=== PATIENT | female | born 1975 | race Caucasian/White ===

== ENCOUNTER 2025-02-23 14:47 | Inpatient (IN) | payer MEDICARE, MEDICAID, SELFPAY ==
[2025-02-23] VITALS (7 sets, daily range): BP systolic 116–131; BP diastolic 72–79; PULSE 64–70; RESP 16–20; TEMP 36.6; O2SAT 93–95; BMI 48.4
--- NOTE | ~2025-02-23 | CT_ITS ---
EXAMINATION: CTA brain carotid DATE: 02/23/2025 16:17 INDICATION: facial droop and aphasia, now resolved TECHNIQUE: Computed tomographic angiography (CTA) of the head and neck was performed with 100 mL Omni paque-350 intravenous contrast. Automated exposure control and iterative reconstruction technique wer e employed. The The dose-length product was 1040.78 mGy-cm. Maximum intensity projection and volume r endered 3D-reconstructions were created by the technologist on a separate workstation. COMPARISON: CT brain, same date. FINDINGS: CTA HEAD: No large vessel occlusion, aneurysm, high flow vascular malformation, nidus or extravasation. Hypopla stic right A1 segment, with reconstitution of more normal flow at the anterior communication artery, a normal variant. Persistent origin of the left CARPET LAYER HELPER, a normal variant. Patent cerebral veins. S ymmetric parenchymal enhancement. CTA NECK: Aortic arch and proximal great vessels: Bovine arch. Minimal atherosclerotic calcifications at the vi sualized aortic arch and proximal great vessels. Right common carotid, carotid bifurcation, and internal carotid artery: Minimal calcification at the bifurcation.There is 0% stenosis of the proximal right internal carotid artery relative to normal dis nazario artery lumen diameter (NASCET criteria). Left common carotid, carotid bifurcation, and internal carotid artery: No significant plaque.There is 0% stenosis of the proximal left internal carotid artery relative to normal distal artery lumen diam eter (NASCET criteria). Vertebral arteries: No significant plaque or stenosis. Vertebral arteries co-dominant. Other findings: Small volume pericardial fluid versus pericardial thickening. Prior cardiothoracic ortiz rgery. Dilated central pulmonary arteries as can be seen with pulmonary arterial hypertension. Reticu lar opacities and scattered groundglass opacities in the lungs. IMPRESSION: No large vessel intracranial occlusion, high-grade intracranial stenosis, or aneurysm. No carotid or vertebral artery occlusion, dissection, or significant stenosis. Small pericardial effusion versus pericardial thickening. Mild interstitial pulmonary edema, versus respiratory bronchiolitis or infection. Reviewed, dictated and finalized at location K. IMPRESSION: No large vessel intracranial occlusion, high-grade intracranial stenosis, or an eurysm. No carotid or vertebral artery occlusion, dissection, or significant stenosis. Small pericardial effusion versus pericardial thickening. Mild interstitial pulmonary edema, versus respiratory bronchiolitis or infectio n.
--- NOTE | ~2025-02-23 | MR_ITS ---
MRI of the brain Clinical History: CVA Technique: Axial and sagittal T1-weighted images were acquired. These were followed by axial T2-weigh pamela, diffusion weighted, gradient, and FLAIR images. Following intravenous administration of 20 cc Mu ltiHance gadolinium, T1-weighted fat-sat imaging was performed in the axial and coronal planes. Findings: No abnormal signal seen in the brain parenchyma. No acute infarct, intracranial hemorrhage or mass lesion. Ventricles and subarachnoid spaces are unremarkable. Orbits are unremarkable. Paranasal sinuses and m astoids are clear. Major intracranial flow voids appear intact. Sagittal midline structures are intact. No abnormal postcontrast enhancement identified. IMPRESSION: Normal exam. Reviewed, dictated and finalized at location M. IMPRESSION: Normal exam.
--- NOTE | ~2025-02-23 | XR_ITS ---
XR chest 1V portable 03/01/2025 08:38 Indication: Cough Procedure: AP portable chest Comparison: Comparison to multiple prior studies sequentially, with oldest reviewed study dated 10/06/2004. Findings: Cardiomegaly. Status post median sternotomy for CABG. No focal air space disease, pulmonary edema, pleural effusion or suspected pneumothorax. Impression: 1: No acute cardiopulmonary disease. Reviewed, dictated and finalized at location A. Impression: 1: No acute cardiopulmonary disease.
--- NOTE | ~2025-02-23 | CT_ITS ---
EXAMINATION: CT brain wo con DATE: 02/23/2025 15:02 INDICATION: neuro issues . TECHNIQUE: Computed tomography (CT) of the head was performed without intravenous contrast. The mA wa s adjusted according to patient size. Iterative reconstruction technique was employed. The dose-lengt h product was 605.33 mGy-cm. COMPARISON: None. FINDINGS: No acute intracranial hemorrhage or extra-axial fluid collection. No hydrocephalus, mass, or herniation. No acute ischemic infarct. Unremarkable dural venous sinus attenuation. No acute osseous abnormality. The aerated spaces are clear. Mild atrophy and chronic white matter change. Atherosclerotic intracranial calcification. Empty sella . IMPRESSION: No acute intracranial process. Results reported telephonically to Dr. Hernandez by Dr. Gregory at 3:08 PM on 02/23/2025. Reviewed, dictated and finalized at location K. IMPRESSION: No acute intracranial process. Results reported telephonically to Dr. Hernandez by Dr. Gregory at 3:08 PM on 025.
--- NOTE | ~2025-02-23 | XR_ITS ---
XR abdomen/kub 1V 03/01/2025 09:14 INDICATION: Nausea and vomiting TECHNIQUE: KUB COMPARISON: 03/08/2008 FINDINGS: Bowel gas pattern is normal. There is no evidence of free air, mass, organomegaly, ascites or obstruction. No abnormal calculi are seen. The bones appear intact. There are cholecystectomy c lips. IMPRESSION: 1: No acute abdominal abnormality identified. Reviewed, dictated and finalized at location A.
--- NOTE | ~2025-02-23 | XR_ITS ---
XR chest 1V portable 02/23/2025 15:23 Indication: Neurologic symptoms Procedure: AP portable chest Comparison: 11/10/2013 Findings: Status post median sternotomy for CABG. Cardiomegaly. Mild interstitial edema. No significa nt effusion or pneumothorax. No acute osseous abnormality. Impression: 1: Cardiomegaly with mild interstitial edema. Reviewed, dictated and finalized at location B. Impression: 1: Cardiomegaly with mild interstitial edema.
--- NOTE | 2025-02-23 14:54 | PC.NURSE ---
Pt. brought to triage by [facility]. LKW today at 1300. Pt. speech is slurred. Pt. arrival broadcasted to the stroke team and pt. immediately taken to the stroke stop.
--- OUTSIDE RECORDS SUMMARY | 2025-02-23 14:55 | XMS_ITS | Referral Summary ---
Author Organization [facility] Address [address] [place] [address] Care Team Providers Care Pedicab Driver Name Role Phone Howard Bourgeois MD Primary Care Provider Sean Olguin MD Unavailable Radha Sim MD Unavailable [phone] Rajwinder Carlos MD, Jackson Hinkle Unavailable [phone] Enrike Schrader MD Unavailable [phone] Guido Concepcion MD PhD Unavailable [phone] Encounters Date Type Department Care Team Description 02/18/2025 SHOP/CHAP Initial Eligibility Review [facility] OP CASE MANAGEMENT [address] [place] [id number] Trinity Cali, RAMONA 02/15/2025 12:14 PM CDT - 02/17/2025 6:11 PM CDT Hospital Encounter [facility] [address] [place] [id number] Dottie Triana MD Blustein, MD Stevenson Aguayo, MD Jah Rivas Timothy Robert, MD Qureshi, Adnan Mehboob, MD Chest pain, unspecified type (Primary Dx) Discharge Disposition: Discharge to home or self care 01/12/2025 Orders Only [facility] [address] [facility] [place] [address] Guido Concepcion MD PhD Malignant neoplasm of lower lobe, left bronchus or lung (HCC) (Primary Dx) 01/12/2025 Orders Only [facility] Radiation Oncology [address] [place] [address] Guido Concepcion MD PhD 12/27/2024 [facility] [address] [facility] [address] [place] [address] [facility] 12/24/2024 Completion of Therapy [facility] [address] [place] [address] Rima Rowe NP 12/24/2024 Completion of Therapy [facility] Rad[facility] Oncology [address] [place] [address] Guido Concepcion MD PhD 12/24/2024 Orders Only RAD ONC TREATMENTS Miscellaneous, Not In File 12/24/2024 12:34 PM CDT - 12/24/2024 11:59 PM CDT Hospital Encounter [facility] [address] [place] [address] Guido Concepcion MD PhD Discharge Disposition: Discharge to home or self care 12/23/2024 [facility] [address] [place] [address] Milagro Mayes MD 12/23/2024 Orders Only RAD ONC TREATMENTS Miscellaneous, Not In File 12/23/2024 12:27 PM CDT - 12/23/2024 11:59 PM CDT Hospital Encounter [facility] [address] [place] [address] Guido Concepcion MD PhD Discharge Disposition: Discharge to home or self care 12/22/2024 Orders Only RAD ONC TREATMENTS Miscellaneous, Not In File 12/22/2024 1:04 PM CDT - 12/22/2024 11:59 PM CDT Hospital Encounter [facility] [address] [facility] [place] [address] Guido Concepcion MD PhD Discharge Disposition: Discharge to home or self care 12/21/2024 Orders Only RAD ONC TREATMENTS Miscellaneous, Not In File 12/21/2024 10:52 AM CDT - 12/21/2024 11:59 PM CDT Hospital Encounter [facility] [address] [facility] [place] [address] Guido Concepcion MD PhD Discharge Disposition: Discharge to home or self care 12/20/2024 Orders Only RAD ONC TREATMENTS Miscellaneous, Not In File 12/20/2024 11:54 AM CDT - 12/20/2024 11:59 PM CDT Hospital Encounter [facility] [address] [facility] [place] [address] Guido Concepcion MD PhD Discharge Disposition: Discharge to home or self care 12/13/2024 Telephone [facility] [address] [facility] [place] [address] Katarina Buchanan RN 12/08/2024 Telephone [facility] [address] [facility] [place] [address] Katarina Buchanan RN 12/07/2024 8:00 AM CDT Ancillary Procedure [facility] IP [address] [facility] [address] [place] [address] 12/07/2024 5:25 AM CDT - 12/07/2024 4:30 PM CDT Emergency [facility] Emergency Department [address] [place] [address] Mirta Gonzalez MD Shortness of breath (Primary Dx); Chest pain on breathing; Acute on chronic congestive heart failure, unspecified heart failure type (HCC); Pericarditis Discharge Disposition: Discharge to home or self care 12/02/[address] [facility] [address] [place] [address] Katarina Buchanan RN 11/30/2024 10:20 PM CDT - 11/30/2024 11:59 PM CDT Hospital Encounter [facility] Radiation Oncology [address] [place] [address] Guido Concepcion MD PhD Discharge Disposition: Discharge to home or self care 11/30/2024 Telephone [facility] Radiation On[facility] [address] [place] [address] Katarina Buchanan RN 11/25/2024 2:10 PM CDT - 11/25/2024 11:59 PM CDT Hospital Encounter [facility] Radiation Oncology [address] [place] [address] Guido Concepcion MD PhD Discharge Disposition: Discharge to home or self care from Last 3 Months Allergies Active Allergy Reactions Criticality Noted Date Comments Penicillins Hives,Rash,Swelling, Othe r (See comments) Medium 09/18/2017 Swelling and rash; tolerates amoxicillin, Medications venlafaxine XR (EFFEXOR-XR) 75 mg 24 hr capsule Take 1 capsule (75 mg total) by mouth daily with breakfast 30 capsule Active multivit ayciibrb-nvzu-PC-c alcium (THERA-M) 9 mg iron-400 mcg tablet Take 1 tablet by mouth daily Active albuterol sulfate 90 mcg/actuation aerosol powdr breath activated Inhale 180 mcg every 4 (four) hours Active acetaminophen (TYLENOL) 500 mg tablet Take 1-2 tablets (500-1,000 mg total) by mouth every 6 (six) hours as needed for pain (1 tablet for mild to moderate pain. 2 tablets for severe pain) 30 tablet Active metFORMIN XR (GLUCOPHAGE XR) 500 mg 24 hr tablet Take 2 tablets (1,000 mg total) by mouth 2 (two) times a day Active oxybutynin (DITROPAN) 5 mg tablet Take 1 tablet (5 mg total) by mouth 2 (two) times a day Active aspirin 81 mg enteric coated tablet aspirin 81 mg tablet,delayed release Active glucagon (glucagon) 1 mg kit Glucagon Emergency Kit 1 mg solution for injection Active Accu-Chek Guide test strips strip USE TO CHECK BLOOD SUGAR TWICE DAILY Active Symbicort 80-4.5 mcg/actuation inhaler Active buPROPion SR (ZYBAN) 150 mg 12 hr tablet Take 1 tablet (150 mg total) by mouth 2 (two) times a day Active azaTHIOprine (IMURAN) 50 mg tablet Take 2 tablets by mouth once daily 60 tablet 2 Active spironolactone (ALDACTONE) 25 mg tablet Take 1 tablet (25 mg total) by mouth daily 30 tablet Active lisinopriL (PRINIVIL,ZESTRIL) 10 mg tablet Take 1 tablet (10 mg total) by mouth daily 30 tablet Active amoxicillin (AMOXIL) 500 mg tablet/capsule Take 1 tablet/capsule (500 mg total) by mouth every 8 (eight) hours 270 tablet/cap maggie 3 2024 Active nystatin (Nystop) powder Apply topically 3 (three) times a day as needed (yeast infection to groin) 60 g 11 Active naloxone (NARCAN) 4 mg/actuation spray,non-aerosol CALL 911. ADMINISTER A SINGLE SPRAY INTRANASALLY INTO ONE NOSTRIL UPON SIGNS OF OPIOID OVERDOSE. MAY REPEAT AFTER 3 MINUTES IF NO RESPONSE. Active OneTouch Delica Plus Lancet 33 gauge misc USE DIRECTED TWICE DAILY *PATIENT NEEDS APPOINTMENT* Active Ozempic 1 mg/dose (4 mg/3 mL) pen injector injection Inject 1 mg under the skin once a week Active atorvastatin (LIPITOR) 40 mg tablet Take 1 tablet (40 mg total) by mouth daily 30 tablet Active Jardiance 25 mg tablet Take 1 tablet (25 mg total) by mouth daily Active ibuprofen (ADVIL,MOTRIN) 600 mg tablet Take 1 tablet (600 mg total) by mouth 3 (three) times a day Take 1 tablet 3 times a day for 1 week, then 1 tablet 2 times a day for 1 week. 35 tablet Active belimumab (BENLYSTA) auto-injector Inject 1 mL (200 mg total) under the skin every 7 days 12 mL 1 Active traMADoL (ULTRAM) 50 mg tablet Take 1 tablet (50 mg total) by mouth every 6 (six) hours as needed for pain 120 tablet Active hydroxychloroquine (PLAQUENIL) 200 mg tablet TAKE TWO (2) TABLETS BY MOUTH ONCE DAILY 60 tablet Active warfarin (COUMADIN) 1 mg tablet Please take 7 mg daily on Friday, Friday, Friday, Friday (every other day). Please take your 6mg prescription daily every other day. 90 tablet Active warfarin (COUMADIN) 6 mg tablet Please take 7 mg daily on Friday, Friday, Friday, Friday (every other day). Please take your 6mg prescription daily every other day (Friday, , Friday). 30 tablet Active torsemide (DEMADEX) 20 mg tablet Please take 40 mg every morning. Take an additional 20 mg in the evening (max 60 mg per day) if needed. 90 tablet Active enoxaparin (LOVENOX) 120 mg/0.8 mL syringeIndications :Mechanical Valve Thromboembolism Prophylaxis Inject 0.8 mL (120 mg total) under the skin every 12 (twelve) hours 48 mL 025 2024 Active metoprolol tartrate (LOPRESSOR) 25 mg immediate release tablet Take 1 tablet (25 mg total) by mouth 2 (two) times a day 60 tablet 025 2024 Active hydroxychloroquine (PLAQUENIL) 200 mg tablet TAKE 2 TABLETS BY MOUTH ONCE DAILY 60 tablet 5 025 2024 Discontinued torsemide (DEMADEX) 20 mg tablet Take 1 tablet (20 mg total) by mouth daily 30 tablet 025 2024 Discontinued predniSONE (DELTASONE) 5 mg tablet Take 4 tabs for 5 days, 3 tabs for 5 day, 2 tabs for 5 days, 1 tab for 5 days and stop. 50 tablet 025 2024 Discontinued(S top Taking at Discharge) metoprolol tartrate (LOPRESSOR) 50 mg immediate release tablet Take 1 tablet (50 mg total) by mouth 2 (two) times a day 025 2024 Discontinued traMADoL (ULTRAM) 50 mg tablet Take 1 tablet (50 mg total) by mouth every 6 (six) hours as needed for pain 120 tablet 025 2024 Discontinued(R eorder) warfarin (COUMADIN) 6 mg tablet Take 1 tablet (6 mg total) by mouth daily 2024 Discontinued metoprolol tartrate (LOPRESSOR) 50 mg immediate release tablet Take 0.5 tablets (25 mg total) by mouth 2 (two) times a day 30 tablet 025 2024 Discontinued metoprolol tartrate (LOPRESSOR) 50 mg immediate release tablet Take 0.5 tablets (25 mg total) by mouth 2 (two) times a day 025 2024 Discontinued Active Problems Problem Noted Date Diagnosed Date COPD (chronic obstructive pulmonary disease) 03/2025 Assessment & Plan (02/17/2025 5:00 PM CDT): Resumjuan Symbicort (Breo Ellipta while in the hospital). Assessment & Plan (02/16/2025 3:52 PM CDT): Resume Symbicort(Breo Ellipta while in the hospital) Assessment & Plan (02/15/2025 5:38 PM CDT): Resume Symbicort(Breo Ellipta while in the hospital) CHF (congestive heart failure) 02/15/2025 Assessment & Plan (02/17/2025 5:00 PM CDT): Medical history of HFpEF, HTN, HLS, SLE, antiphospholipid syndrome, DM, mitral regurgitation status post valve replacement, mitral valve endocarditis on chronic antibiotic prophylaxis, IVIS on CPAP presenting to the hospital for chest pain worse with exertion, OTOOLE, SOB, 5 lb weight gain in 3 days. She thinks her symptoms are slightly similar to her previous heart failure presentations but her chest pain appears to be worse. The pain gets worse with deep breaths and with exertion. No recent stress test or left heart catheterization. Upon review of chart, she presented with similar symptoms in August and November 2024 where her symptoms improved after diuresis. Echocardiogram on 08/12/2024 showed mechanical [place] MVR, LVEF 78%, mildly dilated LV and LA, moderate TR. JAXSON score 3 with intermediate risk. Unclear if her presentation is due to heart failure exacerbation since her BNP is not elevated although obesity might interfere with interpretation, no swelling in bilateral lower extremities, no pulmonary edema on x-ray. - Troponin x2 unrevealing, pro BNP 162. Continue to trend troponin. - EKG unavailable for review. Repeat EKG non ischemic. - Resume home aspirin, statin, beta hardeep, lisinopril, torsemide, spironolactone. - Decrease metop to 25 on discharge - NM stress test negative for ischemia with normal left ventricular systolic function and no appreciable coronary calcifications. - Chest pain possibly MSK vs stable angina in setting of other chronic comorbidities. - Patient reports chest heaviness in setting of volume overload. IMPROVED with IV lasix x 2 and lidocaine patch. - INR subtherapeutic, also consideration for possible PE vs cardiac thrombus, however thrombus shouldn't produce chest pain. Assessment & Plan (02/16/2025 3:52 PM CDT): Medical history of HFpEF, HTN, HLS, SLE, antiphospholipid syndrome, DM, mitral regurgitation status post valve replacement, mitral valve endocarditis on chronic antibiotic prophylaxis, IVIS on CPAP presenting to the hospital for chest pain worse with exertion, OTOOLE, SOB, 5 lb weight gain in 3 days. She thinks her symptoms are slightly similar to her previous heart failure presentations but her chest pain appears to be worse. The pain gets worse with deep breaths and with exertion. No recent stress test or left heart catheterization. Upon review of chart, she presented with similar symptoms in August and November 2024 where her symptoms improved after diuresis. Echocardiogram on 08/12/2024 showed mechanical [place] MVR, LVEF 78%, mildly dilated LV and LA, moderate TR. JAXSON score 3 with intermediate risk. Unclear if her presentation is due to heart failure exacerbation since her BNP is not elevated although obesity might interfere with interpretation, no swelling in bilateral lower extremities, no pulmonary edema on x-ray. - troponin x2 unrevealing, pro BNP 162. Continue to trend troponin - EKG unavailable for review. Repeat EKG non ischemic - Resume home aspirin, statin, beta hardeep, lisinopril, torsemide, spironolactone - NM stress test negative for ischemia. with normal left ventricular systolic function and no appreciable coronary calcifications. - Chest pain possibly MSK vs stable angina in setting of other chronic comorbidities. - Patient reports chest heaviness in setting of volume overload. Will also trial IV lasix x 1 and lidocaine patch. - INR subtherapeutic, also consideration for possible PE vs cardiac thrombus, however thrombus shouldn't produce chest pain. - Continue to monitor and reassess if chest pain improved with diuresis, if not can consider Chest CT to r/o PE. Assessment & Plan (02/15/2025 5:38 PM CDT): Medical history of HFpEF, HTN, HLS, SLE, antiphospholipid syndrome, DM, mitral regurgitation status post valve replacement, mitral valve endocarditis on chronic antibiotic prophylaxis, IVIS on CPAP presenting to the hospital for chest pain worse with exertion, OTOOLE, SOB, 5 lb weight gain in 3 days. She thinks her symptoms are slightly similar to her previous heart failure presentations but her chest pain appears to be worse. The pain gets worse with deep breaths and with exertion. No recent stress test or left heart catheterization. Upon review of chart, she presented with similar symptoms in August and November 2024 where her symptoms improved after diuresis. Echocardiogram on 08/12/2024 showed mechanical [place] MVR, LVEF 78%, mildly dilated LV and LA, moderate TR. JAXSON score 3 with intermediate risk. Unclear if her presentation is due to heart failure exacerbation since her BNP is not elevated although obesity might interfere with interpretation, no swelling in bilateral lower extremities, no pulmonary edema on x-ray. troponin x2 unrevealing, pro BNP 162. Continue to trend troponin EKG unavailable for review. We will repeat EKG Resume home aspirin, statin, beta hardeep, lisinopril, torsemide, spironolactone Due to multiple risk factors, and no recent stress test or left heart catheterization, patient will benefit from stress test, she says that she does not think she can run on treadmill, we will order nuclear stress test Malignant neoplasm of lower lobe, left bronchus or lung 11/23/2024 Cancer Staging:Clinical stage from 11/23/2024:Stage IA2(cT1b, cN0, cM0) - Signed by Guido Concepcion MD PhD on 11/23/2024 Acute hypoxic respiratory failure 01/07/2024 Assessment & Plan (01/07/2024 11:25 AM CDT): Dyspnea Chest discomfort presumably from from costochondritis, pain is reproducible chest CT remarkable for moderate pulmonary edema, would consider TTE, proBNP normal at 140. Patient received 80 mg of IV Lasix in the ED, currently at Lasix 40 mg p.o. b.i.d. Cardiology consult based on TTE. Last TTE 08/30/19: LV size is normal. LVEF 62%. Wall motion is normal. RV size and function are normal. Mechanical MVR: mean 5mmHg. Estimated PASP 25mmHg+RAp/ Small IVC. Continue Lasix, monitor intake output, daily weights Monitor vitals Leg pain 01/07/2024 Assessment & Plan (01/07/2024 11:25 AM CDT): Ordered LE duplex for leg pain- 3 days, pt missed warfarin for the past few days ( recently and she's having difficulty coping up). Chest pain, unspecified type 01/06/2024 Ventral incisional hernia 09/01/2020 Acute cystitis without hematuria 07/16/2020 Assessment & Plan (07/17/2020 7:29 AM VIDEO ARCADE MANAGER): Pt reported suprapubic discomfort during hospital stay. UA w/ positive nitrites, neg LE, 6-10 WBCs. Plan: - Ciprofloxacin IV 07/15 x1, transition to oral therapy for total 3d course (12/5pm-12/8am) Coagulopathy 07/15/2020 Assessment & Plan (07/19/2020 6:28 AM VIDEO ARCADE MANAGER): Pt w/ h/o chronic warfarin use (goal INR 2.5-3.5, on 7mg every day x1+yr) s/p mechanical MVR. P/w INR 7s from prior INR 2s. No recent med changes. States she has been eating more green vegetables than she should. Unclear etiology of supratherapeutic INR. Plan: - INR 2.0 this am, trend qd - Warfarin 5mg restarted last night. Bridging initially w/ heparin gtt and switched to Lovenox bid yesterday. Hgb stable. Plan to increase back to warfarin 7, INR goal 2.5-3.5, INR checks and outpt f/u Assessment & Plan (07/15/2020 2:19 AM VIDEO ARCADE MANAGER): See #MVR Anxiety 07/15/2020 Assessment & Plan (02/17/2025 5:00 PM CDT): Resume home Wellbutrin and venlafaxine. Assessment & Plan (02/16/2025 3:52 PM CDT): Resume home Wellbutrin and venlafaxine Assessment & Plan (02/15/2025 5:38 PM CDT): Resume home Wellbutrin and venlafaxine Assessment & Plan (07/16/2020 11:53 AM VIDEO ARCADE MANAGER): H/o anxiety and chronic pain (reported h/o fibromyalgia per pt). On home Effexor Plan: - Continue home venlafaxine 75mg every day Assessment & Plan (07/15/2020 10:49 AM VIDEO ARCADE MANAGER): Mood stable -Cont venlafaxine Omental infarction 07/15/2020 Assessment & Plan (07/18/2020 8:27 AM VIDEO ARCADE MANAGER): Asymptomatic. CT A/P w/ ventral abdominal hernia containing omental fat w/ slight increase in stranding. [place] possibly community health program representative of omental infarct. Occurring in s/o acute blood loss anemia. Lactate 1.1, abdominal exam benign. Tolerating food/fluid well Plan: - CTM - Transfuse as above Assessment & Plan (07/16/2020 9:18 AM VIDEO ARCADE MANAGER): CT A/P: ventral abdominal hernia containing omental fat, with slight interval increase in stranding in the omental tissues likely secondary to a focus of omental infarction. -Likely occurred in the setting of dehydration and anemia -LA 1.1; Abdominal exam benign. RBCs transfused as above Melena 07/14/2020 Overview (07/16/2020): Added automatically from request for surgery [id number] Assessment & Plan (07/17/2020 7:30 AM VIDEO ARCADE MANAGER): See acute blood loss anemia Intertrigo 02/20/2020 Assessment & Plan (02/20/2020 5:45 PM CDT): - Prescription sent for nystatin powder - Educated patient to make sure she drys skin folds well after showers. Discussed risk of secondary infections, such as cellulitis. - She is also using InterDry as needed Groin swelling 10/26/2019 Assessment & Plan (02/20/2020 5:43 PM CDT): - Large, well-encapsulated mass to left groin without signs of infection. Patient instructed to contact general surgery clinic (previously seen by Dr. Jensen). Referral also placed for general surgery. Discussed red flag symptoms of infection and went to seek emergent care. Assessment & Plan (10/26/2019 4:57 PM CDT): - Low concern for infection, more likely seroma or hematoma. Would not recommend antibiotic therapy at this time. She will follow up with surgery in 4 weeks for reassessment. - Ok from ID perspective to start immunosuppression for lupus. Discussed with patient that immunosuppression medications will increase her risk for infection - Instructed to call ID with any worsening swelling, pain, erythema, wounds, etc Fluid collection at surgical site 10/19/2019 Shortness of breath 08/29/2019 Assessment & Plan (07/18/2020 8:26 AM VIDEO ARCADE MANAGER): Resolved. Pt w/ h/o COPD (on albuterol, Incruse and Breo Elipta), IVIS (on home CPAP qhs). P/w 2d SOB, PRABHAKAR, orthopnea, cough, fever (Tmax 101.2 at home), congestion, decreased smell, vomiting. CXR clear. RVP positive for Rhino-/enterovirus, negative for COVID-19 x2. Briefly on 2L O2 at admit, but weaned off. Low suspicion for COPD exacerbation, likely symptomatic anemia complicating URI. Plan: - Continue home albuterol prn, Incruse/Breo Ellipta - Continue home CPAP qhs Assessment & Plan (07/16/2020 9:15 AM VIDEO ARCADE MANAGER): P/w 2 days of SOB, malaise, fever 101.2 (reported at home, afebrile here), headache, cough, vomiting, and sore throat. Likely anemia is contributing to SOB (see above) -CXR without pneumonia; CT A/P showing sequela of infectious/inflammatory bronchiolitis. -RVP with Rhinovirus; covid negative x2. Likely has worse infection than typical in the setting of immunocompromise (SLE on hydroxychloroquine). -Strict I&Os, telemetry -Last TTE with EF 62% and normal diastolic function. ProBNP 276. Hold lasix for now Assessment & Plan (09/03/2019 12:21 PM VIDEO ARCADE MANAGER): Suspect due to deconditioning plus morbid obesity with minor contribution from ground-glass opacities. Would pursue HRCT chest to further evaluation GGO if hypoxemia worsens (though no exertional hypoxemia was noted on informal 6MW during hospital stay). Assessment & Plan (08/30/2019 3:03 PM VIDEO ARCADE MANAGER): Unclear etiology of shortness of breath with activity. Differential includes arrhythmia, viral, cardiac, progression of inflammatory/infectious/neoplastic process noted on CT --RVP- negative --Monitor on tele --trops negative x2 Assessment & Plan (08/29/2019 12:28 PM VIDEO ARCADE MANAGER): Unclear etiology of shortness of breath with activity. Differential includes arrhythmia, viral, cardiac, progression of inflammatory/infectious/neoplastic process noted on CT --Check RVP --Monitor on tele --Follow trops --Other H/O heart valve replacement with mechanical valv e 08/28/2019 Assessment & Plan (02/17/2025 5:00 PM CDT): H/o mitral regurgitation status post valve replacement, mitral valve endocarditis on chronic antibiotic prophylaxis. Echocardiogram on 08/12/2024 showed mechanical [place] MVR, LVEF 78%, mildly dilated LV and LA, moderate TR. 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 Resume home Augmentin and warfarin (goal INR 2.5-3.5) Assessment & Plan (09/03/2019 12:38 PM VIDEO ARCADE MANAGER): Will resume prior warfarin dosing at discharge. Needs bridging with enoxaparin until warfarin therapeutic (goal INR 2.5-3.5). Instructed to undergo repeat INR 5 days after warfarin resumption. Plan to provide prescription for enoxaparin for 7 days with refill in case not therapeutic by then. Assessment & Plan (08/30/2019 3:36 PM VIDEO ARCADE MANAGER): Patient with mechanical mitral valve on home anticoagulation with VKA with goal INR 2.5-3.5. Patient previously missing more frequent doses but reminds her and reports taking regularly. Does note that she was vomiting Friday and Friday and unsure if the medication stayed down (though she didn't notice any pills) INR on admit 1.2. Reports INR was low last month. She has difficulty obtaining INR checks outpatient 2/2 transportation issues (goes to Dr. Leo, cardiology, [place], [place]). Patient here with pleuritic chest pain and dyspnea with exertion. Heparin drip supratherapeutic. Considering intervention--bronch vs lymph node biopsy given CT findings --TTE- no evidence of valve thrombosis or other complication - Change Heparin to Lovenox (0.75mg q12, dosing discussed with pharmacy, dosed for weight). Need a Factor Xa level 4 hours after 4th dose (tomorrow morning dose) --Holding Warfarin (Received 6mg the rest of the week, 11mg 08/28). She reports Coumadin dose was increased last month from 5mg. --Follow INR, Repeat PTT in AM Assessment & Plan (08/29/2019 12:43 PM VIDEO ARCADE MANAGER): Patient with mechanical mitral valve on home anticoagulation with VKA with goal INR 2.5-3.5. Patient previously missing more frequent doses but reminds her and reports taking regularly. Does note that she was vomiting Friday and Friday and unsure if the medication stayed down (though she didn't notice any pills) INR on admit 1.2. Reports INR was low last month. She has difficulty obtaining INR checks outpatient 2/2 transportation issues (goes to Dr. Leo, cardiology, [place], [place]). Patient here with pleuritic chest pain and dyspnea with exertion. Heparin drip supratherapeutic. Considering intervention--bronch vs lymph node biopsy given CT findings --TTE to rule out valve thrombosis or other complication in setting of subtherapeutic INR. - Change Heparin to Lovenox (0.75mg q12, dosing discussed with pharmacy, dosed for weight). Need a Factor Xa level 4 hours after 4th dose. --Holding Warfarin (Received 6mg the rest of the week, 11mg yesterday). She reports Coumadin dose was increased last month from 5mg. --Follow INR, Repeat PTT in AM Assessment & Plan (08/28/2019 7:43 PM VIDEO ARCADE MANAGER): - Patient with mechanical mitral valve on home anticoagulation with VKA with goal INR 2.5-3.5 - Patient noncompliant with home warfarin and misses 1-2 doses weekly; INR on admit 1.2 - Patient here with pleuritic chest pain and dyspnea with exertion. Will need to obtain TTE to rule out valve thrombosis or other complication in setting of subtherapeutic INR. - Continue heparin drip as bridge to warfarin. - Patient reports having taken 5 mg warfarin for the past several days, though unreliable historian. Warfarin dosing obtained through [email or web address] and will administer 11 mg tonight followed by 7 mg daily. Chest pain 08/28/2019 Assessment & Plan (02/17/2025 5:00 PM CDT): Medical history of HFpEF, HTN, HLS, SLE, antiphospholipid syndrome, DM, mitral regurgitation status post valve replacement, mitral valve endocarditis on chronic antibiotic prophylaxis, IVIS on CPAP presenting to the hospital for chest pain worse with exertion, OTOOLE, SOB, 5 lb weight gain in 3 days. She thinks her symptoms are slightly similar to her previous heart failure presentations but her chest pain appears to be worse. The pain gets worse with deep breaths and with exertion. No recent stress test or left heart catheterization. Upon review of chart, she presented with similar symptoms in August and November 2024 where her symptoms improved after diuresis. Echocardiogram on 08/12/2024 showed mechanical [place] MVR, LVEF 78%, mildly dilated LV and LA, moderate TR. JAXSON score 3 with intermediate risk. Unclear if her presentation is due to heart failure exacerbation since her BNP is not elevated although obesity might interfere with interpretation, no swelling in bilateral lower extremities, no pulmonary edema on x-ray. - Troponin x2 unrevealing, pro BNP 162. Continue to trend troponin. - EKG unavailable for review. Repeat EKG non ischemic. - Resume home aspirin, statin, beta hardeep, lisinopril, torsemide, spironolactone. - Decrease metop to 25 on discharge - NM stress test negative for ischemia with normal left ventricular systolic function and no appreciable coronary calcifications. - Chest pain possibly MSK vs stable angina in setting of other chronic comorbidities. - Patient reports chest heaviness in setting of volume overload. IMPROVED with IV lasix x 2 and lidocaine patch. - INR subtherapeutic, also consideration for possible PE vs cardiac thrombus, however thrombus shouldn't produce chest pain. Assessment & Plan (02/16/2025 3:52 PM CDT): Medical history of HFpEF, HTN, HLS, SLE, antiphospholipid syndrome, DM, mitral regurgitation status post valve replacement, mitral valve endocarditis on chronic antibiotic prophylaxis, IVIS on CPAP presenting to the hospital for chest pain worse with exertion, OTOOLE, SOB, 5 lb weight gain in 3 days. She thinks her symptoms are slightly similar to her previous heart failure presentations but her chest pain appears to be worse. The pain gets worse with deep breaths and with exertion. No recent stress test or left heart catheterization. Upon review of chart, she presented with similar symptoms in August and November 2024 where her symptoms improved after diuresis. Echocardiogram on 08/12/2024 showed mechanical [place] MVR, LVEF 78%, mildly dilated LV and LA, moderate TR. JAXSON score 3 with intermediate risk. Unclear if her presentation is due to heart failure exacerbation since her BNP is not elevated although obesity might interfere with interpretation, no swelling in bilateral lower extremities, no pulmonary edema on x-ray. - troponin x2 unrevealing, pro BNP 162. Continue to trend troponin - EKG unavailable for review. Repeat EKG non ischemic - Resume home aspirin, statin, beta hardeep, lisinopril, torsemide, spironolactone - NM stress test negative for ischemia. with normal left ventricular systolic function and no appreciable coronary calcifications. - Chest pain possibly MSK vs stable angina in setting of other chronic comorbidities. - Patient reports chest heaviness in setting of volume overload. Will also trial IV lasix x 1 and lidocaine patch. - INR subtherapeutic, also consideration for possible PE vs cardiac thrombus, however thrombus shouldn't produce chest pain. - Continue to monitor and reassess if chest pain improved with diuresis, if not can consider Chest CT to r/o PE. Assessment & Plan (02/15/2025 5:38 PM CDT): Medical history of HFpEF, HTN, HLS, SLE, antiphospholipid syndrome, DM, mitral regurgitation status post valve replacement, mitral valve endocarditis on chronic antibiotic prophylaxis, IVIS on CPAP presenting to the hospital for chest pain worse with exertion, OTOOLE, SOB, 5 lb weight gain in 3 days. She thinks her symptoms are slightly similar to her previous heart failure presentations but her chest pain appears to be worse. The pain gets worse with deep breaths and with exertion. No recent stress test or left heart catheterization. Upon review of chart, she presented with similar symptoms in August and November 2024 where her symptoms improved after diuresis. Echocardiogram on 08/12/2024 showed mechanical [place] MVR, LVEF 78%, mildly dilated LV and LA, moderate TR. JAXSON score 3 with intermediate risk. Unclear if her presentation is due to heart failure exacerbation since her BNP is not elevated although obesity might interfere with interpretation, no swelling in bilateral lower extremities, no pulmonary edema on x-ray. troponin x2 unrevealing, pro BNP 162. Continue to trend troponin EKG unavailable for review. We will repeat EKG Resume home aspirin, statin, beta hardeep, lisinopril, torsemide, spironolactone Due to multiple risk factors, and no recent stress test or left heart catheterization, patient will benefit from stress test, she says that she does not think she can run on treadmill, we will order nuclear stress test Assessment & Plan (09/03/2019 12:39 PM VIDEO ARCADE MANAGER): Atypical; reproducible on palpation. Reassured likely musculoskeletal. Analgesics. Assessment & Plan (08/30/2019 2:56 PM VIDEO ARCADE MANAGER): Patient with complaint of atypical chest pain, less likely ACS. EKG without new ischemic changes. Troponin negative x1. No events on tele. Patient denies pain this morning - trop negative x2 - continue to on tele --Topical lidocaine, scheduled tylenol Assessment & Plan (08/29/2019 12:38 PM VIDEO ARCADE MANAGER): Patient with complaint of atypical chest pain, less likely ACS. EKG without new ischemic changes. Troponin negative x1. No events on tele - Repeat troponin - Monitor on tele --Topical lidocaine, scheduled tylenol Assessment & Plan (08/28/2019 7:47 PM VIDEO ARCADE MANAGER): - Patient with complaint of atypical chest pain, less likely ACS - Troponin negative x 1 - EKG without new ischemic changes - Trend troponins and monitor on telemetry IVIS (obstructive sleep apnea) 08/28/2019 Assessment & Plan (02/17/2025 5:00 PM CDT): CPAP per protocol. Assessment & Plan (02/16/2025 3:52 PM CDT): CPAP per protocol Assessment & Plan (02/15/2025 5:38 PM CDT): CPAP per protocol Assessment & Plan (07/16/2020 11:51 AM VIDEO ARCADE MANAGER): H/o IVIS and obesity (BMI 56.64). On home CPAP. Plan: - Continue home CPAP Assessment & Plan (07/15/2020 10:49 AM VIDEO ARCADE MANAGER): Cont CPAP Assessment & Plan (09/03/2019 12:21 PM VIDEO ARCADE MANAGER): Continue home nocturnal NPPV. Assessment & Plan (08/30/2019 3:03 PM VIDEO ARCADE MANAGER): Continue home nocturnal NPPV Assessment & Plan (08/29/2019 12:20 PM VIDEO ARCADE MANAGER): Continue home nocturnal NPPV Assessment & Plan (08/28/2019 7:45 PM VIDEO ARCADE MANAGER): - Continue home nocturnal NPPV Abnormal CT scan 08/28/2019 Assessment & Plan (08/28/2020 5:38 PM VIDEO ARCADE MANAGER): - Will refer to general surgery due to intermittent abdominal pain in the setting of ventral hernia and findings of omental infarction on recent imaging. - Discussed warning signs with patient (severe abdominal pain, fevers, changes in bowel habits, blood in stool, etc) and when to seek care Assessment & Plan (09/01/2019 2:25 PM VIDEO ARCADE MANAGER): Patient with abnormal CT scan with findings of bilateral upper lobe predominant groundglass opacities unchanged since 2013 read as consistent with sequela of prior chronic inflammatory or infectious process or indolent low-grade pulmonary adenocarcinoma. Patient also with mild bilateral axillary and subpectoral lymphadenopathy increased in size from 2016. Concerning for new neoplastic process vs infectious --Plan for excisional lymph node biopsy on Friday with ACCS -Pt can go home after LN biopsy on Friday provided no complications and provided her outpatient golf cart assembler can follow up biopsy results with her Assessment & Plan (08/30/2019 3:13 PM VIDEO ARCADE MANAGER): Patient with abnormal CT scan with findings of bilateral upper lobe predominant groundglass opacities unchanged since 2013 read as consistent with sequela of prior chronic inflammatory or infectious process or indolent low-grade pulmonary adenocarcinoma. Patient also with mild bilateral axillary and subpectoral lymphadenopathy increased in size from 2016. Concerning for new neoplastic process vs infectious --Spoke with interventional pulmonary- recommended to start with US guided lymph node biopsy, if unable to preform or results are negative then contact general pulm for trans bronchial biopsy Assessment & Plan (08/29/2019 11:29 AM VIDEO ARCADE MANAGER): Patient with abnormal CT scan with findings of bilateral upper lobe predominant groundglass opacities unchanged since 2013 read as consistent with sequela of prior chronic inflammatory or infectious process or indolent low-grade pulmonary adenocarcinoma. Patient also with mild bilateral axillary and subpectoral lymphadenopathy increased in size from 2016. Concerning for new neoplastic process vs infectious --Consider pulmonary consult vs outpatient follow up (bronch vs lymph node biopsy) Assessment & Plan (08/28/2019 8:02 PM VIDEO ARCADE MANAGER): - Patient with abnormal CT scan with findings of bilateral upper lobe predominant groundglass opacities unchanged since 2013 read as consistent with sequela of prior chronic inflammatory or infectious process or indolent low-grade pulmonary adenocarcinoma. Patient also with mild bilateral axillary and subpectoral lymphadenopathy increased in size from 2016. Concerning for new neoplastic process. - US guided axillary LN biopsy on Friday. If negative will need IP vs thoracic for outpatient lung nodule follow up. Enlarged lymph node 08/28/2019 Overview (09/01/2019): Added automatically from request for surgery [id number] Assessment & Plan (09/03/2019 12:40 PM VIDEO ARCADE MANAGER): Given possibility of indolent lymphoma in context of presumed Sjogren syndrome, have obtained biopsy. Results pending. May be discharged home following. 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 Echocardiogram on 08/12/2024 showed mechanical [place] MVR, LVEF 78%, mildly dilated LV and LA, moderate TR. 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 Resume home Augmentin and warfarin (goal INR 2.5-3.5) Assessment & Plan (10/21/2023 2:39 PM CDT): - Doing well on amoxicillin suppression with no concern for recurrent infection. Rx resent to [facility] today to get restarted on medication. She has some fatigue and joint pains likely due to lupus as she is off these medications. Saw rheumatology yesterday, plans to restart meds this week. - Continue amoxicillin 500 mg PO Q8H for chronic suppression due to retained prosthetic heart valve in the setting of infection. Plan to continue for the foreseeable future due to risk of recurrent infection. - Labs from yesterday reviewed - Discussed with patient the rational for treatment, culture results, risk of recurrent infection, signs/symptoms of recurrent infection, and to contact ID clinic with any questions or concerns Assessment & Plan (09/14/2021 1:07 PM VIDEO ARCADE MANAGER): - Doing well on amoxicillin suppression with no concern for recurrent infection. She has some arthralgias and fatigue that she attributes to a lupus flare after Covid infection but no complaints of systemic infection - Continue amoxicillin 500 mg PO Q8H for chronic suppression due to retained prosthetic heart valve in the setting of infection. Plan to continue for the foreseeable future due to risk of recurrent infection. - Labs from 06/2021 reviewed - Discussed with patient the rational for treatment, culture results, risk of recurrent infection, signs/symptoms of recurrent infection, and to contact ID clinic with any questions or concerns Assessment & Plan (03/13/2021 2:37 PM CDT): - Doing well on PO amoxicillin suppression with no concern for recurrent infection. - Continue amoxicillin 500 mg PO TID for chronic suppression due to Strep pneumoniae bacteremia in the setting of recent mechanical valve replacement with concern for mitral and atrial valve endocarditis. Valve remains in place after infection. Chronic antibiotic suppression typically not indicated for prosthetic valve endocarditis but given concern for vegetation on mechanical valve that was not replaced along with her being immunocompromised due to lupus medications and a high risk surgical candidate it was decided to continue termite exterminator suppression to decrease her risk of recurrent infection. - Recent labs reviewed - Discussed with patient the rational for treatment, culture results, risk of recurrent infection, signs/symptoms of recurrent infection, and to contact ID clinic with any questions or concerns Assessment & Plan (08/28/2020 5:37 PM VIDEO ARCADE MANAGER): - No concern for recurrent endocarditis. Tolerating amoxicillin suppression well - Continue amoxicillin 500 mg PO Q8H for suppression due to previous Strep pneumo bacteremia in the setting of recent mechanical valve replacement, valve not replaced at time of infection. - Discussed with patient the rational for treatment, culture results, risk of recurrent infection, signs/symptoms of recurrent infection, and to contact ID clinic with any questions or concerns Assessment & Plan (02/20/2020 5:41 PM CDT): - No signs or symptoms of recurrent infection. Tolerating amoxicillin well without adverse effects. - Continue amoxicillin 500 mg PO TID for the foreseeable future given prosthetic valve endocarditis. - Discussed with patient the rational for treatment, culture results, risk of recurrent infection, signs/symptoms of recurrent infection, and to contact ID clinic with any questions or concerns Assessment & Plan (10/26/2019 4:58 PM CDT): - No concern for recurrent infection. Tolerating amoxicillin well - Continue amoxicillin 500 mg PO TID for the foreseeable future given prosthetic valve endocarditis. - Discussed with patient the rational for suppressive antibiotic therapy, risk of recurrent infection, signs/symptoms of recurrent infection, and to contact ID clinic with any questions or concerns prior to next visit Assessment & Plan (05/28/2019 9:07 AM CDT): - No signs or symptoms of recurrent infection on exam today. She has complaints of fatigue, myalgias, and arthralgias which are likely related to lupus flare given she has been off medications for lupus for several months. She will follow with rheumatology later today. She has no active infection at this time so she would be ok to restart on immunosuppressive medications but this will increase her chance for recurrent infection. If she is started on any immunosuppression she will need to monitor closely for any signs or symptoms of recurrent infection. - Continue amoxicillin 500 mg PO Q8H for chronic suppression due to endocarditis in the setting of mechanical valve. Will plan for at least 1 year of suppression but could be much longer, especially if she is restarted on immunosuppressive medications - Discussed with patient the rational for treatment, culture results, risk of recurrent infection, signs/symptoms of recurrent infection, and to contact ID clinic with any questions or concerns Assessment & Plan (04/02/2019 8:49 AM CDT): - No concerns for active infection on exam today. Patient has completed 7 weeks IV antibiotics - Stop IV ceftriaxone. PICC line pulled today and ID clinic without complication. - Start amoxicillin 500 mg PO TID for chronic suppression given likely prosthetic valve endocarditis given recent mechanical mitral valve replacements and possible mitral an atrial valve vegetations in the setting of strep pneumoniae bacteremia. - Discussed with patient the rationale for treatment, culture results, risk of recurrent infection, signs/symptoms of recurrent infection, and to contact ID clinic with any questions or concerns prior to next appointment - She should up with CT surgery as scheduled detention current use of antibiotics 03/11/2019 Assessment & Plan (02/17/2025 5:00 PM CDT): H/o mitral regurgitation status post valve replacement, mitral valve endocarditis on chronic antibiotic prophylaxis. Echocardiogram on 08/12/2024 showed mechanical [place] MVR, LVEF 78%, mildly dilated LV and LA, moderate TR. 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 Resume home Augmentin and warfarin (goal INR 2.5-3.5) Assessment & Plan (07/15/2020 4:35 AM VIDEO ARCADE MANAGER): Chronically on suppressive amoxicillin. Endocarditis in 2019, has mechanical MV Assessment & Plan (10/26/2019 4:59 PM CDT): - Recent CBC and CMP reviewed with no change to current antibiotic dose - Continue to monitor for adverse effects of antibiotics Assessment & Plan (09/03/2019 12:22 PM VIDEO ARCADE MANAGER): Patient on long-term antibiotics for the purpose of chronic suppression due to endocarditis in the setting of mechanical valve. Followed as outpatient by ID. Continue home amoxicillin regimen. Assessment & Plan (08/30/2019 3:02 PM VIDEO ARCADE MANAGER): Patient on termite exterminator antibiotics for the purpose of chronic suppression due to endocarditis in the setting of mechanical valve. Followed as outpatient by ID. --Continue home amoxicillin regimen. Assessment & Plan (08/29/2019 11:18 AM VIDEO ARCADE MANAGER): Patient on fdc antibiotics for the purpose of chronic suppression due to endocarditis in the setting of mechanical valve. Followed as outpatient by ID. --Continue home amoxicillin regimen. Assessment & Plan (08/28/2019 7:51 PM VIDEO ARCADE MANAGER): - Patient on termite exterminator amoxicillin for the purpose of chronic suppression due to endocarditis in the setting of mechanical valve. Followed as outpatient by ID. No current inpatient issues. Assessment & Plan (05/28/2019 9:08 AM CDT): - CBC and CMP ordered today for routine monitoring - Continue to monitor for adverse effects of antibiotics Assessment & Plan (04/02/2019 8:51 AM CDT): - Labs reviewed during patient appointment today with slight increase in liver enzymes. Patient is asymptomatic. - Will plan on CBC and CMP at next ID visit to continue to monitor lab work while on chronic amoxicillin - Epic message sent to patient's CT surgeon who she will soon follow-up with regarding starting her on chronic amoxicillin and that can cause slight increase in INR requiring more frequent monitoring during initiation of amoxicillin therapy Assessment & Plan (03/11/2019 3:33 PM CDT): - CBC and CMP weekly while on IV antibiotics - PICC line care continued until end of IV antibiotic therapy - Continue to monitor for adverse effects of antibiotics Bacteremia due to Streptococcus pneumoniae 02/14 Assessment & Plan (03/11/2019 3:32 PM CDT): - No signs or symptoms of recurrent infection today. No new murmurs. - Continue IV ceftriaxone for treatment of Strep bacteremia and presumed endocarditis. Do not stop prior to next ID appointment. Will plan to suppress patient with oral antibiotics due to retained mechanical valve in the setting of Strep bacteremia and concern for infective endocarditis. Can use amoxicillin (allergy to PCN but has tolerated amoxicillin previously) or keflex. - Discussed with patient the rational for treatment, rational for suppressive antibiotics, risk of recurrent infection, signs/symptoms of recurrent infection, and to contact ID clinic with any questions or concerns - Order placed for TTE to be obtained prior to next ID appointment Assessment & Plan (02/22/2019 7:51 PM CDT): Fransisca Etienne Case is a 44yo F with history of SLE on plaquenil, DM type 2, morbid obesity and recent mechanical MV 11/2018 c/b infected hematoma with chronic R groin wound who presents with increased pain, swelling, and redness at R groin consistent with cellulitis at R inguinal wound site. Infectious work up found positive blood culture for S.pneumoniae on 02/13/19. Streptococcus pneumoniae BSI - likely source from R groin wound. - Unclear evidence of IE from NICKI, Plan follow up NICKI with no surgical intervention at this time. - Given high concern for IE in the setting of recent mechanical MV replacement, would prolong antibiotic to 6 weeks. - continue meropenem 1 g iv q 8 h for 14 days (until 02/27) for infected wound R groin. Than switch to ceftriaxone 2 g iv q 24 h for another 4 weeks - please check CBC and CMP once weekly. - ID will sign off with schedule for clinic appointment. Infected R groin wound - CT scan without fluid collection that would require drainage, per ACCS, no need for debridement now. - No tissue obtained at this time. - Continue meropenem at the current dose for 14 days. Then switch to ceftriaxone 2 g iv q 24 h for treatment of BSI Patients was seen and discussed with the ID attending - . Please see above attestation for additional recommendation. Miracle Gee MD Infectious Disease Fellow Please call Infectious Diseases Fellow Team 2 for questions or change in clinical situations at [phone]. After hours, the ID fellow on-call can be reached at [phone]. Assessment & Plan (02/23/2019 6:35 AM CDT): Blood cultures (02/13/19) grew strep pneumoniae. NICKI with vegetations on mitral and aortic valves could not be excluded, and were concerning for infective endocarditis. - Consulted cardiothoracic surgery: findings were possibly due to coreknot as part of MV surgery. Surgery not indicated at this time. Continue antibiotics. Consider repeat NICKI in 2-3 weeks, if continued concern for endocarditis. - CT Head normal, CT C/A/P with likely septic emboli to spleen - BCx (02/15) NGTD - BCx (02/16) NGTD - ID recommendations: meropenem 1 g IV Q8h 02/13/19 - 02/27/19 then ceftriaxone 2 g IV Q24h 02/28/19 - 03/28/19 Right groin wound 12/18/2018 Assessment & Plan (04/02/2019 8:48 AM CDT): - Wound healing well with no concerns on exam today - Continue current wound care Assessment & Plan (03/11/2019 3:32 PM CDT): - Healing well with no signs of infection on exam today - IV meropenem completed for treatment of infected groin wound - Continue current wound care and monitor for signs/symptoms of recurrent infection Assessment & Plan (02/22/2019 3:11 PM CDT): Patient developed the right inguinal wound as a complication of a mitral valve replacement on 11/11/18. On discharge from the hospital on 11/24/18, she was started on cefepime and vancomycin. She had necrotic tissue debrided on 12/19/18, and the wound culture was positive for ESBL Klebsiella pneumonia. Vancomycin was discontinued and she was started on Meropenem until 01/02/19. She has since been followed by wound care. Over the 3 days prior to admission, the wound started hurting, and 1 day prior to admission, the skin surrounding her wound became erythematous and indurated, spreading toward her buttock. She was started on meropenem and vancomycin in the ED - consulted ID, appreciate recs: continue meropenem 1g q8h (02/13- ). - consulted wound care, appreciate recs. - consulted ACCS, no role for debridement at this time Assessment & Plan (12/18/2018 3:00 PM CDT): S/p MVR with hematoma evacuation 11/19/18. General surgery and wound RN has been consulted for which we appreciate their evaluation and recommendations. NPO at midnight for I&D in am. S/P MVR (mitral valve repair) 12/18/2018 Assessment & Plan (01/07/2024 11:26 AM CDT): On Lovenox therapeutic dose Would need to bridge with warfarin as patient has mechanical valve, started on Warfarin 01/06 INR daily Assessment & Plan (07/16/2020 11:42 AM VIDEO ARCADE MANAGER): H/o severe MR s/p mechanical MVR 11/2018. C/b endocarditis in e/o perioperative infection 2/2 central line site complication. Goal INR 2.5-3.5. On warfarin 7mg prior to admit. Plan: - See coagulopathy - Continue amoxicillin ppx w/ 500mg q8 as per ID (followed outpatient) Assessment & Plan (07/16/2020 9:15 AM VIDEO ARCADE MANAGER): Mechanical MV in 2019 on warfarin. INR goal 2.5-3.5 - s/p 2U FFP in ED for INR 7. INR now 3.2 -Holding warfarin -GI agrees that if INR drops <2.5, start heparin drip Assessment & Plan (02/22/2019 3:12 PM CDT): Patient had mechanical mitral valve repair on 11/11/18. Anticoagulated on warfarin 3 mg daily at home. - goal INR 2.5-3.5 - restart warfarin 3 mg daily; bridging with lovenox Assessment & Plan (12/18/2018 3:01 PM CDT): 11/11/18. Cardiology has been consulted for which we appreciate their evaluation and recommendations. Holding coumadin tonight. SCD stockings ordered. Obesity 12/18/2018 Assessment & Plan (07/15/2020 10:49 AM VIDEO ARCADE MANAGER): BMI 56.6, risk factor for respiratory decompensation -Cont statin Assessment & Plan (12/18/2018 3:17 PM CDT): Would greatly benefit from weight loss. Lower extremity edema 12/18/2018 Assessment & Plan (12/18/2018 3:20 PM CDT): On Lasix. Echo from 11/24/18 reported: Technically difficult study with limited views. Normal left ventricular systolic function with no focal wall motion abnormalities. Normal left ventricular wall thickness. Paradoxical septal motion consistent with post pericardectomy status. Normal left ventricular diastolic function. Ejection fraction is visually estimated at 60-70 %. Valve area of 2 cm2. Normal appearing mitral valve prosthesis for valve type and size. Normal gradients for valve type and size. Normal pericardium with no significant pericardial effusion. Antiphospholipid syndrome 11/16/2018 Assessment & Plan (02/17/2025 5:00 PM CDT): Resume home Plaquenil, azathioprine. Also uses Benlysta at home weekly. Assessment & Plan (02/16/2025 3:52 PM CDT): Resume home Plaquenil, azathioprine. Also uses Benlysta at home weekly Assessment & Plan (02/15/2025 5:38 PM CDT): Resume home Plaquenil, azathioprine Also uses Benlysta at home weekly Assessment & Plan (01/07/2024 11:25 AM CDT): Continue on home hydroxychloroquine and azathioprine On Lovenox 120 mg b.i.d. Monitor CBC At high risk for peripheral neurovascular dysfun ction 11/16/2018 Acute pulmonary edema 11/16/2018 Acute blood loss anemia 11/13/2018 Assessment & Plan (07/19/2020 6:26 AM VIDEO ARCADE MANAGER): Pt w/ baseline Hgb 12s. P/w Hgb 5 w/ several days melenotic stool prior to admission. Reported few episodes of nausea, one time w/ black material however immediately after drinking soda. CT A/P w/o e/o active bleeding, did demonstrate diverticulosis (no divterticulitis), small omental infarct. s/p EGD 07/18 w/ single non-bleeding gastric angioectasia s/p APC ablation Plan: - IV PPI bid, maintain 2 PIVs - s/p 5u pRBC, 4u FFP while inpatient - Avoid NSAIDs - Coagulopathy management as below - Transfuse if Hgb <7. Hgb stable 7.7-> 7.4 Assessment & Plan (07/16/2020 9:14 AM VIDEO ARCADE MANAGER): Dark tarry stools x2 days prior to admit. Hgb 5.2 (baseline 12s). LDH/hapto wnl, INR 7, PT 79. Rectal guiac+. CT a/p without extravasation. S/p 2U FFP, 4U RBCs this admit - Transfuse Hgb>7, plt>10 in absence of bleeding, plt>50 if bleeding - PPI IV bid - CBC q12 - GI consulted: NPO after MN for EGD on 07/17 Assessment & Plan (12/18/2018 3:16 PM CDT): Hgb baseline has been between 7.5-8. Cbc now and in am. If becomes <7 will need to transfuse. Thrombocytopenia 11/13/2018 Hematoma 11/13/2018 Hypotension 11/13/2018 Acute on chronic respiratory failure with hypoxi a 10/19/2018 Essential hypertension 10/19/2018 Assessment & Plan (02/17/2025 5:00 PM CDT): Resume home metoprolol, lisinopril, spironolactone, torsemide - Held BB with stress test, resume metop as 25 mg (decreased dose) - Held other antihypertensives with soft pressures, resume on discharge - Increased torsemide to 40 mg in AM, PRN 20 in PM Assessment & Plan (02/16/2025 3:52 PM CDT): Resume home metoprolol, lisinopril, spironolactone, torsemide - held BB with stress test - held other antihypertensives with soft pressures today, can reassess tomorrow Assessment & Plan (02/15/2025 5:38 PM CDT): Resume home metoprolol, lisinopril, spironolactone, torsemide Assessment & Plan (01/07/2024 11:26 AM CDT): Continue with lisinopril Assessment & Plan (07/16/2020 11:57 AM VIDEO ARCADE MANAGER): H/o HTN. On home losartan 25 Plan: - Continue losartan 25mg every day Assessment & Plan (02/16/2019 3:30 PM CDT): home meds: furosemide 80 mg daily and losartan 25 mg daily - pt has not been hypertensive - hold home meds Assessment & Plan (12/18/2018 3:15 PM CDT): Controlled. On cozaar. 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 Echocardiogram on 08/12/2024 showed mechanical [place] MVR, LVEF 78%, mildly dilated LV and LA, moderate TR. 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 Resume home Augmentin and warfarin (goal INR 2.5-3.5) Assessment & Plan (09/03/2019 12:21 PM VIDEO ARCADE MANAGER): Patient with history of MR s/p bileaflet mechanical MVR. Management as above with regard to anticoagulation. Appears euvolemic; continue home furosemide. Assessment & Plan (08/30/2019 3:03 PM VIDEO ARCADE MANAGER): Patient with history of MR s/p bileaflet mechanical MVR. Management as above with regard to anticoagulation - Appears euvolemic; continue home lasix Assessment & Plan (08/29/2019 11:17 AM VIDEO ARCADE MANAGER): Patient with history of MR s/p bileaflet mechanical MVR; last TTE 03/2019 and physiologic at that time. Management as above with regard to anticoagulation - Appears euvolemic; continue home lasix Assessment & Plan (08/28/2019 7:48 PM VIDEO ARCADE MANAGER): - Patient with history of MR s/p bileaflet mechanical MVR; last TTE 03/2019 and physiologic at that time - Management as above with regard to anticoagulation - Appears euvolemic; continue home lasix Non-rheumatic mitral regurgitation 09/29/2018 Overview (11/14/2018): Added automatically from request for surgery [id number] Peripheral vascular disease 09/29/2018 Overview (11/19/2018): Added automatically from request for surgery [id number] Assessment & Plan (02/17/2025 5:00 PM CDT): Resume home aspirin, statin. Assessment & Plan (02/16/2025 3:52 PM CDT): Resume home aspirin, statin Assessment & Plan (02/15/2025 5:38 PM CDT): Resume home aspirin, statin Diabetes 05/29/2018 Assessment & Plan (02/17/2025 5:00 PM CDT): A1c 6.4 recently. Home regimen includes Jardiance 25, metformin 1000 BID, Ozempic. - Hold metformin and Ozempic - Continue home Jardiance for diabetes and heart failure - Sliding scale insulin while inpatient Assessment & Plan (02/16/2025 3:52 PM CDT): A1c 6.4 recently. Home regimen includes Jardiance 25, metformin 1000 b.i.d., Ozempic - Hold metformin and Ozempic - Continue home Jardiance for diabetes and heart failure - Sliding scale insulin while inpatient Assessment & Plan (02/15/2025 5:38 PM CDT): A1c 6.4 recently Home regimen includes Jardiance 25, metformin 1000 b.i.d., Ozempic Hold metformin and Ozempic Continue home Jardiance for diabetes and heart failure Sliding scale insulin Assessment & Plan (07/16/2020 11:56 AM VIDEO ARCADE MANAGER): Home diet controlled. A1c 6.6. Total cholesterol 121, HDL 23, LDL 63 Plan: - LDSSI while inpatient - Consistent carb diet - Atorva 10 for ppx Assessment & Plan (07/16/2020 9:19 AM VIDEO ARCADE MANAGER): A1C 6.6%; diet controlled at home -Start LDSSI given glucose 210 Assessment & Plan (09/03/2019 12:17 PM VIDEO ARCADE MANAGER): Diet controlled. Remains normoglycemic. Assessment & Plan (08/29/2019 12:19 PM VIDEO ARCADE MANAGER): Diet controlled. BS normoglycemic. Assessment & Plan (08/28/2019 7:52 PM VIDEO ARCADE MANAGER): - Diet controlled. BS normoglycemic. Assessment & Plan (2019 3:24 PM CDT): Home med: linagliptin 5 mg daily A1c 5.9% (02/13/19) -continue holding linagliptin Assessment & Plan (12/18/2018 3:09 PM CDT): Holding Metformin. Provide SSI. A1c was 8.6 on 10/2018. Dyslipidemia 05/29/2018 Assessment & Plan (02/17/2025 5:00 PM CDT): Resume home Lipitor. Assessment & Plan (02/16/2025 3:52 PM CDT): Resume home Lipitor Assessment & Plan (02/15/2025 5:38 PM CDT): Resume home Lipitor Assessment & Plan (12/18/2018 3:14 PM CDT): Lipid panel reviewed. On statin. Asymptomatic postsurgical menopause 05/29/2018 SLE (systemic lupus erythematosus) 01/27/2018 Assessment & Plan (02/17/2025 5:00 PM CDT): Resume home Plaquenil, azathioprine. Also uses Benlysta at home weekly. Assessment & Plan (02/16/2025 3:52 PM CDT): Resume home Plaquenil, azathioprine. Also uses Benlysta at home weekly Assessment & Plan (02/15/2025 5:38 PM CDT): Resume home Plaquenil, azathioprine Also uses Benlysta at home weekly Assessment & Plan (07/16/2020 11:49 AM VIDEO ARCADE MANAGER): H/o SLE, diagnosed as teenager reportedly. W/ prior h/o alopecia at time, dry eyes/mouth (reports diagnosed w/ Sjogren's). Followed by [facility] (last seen 10/2019). H/o arthralgias, rash, pleurocarditis, splenic infarct, class II nephritis. Serologies w/ SHELLY+, SSA+, dsDNA+ (75, 10/2019), complement wnl, elevated ESR. 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 Plan: - Continue Plaquenil 400 every day for now. - See coagulopathy re: a/c Assessment & Plan (07/16/2020 9:17 AM VIDEO ARCADE MANAGER): No evidence of flare -Cont plaquenil -Plan to start heparin drip when INR <2.5 given hx of mechanical MV and APLS Assessment & Plan (09/03/2019 12:18 PM VIDEO ARCADE MANAGER): No evidence of flare. Continue HCQ as before. Followed by Rheumatology here as outpatient. Assessment & Plan (08/30/2019 3:12 PM VIDEO ARCADE MANAGER): Patient with SLE followed by Rheumatology as outpatient - Continue HCQ - No current SLE flare; continue to monitor Assessment & Plan (08/29/2019 12:19 PM VIDEO ARCADE MANAGER): Patient with SLE followed by Rheumatology as outpatient - Continue HCQ - No current SLE flare; continue to monitor Assessment & Plan (08/28/2019 7:52 PM VIDEO ARCADE MANAGER): - Patient with SLE followed by Rheumatology as outpatient - Continue HCQ - No current SLE flare; continue to monitor Assessment & Plan (02/23/2019 2:12 PM CDT): Patient has known diagnosis of SLE, followed by rheumatology at [facility] (last seen 01/25/2019) - continue hydroxychloroquine 400 mg daily Assessment & Plan (12/18/2018 3:16 PM CDT): On Plaquenil. Resolved Problems Problem Noted Date Diagnosed Date Resolved Date Fever 07/15/2020 07/16/2020 Assessment & Plan (07/16/2020 9:17 AM VIDEO ARCADE MANAGER): P/w sore throat, cough, PRABHAKAR, nausea, malaise, suprapubic pain. WBC 14. Reported fever of 101.2 at home (afebrile here). BCx NGTD, CXR without apparent PNA, CT A/P without acute infectious process -RVP positive for rhinovirus; Covid neg x2 -UA with Nitrite pos, 6-10WBC, 1+ bacteria; UTI likely source given symptoms -Started ciprofloxacin (07/15-) given history of enterobacter. UA did not reflex to UCx due to WBCs. Will order UCx but antibiotics have already been started -Cont amoxicillin for prophylaxis given hx of endocarditis Palpitations 08/29/2019 08/31/2019 Assessment & Plan (08/31/2019 9:44 AM VIDEO ARCADE MANAGER): Reports frequent palpitations yesterday associated with shortness of breath and fatigue yesterday. None since admission --Continue to monitor on tele Assessment & Plan (08/29/2019 12:24 PM VIDEO ARCADE MANAGER): Reports frequent palpitations yesterday associated with shortness of breath and fatigue yesterday. None since admission --Continue to monitor on tele Immunizations Immunization Administration Dates Next Due Influenza, Trivalent, Cell C ulture-based MDCK, Preservative Free, Antibiotic Free, Intramuscular 07/22/2024 Influenza, Trivalent, Preservative Free, Intramu scular 08/11/2014 Influenza, Unspecified 10/25/2015 Pneumococcal Polysaccharide PPV23 07/11/2015 Social History Tobacco Use Types Packs/Day Years Used Date Smoking Tobacco: Former Cigarettes 0.5 18 0 10/2003 - 10/2021 Passive Smoke Exposure: Never Smokeless Tobacco: Never Tobacco Cessation:Counseling Given: Not Answered Comments:< 1/2 pack daily Alcohol Use Standard Drinks/Week Comments Yes 0 (1 standard drink = 0.6 oz pur e alcohol) rarely [facility] HealthHiwayities Answer Date Recorded In the past 12 months has th e NanoViricides, gas, oil, or water Makstr threatened to shut off services in your home? No 08/27/2024 Social Connection and Isolat ion Panel [NHANES] Answer Date Recorded In a typical week, how many times do you talk on the phone with family, friends, or neighbors? More than three times a week 08/27/2024 How often do you get togethe r with friends or relatives? Once a week 08/27/2024 How often do you attend [facility] ch or jain services? Never 08/27/2024 Do you belong to any clubs o r organizations such as adventist groups, unions, fraternal or athletic groups, or school groups? No 08/27/2024 How often do you attend meet ings of the clubs or organizations you belong to? Never 08/27/2024 Are you , , di vorced, , never , or living with a partner? 08/27/2024 AUDIT-C Answer Date Recorded Q1: How often do you have a drink containing alcohol? Monthly or less 11/23/2024 Q2: How many drinks containi ng alcohol do you have on a typical day when you are drinking? Patient does not drink Frequency of Binge Drinking Not on file 11/09 Overall Financial Resource Strain (CARDIA) Answe r Date Recorded How hard is it for you to pa y for the very basics like food, housing, medical care, and heating? Somewhat hard 08/27/2024 Hunger Vital Sign Answer Date Recorded Within the past 12 months, y ou worried that your food would run out before you got the money to buy more. Never true 08/27/19 25 Within the past 12 months, t he food you bought just didn't last and you didn't have money to get more. Never true 08/27/2024 PRAPARE - Transportation Answer Date Re corded In the past 12 months, has l ack of transportation kept you from medical appointments or from getting medications? No 08/11 In the past 12 months, has l ack of transportation kept you from meetings, work, or from getting things needed for daily living? No 08/27/2024 Housing Stability Vital Sign Answer Denis e Recorded In the last 12 months, was t here a time when you were not able to pay the mortgage or rent on time? No 08/27/2024 In the past 12 months, how m any times have you moved where you were living? 0 08/27/2024 At any time in the past 12 m [facility], were you homeless or living in a group home (including now)? No 08/27/2024 Personal Safety Answer Date Recorded Have you ever been in or are you currently in a harmful physical or emotional relationship or is someone making you feel afraid or unsafe? Denies 02/15/2025 Comments No Sex and Gender Information Value Date Recorded Sex Assigned at Not on file Legal Sex Female 7:25 AM VIDEO ARCADE MANAGER Gender Identity Female 06/07/2021 5:59 PM CDT Sexual Orientation Straight 06/07/2021 5: 59 PM CDT Last Filed Vital Signs Vital Sign Reading Time Taken Comments Blood Pressure 145/87 02/17/2025 11:10 AM CDT Pulse 73 02/17/2025 11:10 AM CDT Temperature 36.4 C (97.5 F) 02/17/2025 8:15 AM CDT Respiratory Rate 16 02/17/2025 8:15 AM CDT Oxygen Saturation 94% 02/17/2025 11: 10 AM CDT Inhaled Oxygen Concentration - - Weight 122.6 kg (270 lb 3.2 oz) 02/17/2025 6:00 AM CDT Height 162.6 cm (5' 4) 02/15/2025 4:30 PM CDT Body Mass Index 46.38 02/15/2025 4:30 PM CDT Plan of Treatment Not on file Medical Devices Implanted Type Area Catshovel Driver Device Identifier Shelf Expiration Date Model / Serial / Lot [employer] [id number] Masters-Series 31mm 26.1mm Mechanical Expanded Cuff Style - [id number] - [id number] Implanted:Qty: 1 on 11/11/2018 by Buck Bustillos MD at [facility] N/A: Heart [employer] 02/22/2020 [id number] / [id number] / Daig Refugio/[employer] [id number] Angio-Seal Vip Bondek-Plus 6fr .035in 70cm Hemostatic Latex Free - [id number] Implanted:Qty: 1 on 11/14/2018 by Rodrigo Gómez MD at [facility] [employer] 06/10/2019 [id number] / / [id number] [employer] [id number] Viabahn 6mm 2.5cm 120cm Flexible Self Expand Radiopaque Stent - [id number] Implanted:Qty: 1 on 11/19/2018 by Param Mcrae Jr., MD at [facility] [employer] 12/03/2020 [id number] / / [employer] [id number] Viabahn 6mm 6fr 5cm 120cm Delivery System Superficial Femoral - [id number] Implanted:Qty: 1 on 11/19/2018 by Param Mcrae Jr., MD at [facility] [employer] 04/20/2021 [id number] / / [employer]ig Refugio[employer] [id number] Angio-Seal Vip Bondek-Plus 6fr .035in 70cm Hemostatic Latex Free - [id number] Implanted:Qty: 1 on 11/19/2018 by Param Mcrae Jr., MD at [facility] [employer] 06/10/2019 [id number] / / [id number] Procedures Procedure Name Priority Date/Time Associated Diagnosis Comments POCT GLUCOSE DEVICE Routine 02/17/2025 1 2:01 PM CDT POCT GLUCOSE DEVICE Routine 02/17/2025 8 :16 AM CDT EGFR Routine 02/16/2025 8:55 PM CDT COMPREHENSIVE METABOLIC PANEL Routine 02/16/2025 8:55 PM CDT PROTIME-INR Routine 02/16/2025 8:55 PM CDT CBC WITHOUT DIFFERENTIAL Routine 02/16/2025 8:55 PM CDT POCT GLUCOSE DEVICE Routine 02/16/2025 8 :44 PM CDT POCT GLUCOSE DEVICE Routine 02/16/2025 5 :16 PM CDT NM MPI SPECT (STRESS) SINGLE STUDY IP Routine 02/16/2025 2:02 PM CDT STRESS TEST FOR DUAL READ IP Routine 02/16/2025 12:39 PM CDT PROTIME-INR STAT 02/16/2025 8:34 AM CDT POCT GLUCOSE DEVICE Routine 02/16/2025 8 :04 AM CDT LIPID PANEL Routine 02/15/2025 8:17 PM CDT EGFR Routine 02/15/2025 8:17 PM CDT MAGNESIUM Routine 02/15/2025 8:17 PM CDT BASIC METABOLIC PANEL Routine 02/15/2025 8:17 PM CDT POCT GLUCOSE DEVICE Routine 02/15/2025 8 :01 PM CDT TROPONIN I HIGH-SENSITIVITY 6-HOUR Timed 02/15/2025 6:12 PM CDT ECG 12-LEAD Routine 02/15/2025 5:33 PM CDT POCT GLUCOSE DEVICE Routine 02/15/2025 5 :04 PM CDT POCT GLUCOSE DEVICE Routine 02/15/2025 3 :39 PM CDT TROPONIN I HIGH-SENSITIVITY 4-HOUR Timed 02/15/2025 3:36 PM CDT ECG 12-LEAD STAT 02/15/2025 2:23 PM CDT TROPONIN I HIGH-SENSITIVITY 2-HOUR Timed 02/15/2025 1:45 PM CDT XR CHEST PA LATERAL 2 VIEWS ED 02/15/2025 12:57 PM CDT POCT KETONE, BLOOD Routine 02/15/2025 12 :22 PM CDT HEMOGLOBIN A1C STAT 02/15/2025 12:06 PM CDT PRO B-TYPE NATRIURETIC PEPTIDE STAT 02/15/2025 12:06 PM CDT EGFR STAT 02/15/2025 12:06 PM CDT DIFFERENTIAL AUTO STAT 02/15/2025 12: 06 PM CDT TROPONIN I HIGH-SENSITIVITY SERIES (BASELINE, 2HR, 4HR, 6HR) STAT 02/15/2025 12:06 PM CDT COMPREHENSIVE METABOLIC PANEL STAT 02/15/2025 12:06 PM CDT CBC WITH AUTO DIFFERENTIAL STAT 02/15/2025 12:06 PM CDT RAD ONC ARIA SESSION SUMMARY 12/24/2024 1:16 PM CDT RAD ONC ARIA SESSION SUMMARY 12/23/2024 1:19 PM CDT RAD ONC ARIA SESSION SUMMARY 12/22/2024 2:18 PM CDT RAD ONC ARIA SESSION SUMMARY 12/21/2024 11:52 AM CDT RAD ONC ARIA SESSION SUMMARY 12/20/2024 1:56 PM CDT POCT GLUCOSE DEVICE Routine 12/07/2024 1 0:03 AM CDT US VEIN DUPLEX LOWER EXTREMITY BILATERAL COMPLETE ED 12/07/2024 9:[address] CHEST PE ABDOMEN PELVIS W CONTRAST ED 12/07/2024 6:38 AM CDT POCT GLUCOSE DEVICE Routine 12/07/2024 6 :19 AM CDT URINALYSIS, MICROSCOPIC ONLY STAT 12/07/2024 6:19 AM CDT URINALYSIS AND REFLEX TO MICROSCOPIC AND CULTURE STAT 12/07/2024 6:19 AM CDT ERYTHROCYTE SEDIMENTATION RATE Timed 12/07/2024 6:16 AM CDT TROPONIN I HIGH-SENSITIVITY 6-HOUR Timed 12/07/2024 6:16 AM CDT POCT GLUCOSE DEVICE Routine 12/07/2024 5 :49 AM CDT TROPONIN I HIGH-SENSITIVITY 2-HOUR Timed 12/07/2024 5:49 AM CDT TROPONIN I HIGH-SENSITIVITY 4-HOUR Timed 12/07/2024 4:59 AM CDT POCT GLUCOSE DEVICE Routine 12/07/2024 3 :34 AM CDT PROTIME-INR STAT 12/07/2024 12:14 AM CDT CRP (ACUTE PHASE) STAT 12/07/2024 12: 08 AM CDT EGFR STAT 12/07/2024 12:08 AM CDT DIFFERENTIAL AUTO STAT 12/07/2024 12: 08 AM CDT PRO B-TYPE NATRIURETIC PEPTIDE STAT 12/07/2024 12:08 AM CDT TROPONIN I HIGH-SENSITIVITY SERIES (BASELINE, 2HR, 4HR, 6HR) STAT 12/07/2024 12:08 AM CDT CBC WITH AUTO DIFFERENTIAL STAT 12/07/2024 12:08 AM CDT COMPREHENSIVE METABOLIC PANEL STAT 12/07/2024 12:08 AM CDT XR CHEST PA LATERAL 2 VIEWS ED 12/06/2024 10:31 PM CDT ECG 12-LEAD STAT 12/06/2024 10:15 PM CDT HEPATITIS C ANTIBODY Routine 01/01/2023 11:06 AM CDT Other systemic lupus erythematosus with other organ involvement (HCC) COLONOSCOPY IMAGES 07/10/2016 from Last 3 Months or Most Recently Relevant to Health Maintenance Results * POCT glucose (02/17/2025 12:01 PM CDT) Glucose, POC 102 70 - 199 mg/dL Blood 02/17/2025 12:0 1 PM CDT 02/17/2025 12:01 PM CDT us Radha Zepeda MD LAB POCT ORDERABLES - D EVICE Final Result [facility] Department [place] [address] * POCT glucose (02/17/2025 8:16 AM CDT) Glucose, POC 89 70 - 199 mg/dL Blood 02/17/2025 8:16 AM CDT 02/17/2025 8:16 AM CDT Radha Zepeda MD LAB POCT ORDERABLES - D EVICE Final Result Performing Organization Address [facility] Co de Phone Number [facility] Department [place] [address] * eGFR (02/16/2025 8:55 PM CDT) eGFR 73 >=60 mL/min/1. 73 m2 Comment: Interpretive Data Reference Interval Normal >/= 90 mL/min/1.73m2 Mildly decreased* 60 - 89 mL/min/1.73m2 Mildly to moderately decreased 45 - 59 mL/min/1.73m2 Moderately to severely decreased 30 - 44 mL/min/1.73m2 Severely decreased 15 - 29 mL/min/1.73m2 Kidney Failure < 15 mL/min/1.73m2 *Relative to young adult level Estimated glomerular filtration rate is determined by the 2020 CKD-EPI equation recommended by the National Kidney Foundation (A Unifying Approach to GFR Estimation: Recommendations of the NKF-ASK Task Force on Reassessing the Inclusion of Race in Diagnosing Kidney Disease, JASN 2020). The CKD-EPI equation should not be used for patients with unstable renal function and has not been validated in children and those over 70. Current interpretive data was last reviewed 2021. Blood 02/16/2025 8:55 PM CDT 02/16/2025 9:05 PM CDT us Nevin Sargent NP LAB BLOOD ORDERABLES Final Res ult Performing Organization Address City/[facility]/ZIP Co de Phone Number [facility] Department of [address] [place] [address] * (ABNORMAL) Protime-INR (02/16/2025 8:55 PM CDT) PT 16.7(H) 9.7 - 13.0 sec INR 1.53(H) 0.90 - 1.20 [facility] Comment: Interpretive data Oral anticoagulant therapeutic ranges: Venous thromboembolism prophylaxis or treatment: 2.0-3.0 CARDIOLOGY Standard range: 2.0-3.0 High-intensity range: 2.5-3.5 Refer to indication-specific guidelines for appropriate target ranges for prosthetic heart valve replacement. Current interpretive data was last revised on 2019. Blood 02/16/2025 8:55 PM CDT 02/16/2025 9:11 PM CDT Nevin Sargent NP LAB BLOOD ORDERABLES Final Res ult [facility] Department [place] [address] * (ABNORMAL) CBC without differential (02/16/2025 8:55 PM CDT) WBC 7.71 3.80 - 9.90 K/cumm Hgb 12.2 11.9 - 15.5 g/dL [facility] Hct 38.4 35.6 - 45.5 % [facility] Plt 242 150 - 400 K/cumm [facility] MPV 10.1 9.1 - 12.3 fL [facility] RBC 4.81 3.90 - 5.20 M/cumm [facility] MCV 79.8(L) 81.3 - 96.4 fL [facility] MCH 25.4(L) 27.1 - 33.3 pg [facility] MCHC 31.8(L) 32.3 - 35.7 g/dL [facility] RDW CV 17.1(H) 11.1 - 14.9 % [facility] RDW SD 49.1(H) 35.7 - 48.1 fL [facility] NRBC abs 0.00 0.00 - 0.01 K/cumm [facility] Blood 02/16/2025 8:55 PM CDT 02/16/2025 9:05 PM CDT Nevin Sargent TELEMARKETING REPRESENTATIVE LAB BLOOD ORDERABLES Final Res ult [facility] Department [place] [address] * (ABNORMAL) Comprehensive metabolic panel (02/16/2025 8:55 PM CDT) Sodium 140 135 - 145 mmol/L Potassium, pl 3.9 3.3 - 4.9 mmol/L [facility] Chloride 101 97 - 110 mmol/L [facility] CO2 29 22 - 32 mmol/L [facility] Anion gap 10 2 - 15 mmol/L [facility] BUN 14 6 - 25 mg/dL [facility] Creatinine 0.95 0.60 - 1.10 mg/dL [facility] Glucose 98 70 - 199 mg/dL [facility] Comment: Interpretive Data Fasting glucose >/= 126 mg/dl is diagnostic for diabetes. Fasting is defined as no caloric intake for at least 8 hours. Fasting glucose between 100 mg/dl to 125 mg/dl is diagnostic of prediabetes. In a patient with classic symptoms of hyperglycemia or hyperglycemic crisis, a random glucose >/= 200 mg/dl is diagnostic for diabetes. In the absence of unequivocal hyperglycemia, results should be confirmed by repeat testing. The classification and Diagnosis of Diabetes Diabetes Care 2021; 46: S19-S40. Current interpretive data was last revised 2022. Calcium 9.1 8.5 - 10.3 mg/dL [facility] Bilirubin, total 0.4 0.1 - 1.2 mg/dL [facility] Protein, pl 7.8 6.5 - 8.5 g/dL [facility] Albumin 3.5 3.5 - 5.0 g/dL [facility] Alk phos 235(H) 40 - 130 Units/L [facility] ALT 42 7 - 45 Units/L [facility] AST 54(H) 10 - 45 Units/L [facility] Blood 02/16/2025 8:55 PM CDT 02/16/2025 9:05 PM CDT Nevin Sargent TELEMARKETING REPRESENTATIVE LAB BLOOD ORDERABLES Final Res ult [facility] [address] [place] [address] * POCT glucose (02/16/2025 8:44 PM CDT) Glucose, POC 104 70 - 199 mg/dL Blood 02/16/2025 8:44 PM CDT 02/16/2025 8:44 PM CDT Brad Tyson MD LAB POCT ORDERABLES - DE VICE Final Result Performing Organization Address [facility] [place] [address] * POCT glucose (02/16/2025 5:16 PM CDT) Glucose, POC 94 70 - 199 mg/dL Blood 02/16/2025 5:16 PM CDT 02/16/2025 5:16 PM CDT Brad Tyson MD LAB POCT ORDERABLES - DE VICE Final Result Performing Organization Address [facility] [place] [address] * NM MPI SPECT (Stress) Single Study (02/16/2025 2:02 PM CDT) Anatomical Region Laterality Modality Body N/A Nuclear Medicine 02/16/2025 2:54 PM CDT Impressions 02/16/2025 3:02 PM CDT 1. Normal myocardial perfusion during pharmacologic-stress. 2. Normal left ventricular size and systolic function. 3. No appreciable coronary calcifications. Dr. Bruce Zimmer and Keesha Dorsey also participated in the interpretation of this examination. Dictated by: Ruy Peterson MD The radiology attending physician has personally reviewed this study, and had reviewed and/or edited this written report and agrees with it. Electronically signed by: Adolfo Mcmillan M.D. Narrative 02/16/2025 3:02 PM CDT EXAMINATION: MYOCARDIAL IMAGING (PHARMACOLOGIC-STRESS/SPECT/CT) DATE OF STUDY: 02/16/2025 RADIOPHARMACEUTICAL: 30 mCi Tc-99m tetrofosmin i.v. HISTORY: 50-year-old woman with mitral regurgitation post valve replacement, mitral valve endocarditis and chronic antibiotic prophylaxis, echocardiogram showed ejection fraction of 78% on 08/12/2024. She presented with chest pain. Evaluate for ischemia and/or myocardial infarction. The patient's body mass index (BMI) was 47.30. The electrocardiogram during infusion of the pharmacologic agent was negative for ischemia. FINDINGS: An intravenous infusion of 0.4 mg Regadenoson (A2A adenosine receptor agonist Lexiscan, infused intravenously over approximately 10 seconds, followed approximately after another 20 seconds by tracer infusion) was performed without low level exercise on the date indicated above. A complete description of the stress test and electrocardiographic results supervised by staff of the Cardiovascular Division is available in the [facility] electronic medical record. Standard myocardial perfusion images were obtained after tracer injection at the peak effect of the drug. Low-dose CT images spanning the heart were obtained for attenuation correction. COMPARISON: CT chest 12/07/2024 The projection images were reviewed for image quality, and reveal no significant artifacts. There is widely normal distribution of activity in the left and right ventricular myocardium on stress images. No reversibility to suggest ischemia. Normal rest perfusion. Gated post-stress images demonstrate normal left ventricular volume, normal left ventricular wall motion and normal ejection fraction of 57 % (normal >45%). Rest imaging was not performed because there is normal stress perfusion and left ventricular wall motion Incidental findings on the low-dose CT images: Mitral valve replacement. Median sternotomy. Degenerative spine disease. No appreciable coronary calcifications. Procedure Note Adolfo Mcmillan MD - 02/16/2025 EXAMINATION: MYOCARDIAL IMAGING (PHARMACOLOGIC-STRESS/SPECT/CT) DATE OF STUDY: 02/16/2025 RADIOPHARMACEUTICAL: 30 mCi Tc-99m tetrofosmin i.v. HISTORY: 50-year-old woman with mitral regurgitation post valve replacement, mitral valve endocarditis and chronic antibiotic prophylaxis, echocardiogram showed ejection fraction of 78% on 08/12/2024. She presented with chest pain. Evaluate for ischemia and/or myocardial infarction. The patient's body mass index (BMI) was 47.30. The electrocardiogram during infusion of the pharmacologic agent was negative for ischemia. FINDINGS: An intravenous infusion of 0.4 mg Regadenoson (A2A adenosine receptor agonist Lexiscan, infused intravenously over approximately 10 seconds, followed approximately after another 20 seconds by tracer infusion) was performed without low level exercise on the date indicated above. A complete description of the stress test and electrocardiographic results supervised by staff of the Cardiovascular Division is available in the [facility] electronic medical record. Standard myocardial perfusion images were obtained after tracer injection at the peak effect of the drug. Low-dose CT images spanning the heart were obtained for attenuation correction. COMPARISON: CT chest 12/07/2024 The projection images were reviewed for image quality, and reveal no significant artifacts. There is widely normal distribution of activity in the left and right ventricular myocardium on stress images. No reversibility to suggest ischemia. Normal rest perfusion. Gated post-stress images demonstrate normal left ventricular volume, normal left ventricular wall motion and normal ejection fraction of 57 % (normal >45%). Rest imaging was not performed because there is normal stress perfusion and left ventricular wall motion Incidental findings on the low-dose CT images: Mitral valve replacement. Median sternotomy. Degenerative spine disease. No appreciable coronary calcifications. IMPRESSION: 1. Normal myocardial perfusion during pharmacologic-stress. 2. Normal left ventricular size and systolic function. 3. No appreciable coronary calcifications. Dr. Bruce Zimmer and Keesha Dorsey also participated in the interpretation of this examination. Dictated by: Ruy Peterson MD The radiology attending physician has personally reviewed this study, and had reviewed and/or edited this written report and agrees with it. Electronically signed by: Adolfo Mcmillan M.D. us Diya Jules MD IM NM PROCEDURES Final Res ult * Stress Test for Myocardial Perfusion (02/16/2025 12:39 PM CDT) Anatomical Region Laterality Modality Nuclear Medicine 02/16/2025 11:2 0 AM CDT Narrative 02/16/2025 2:26 PM CDT [facility] Cardiac Diagnostic [place] [address] [place] [address] LEXISCAN STRESS Patient Name: FRANSISCA POWELL R : 1975 (50y ) Gender: F Study Date: 02/16/2025 11:20:00 AM Ht(Inch): 64 Wt(Lb): 275 BSA: 2.37 Tech: Location: [id number] Order Provider: DIYA JULES BMI: 47.2 Ref Provider: DIYA JULES PROCEDURES: Stress Report: Cardiovascular Stress Test performed in conjunction with Myocardial Perfusion Imaging (MPI) with SPECT at rest and post Regadenoson (Lexiscan) infusion. Results of MPI are reported separately. INDICATIONS: Evaluation for ischemia. FINDINGS: Performed By: Cara Rodgers RN. Supervising Physician: Bruce Zimmer MD. Cardiac History: History of s/p MV replacement 2018. CHF pEF. Cardiac Risk Factors: Hypertension and obesity. SLE, COPD, anxiety, IVIS/CPAP, PVD. Physical Exam: Allergies: PCN. Cardiac Medications: asa, lipitor, jardiance, lisiopril, metoprolol, aldactone, coumadin, torsemide, Breo inhaler. Medications Withheld: lisinopril, metoprolol. Heart Sounds: Normal. lungs diminished at bases but clear. Procedure Data: Predicted Maximal HR: 170 bpm 85% of MPHR: 144.5 bpm Procedure Notes: Last Caffeine Intake: >12 hrs Medications: Regadenoson: 0.4 mg/5 ml NS. Baseline ECG: SR, nstwa aVL, V1-V2 Chest Pain: No chest pain. Heart Rate Response: Heart rate response is appropriate. Blood Pressure Response: Blood pressure response is appropriate. Reason For Termination: Protocol Complete. Cardiac Symptoms With Stress: nausea/vomitting ECG Abnormalities During/After Stress: No ECG abnormalities during or after stress. New Arrhythmias Developed During/After Stress: APD's: Rare. LEXISCAN WITHOUT EXERCISE: TIME (min) HR (bpm) BP (mmHg) Baseline 67 118/68 Injection 72 Recovery 1 104 121/97 Recovery 2 96 154/90 Recovery 3 105 Recovery 4 98 150/95 Recovery 5 94 133/88 Recovery 7 85 127/77 CONCLUSIONS: 1. Negative ECG evidence of Ischemia after regadenoson stress without walking. ATTESTATION: I have personally reviewed and interpreted this study without fellow or resident. Electronically Signed By: Chalo Ivory Jr., M.D. 02/16/2025 2:25:54 PM CDT Electronically Signed By: Chalo Ivory Jr., M.D. 02/16/2025 2:25:54 PM CDT Procedure Note Chalo Ivory MD PhD - 02/16/2025 [facility] Cardiac [facility] [place] [address] [place] [address] LEXISCAN STRESS Patient Name: FRANSISCA POWELL R : 1975 (50y ) Gender: F Study Date: 02/16/2025 11:20:00 AM Ht(Inch): 64 Wt(Lb): 275 BSA: 2.37 Tech: Location: [id number] Order Provider: DIYA JULES BMI: 47.2 Ref Provider: DIYA JULES PROCEDURES: Stress Report: Cardiovascular Stress Test performed in conjunction withMyocardial Perfusion Imaging (MPI) with SPECT at rest and post Regadenoson (Lexiscan)infusion. Results of MPI are reported separately. INDICATIONS: Evaluation for ischemia. FINDINGS: Performed By: Cara Rodgers RN. Supervising Physician: Bruce Zimmer MD. Cardiac History: History of s/p MV replacement 2018. CHF pEF. Cardiac RiskFactors: Hypertension and obesity. SLE, COPD, anxiety, IVIS/CPAP, PVD. Physical Exam: Allergies: PCN. Cardiac Medications: asa, lipitor,jardiance, lisiopril, metoprolol, aldactone, coumadin, torsemide, Breo inhaler. MedicationsWithheld: lisinopril, metoprolol. Heart Sounds: Normal. lungs diminished at basesbut clear. Procedure Data: Predicted Maximal HR: 170 bpm 85% of MPHR: 144.5 bpm Procedure Notes: Last Caffeine Intake: >12 hrs Medications: Regadenoson: 0.4 mg/5 ml NS. Baseline ECG: SR, nstwa aVL, V1-V2 Chest Pain: No chest pain. Heart Rate Response: Heart rate response is appropriate. Blood Pressure Response: Blood pressure response is appropriate. Reason For Termination: Protocol Complete. Cardiac Symptoms With Stress: nausea/vomitting ECG Abnormalities During/After Stress: No ECG abnormalities during or after stress. New Arrhythmias Developed During/After Stress: APD's: Rare. LEXISCAN WITHOUT EXERCISE: TIME (min) HR (bpm) BP (mmHg) Baseline 67 118/68 Injection 72 Recovery 1 104 121/97 Recovery 2 96 154/90 Recovery 3 105 Recovery 4 98 150/95 Recovery 5 94 133/88 Recovery 7 85 127/77 CONCLUSIONS: 1. Negative ECG evidence of Ischemia after regadenoson stress withoutwalking. ATTESTATION: I have personally reviewed and interpreted this study without fellow orresident. Electronically Signed By: Chalo Ivory Jr., M.D. 02/16/2025 2:25:54 PM CDT Electronically Signed By: Chalo Ivory Jr., M.D. 02/16/2025 2:25:54 PM CDT Diya Jules MD CV STRESS PROCEDURES Final Result * (ABNORMAL) Protime-INR (02/16/2025 8:34 AM CDT) Pathologist [facility] PT 14.6(H) 9.7 - 13.0 sec INR 1.34(H) 0.90 - 1.20 [facility] Comment: Interpretive data Oral anticoagulant therapeutic ranges: Venous thromboembolism prophylaxis or treatment: 2.0-3.0 CARDIOLOGY Standard range: 2.0-3.0 High-intensity range: 2.5-3.5 Refer to indication-specific guidelines for appropriate target ranges for prosthetic heart valve replacement. Current interpretive data was last revised on 2019. Blood 02/16/2025 8:34 AM CDT 02/16/2025 8:47 AM CDT Nevin Sargent NP LAB BLOOD ORDERABLES Final Res ult [facility] Department of [address] [place] [address] * POCT glucose (02/16/2025 8:04 AM CDT) [facility] Glucose, POC 108 70 - 199 mg/dL Blood 02/16/2025 8:04 AM CDT 02/16/2025 8:04 AM CDT Brad Tyson MD LAB POCT ORDERABLES - DE VICE Final Result [facility] [place] [address] * eGFR (02/15/2025 8:17 PM CDT) Pathologist [facility] eGFR >90 >=60 mL/min/1. 73 m2 Comment: Interpretive Data Reference Interval Normal >/= 90 mL/min/1.73m2 Mildly decreased* 60 - 89 mL/min/1.73m2 Mildly to moderately decreased 45 - 59 mL/min/1.73m2 Moderately to severely decreased 30 - 44 mL/min/1.73m2 Severely decreased 15 - 29 mL/min/1.73m2 Kidney Failure < 15 mL/min/1.73m2 *Relative to young adult level Estimated glomerular filtration rate is determined by the 2020 CKD-EPI equation recommended by the National Kidney Foundation (A Unifying Approach to GFR Estimation: Recommendations of the NKF-ASK Task Force on Reassessing the Inclusion of Race in Diagnosing Kidney Disease, JASN 2020). The CKD-EPI equation should not be used for patients with unstable renal function and has not been validated in children and those over 70. Current interpretive data was last reviewed 2021. Blood 02/15/2025 8:17 PM CDT 02/15/2025 8:26 PM CDT Diya Jules MD LAB BLOOD ORDERABLES Final Result Performing Organization Address City/[facility] Co de Phone Number [facility] Department of [address] [place] [address] * Magnesium (02/15/2025 8:17 PM CDT) Magnesium 2.1 1.4 - 2.5 mg/dL Blood 02/15/2025 8:17 PM CDT 02/15/2025 8:26 PM CDT Diya Jules MD LAB BLOOD ORDERABLES Final Result Performing Organization Address City/State/[facility] Co de Phone Number [facility] [address] [place] [address] * (ABNORMAL) Lipid panel (02/15/2025 8:17 PM CDT) Cholesterol 121 30 - 199 mg/dL Comment: Interpretive Data Ages < or = 19 years Acceptable: <170 mg/dL Borderline high: 170-199 mg/dL High: >or= 200 mg/dL Ages > or = 20 years Desirable: <200 mg/dL Borderline high: 200-239 mg/dL High: >or= 240 mg/dL Literature References: 1. Expert Panel on Integrated Guidelines for Cardiovascular Health and Risk Reduction in Children and Adolescents. Pediatrics 2011;128:S213 2. NCEP Expert Panel. Circulation 2004;110:227 Current Interpretive Data was last revised on 2018. Triglycerides 89 <=149 mg/dL [facility] Comment: Interpretive Data Ages < or = 9 years Acceptable: <75 mg/dL Borderline high: 75-99 mg/dL High: >or= 100 mg/dL Ages 10 to 20 years Acceptable: <90 mg/dL Borderline high: 90-129 mg/dL High: >or= 130 mg/dL Ages > or = 20 years Desirable: <150 mg/dL Borderline high: 150-199 mg/dL High: 200-499 mg/dL Very high: >or= 499 mg/dL Literature References: 1. Expert Panel on Integrated Guidelines for Cardiovascular Health and Risk Reduction in Children and Adolescents. Pediatrics 2011;128:S213 2. NCEP Expert Panel. Circulation 2004;110:227 Current Interpretive Data was last revised on 2018. HDL 29(L) >=40 mg/dL [facility] Comment: Interpretive Data Ages < or = 19 years Acceptable: >45 mg/dL Borderline low: 40-45 mg/dL Low: <40 mg/dL Ages > or = 20 years Desirable: >or= 60 mg/dL Low: <40 mg/dL Literature References: 1. Expert Panel on Integrated Guidelines for Cardiovascular Health and Risk Reduction in Children and Adolescents. Pediatrics 2011;128:S213 2. NCEP Expert Panel. Circulation 2004;110:227 Current Interpretive Data was last revised on 2018. LDL, calculated 75 <=129 mg/dL [facility] Comment: Interpretive Data Ages < or = 19 years Acceptable: <110 mg/dL Borderline high: 110-129 mg/dL High: >or= 130 mg/dL Ages > or = 20 years Optimal: <100 mg/dL Near optimal: 100-129 mg/dL Borderline high: 130-159 mg/dL High: >160 mg/dL Calculated using the Sharp LDL-C estimating equation. This equation was implemented on 2024. Prior to this date LDL-C was estimated using the Friedewald equation. Literature References: 1. Expert Panel on Integrated Guidelines for Cardiovascular Health and Risk Reduction in Children and Adolescents. Pediatrics 2011;128:S213 2. NCEP Expert Panel. Circulation 2004;110:227 3. Aron Webber et al. DONNA Cardiol. 2019December 09;5(5):540-548. doi: 10.1001/[email or web address] Current Interpretive Data was last revised on 2024. Non-HDL Cholesterol 92 mg/dL [facility] Comment: Interpretive Data Ages < or = 19 years Acceptable: <120 mg/dL Borderline high: 120-144 mg/dL High: >145 mg/dL Ages > or = 20 years When triglycerides are >200 mg/dL, Non-HDL cholesterol is a secondary target of therapy with treatment goals that are 30 mg/dL greater than the LDL cholesterol target. Literature References: 1. Expert Panel on Integrated Guidelines for Cardiovascular Health and Risk Reduction in Children and Adolescents. Pediatrics 2011;128:S213 2. NCEP Expert Panel. Circulation 2004;110:227 Current Interpretive Data was last revised on 2018. Chol/HDL ratio 4 [facility] Blood 02/15/2025 8:17 PM CDT 02/15/2025 8:26 PM CDT Narrative [facility] - 02/16/2025 9:50 AM CDT Reflex us Brad Tyson MD LAB BLOOD ORDERABLES Fin al Result [facility] [place] [address] * Basic metabolic panel (02/15/2025 8:17 PM CDT) Sodium 140 135 - 145 mmol/L Potassium, pl 3.6 3.3 - 4.9 mmol/L [facility] Chloride 103 97 - 110 mmol/L [facility] CO2 31 22 - 32 mmol/L [facility] Anion gap 6 2 - 15 mmol/L [facility] BUN 10 6 - 25 mg/dL [facility] Creatinine 0.77 0.60 - 1.10 mg/dL [facility] Glucose 108 70 - 199 mg/dL [facility] Comment: Interpretive Data Fasting glucose >/= 126 mg/dl is diagnostic for diabetes. Fasting is defined as no caloric intake for at least 8 hours. Fasting glucose between 100 mg/dl to 125 mg/dl is diagnostic of prediabetes. In a patient with classic symptoms of hyperglycemia or hyperglycemic crisis, a random glucose >/= 200 mg/dl is diagnostic for diabetes. In the absence of unequivocal hyperglycemia, results should be confirmed by repeat testing. The classification and Diagnosis of Diabetes Diabetes Care 2021; 46: S19-S40. Current interpretive data was last revised 2022. Calcium 9.0 8.5 - 10.3 mg/dL [facility] Blood 02/15/2025 8:17 PM CDT 02/15/2025 8:26 PM CDT Diya Jules MD LAB BLOOD ORDERABLES Final Result Performing Organization Address City/[facility]/ZIP Co de Phone Number [facility] Department [place] [address] * POCT glucose (02/15/2025 8:01 PM CDT) Glucose, POC 104 70 - 199 mg/dL Blood 02/15/2025 8:01 PM CDT 02/15/2025 8:01 PM CDT Adolfo Gamino MD LAB POCT ORDERABLES - DEV ICE Final Result [facility] Department [place] [address] * Troponin I high-sensitivity 6-hour (02/15/2025 6:12 PM CDT) Pathologist [facility] Trop I hs 6 <=17 ng/L Comment: Interpretive Data For further [facility] resources including the diagnostic algorithm and an aid in interpretation, copy and paste this link: https://bjhlab.testcatalog.org/show/hsTrop-[email or web address] Current Interpretive Data last revised 2020. Trop I hs delta 0 ng/L [facility] Trop I hs interp Insignificant [facility] Blood 02/15/2025 6:12 PM CDT 02/15/2025 6:20 PM CDT Yfn Javier MD LAB BLOOD ORDERABLES Fi nal Result Performing Organization Address City/[facility] Co de Phone Number [facility] Department [place] [address] * ECG 12 lead (02/15/2025 5:33 PM CDT) Ventricular Rate EKG/Min 68 BPM [facility] Atrial Rate 68 BPM [facility] ME-Interval (MSEC) 168 ms [facility] QRS-Interval (MSEC) 94 ms [facility] QT-Interval (MSEC) 430 ms [facility] QTc 457 ms [facility] P Artemus 64 degrees [facility] R Artemus 56 degrees [facility] T Artemus 80 degrees [facility] Diagnosis Normal sinus rhythm Normal ECG When compared with ECG of 19-JUL-2020 10:21, Minimal criteria for Inferior infarct are no longer Present T wave inversion no longer evident in Anterior leads Nonspecific T wave abnormality now evident in Lateral leads Confirmed by AARON MA M.D ([id number]) on 02/16/2025 9:54:10 AM [facility] 02/15/2025 5:33 PM CDT 02/16/2025 9:54 AM CDT us Diya Jules MD ECG ORDERABLES Final Resul t Performing Organization Address City/[facility]/ZIP Co de Phone Number [facility] * POCT glucose (02/15/2025 5:04 PM CDT) Glucose, POC 84 70 - 199 mg/dL Blood 02/15/2025 5:04 PM CDT 02/15/2025 5:04 PM CDT us Adolfo Gamino MD LAB POCT ORDERABLES - DEV ICE Final [facility] [place] [address] * POCT glucose (02/15/2025 3:39 PM CDT) Glucose, POC 83 70 - 199 mg/dL Blood 02/15/2025 3:39 PM CDT 02/15/2025 3:39 PM CDT Dottie Triana MD LAB POCT ORDERABLES - D EVICE Final Result Performing Organization Address [facility] de Phone Number [facility] [place] [address] * Troponin I high-sensitivity 4-hour (02/15/2025 3:36 PM CDT) Trop I hs 4 <=17 ng/L Comment: Interpretive Data For further hscTnI resources including the diagnostic algorithm and an aid in interpretation, copy and paste this link: https://bjhlab.testcatalog.org/show/hsTrop-[email or web address] Current Interpretive Data last revised 2020. Trop I hs delta -2 ng/L [facility] Trop I hs interp Insignificant [facility] Blood 02/15/2025 3:36 PM CDT 02/15/2025 3:55 PM CDT Yfn Javier MD LAB BLOOD ORDERABLES Fi nal Result Performing Organization Address City/[facility]/ZIP Co de Phone Number [facility] Department [place] [address] * ECG 12-LEAD (02/15/2025 2:23 PM CDT) Narrative [facility] - 02/15/2025 2:23 PM CDT Derrick Kebede MD 02/15/2025 2:24 PM ECG 12 lead Date/Time: 02/15/2025 2:23 PM Performed by: Derrick Kebede MD Authorized by: Dottie Triana MD Rate: ECG rate: 80 ECG rate assessment: normal Rhythm: Rhythm: sinus rhythm Ectopy: Ectopy: none QRS: QRS axis: Normal QRS intervals: Normal Conduction: Conduction: normal ST segments: ST segments: Normal T waves: T waves: non-specific Previous ECG: Previous ECG: Compared to current Similarity: No change Interpretation: Interpretation: non-specific Recommended Follow-up: Recommended follow up: further workup in the ED us Dottie Triana MD ECG ORDERABLES Final R esult Performing Organization Address City/[facility] Co de Phone Number [facility] * Troponin I high-sensitivity 2-hour (02/15/2025 1:45 PM CDT) Trop I hs 5 <=17 ng/L Comment: Interpretive Data For further hscTnI resources including the diagnostic algorithm and an aid in interpretation, copy and paste this link: https://bjhlab.testcatalog.org/show/hsTrop-[email or web address] Current Interpretive Data last revised 2020. Trop I hs delta -1 ng/L [facility] Trop I hs interp Insignificant [facility] Blood 02/15/2025 1:45 PM CDT 02/15/2025 2:11 PM CDT us Yfn Javier MD LAB BLOOD ORDERABLES Fi nal Result Performing Organization Address City/[facility] Co de Phone Number [facility] [place] [address] * XR Chest PA Lateral 2 Views (If patient hemodynamically stable and ambulatory) (02/15/2025 12:57 PMCDT) Anatomical Region Laterality Modality Body, Chest N/A Computed Radiogr aphy 02/15/2025 1:04 PM CDT Impressions 02/15/2025 1:04 PM CDT Comparison is made to chest radiograph dated 12/06/2024. CT chest, abdomen, and pelvis dated 12/07/2024 was also reviewed. No pulmonary consolidation, pleural effusion, or pneumothorax. The patient's left lower lobe nodule is better characterized by the prior CT. Stable cardiomediastinal silhouette, including borderline enlarged cardiac silhouette. The patient is status post median sternotomy and mitral valve replacement. Epicardial wires are present. Electronically signed by: Melly Angulo M.D. Narrative 02/15/2025 1:04 PM CDT EXAMINATION: 2 view chest radiograph Procedure Note Melly Angulo MD - 02/15/2025 EXAMINATION: 2 view chest radiograph IMPRESSION: Comparison is made to chest radiograph dated 12/06/2024. CT chest, abdomen, and pelvis dated 12/07/2024 was also reviewed. No pulmonary consolidation, pleural effusion, or pneumothorax. The patient's left lower lobe nodule is better characterized by the prior CT. Stable cardiomediastinal silhouette, including borderline enlarged cardiac silhouette. The patient is status post median sternotomy and mitral valve replacement. Epicardial wires are present. Electronically signed by: Melly Angulo M.D. Dottie Triana MD IMG XR PROCEDURES Final Result * POCT ketone, blood (02/15/2025 12:22 PM CDT) [facility] Beta-Hydroxybut yrate, POC 0.1 0.0 - 0.5 mmol/L Blood 02/15/2025 12:2 2 PM CDT 02/15/2025 12:22 PM CDT Dottie Triana MD LAB POCT ORDERABLES - D EVICE Final Result [facility] [place] [address] * Troponin I high-sensitivity series (baseline, 2hr, 4hr, 6hr) (02/15/2025 12:06 PM CDT) Trop I hs 6 <=17 ng/L Comment: Interpretive Data For further hscTnI resources including the diagnostic algorithm and an aid in interpretation, copy and paste this link: https://bjhlab.testcatalog.org/show/hsTrop-[email or web address] Current Interpretive Data last revised 2020. Blood 02/15/2025 12:0 6 PM CDT 02/15/2025 12:47 PM CDT us Dottie Triana MD LAB BLOOD ORDERABLES Fi nal Result Performing Organization Address [facility] Co de Phone Number [facility] Department [place] [address] * eGFR (02/15/2025 12:06 PM CDT) eGFR >90 >=60 mL/min/1. 73 m2 Comment: Interpretive Data Reference Interval Normal >/= 90 mL/min/1.73m2 Mildly decreased* 60 - 89 mL/min/1.73m2 Mildly to moderately decreased 45 - 59 mL/min/1.73m2 Moderately to severely decreased 30 - 44 mL/min/1.73m2 Severely decreased 15 - 29 mL/min/1.73m2 Kidney Failure < 15 mL/min/1.73m2 *Relative to young adult level Estimated glomerular filtration rate is determined by the 2020 CKD-EPI equation recommended by the National Kidney Foundation (A Unifying Approach to GFR Estimation: Recommendations of the NKF-ASK Task Force on Reassessing the Inclusion of Race in Diagnosing Kidney Disease, JASN 2020). The CKD-EPI equation should not be used for patients with unstable renal function and has not been validated in children and those over 70. Current interpretive data was last reviewed 2021. Blood 02/15/2025 12:0 6 PM CDT 02/15/2025 12:47 PM CDT us Yfn Javier MD LAB BLOOD ORDERABLES Fi nal Result Performing Organization Address City/[facility]/ZIP Co de Phone Number [facility] [place] [address] * (ABNORMAL) Differential, auto (02/15/2025 12:06 PM CDT) Neutrophil abs 4.03 1.50 - 6.50 K/cumm Imm gran abs 0.02 0.00 - 0.10 K/cumm [facility] Lymphocyte abs 0.62(L) 0.80 - 3.30 K/cumm [facility] Monocyte abs 0.46 0.20 - 0.80 K/cumm [facility] Eosinophil abs 0.14 0.00 - 0.50 K/cumm [facility] Basophil abs 0.02 0.00 - 0.10 K/cumm [facility] Neutrophil pct 76.2 % [facility] Comment: Interpretive Data Percent cell count reference ranges are not reported, since discordance with absolute values may lead to misinterpretation of CBC data. Current Interpretive Data was last revised on 2017. Imm gran pct 0.4 % [facility] Comment: Interpretive Data Percent cell count reference ranges are not reported, since discordance with absolute values may lead to misinterpretation of CBC data. Current Interpretive Data was last revised on 2017. Lymphocyte pct 11.7 % [facility] Comment: Interpretive Data Percent cell count reference ranges are not reported, since discordance with absolute values may lead to misinterpretation of CBC data. Current Interpretive Data was last revised on 2017. Monocyte pct 8.7 % [facility] Comment: Interpretive Data Percent cell count reference ranges are not reported, since discordance with absolute values may lead to misinterpretation of CBC data. Current Interpretive Data was last revised on 2017. Eosinophil pct 2.6 % [facility] Comment: Interpretive Data Percent cell count reference ranges are not reported, since discordance with absolute values may lead to misinterpretation of CBC data. Current Interpretive Data was last revised on 2017. Basophil pct 0.4 % [facility] Comment: Interpretive Data Percent cell count reference ranges are not reported, since discordance with absolute values may lead to misinterpretation of CBC data. Current Interpretive Data was last revised on 2017. Blood 02/15/2025 12:0 6 PM CDT 02/15/2025 12:47 PM CDT us Yfn Javier MD LAB BLOOD ORDERABLES Fi nal Result [facility] [place] [address] * Pro B-type natriuretic peptide (02/15/2025 12:06 PM CDT) NT-proBNP 162 <=300 pg/mL Comment: Interpretive Comments: A. Dyspnea in Acute Care Setting All Ages: < 300 pg/ml, acute heart failure unlikely. < 50 yrs: 300 - 450 pg/ml, further investigation warranted. > 450 pg/ml, acute heart failure likely. 50 - 74 yrs: 300 - 900 pg/ml, further investigation warranted. > 900 pg/ml, acute heart failure likely . > or = 75 yrs: 450 - 1800 pg/ml, further investigation warranted. > 1800 pg/ml, acute heart failure likely. B. Non-acute Setting < 75 yrs < 125 pg/ml, rules out heart failure. > or = 125 pg/ml, further investigation warranted. > or = 75 yrs < 450 pg/ml, rules out heart failure. > or = 450 pg/ml, further investigation warranted. - Knowledge of each individual patient's NT-proBNP range may be more useful than using similar cut-points for every patient. Please note that marked elevations in NT-proBNP levels may be observed in state other than Left Ventricular Congestive Failure, including: acute coronary syndromes, right heart strain/failure (including pulmonary embolism and cor pulmonale), critical illness, renal failure, as well as advanced age. - References: 1. Robert JL et.al. Eur Heart J. 2006:27:330-337. 2. [place] RW, Mariaa BLANCHARD. J. AM Osman Cardiol: Cardiovasc Imag. 2009;2: 216- 225. Interpretive Data Last Revised Date: 2018. Blood 02/15/2025 12:0 6 PM CDT 02/15/2025 12:47 PM CDT Dottie Triana MD LAB BLOOD ORDERABLES Fi nal Result Performing Organization Address [facility]/ZIP Co de Phone Number [facility] Department [place] [address] * (ABNORMAL) CBC with auto differential (02/15/2025 12:06 PM CDT) WBC 5.29 3.80 - 9.90 K/cumm Hgb 12.2 11.9 - 15.5 g/dL [facility] Hct 39.2 35.6 - 45.5 % [facility] Plt 220 150 - 400 K/cumm [facility] MPV 10.4 9.1 - 12.3 fL [facility] RBC 4.85 3.90 - 5.20 M/cumm [facility] MCV 80.8(L) 81.3 - 96.4 fL [facility] MCH 25.2(L) 27.1 - 33.3 pg [facility] MCHC 31.1(L) 32.3 - 35.7 g/dL [facility] RDW CV 17.1(H) 11.1 - 14.9 % [facility] RDW SD 49.9(H) 35.7 - 48.1 fL [facility] NRBC abs 0.00 0.00 - 0.01 K/cumm [facility] Blood Venous blood specimen / Unknown 02/15/2025 12:06 PM CDT 02/15/2025 12:47 PM CDT us Dottie Triana MD LAB BLOOD ORDERABLES Fi nal Result [facility] Department [place] [address] * (ABNORMAL) Hemoglobin A1c (02/15/2025 12:06 PM CDT) Hgb A1C 6.3(H) 4.0 - 5.6 % Estimated Average Glucose 134 mg/dL [facility] Comment: The ADA recommends reporting an estimated Average Glucose (eAG) with all Hemoglobin A1c results using the equation derived from a study of 507 normal and diabetic adults. Minority populations were underrepresented and children were not included. (Diabetes Care 2020; 43(S1): S66-S76). The eAG is not equivalent to a fasting glucose. Blood 02/15/2025 12:0 6 PM CDT 02/15/2025 12:52 PM CDT Narrative [facility] - 02/16/2025 4:45 PM CDT Reflex us Brad Tyson MD LAB BLOOD ORDERABLES Fin al Result [facility] [place] [address] * (ABNORMAL) Comprehensive metabolic panel (02/15/2025 12:06 PM CDT) Sodium 138 135 - 145 mmol/L Potassium, pl 3.2(L) 3.3 - 4.9 mmol/L [facility] Chloride 99 97 - 110 mmol/L [facility] CO2 30 22 - 32 mmol/L [facility] Anion gap 9 2 - 15 mmol/L [facility] BUN 10 6 - 25 mg/dL [facility] Creatinine 0.69 0.60 - 1.10 mg/dL [facility] Glucose 113 70 - 199 mg/dL [facility] Comment: Interpretive Data Fasting glucose >/= 126 mg/dl is diagnostic for diabetes. Fasting is defined as no caloric intake for at least 8 hours. Fasting glucose between 100 mg/dl to 125 mg/dl is diagnostic of prediabetes. In a patient with classic symptoms of hyperglycemia or hyperglycemic crisis, a random glucose >/= 200 mg/dl is diagnostic for diabetes. In the absence of unequivocal hyperglycemia, results should be confirmed by repeat testing. The classification and Diagnosis of Diabetes Diabetes Care 202; 46: S19-S40. Current interpretive data was last revised 2022. Calcium 8.9 8.5 - 10.3 mg/dL [facility] Bilirubin, total 0.3 0.1 - 1.2 mg/dL [facility] Protein, pl 7.8 6.5 - 8.5 g/dL [facility] Albumin 3.5 3.5 - 5.0 g/dL [facility] Alk phos 230(H) 40 - 130 Units/L [facility] ALT 35 7 - 45 Units/L [facility] AST 47(H) 10 - 45 Units/L [facility] Blood 02/15/2025 12:0 6 PM CDT 02/15/2025 12:47 PM CDT us Dottie Triana MD LAB BLOOD ORDERABLES Fi nal Result [facility] [place] [address] * RAD ONC ARIA SESSION SUMMARY (12/24/2024 1:16 PM CDT) Course Name C1 LT LUNG 2024 [facility] Course Plan Date 11/26/2024 11:09 AM ARIA Elapsed Days 4 ARIA Treatment Start Date 12/20/2024 ARIA Treatment Site P+ LT LUNG ARIA Dose Given To Date (cGy) 5,502 ARIA Session Dosage Given (cGy) 1,100 ARIA Plan ID P+ LT LUNG ARIA Fractions Treated 5 ARIA Prescribed Dose Per Fraction (cGy) 1,100 [facility] Prescribed Total Dose (cGy) 5,500 ARIA 12/24/2024 1:16 PM CDT us Not In File Miscellaneous RADIATION ONCOLOGY ORD ERABLES Final Result ARIA * RAD ONC ARIA SESSION SUMMARY (12/23/2024 1:19 PM CDT) Course Name C1 LT LUNG 2024 [facility] Course Plan Date 11/26/2024 11:09 AM ARIA Elapsed Days 3 ARIA Treatment Start Date 12/20/2024 ARIA Treatment Site P+ LT LUNG ARIA Dose Given To Date (cGy) 4,402 ARIA Session Dosage Given (cGy) 1,101 ARIA Plan ID P+ LT LUNG ARIA Fractions Treated 4 ARIA Prescribed Dose Per Fraction (cGy) 1,100 ARIA Prescribed Total Dose (cGy) 5,500 ARIA 12/23/2024 1:19 PM CDT us Not In File Miscellaneous RADIATION ONCOLOGY ORD ERABLES Final Result [facility] * RAD ONC ARIA SESSION SUMMARY (12/22/2024 2:18 PM CDT) Course Name C1 LT LUNG 2024 ARIA Course Plan Date 11/26/2024 11:09 AM ARIA Elapsed Days 2 ARIA Treatment Start Date 12/20/2024 ARIA Treatment Site P+ LT LUNG ARIA Dose Given To Date (cGy) 3,301 ARIA Session Dosage Given (cGy) 1,100 ARIA Plan ID P+ LT LUNG ARIA Fractions Treated 3 ARIA Prescribed Dose Per Fraction (cGy) 1,100 ARIA Prescribed Total Dose (cGy) 5,500 ARIA 12/22/2024 2:18 PM CDT us Not In File Miscellaneous RADIATION ONCOLOGY ORD ERABLES Final Result [facility] * RAD ONC ARIA SESSION SUMMARY (12/21/2024 11:52 AM CDT) Course Name C1 LT LUNG 2024 ARIA Course Plan Date 11/26/2024 11:09 AM ARIA Elapsed Days 1 ARIA Treatment Start Date 12/20/2024 ARIA Treatment Site P+ LT LUNG ARIA Dose Given To Date (cGy) 2,201 ARIA Session Dosage Given (cGy) 1,100 ARIA Plan ID P+ LT LUNG ARIA Fractions Treated 2 ARIA Prescribed Dose Per Fraction (cGy) 1,100 ARIA Prescribed Total Dose (cGy) 5,500 ARIA 12/21/2024 11:5 2 AM CDT us Not In File Miscellaneous RADIATION ONCOLOGY ORD ERABLES Final Result [facility] * RAD ONC ARIA SESSION SUMMARY (12/20/2024 1:56 PM CDT) Course Name C1 LT LUNG 2024 ARIA Course Plan Date 11/26/2024 11:09 AM ARIA Elapsed Days 0 ARIA Treatment Start Date 12/20/2024 ARIA Treatment Site P+ LT LUNG ARIA Dose Given To Date (cGy) 1,100 ARIA Session Dosage Given (cGy) 1,100 ARIA Plan ID P+ LT LUNG ARIA Fractions Treated 1 ARIA Prescribed Dose Per Fraction (cGy) 1,100 ARIA Prescribed Total Dose (cGy) 5,500 ARIA 12/20/2024 1:56 PM CDT us Not In File Miscellaneous RADIATION ONCOLOGY ORD ERABLES Final Result Performing Organization Address City/[facility] Co de Phone Number [facility] * POCT glucose (12/07/2024 10:03 AM CDT) Glucose, POC 109 70 - 199 mg/dL Blood 12/07/2024 10:0 3 AM CDT 12/07/2024 10:03 AM CDT us Mirta Gonzalez MD LAB POCT ORDERABLES - DEVICE Final Result Performing Organization Address City/[facility] Co de Phone Number [facility] [place] [address] * US Vein Duplex Lower Extremity Bilateral Complete (12/07/2024 9:01 AM CDT) Anatomical Region Laterality Modality Vascular Bilateral Ultrasound 12/07/2024 8:20 AM CDT Narrative 12/07/2024 6:12 PM CDT [facility] - Department of Vascular Surgery, Vascular Laboratory [address] [place] [id number] Lower Extremity Venous Ultrasound Report Patient Name: FRANSISCA POWELL : 1975 (49y 9m) Study Date: 12/07/2024 8:20:35 AM Gender: F Tech: Location: [id number] Ref Provider: INGRID GILES Quality: Adequate Order Provider: INGRID GILES PROCEDURES: Vascular Report: Venous Duplex imaging was performed bilaterally in the lower extremities. The common femoral, femoral, popliteal, posterior tibial, peroneal veins were evaluated for patency, spontaneity and phasicity with Doppler, compression and augmentation maneuvers. Great saphenous vein proximal at the junction was evaluated with compression maneuvers. INDICATIONS: SOB with pleuritic chest pain, BLE swelling L > R, ttp L popliteal - FINDINGS: Performing Process Validation Engineer: Patti Singh RVT. Bilateral: Venous Doppler signals in the bilateral lower extremity are within normal limits for spontaneity and phasicity and respond normally to augmentation maneuvers. No evidence of deep vein thrombus by duplex, proximal to the calf. Comments: Limited visualization of the deep calf veins due to depth of vessels. CONCLUSIONS: 1. There is no evidence of acute deep vein thrombosis in the lower extremities bilaterally. Noninvasive venous studies cannot rule out isolated calf vein obstruction. HISTORY: 49 y.o. female with PMH SLE, antiphospholipid syndrome on Coumadin, diabetes, dyslipidemia, mitral regurg s/p valve replacement, chronic respiratory failure, hypertension, anxiety, presented to the ED with acute onset shortness of breath and chest pain - PREVIOUS STUDIES: No previous studies for comparison. DISCLAIMER: The study images and the final report will be retained in the patient chart by the Vascular Laboratory for the legally required time period. This chart constitutes the legal record of any testing performed. ATTESTATION: I have reviewed and interpreted the pertinent images and measurements of this study. I attest to the conclusions in the final report that is provided above. Electronically Signed By: Vitaliy Tejada MD FACS 12/07/2024 5:43:55 PM CDT Procedure Note Vitaliy Tejada MD - 12/07/2024 [facility] - Department of Vascular Surgery,Vascular Laboratory [address] [place] [id number] Lower Extremity Venous Ultrasound Report Patient Name: FRANSISCA POWELL : 1975 (49y 9m) Study Date: 12/07/2024 8:20:35 AM Gender: F Tech: Location: 2183 Ref Provider: INGRID GILES Quality: Adequate Order Provider: INGRID GILES PROCEDURES: Vascular Report: Venous Duplex imaging was performed bilaterally in the lower extremities.The common femoral, femoral, popliteal, posterior tibial, peroneal veins wereevaluated for patency, spontaneity and phasicity with Doppler, compression and augmentationmaneuvers. Great saphenous vein proximal at the junction was evaluated with compressionmaneuvers. INDICATIONS: SOB with pleuritic chest pain, BLE swelling L > R, ttp L popliteal - FINDINGS: Performing Process Validation Engineer: Patti Singh RVT. Bilateral: Venous Doppler signals in the bilateral lower extremity are within normallimits for spontaneity and phasicity and respond normally to augmentation maneuvers.No evidence of deep vein thrombus by duplex, proximal to the calf. Comments: Limited visualization of the deep calf veins due to depth of vessels. CONCLUSIONS: 1. There is no evidence of acute deep vein thrombosis in the lowerextremities bilaterally. Noninvasive venous studies cannot rule out isolated calf veinobstruction. HISTORY: 49 y.o. female with PMH SLE, antiphospholipid syndrome on Coumadin,diabetes, dyslipidemia, mitral regurg s/p valve replacement, chronic respiratoryfailure, hypertension, anxiety, presented to the ED with acute onset shortness ofbreath and chest pain - PREVIOUS STUDIES: No previous studies for comparison. DISCLAIMER: The study images and the final report will be retained in the patientchart by the Vascular Laboratory for the legally required time period. This chartconstitutes the legal record of any testing performed. ATTESTATION: I have reviewed and interpreted the pertinent images and measurements ofthis study. I attest to the conclusions in the final report that is provided above. Electronically Signed By: Vitaliy Tejada MD [facility] 12/07/2024 5:43:55 PM CDT us Ingrid Giles MD IM US PROCEDURES Final Res ult * CT Chest PE (CTA) Abdomen Pelvis W Contrast (12/07/2024 6:38 AM CDT) Anatomical Region Laterality Modality Body N/A Computed Tomogra phy 12/07/2024 7:34 AM CDT Impressions 12/07/2024 8:08 AM CDT 1. No acute pulmonary embolism. Mild pulmonary edema. 2. Unchanged left lower lobe pulmonary nodule worrisome for primary lung malignancy. 3. Pericardial thickening similar to prior exams and possibly post operative. Recommend correlation with symptomatology of pericarditis. ' Dictated by: Fredis Seymour MD The radiology attending physician has personally reviewed this study, and had reviewed and/or edited this written report and agrees with it. Electronically signed by: Oscar Sanchez M.D. Narrative 12/07/2024 8:08 AM CDT EXAMINATION: CT CHEST PE (CTA) ABDOMEN PELVIS W CONTRAST HISTORY: Shortness of breath TECHNIQUE: Computed tomographic images were acquired using a chest angiographic protocol optimized for pulmonary embolism. Computed tomographic examination of the abdomen and pelvis with intravenous contrast was performed using a standard protocol. Contrast enhanced transaxial images were obtained following the intravenous administration of 94 ml of nonionic contrast. Multiplanar reformatted images and three-dimensional images were obtained on the 3-D workstation and sent to the PACS archival system. COMPARISON: 11/02/2024 FINDINGS: No acute pulmonary embolism. Multiple prominent thoracic lymph nodes are similar as on 11/02/2024. Mitral valve replacement is present. The heart is enlarged. There is perirectal soft tissue thickening with retained epicardial pacing wires. The degree of pericardial thickening is similar to priors. There is stable cardiomegaly. The main pulmonary artery is normal in course and caliber. No significant interval change in size of a solid left lower lobe pulmonary nodule measuring 1.5 cm and suspicious for primary lung malignancy. Scattered nodular consolidations within the right upper lobe (series 5 image 66) with foci of septal line thickening and groundglass bilaterally appear overall relatively unchanged compared to the prior examination and worrisome for mild pulmonary edema. There is no new consolidation, pleural effusion, or pneumothorax. No suspicious liver lesion. The gallbladder is surgically absent. The spleen is dysmorphic, unchanged from the prior exam. The pancreas is normal. The adrenal glands are unremarkable. The kidneys are symmetric without hydronephrosis or nephrolithiasis. The urinary bladder is unremarkable. There is colonic diverticulosis without CT findings of acute diverticulitis. Fat-containing ventral hernias are present. The appendix is normal. No organized or drainable intra-abdominal fluid collection. No pneumoperitoneum. Right femoral arterial stents are present. Multilevel degenerative changes in the spine are present without acute fracture or aggressive osseous lesion. Procedure Note Oscar Sanchez MD - 12/07/2024 EXAMINATION: CT CHEST PE (CTA) ABDOMEN PELVIS W CONTRAST HISTORY: Shortness of breath TECHNIQUE: Computed tomographic images were acquired using a chest angiographic protocol optimized for pulmonary embolism. Computed tomographic examination of the abdomen and pelvis with intravenous contrast was performed using a standard protocol. Contrast enhanced transaxial images were obtained following the intravenous administration of 94 ml of nonionic contrast. Multiplanar reformatted images and three-dimensional images were obtained on the 3-D workstation and sent to the PACS archival system. COMPARISON: 11/02/2024 FINDINGS: No acute pulmonary embolism. Multiple prominent thoracic lymph nodes are similar as on 11/02/2024. Mitral valve replacement is present. The heart is enlarged. There is perirectal soft tissue thickening with retained epicardial pacing wires. The degree of pericardial thickening is similar to priors. There is stable cardiomegaly. The main pulmonary artery is normal in course and caliber. No significant interval change in size of a solid left lower lobe pulmonary nodule measuring 1.5 cm and suspicious for primary lung malignancy. Scattered nodular consolidations within the right upper lobe (series 5 image 66) with foci of septal line thickening and groundglass bilaterally appear overall relatively unchanged compared to the prior examination and worrisome for mild pulmonary edema. There is no new consolidation, pleural effusion, or pneumothorax. No suspicious liver lesion. The gallbladder is surgically absent. The spleen is dysmorphic, unchanged from the prior exam. The pancreas is normal. The adrenal glands are unremarkable. The kidneys are symmetric without hydronephrosis or nephrolithiasis. The urinary bladder is unremarkable. There is colonic diverticulosis without CT findings of acute diverticulitis. Fat-containing ventral hernias are present. The appendix is normal. No organized or drainable intra-abdominal fluid collection. No pneumoperitoneum. Right femoral arterial stents are present. Multilevel degenerative changes in the spine are present without acute fracture or aggressive osseous lesion. IMPRESSION: 1. No acute pulmonary embolism. Mild pulmonary edema. 2. Unchanged left lower lobe pulmonary nodule worrisome for primary lung malignancy. 3. Pericardial thickening similar to prior exams and possibly post operative. Recommend correlation with symptomatology of pericarditis. ' Dictated by: Fredis Seymour MD The radiology attending physician has personally reviewed this study, and had reviewed and/or edited this written report and agrees with it. Electronically signed by: Oscar Sanchez M.D. us Ingrid Giles MD IMG CT PROCEDURES Final Res ult * (ABNORMAL) Urinalysis reflex to microscopic and culture Urine (12/07/2024 6:19 AM CDT) Color, ur Straw Yellow Clarity, ur Cloudy(A) Clear [facility] Specific gravity, ur 1.011 1.003 - 1.030 [facility] pH, urine 6.5 [facility] Comment: Interpretive Data U rine pH is affected by diet, medications, systemic acid-base disturbances, and renal tubular function. pH may affect urinary stone formation. For example, urine pH below 6.0 may help reduce the tendency for calcium phosphate stones and pH greater than 6.0 may reduce the tendency for uric acid stone formation. Source: [facility] Current Interpretive Data was last revised on 2017 Protein, ur ql Trace Negative [facility] Glucose, ur ql 3+(A) Negative [facility] Ketones, ur Negative Negative [facility] Bilirubin, ur Negative Negative [facility] Blood, ur Negative Negative [facility] Urobilinogen, ur <2.0 <2.0 mg/dL [facility] Nitrite, ur Positive(A) Negative [facility] Leukocyte esterase, ur 1+(A) Negative [facility] UA reflex comment Reflex to microscopic UA will be performed. [facility] Urine 12/07/2024 6:19 AM CDT 12/07/2024 6:27 AM CDT Ingrid Giles MD LAB MICROBIOLOGY - GENERAL ORDERABLES Final Result [facility] Department [place] [address] * POCT glucose (12/07/2024 6:19 AM CDT) Glucose, POC 102 70 - 199 mg/dL Blood 12/07/2024 6:19 AM CDT 12/07/2024 6:19 AM CDT Mirta Gonzalez MD LAB POCT ORDERABLES - DEVICE Final Result Performing Organization Address [facility] Co de Phone Number [facility] [place] [address] * (ABNORMAL) Urinalysis, microscopic only (12/07/2024 6:19 AM CDT) WBC, ur 6-10(A) 0 - 5 /HPF RBC, ur 0-2 0 - 2 /HPF [facility] Epithelial cells, squamous, ur 1-5 0 - 5 /HPF [facility] Bacteria, ur 2+(A) [facility] Culture Reflex Comment Reflex conditions for urine culture (WBC >10) not met. [facility] Urine 12/07/2024 6:19 AM CDT 12/07/2024 6:27 AM CDT Ingrid Giles MD LAB URINE ORDERABLES Final Result Performing Organization Address [facility] de Phone Number [facility] [place] [address] * Troponin I high-sensitivity 6-hour (12/07/2024 6:16 AM CDT) Pathologist [facility] Trop I hs 4 <=17 ng/L Comment: Interpretive Data For further [facility] resources including the diagnostic algorithm and an aid in interpretation, copy and paste this link: https://bjhlab.testcatalog.org/show/hsTrop-1 Current Interpretive Data last revised 2020. Trop I hs delta -1 ng/L [facility] Trop I hs interp Insignificant [facility] Blood 12/07/2024 6:16 AM CDT 12/07/2024 6:31 AM CDT Karla Griggs MD LAB BLOOD ORDERABLES Sue l Result Performing Organization Address [facility] Co de Phone Number [facility] [address] [place] [address] * (ABNORMAL) Erythrocyte sedimentation rate (12/07/2024 6:16 AM CDT) Pathologist [facility] Erythrocyte sedimentation rate 76(H) 1 - 20 mm/hr Blood 12/07/2024 6:16 AM CDT 12/07/2024 6:31 AM CDT Mirta Gonzalez MD LAB BLOOD ORDERABLES [place] [address] * Troponin I high-sensitivity 2-hour (12/07/2024 5:49 AM CDT) [facility] Trop I hs 4 <=17 ng/L Comment: Interpretive Data For further hscTnI resources including the diagnostic algorithm and an aid in interpretation, copy and paste this link: https://bjhlab.testcatalog.org/show/hsTrop-1 Current Interpretive Data last revised 2020. Trop I hs delta See Comment ng/L [facility] Comment:Inappropriate collec tion time to report a delta. Trop I hs pct delta See Comment % [facility] Comment:Inappropriate collec tion time to report a delta. Trop I hs interp See Comment [facility] Comment:Inappropriate collec tion time to report a delta. Blood 12/07/2024 5:49 AM CDT 12/07/2024 6:27 AM CDT Karla Griggs MD LAB BLOOD ORDERABLES [place] [address] * POCT glucose (12/07/2024 5:49 AM CDT) Pathologist [facility] Glucose, POC 111 70 - 199 mg/dL Blood 12/07/2024 5:49 AM CDT 12/07/2024 5:49 AM CDT us Notinfile Unknown LAB POCT ORDERABLES - DEVICE F inal Result Performing Organization Address [facility] de Phone Number [facility] [place] [address] * Troponin I high-sensitivity 4-hour (12/07/2024 4:59 AM CDT) Trop I hs 4 <=17 ng/L Comment: Interpretive Data For further hscTnI resources including the diagnostic algorithm and an aid in interpretation, copy and paste this link: https://bjhlab.testcatalog.org/show/hsTrop-[email or web address] Current Interpretive Data last revised 2020. Trop I hs delta -1 ng/L [facility] Trop I hs interp Insignificant [facility] Blood 12/07/2024 4:59 AM CDT 12/07/2024 5:21 AM CDT Karla Griggs MD LAB BLOOD ORDERABLES Sue l Result Performing Organization Address [facility] de Phone Number [facility] [place] [address] * POCT glucose (12/07/2024 3:34 AM CDT) Glucose, POC 103 70 - 199 mg/dL Blood 12/07/2024 3:34 AM CDT 12/07/2024 3:34 AM CDT us Notinfile Unknown LAB POCT ORDERABLES - DEVICE F inal Result Performing Organization Address [facility] de Phone Number [facility] [place] [address] * (ABNORMAL) Protime-INR (12/07/2024 12:14 AM CDT) Pathologist [facility] PT 15.6(H) 9.7 - 13.0 sec INR 1.43(H) 0.90 - 1.20 [facility] Comment: Interpretive data Oral anticoagulant therapeutic ranges: Venous thromboembolism prophylaxis or treatment: 2.0-3.0 CARDIOLOGY Standard range: 2.0-3.0 High-intensity range: 2.5-3.5 Refer to indication-specific guidelines for appropriate target ranges for prosthetic heart valve replacement. Current interpretive data was last revised on 2019. Blood 12/07/2024 12:1 4 AM CDT 12/07/2024 12:45 AM CDT Mirta Gonzalez MD LAB BLOOD ORDERABLES Final Result Performing Organization Address [facility] de Phone Number [facility] [address] [place] [address] * Troponin I high-sensitivity series (baseline, 2hr, 4hr, 6hr) (12/07/2024 12:08 AM CDT) Pathologist [facility] Trop I hs 5 <=17 ng/L Comment: Interpretive Data For further hscTnI resources including the diagnostic algorithm and an aid in interpretation, copy and paste this link: https://bjhlab.testcatalog.org/show/[email or web address] Current Interpretive Data last revised 2020. Blood 12/07/2024 12:0 8 AM CDT 12/07/2024 12:51 AM CDT Mirta Gonzalez MD LAB BLOOD ORDERABLES Final Result Performing Organization Address [facility] Co de Phone Number [facility] [address] [place] [address] * eGFR (12/07/2024 12:08 AM CDT) Pathologist [facility] eGFR 75 >=60 mL/min/1. 73 m2 Comment: Interpretive Data Reference Interval Normal >/= 90 mL/min/1.73m2 Mildly decreased* 60 - 89 mL/min/1.73m2 Mildly to moderately decreased 45 - 59 mL/min/1.73m2 Moderately to severely decreased 30 - 44 mL/min/1.73m2 Severely decreased 15 - 29 mL/min/1.73m2 Kidney Failure < 15 mL/min/1.73m2 *Relative to young adult level Estimated glomerular filtration rate is determined by the 2020 CKD-EPI equation recommended by the National Kidney Foundation (A Unifying Approach to GFR Estimation: Recommendations of the NKF-ASK Task Force on Reassessing the Inclusion of Race in Diagnosing Kidney Disease, JASN 2020). The CKD-EPI equation should not be used for patients with unstable renal function and has not been validated in children and those over 70. Current interpretive data was last reviewed 2021. Blood 12/07/2024 12:0 8 AM CDT 12/07/2024 12:51 AM CDT Mirta Gonzalez MD LAB BLOOD ORDERABLES Final Result [facility] [place] [address] * Differential, auto (12/07/2024 12:08 AM CDT) Neutrophil abs 5.09 1.50 - 6.50 K/cumm Imm gran abs 0.04 0.00 - 0.10 K/cumm [facility] Lymphocyte abs 0.96 0.80 - 3.30 K/cumm [facility] Monocyte abs 0.46 0.20 - 0.80 K/cumm [facility] Eosinophil abs 0.15 0.00 - 0.50 K/cumm [facility] Basophil abs 0.03 0.00 - 0.10 K/cumm [facility] Neutrophil pct 75.7 % [facility] Comment: Interpretive Data Percent cell count reference ranges are not reported, since discordance with absolute values may lead to misinterpretation of CBC data. Current Interpretive Data was last revised on 2017. Imm gran pct 0.6 % [facility] Comment: Interpretive Data Percent cell count reference ranges are not reported, since discordance with absolute values may lead to misinterpretation of CBC data. Current Interpretive Data was last revised on 2017. Lymphocyte pct 14.3 % [facility] Comment: Interpretive Data Percent cell count reference ranges are not reported, since discordance with absolute values may lead to misinterpretation of CBC data. Current Interpretive Data was last revised on 2017. Monocyte pct 6.8 % [facility] Comment: Interpretive Data Percent cell count reference ranges are not reported, since discordance with absolute values may lead to misinterpretation of CBC data. Current Interpretive Data was last revised on 2017. Eosinophil pct 2.2 % [facility] Comment: Interpretive Data Percent cell count reference ranges are not reported, since discordance with absolute values may lead to misinterpretation of CBC data. Current Interpretive Data was last revised on 2017. Basophil pct 0.4 % [facility] Comment: Interpretive Data Percent cell count reference ranges are not reported, since discordance with absolute values may lead to misinterpretation of CBC data. Current Interpretive Data was last revised on 2017. Blood 12/07/2024 12:0 8 AM CDT 12/07/2024 12:51 AM CDT Mirta Gonzalez MD LAB BLOOD ORDERABLES Final Result [facility] Department [place] [address] * Pro B-type natriuretic peptide (12/07/2024 12:08 AM CDT) NT-proBNP 292 <=300 pg/mL Comment: Interpretive Comments: A. Dyspnea in Acute Care Setting All Ages: < 300 pg/ml, acute heart failure unlikely. < 50 yrs: 300 - 450 pg/ml, further investigation warranted. > 450 pg/ml, acute heart failure likely. 50 - 74 yrs: 300 - 900 pg/ml, further investigation warranted. > 900 pg/ml, acute heart failure likely . > or = 75 yrs: 450 - 1800 pg/ml, further investigation warranted. > 1800 pg/ml, acute heart failure likely. B. Non-acute Setting < 75 yrs < 125 pg/ml, rules out heart failure. > or = 125 pg/ml, further investigation warranted. > or = 75 yrs < 450 pg/ml, rules out heart failure. > or = 450 pg/ml, further investigation warranted. - Knowledge of each individual patient's NT-proBNP range may be more useful than using similar cut-points for every patient. Please note that marked elevations in NT-proBNP levels may be observed in state other than Left Ventricular Congestive Failure, including: acute coronary syndromes, right heart strain/failure (including pulmonary embolism and cor pulmonale), critical illness, renal failure, as well as advanced age. - References: 1. Robert RIVERO et.al. Eur Heart J. 2006:27:330-337. 2. [place] ROSARIO, Mariaa BLANCHARD. J. AM Osman Cardiol: Cardiovasc Imag. 2009;2: 216- 225. Interpretive Data Last Revised Date: 2018. Blood 12/07/2024 12:0 8 AM CDT 12/07/2024 12:51 AM CDT Mirta Gonzalez MD LAB BLOOD ORDERABLES Final Result [facility] Department [place] [address] * (ABNORMAL) CBC with auto differential (12/07/2024 12:08 AM CDT) Pathologist [facility] WBC 6.73 3.80 - 9.90 K/cumm Hgb 10.9(L) 11.9 - 15.5 g/dL [facility] Hct 34.4(L) 35.6 - 45.5 % [facility] Plt 253 150 - 400 K/cumm [facility] MPV 10.3 9.1 - 12.3 fL [facility] RBC 4.27 3.90 - 5.20 M/cumm [facility] MCV 80.6(L) 81.3 - 96.4 fL [facility] MCH 25.5(L) 27.1 - 33.3 pg [facility] MCHC 31.7(L) 32.3 - 35.7 g/dL [facility] RDW CV 14.7 11.1 - 14.9 % [facility] RDW SD 43.5 35.7 - 48.1 fL [facility] NRBC abs 0.00 0.00 - 0.01 K/cumm [facility] Blood 12/07/2024 12:0 8 AM CDT 12/07/2024 12:51 AM CDT Mirta Gonzalez MD LAB BLOOD ORDERABLES Final Result Performing Organization Address City/[facility]/ZIP Co de Phone Number [facility] Department of [address] [place] [address] * (ABNORMAL) CRP (acute phase) (12/07/2024 12:08 AM CDT) [facility] CRP 10.3(H) <=10.0 mg/L Blood 12/07/2024 12:0 8 AM CDT 12/07/2024 12:51 AM CDT Mirta Gonzalez MD LAB BLOOD ORDERABLES Final Result Performing Organization Address City/[facility] Co de Phone Number [facility] Department [place] [address] * (ABNORMAL) Comprehensive metabolic panel (12/07/2024 12:08 AM CDT) [facility] Sodium 142 135 - 145 mmol/L Potassium, pl 3.9 3.3 - 4.9 mmol/L [facility] Chloride 102 97 - 110 mmol/L [facility] CO2 27 22 - 32 mmol/L [facility] Anion gap 13 2 - 15 mmol/L [facility] BUN 12 6 - 25 mg/dL [facility] Creatinine 0.93 0.60 - 1.10 mg/dL [facility] Glucose 91 70 - 199 mg/dL [facility] Comment: Interpretive Data Fasting glucose >/= 126 mg/dl is diagnostic for diabetes. Fasting is defined as no caloric intake for at least 8 hours. Fasting glucose between 100 mg/dl to 125 mg/dl is diagnostic of prediabetes. In a patient with classic symptoms of hyperglycemia or hyperglycemic crisis, a random glucose >/= 200 mg/dl is diagnostic for diabetes. In the absence of unequivocal hyperglycemia, results should be confirmed by repeat testing. The classification and Diagnosis of Diabetes Diabetes Care 202; 46: S19-S40. Current interpretive data was last revised 2022. Calcium 9.6 8.5 - 10.3 mg/dL [facility] Bilirubin, total 0.3 0.1 - 1.2 mg/dL [facility] Protein, pl 9.2(H) 6.5 - 8.5 g/dL [facility] Albumin 4.3 3.5 - 5.0 g/dL [facility] Alk phos 200(H) 40 - 130 Units/L [facility] ALT 28 7 - 45 Units/L [facility] AST 33 10 - 45 Units/L [facility] Blood 12/07/2024 12:0 8 AM CDT 12/07/2024 12:51 AM CDT Mirta Gonzalez MD LAB BLOOD ORDERABLES Final Result [facility] [place] [address] * XR Chest PA Lateral 2 Views (12/06/2024 10:31 PM CDT) Anatomical Region Laterality Modality Body, Chest N/A Computed Radiogr aphy 12/06/2024 10:5 4 PM CDT Impressions 12/07/2024 7:02 PM CDT Comparison is made to prior chest radiograph dated 08/12/2024. Median sternotomy wires are intact and in unchanged alignment. Mitral valve replacement. Epicardial pacing wires. Small lung volumes. Central vascular engorgement with mild diffuse interstitial thickening, likely representing mild pulmonary edema. No pleural effusion or pneumothorax. Stable cardiomegaly. Cholecystectomy clips in the right upper quadrant. Dictated by: Princess Phelps MD, PhD. The radiology attending physician has personally reviewed this study, and had reviewed and/or edited this written report and agrees with it. Electronically signed by: Natalio Gaspar M.D. Narrative 12/07/2024 7:02 PM CDT EXAMINATION: 2 view chest radiograph Procedure Note Natalio Gaspar MD PhD - 12/07/2024 EXAMINATION: 2 view chest radiograph IMPRESSION: Comparison is made to prior chest radiograph dated 08/12/2024. Median sternotomy wires are intact and in unchanged alignment. Mitral valve replacement. Epicardial pacing wires. Small lung volumes. Central vascular engorgement with mild diffuse interstitial thickening, likely representing mild pulmonary edema. No pleural effusion or pneumothorax. Stable cardiomegaly. Cholecystectomy clips in the right upper quadrant. Dictated by: Princess Phelps MD, PhD. The radiology attending physician has personally reviewed this study, and had reviewed and/or edited this written report and agrees with it. Electronically signed by: Natalio Gaspar M.D. Mirta Gonzalez MD IMG XR PROCEDURES Fin al Result * ECG 12-LEAD (12/06/2024 10:15 PM CDT) Narrative [facility] - 12/06/2024 10:15 PM CDT Srinivas Cardoza MD 12/06/2024 10:15 PM ECG 12 lead Date/Time: 12/06/2024 10:15 PM Performed by: Srinivas Cardoza MD Authorized by: Rj Swann MD PhD Rate: ECG rate: Rate 74, narrow complex, regular, sinus, no STEMI however T-wave inversions in V1 V2 which were present on prior ECG Procedure Note Srinivas Cardoza MD - 12/06/2024 10:14 PM CDT Procedure ECG 12 lead Date/Time: 12/06/2024 10:15 PM Performed by: Srinivas Cardoza MD Authorized by: Rj Swann MD PhD Rate: ECG rate: Rate 74, narrow complex, regular, sinus, no STEMI howeverT-wave inversions in V1 V2 which were present on prior ECG Srinivas Cardoza MD 12/06/24 [id number] Mirta Gonzalez MD ECG ORDERABLES Final Result Performing Organization Address [facility] Co de Phone Number [facility] * Hepatitis C antibody (01/01/2023 11:06 AM CDT) Hep C Ab Nonreactive Nonreactive [facility] Comment: Interpretive Data Nonreactive: Antibodies to HCV not detected. Does NOT exclude the possibility of recent exposure to HCV. Equivocal: Equivocal for HCV antibodies. Supplemental molecular testing will be automatically performed to determine infection status in accordance with current CDC screening recommendations. Reactive: Positive for HCV antibodies. This may represent current or past HCV infection. Supplemental molecular testing will be automatically performed to determine current infection status in accordance with current CDC screening recommendations. Interpretive data was last revised on 2019. Testing performed by: [facility], [address] [place] [address]., [id number] Blood 01/01/2023 11:0 6 AM CDT 01/01/2023 2:22 PM CDT Tory Gonzalez MD LAB MICROBIOLOGY - GENERAL ORDERABLES Final Result Performing Organization Address [facility] de Phone Number [facility] [id number] [facility]. [place] [address] * COLONOSCOPY IMAGES (07/10/2016) Anatomical Region Laterality Modality Other Narrative 07/10/2016 Ordered by an unspecified provider. Historical Provider GI PROCEDURE ORDERABLES F inal Result from Last 3 Months or Most Recently Relevant to Health Maintenance Insurance [facility] MEDICARE ADVANTAGE MEDICARE [facility] MEDICARE ADVANTAGE MEDICARE IDPA Advance Directives For more information, please contact: [phone] * Full Code (Latest Code Status on File) Date Activated Date Inactivated Comments 02/15/2025 5:01 PM 02/17/2025 10:16 PM * Full Code Date Activated Date Inactivated Comments 08/12/2024 2:06 PM 08/26/2024 5:16 PM * Full Code Date Activated Date Inactivated Comments 01/06/2024 4:52 AM 01/10/2024 6:31 PM * Full Code Date Activated Date Inactivated Comments 07/15/2020 5:05 AM 07/19/2020 8:35 PM * Full Code Date Activated Date Inactivated Comments 05/04/2020 3:10 PM 05/04/2020 8:07 PM Care Teams Pedicab Driver Relationship Specialty Start Date End Date Howard Bourgeois MD PCP - General 11/29/16 Sean Olguin MD Consulting Physician Cardiovascular Disease 10/21/18 Radha Sim MD Consulting Physician Internal Medicine 12/26/18 Jackson Purdy Jr., MD Surgeon General Surgery 12/26/18 Enrike Schrader MD Consulting Physician Cardiology 12/26/18 Guido Concepcion MD PhD [id number] [facility] [place] [address] Radiation Oncologist Radiation Oncology 11/23/24
--- OUTSIDE RECORDS SUMMARY | 2025-02-23 14:55 | XMS_ITS ---
Author Organization [facility] al Address [address] [place] [address] Care Team Providers Care Fertilizer Processing Supervisor Name Role Phone Howard Bourgeois MD Primary Care Provider Sean Olguin MD Unavailable Radha Sim MD Unavailable [phone] Rajwinder Carlos MD, Jackson Hinkle Unavailable [phone] Enrike Schrader MD Unavailable [phone] Guido Concepcion MD PhD Unavailable [phone] Active Problems Problem Noted Date Diagnosed Date COPD (chronic obstructive pulmonary disease) 03/2025 Assessment & Plan (02/17/2025 5:00 PM CDT): Resume Symbicort (Breo Ellipta while in the hospital). [...] 07/16/2020 Assessment & Plan (07/17/2020 7:29 AM FISH EGG PACKER): Pt reported suprapubic discomfort during hospital stay. UA w/ positive nitrites, neg LE, 6-10 WBCs. Plan: - Ciprofloxacin IV 07/15 x1, transition to oral therapy for total 3d course (12/5pm-12/8am) Coagulopathy 07/15/2020 Assessment & Plan (07/19/2020 6:28 AM FISH EGG PACKER): Pt w/ h/o chronic warfarin use (goal [...] f/u Assessment & Plan (07/15/2020 2:19 AM FISH EGG PACKER): See #MVR Anxiety 07/15/2020 Assessment & Plan (02/17/2025 5:00 PM CDT): Resume home Wellbutrin and venlafaxine. Assessment & Plan (02/16/2025 3:52 PM CDT): Resume home Wellbutrin and venlafaxine Assessment & Plan (02/15/2025 5:38 PM CDT): Resume home Wellbutrin and venlafaxine Assessment & Plan (07/16/2020 11:53 AM FISH EGG PACKER): H/o anxiety and chronic pain (reported h/o fibromyalgia per pt). On home Effexor Plan: - Continue home venlafaxine 75mg every day Assessment & Plan (07/15/2020 10:49 AM FISH EGG PACKER): Mood stable -Cont venlafaxine Omental infarction 07/15/2020 Assessment & Plan (07/18/2020 8:27 AM FISH EGG PACKER): Asymptomatic. CT A/P w/ ventral abdominal hernia containing omental fat w/ slight increase in stranding. 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 Occurring in s/o acute blood loss anemia. Lactate 1.1, abdominal exam benign. Tolerating food/fluid well Plan: - CTM - Transfuse as above Assessment & Plan (07/16/2020 9:18 AM FISH EGG PACKER): CT A/P: ventral abdominal hernia containing omental fat, with slight interval increase in stranding in the omental tissues likely secondary to a focus of omental infarction. -Likely occurred in the setting of dehydration and anemia -LA 1.1; Abdominal exam benign. RBCs transfused as above Melena 07/14/2020 Overview (07/16/2020): Added automatically from request for surgery [id number] Assessment & Plan (07/17/2020 7:30 AM FISH EGG PACKER): See acute blood loss anemia Intertrigo 02/20/2020 [...] 08/29/2019 Assessment & Plan (07/18/2020 8:26 AM FISH EGG PACKER): Resolved. Pt w/ h/o COPD (on albuterol, [...] qhs Assessment & Plan (07/16/2020 9:15 AM FISH EGG PACKER): P/w 2 days of SOB, malaise, fever [...] now Assessment & Plan (09/03/2019 12:21 PM FISH EGG PACKER): Suspect due to deconditioning plus morbid obesity with minor contribution from ground-glass opacities. Would pursue HRCT chest to further evaluation GGO if hypoxemia worsens (though no exertional hypoxemia was noted on informal 6MW during hospital stay). Assessment & Plan (08/30/2019 3:03 PM FISH EGG PACKER): Unclear etiology of shortness of breath with activity. Differential includes arrhythmia, viral, cardiac, progression of inflammatory/infectious/neoplastic process noted on CT --RVP- negative --Monitor on tele --trops negative x2 Assessment & Plan (08/29/2019 12:28 PM FISH EGG PACKER): Unclear etiology of shortness of breath with [...] 2.5-3.5) Assessment & Plan (09/03/2019 12:38 PM FISH EGG PACKER): Will resume prior warfarin dosing at discharge. Needs bridging with enoxaparin until warfarin therapeutic (goal INR 2.5-3.5). Instructed to undergo repeat INR 5 days after warfarin resumption. Plan to provide prescription for enoxaparin for 7 days with refill in case not therapeutic by then. Assessment & Plan (08/30/2019 3:36 PM FISH EGG PACKER): Patient with mechanical mitral valve on home [...] transportation issues (goes to Dr. Leo, cardiology, [place], [place]). Patient here with pleuritic chest pain [...] AM Assessment & Plan (08/29/2019 12:43 PM FISH EGG PACKER): Patient with mechanical mitral valve on home [...] transportation issues (goes to Dr. Leo, cardiology, [place], [place]). Patient here with pleuritic chest pain [...] AM Assessment & Plan (08/28/2019 7:43 PM FISH EGG PACKER): - Patient with mechanical mitral valve on [...] diuresis. Echocardiogram on 08/12/2024 showed mechanical [place] MVR, LVEF 78%, mildly dilated LV and [...] test Assessment & Plan (09/03/2019 12:39 PM FISH EGG PACKER): Atypical; reproducible on palpation. Reassured likely musculoskeletal. Analgesics. Assessment & Plan (08/30/2019 2:56 PM FISH EGG PACKER): Patient with complaint of atypical chest pain, less likely ACS. EKG without new ischemic changes. Troponin negative x1. No events on tele. Patient denies pain this morning - trop negative x2 - continue to on tele --Topical lidocaine, scheduled tylenol Assessment & Plan (08/29/2019 12:38 PM FISH EGG PACKER): Patient with complaint of atypical chest pain, less likely ACS. EKG without new ischemic changes. Troponin negative x1. No events on tele - Repeat troponin - Monitor on tele --Topical lidocaine, scheduled tylenol Assessment & Plan (08/28/2019 7:47 PM FISH EGG PACKER): - Patient with complaint of atypical chest [...] protocol Assessment & Plan (07/16/2020 11:51 AM FISH EGG PACKER): H/o IVIS and obesity (BMI 56.64). On home CPAP. Plan: - Continue home CPAP Assessment & Plan (07/15/2020 10:49 AM FISH EGG PACKER): Cont CPAP Assessment & Plan (09/03/2019 12:21 PM FISH EGG PACKER): Continue home nocturnal NPPV. Assessment & Plan (08/30/2019 3:03 PM FISH EGG PACKER): Continue home nocturnal NPPV Assessment & Plan (08/29/2019 12:20 PM FISH EGG PACKER): Continue home nocturnal NPPV Assessment & Plan (08/28/2019 7:45 PM FISH EGG PACKER): - Continue home nocturnal NPPV Abnormal CT scan 08/28/2019 Assessment & Plan (08/28/2020 5:38 PM FISH EGG PACKER): - Will refer to general surgery due to intermittent abdominal pain in the setting of ventral hernia and findings of omental infarction on recent imaging. 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 Rx resent to [facility] pharmacy today to get restarted on medication. [...] concerns Assessment & Plan (09/14/2021 1:07 PM FISH EGG PACKER): - Doing well on amoxicillin suppression with [...] surgical candidate it was decided to continue voice teacher suppression to decrease her risk of recurrent infection. - Recent labs reviewed - Discussed with patient the rational for treatment, culture results, risk of recurrent infection, signs/symptoms of recurrent infection, and to contact ID clinic with any questions or concerns Assessment & Plan (08/28/2020 5:37 PM FISH EGG PACKER): - No concern for recurrent endocarditis. Tolerating [...] should up with CT surgery as scheduled USP current use of antibiotics 03/11/2019 Assessment & [...] 2.5-3.5) Assessment & Plan (07/15/2020 4:35 AM FISH EGG PACKER): Chronically on suppressive amoxicillin. Endocarditis in 2019, has mechanical MV Assessment & Plan (10/26/2019 4:59 PM CDT): - Recent CBC and CMP reviewed with no change to current antibiotic dose - Continue to monitor for adverse effects of antibiotics Assessment & Plan (09/03/2019 12:22 PM FISH EGG PACKER): Patient on long-term antibiotics for the purpose of chronic suppression due to endocarditis in the setting of mechanical valve. Followed as outpatient by ID. Continue home amoxicillin regimen. Assessment & Plan (08/30/2019 3:02 PM FISH EGG PACKER): Patient on intermediate antibiotics for the purpose of chronic suppression due to endocarditis in the setting of mechanical valve. Followed as outpatient by ID. --Continue home amoxicillin regimen. Assessment & Plan (08/29/2019 11:18 AM FISH EGG PACKER): Patient on voice teacher antibiotics for the purpose of chronic suppression due to endocarditis in the setting of mechanical valve. Followed as outpatient by ID. --Continue home amoxicillin regimen. Assessment & Plan (08/28/2019 7:51 PM FISH EGG PACKER): - Patient on voice teacher amoxicillin for the purpose of chronic suppression [...] & Plan (02/22/2019 7:51 PM CDT): Fransisca Schwab is a 44yo F with history of [...] questions or change in clinical situations at [phone]. After hours, the ID fellow on-call can be reached at [phone]. Assessment & Plan (02/23/2019 6:35 AM CDT): [...] daily Assessment & Plan (07/16/2020 11:42 AM FISH EGG PACKER): H/o severe MR s/p mechanical MVR 11/2018. C/b endocarditis in e/o perioperative infection 2/2 central line site complication. Goal INR 2.5-3.5. On warfarin 7mg prior to admit. Plan: - See coagulopathy - Continue amoxicillin ppx w/ 500mg q8 as per ID (followed outpatient) Assessment & Plan (07/16/2020 9:15 AM FISH EGG PACKER): Mechanical MV in 2019 on warfarin. INR [...] 12/18/2018 Assessment & Plan (07/15/2020 10:49 AM FISH EGG PACKER): BMI 56.6, risk factor for respiratory decompensation [...] 11/13/2018 Assessment & Plan (07/19/2020 6:26 AM FISH EGG PACKER): Pt w/ baseline Hgb 12s. P/w Hgb [...] 7.4 Assessment & Plan (07/16/2020 9:14 AM FISH EGG PACKER): Dark tarry stools x2 days prior to [...] lisinopril Assessment & Plan (07/16/2020 11:57 AM FISH EGG PACKER): H/o HTN. On home losartan 25 Plan: - Continue losartan 25mg every day Assessment & Plan (02/16/2019 3:30 PM CDT): home meds: furosemide 80 mg daily and losartan 25 mg daily - pt has not been hypertensive - hold home meds Assessment & Plan (12/18/2018 3:15 PM CDT): Controlled. On cozaar. Severe mitral regurgitation 09/29/2018 Overview (09/29/2018): Added automatically from request for surgery [id number] Mitral valve insufficiency 09/29/2018 Overview (10/29/2018): Added automatically from request for surgery [id number] Assessment & Plan (02/17/2025 5:00 PM CDT): [...] 2.5-3.5) Assessment & Plan (09/03/2019 12:21 PM FISH EGG PACKER): Patient with history of MR s/p bileaflet mechanical MVR. Management as above with regard to anticoagulation. Appears euvolemic; continue home furosemide. Assessment & Plan (08/30/2019 3:03 PM FISH EGG PACKER): Patient with history of MR s/p bileaflet mechanical MVR. Management as above with regard to anticoagulation - Appears euvolemic; continue home lasix Assessment & Plan (08/29/2019 11:17 AM FISH EGG PACKER): Patient with history of MR s/p bileaflet mechanical MVR; last TTE 03/2019 and physiologic at that time. Management as above with regard to anticoagulation - Appears euvolemic; continue home lasix Assessment & Plan (08/28/2019 7:48 PM FISH EGG PACKER): - Patient with history of MR s/p bileaflet mechanical MVR; last TTE 03/2019 and physiologic at that time - Management as above with regard to anticoagulation - Appears euvolemic; continue home lasix Non-rheumatic mitral regurgitation 09/29/2018 Overview (11/14/2018): Added automatically from request for surgery [id number] Peripheral vascular disease 09/29/2018 Overview (11/19/2018): Added automatically from request for surgery [id number] Assessment & Plan (02/17/2025 5:00 PM CDT): [...] insulin Assessment & Plan (07/16/2020 11:56 AM FISH EGG PACKER): Home diet controlled. A1c 6.6. Total cholesterol 121, HDL 23, LDL 63 Plan: - LDSSI while inpatient - Consistent carb diet - Atorva 10 for ppx Assessment & Plan (07/16/2020 9:19 AM FISH EGG PACKER): A1C 6.6%; diet controlled at home -Start LDSSI given glucose 210 Assessment & Plan (09/03/2019 12:17 PM FISH EGG PACKER): Diet controlled. Remains normoglycemic. Assessment & Plan (08/29/2019 12:19 PM FISH EGG PACKER): Diet controlled. BS normoglycemic. Assessment & Plan (08/28/2019 7:52 PM FISH EGG PACKER): - Diet controlled. BS normoglycemic. Assessment & [...] weekly Assessment & Plan (07/16/2020 11:49 AM FISH EGG PACKER): H/o SLE, diagnosed as teenager reportedly. W/ [...] a/c Assessment & Plan (07/16/2020 9:17 AM FISH EGG PACKER): No evidence of flare -Cont plaquenil -Plan to start heparin drip when INR <2.5 given hx of mechanical MV and APLS Assessment & Plan (09/03/2019 12:18 PM FISH EGG PACKER): No evidence of flare. Continue HCQ as before. Followed by Rheumatology here as outpatient. Assessment & Plan (08/30/2019 3:12 PM FISH EGG PACKER): Patient with SLE followed by Rheumatology as outpatient - Continue HCQ - No current SLE flare; continue to monitor Assessment & Plan (08/29/2019 12:19 PM FISH EGG PACKER): Patient with SLE followed by Rheumatology as outpatient - Continue HCQ - No current SLE flare; continue to monitor Assessment & Plan (08/28/2019 7:52 PM FISH EGG PACKER): - Patient with SLE followed by Rheumatology as outpatient - Continue HCQ - No current SLE flare; continue to monitor Assessment & Plan (02/23/2019 2:12 PM CDT): Patient has known diagnosis of SLE, followed by rheumatology at [facility] (last seen 01/25/2019) - continue hydroxychloroquine 400 mg daily Assessment & Plan (12/18/2018 3:16 PM CDT): On Plaquenil. Current Treatment and Therapy Plans No current plan information found. Other Current Plans belimumab (BENLYSTA) Infusion* Plan Start Date:11/16/2021 Plan Provider:Tory Gonzalez MD Linked Problems Other forms of systemic lupu s erythematosus, unspecified organ involvement status (HCC) Treatment Medications No medications scheduled. Past Treatment and Therapy Plans Current Radiation Episodes * Radiation Oncology - Radiation Therapy - November 2024Overview* First Treatment Date Latest Treatment Date Treatment Site Technique Goal Episode Provider 12/20/2024 12/24/2024 Treatment Courses* Course C1 LT LUNG 202412/20/2024 - 12/24/2024 Treatment Period Fraction Dose Fractions Total Dose Plans Planned P+ LT LUNG 12/20/2024 - 12/24/2024 1,100 5 / 5 ,500 Reference Points Delivered P+ LT LUNG 12/20/2024 - 12/24/2024 5,502 Lifetime Dose Tracking * Chemical Lifetime Dose Automatic Entry Manual Entr y Fluoro Time 3.8 minutes 3.8 minutes 0 minutes Air kerma at the reference point (Ka,r) 4,131.6 mGy 1 7.6 mGy 4,114 mGy DLP 22,722 mGycm 22,722 mGycm 0 mGycm Resolved Problems Problem Noted Date Diagnosed Date Resolved Date Fever 07/15/2020 07/16/2020 Assessment & Plan (07/16/2020 9:17 AM FISH EGG PACKER): P/w sore throat, cough, PRABHAKAR, nausea, malaise, [...] 08/31/2019 Assessment & Plan (08/31/2019 9:44 AM FISH EGG PACKER): Reports frequent palpitations yesterday associated with shortness of breath and fatigue yesterday. None since admission --Continue to monitor on tele Assessment & Plan (08/29/2019 12:24 PM FISH EGG PACKER): Reports frequent palpitations yesterday associated with shortness of breath and fatigue yesterday. None since admission --Continue to monitor on tele
--- NOTE | 2025-02-23 14:56 | ECG_ITS ---
Test Date: 2025-02-23 15:09:01 Measurements Intervals [place] Rate: 68 P: 53 WI: 179 QRS: 28 QRSD: 104 T: 17 QT: 414 QTc: 442 Interpretive Statements SINUS RHYTHM WITH SINUS ARRHYTHMIA Electronically Signed On 02-23-2025 23:28:37 CDT by Yovany Crews D.O
--- OUTSIDE RECORDS SUMMARY | 2025-02-23 14:56 | XMS_ITS | Clinical Summary ---
Author Organization [facility] Address [address] [place] [address] Care Team Providers Care Inspector And Clipper Name Role Phone Howard Bourgeois MD Primary Care Provider Carmen Dyson RN Unavailable Unavailab le Source Comments [facility],non-owned Affiliates and Associated Physician Practices is amultiple site organization consisting of ambulatory clinics and hospital sitesin [place], [place], [place] and [place]. This disclosure is being madepursuant to the Care Everywhere program and may not contain all information available regarding this patient. Last updated 18.[facility] Allergies Active Allergy Reactions Criticality Noted Date Comments Penicillins Rash Medium 09/18/2017 Swelling and rash; tolerates amoxicillin, Medications * Be aware that medications may not be up to date on this document. Alwaysverify current medications with the patient. amitriptyline (ELAVIL) 100 MG tablet Take 100 mg by mouth at bedtime Active atorvastatin (LIPITOR) 80 MG tablet 80 mg at bedtime 7 Active fluticasone-vi lanterol (BREO ELLIPTA) 200-25 MCG/INH inhaler Inhale 1 puff by mouth once daily 8 Active furosemide (LASIX) 40 MG tablet Take 40 mg by mouth once daily 7 Active gabapentin (NEURONTIN) 300 MG capsule Take 300 mg by mouth 3 times daily 7 Active hydroxychloroq uine (PLAQUENIL) 200 MG tablet Take 400 mg by mouth once daily 7 Active insulin glargine (LANTUS SOLOSTAR) pen Inject 12 Units subcutaneously once daily 8 Active lisinopril (PRINIVIL; ZESTRIL) 10 MG tablet Take 10 mg by mouth every evening 7 Active metFORMIN ER 24hr (GLUCOPHAGE XR) 500 MG tablet Take 2,000 mg by mouth daily with breakfast 8 Active metoprolol tartrate (LOPRESSOR) 50 MG tablet 50 mg 2 times daily 7 Active mycophenolate (CELLCEPT) 500 MG tablet Take 1,500 mg by mouth 2 times daily 7 Active oxybutynin (DITROPAN) 5 MG tablet Take 5 mg by mouth 2 times daily 7 Active potassium chloride (KLOR-CON) 10 MEQ tablet 10 mEq once daily 7 Active tiotropium (SPIRIVA HANDIHALER) 18 MCG inhalation capsule Inhale 1 capsule by mouth once daily 8 Active traMADol (ULTRAM) 50 MG tablet Take 50 mg by mouth every 4 hours as needed 8 Active venlafaxine XR 24hr (EFFEXOR XR) 75 MG capsule Take 75 mg by mouth daily with dinner 7 Active Belimumab (BENLYSTA IV)Indications :every 3 months Reasons: every 3 months Active aspirin (ASPIRIN) 81 MG tablet Take 81 mg by mouth once daily Active Calcium Carb-Cholecalc iferol (CALCIUM + D3) 600-200 MG-UNIT Take 1 tablet by mouth 2 times daily Active multivitamin daily (THERAGRAN) tablet Take 1 tablet by mouth daily with food Active ferrous sulfate 162.5 (32.5 FE) TABS Take 162.5 mg by mouth once daily Active estradiol (VIVELLE-DOT) 0.025 MG/24HR patchIndicatio ns:Surgical menopause Apply 1 patch to skin Two times a week Change patch on Friday and . 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 09/22/2017 Discoid lupus erythematosus 09/22/2017 Other abnormal tumor markers 09/22/2017 Social History Tobacco Use Types Packs/Day Years Used Date Smoking Tobacco: Every Day Cigarettes Smokeless Tobacco: Never Tobacco Cessation:Ready to Q uit: Yes; Counseling Given: Yes Alcohol Use Standard Drinks/Week Comments No 0 (1 standard drink = 0.6 oz pur e alcohol) Comments No Sex and Gender Information Value Date Recorded Sex Assigned at Not on file Legal Sex Female 5:36 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 Gender Identity Not on file Sexual Orientation Not on file Last Filed Vital Signs Vital Sign Reading Time Taken Comments Blood Pressure 129/70 12/26/2017 9:27 AM CDT Pulse 69 12/26/2017 9:27 AM CDT Temperature 36.3 C (97.4 F) 12/26/2017 8:54 AM CDT Respiratory Rate 18 12/26/2017 9:27 AM CDT Oxygen Saturation 97% 12/26/2017 8:54 AM CDT Inhaled Oxygen Concentration 21% 10/31/2017 9 :40 PM CDT Weight 149.2 kg (329 lb) 12/26/2017 6:06 AM CDT Height 162.6 cm (5' 4) 12/26/2017 6:06 AM CDT Body Mass Index 56.47 12/26/2017 6:06 AM CDT Plan of Treatment Health Maintenance Due Date Last Done Comments COLOGUARD (AGES 45-75) - COLON CA SCREENING 1975 COLON MONITORING 1975 COLONOSCOPY - COLON CA SCREENING 1975 CT COLONOGRAPHY - COLON CA SCREENING 1975 Colorectal Cancer Screening 1975 FIT - COLON CA SCREENING 1975 FLEX SIG - COLON CA SCREENING 1975 MAMMOGRAM 1975 HIV SCREENING 1990 HEPATITIS C SCREENING 02/09/1993 DTAP/TDAP/TD VACCINES (1 - Tdap) 1994 HEPATITIS B VACCINE (1 of 3 - 19+ 3-dose series) 1994 SCREENING FOR DIABETES 12/13/2021 9, 12/11/2018, 12/10/2018, Additional history exists COVID-19 VACCINE (1 - 2023-25 season) 2024 DEPRESSION SCREENING 08/11/2024 PNEUMOCOCCAL VACCINE 50+ (1 of 1 - PCV) 2025 ZOSTER VACCINE (1 of 2) 2025 INFLUENZA VACCINE (#1) 2025 HIB VACCINE Aged Out No longer eligi ble based on patient's age to complete this topic HPV VACCINE Aged Out No longer eligi ble based on patient's age to complete this topic MENINGOCOCCAL (Group B) VACCINE SHARED DECISION-MAKING Aged Out No longer eligible based on patient's age to complete this topic MENINGOCOCCAL GROUPS A/C/Y/W VACCINE Aged Out No longer eligible based on patient's age to complete this topic Procedures Procedure Name Priority Date/Time Associated Diagnosis Comments BASIC METABOLIC PANEL (CALCIUM TOTAL) Routine 12/13/2018 4:15 AM CDT from Last 3 Months or Most Recently Relevant to Health Maintenance Results * (ABNORMAL) BASIC METABOLIC PANEL (CALCIUM TOTAL) (12/13/2018 4:15 AM CDT) Glucose 112(H) 74 - 106 mg/dL 12/13/2018 4:37 AM [facility] Sodium 139 136 - 145 mmol/L 12/13/2018 4:37 AM CDT [facility] Potassium 4.1 3.5 - 5.1 mmol/L 12/13/2018 4:37 AM CDT [facility] Chloride 103 98 - 107 mmol/L 12/13/2018 4:37 AM [facility] CO2 29 22 - 31 mmol/L 12/13/2018 4:37 AM [facility] Calcium 8.4(L) 8.5 - 10.1 mg/dL 12/13/2018 4:37 AM [facility] Anion Gap 7(L) 8 - 16 mmol/L 12/13/2018 4:37 AM CDT [facility] BUN 18 7 - 21 mg/dL 12/13/2018 4:37 AM CDT [facility] Creatinine 0.94 0.50 - 1.30 mg/dL 12/13/2018 4:37 AM CDT [facility] eGFR by MDRD >60 >60 mL/min/1.7 3m2 12/13/2018 4:37 AM CDT [facility] eGFR by MDRD >60 >60 mL/min/1.7 3m2 12/13/2018 4:37 AM CDT [facility] Blood BLOOD SPECIMEN / Unknown Venipuncture / Unknown 12/13/2018 4:15 AM CDT 12/13/2018 4:20 AM CDT us Provider Unknown LAB - CHEMISTRY ORDERABLES Sue l Result [facility] [address] [id number] from Last 3 Months or Most Recently Relevant to Health Maintenance Insurance MEDICARE MEDICARE MEDICARE Advance Directives * Full Code (Latest Code Status on File) Date Activated Date Inactivated Comments 10/31/2017 1:38 PM 11/01/2017 7:51 PM * Full Code Date Activated Date Inactivated Comments 10/31/2017 1:38 PM 10/31/2017 1:38 PM Care Teams Inspector And Clipper Relationship Specialty Start Date End Date Howard Borugeois MD [address] [facility] [address] [place] [address] PCP - General Internal Medicine 10/15/17 Carmen Dyson, RN Registered Nurse 10/31/17
--- OUTSIDE RECORDS SUMMARY | 2025-02-23 14:56 | XMS_ITS | Encounter Summary ---
Author Organization [facility] Address [address] [place] [address] Care Team Providers Care Translator Deaf Name Role Phone Howard Bourgeois MD Primary Care Provider [phone] Sean Olguin MD Unavailable Radha Sim MD Unavailable [phone] Rajwinder Carlos MD, Jackson Hinkle Unavailable [phone] Enrike Schrader MD Unavailable [phone] Cara Santacruz RN Unavailable [phone] Marium Tobar [facility] Unavailable [phone] Guido Concepcion MD PhD Unavailable [phone] Encounter Details Date Type Department Care Team (Late st Contact Info) Description 10/18/2021 Telephone [facility] [address] [place] [id number] Etelvina Angelo RN Social History Tobacco Use Types Packs/Day Years Used Date Smoking Tobacco: Every Day Cigarettes 0.5 18 Smokeless Tobacco: Never Comments:< 1/2 pack daily Alcohol Use Standard Drinks/Week Comments Yes 0 (1 standard drink = 0.6 oz pur e alcohol) rarely Social Connection and Isolation Panel [NHANES] A nswer Date Recorded In a typical week, how many times do you talk on the phone with family, friends, or neighbors? Three times a week 07/20/2020 How often do you get togethe r with friends or relatives? Three times a week 07/20/2020 How often do you attend chur ch or shinto services? Never 07/20/2020 Do you belong to any clubs o r organizations such as jainism groups, unions, fraternal or athletic groups, or school groups? No 07/20/2020 How often do you attend meet ings of the clubs or organizations you belong to? Never 07/20/2020 Are you , , di vorced, , never , or living with a partner? 07/20/2020 Overall Financial Resource Strain (CARDIA) Answe r Date Recorded How hard is it for you to pa y for the very basics like food, housing, medical care, and heating? Not hard at all 07/20/2020 Hunger Vital Sign Answer Date Recorded Within the past 12 months, y ou worried that your food would run out before you got the money to buy more. Never true 07/20/20 20 Within the past 12 months, t he food you bought just didn't last and you didn't have money to get more. Never true 07/20/2020 PRAPARE - Transportation Answer Date Re corded In the past 12 months, has l ack of transportation kept you from medical appointments or from getting medications? No 07/11 In the past 12 months, has l ack of transportation kept you from meetings, work, or from getting things needed for daily living? No 07/20/2020 Comments No Sex and Gender Information Value Date Recorded Sex Assigned at Not on file Legal Sex Female 7:25 AM TUG CAPTAIN Gender Identity Female 06/07/2021 5:59 PM CDT Sexual Orientation Straight 06/07/2021 5: 59 PM CDT documented as of this encounter Plan of Treatment Not on file documented as of this encounter Visit Diagnoses Not on filedocumented in this encounter Additional Health Concerns Infection Onset Date Last Indicated Resolved Time MDR gram neg/ESBL Comment:01/06/2024 IP review-this patient does not currently have any open wounds or chronic drains Yuko Hedrick RN ESBL K.pneumoniae R thigh 12/18/18 IP Review- Per RN, patient has bilateral chronic inguinal wounds. Informed the RN that patient needs cultures of those wounds to begin isolation review. No other chronic wounds or devices noted by RN or in chart. Remain on precautions for now. Xin Russ RN 08/30/2019 IP review: pt had effective abx on 02/13 at 1400 (meropenum). 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 Patient is not a candidate for isolation removal at this time. Xin Russ RN 02/15/2019 10:39 AM 12/18/2018 12/18/2018 01/06/2024 10:18 AM CDT COVID: Suspected 01/06/2024 01/06/2024 01/06/2024 4:36 AM CDT COVID: Suspected 08/12/2024 08/12/2024 08/12/2024 8:15 AM TUG CAPTAIN documented as of this encounter Care Teams Translator Deaf Relationship Specialty Start Date End Date Howard Bourgeois MD PCP - General 11/29/16 Sean Olguin MD Consulting Physician Cardiovascular Disease 10/21/18 Radha Sim MD Consulting Physician Internal Medicine 12/26/18 Jackson Purdy Jr., MD Surgeon General Surgery 12/26/18 Enrike Schrader MD Consulting Physician Cardiology 12/26/18 Cara Santacruz RN [address] [facility] [address] [place] [address] SHOP Outpatient Digital Account Manager 01/12/24 01/14/24 Marium Tobar LCSW [address] [facility] Mailstop [id number] [place] [address] SHOP Outpatient Digital Account Manager 08/27/24 09/21/24 Guido Concepcion MD PhD [address] [facility], [place] [address] Radiation Oncologist Radiation Oncology 11/23/24 documented as of this encounter
--- OUTSIDE RECORDS SUMMARY | 2025-02-23 14:56 | XMS_ITS | Clinical Summary ---
Author Organization [facility] Address [address] [place] [address] Care Team Providers Care Manager Services Name Role Phone Howard Bourgeois MD Primary Care Provider Sean Olguin MD Unavailable Radha Sim MD Unavailable [phone] Rajwinder Carlos MD, Jackson Hinkle Unavailable [phone] Enrike Schrader MD Unavailable [phone] Guido Concepcion MD PhD Unavailable [phone] Allergies Active Allergy Reactions Criticality Noted Date Comments Penicillins Hives,Rash,Swelling, Othe r (See comments) Medium 09/18/2017 Swelling and rash; tolerates amoxicillin, Medications venlafaxine XR (EFFEXOR-XR) 75 mg 24 hr capsule Take 1 capsule (75 mg total) by mouth daily with breakfast 30 capsule 11 019 Active multivit jjmtshfo-xdfr-QH-c alcium (THERA-M) 9 mg iron-400 mcg tablet Take 1 tablet by mouth daily 019 Active albuterol sulfate 90 mcg/actuation aerosol powdr [...] skin every 12 (twelve) hours 48 mL 2024 Active metoprolol tartrate (LOPRESSOR) 25 mg immediate release tablet Take 1 tablet (25 mg total) by mouth 2 (two) times a day 60 tablet 025 2024 Active hydroxychloroquine (PLAQUENIL) 200 mg tablet TAKE 2 TABLETS BY MOUTH ONCE DAILY 60 tablet 5 5 Discontinued torsemide (DEMADEX) 20 mg tablet Take [...] 07/16/2020 Assessment & Plan (07/17/2020 7:29 AM MATERIAL LIAISON): Pt reported suprapubic discomfort during hospital stay. UA w/ positive nitrites, neg LE, 6-10 WBCs. Plan: - Ciprofloxacin IV 07/15 x1, transition to oral therapy for total 3d course (12/5pm-12/8am) Coagulopathy 07/15/2020 Assessment & Plan (07/19/2020 6:28 AM MATERIAL LIAISON): Pt w/ h/o chronic warfarin use (goal [...] f/u Assessment & Plan (07/15/2020 2:19 AM MATERIAL LIAISON): See #MVR Anxiety 07/15/2020 Assessment & Plan (02/17/2025 5:00 PM CDT): Resume home Wellbutrin and venlafaxine. Assessment & Plan (02/16/2025 3:52 PM CDT): Resume home Wellbutrin and venlafaxine Assessment & Plan (02/15/2025 5:38 PM CDT): Resume home Wellbutrin and venlafaxine Assessment & Plan (07/16/2020 11:53 AM MATERIAL LIAISON): H/o anxiety and chronic pain (reported h/o fibromyalgia per pt). On home Effexor Plan: - Continue home venlafaxine 75mg every day Assessment & Plan (07/15/2020 10:49 AM MATERIAL LIAISON): Mood stable -Cont venlafaxine Omental infarction 07/15/2020 Assessment & Plan (07/18/2020 8:27 AM MATERIAL LIAISON): Asymptomatic. CT A/P w/ ventral abdominal hernia containing omental fat w/ slight increase in stranding. 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 Occurring in s/o acute blood loss anemia. Lactate 1.1, abdominal exam benign. Tolerating food/fluid well Plan: - CTM - Transfuse as above Assessment & Plan (07/16/2020 9:18 AM MATERIAL LIAISON): CT A/P: ventral abdominal hernia containing omental fat, with slight interval increase in stranding in the omental tissues likely secondary to a focus of omental infarction. -Likely occurred in the setting of dehydration and anemia -LA 1.1; Abdominal exam benign. RBCs transfused as above Melena 07/14/2020 Overview (07/16/2020): Added automatically from request for surgery [id number] Assessment & Plan (07/17/2020 7:30 AM MATERIAL LIAISON): See acute blood loss anemia Intertrigo 02/20/2020 [...] 08/29/2019 Assessment & Plan (07/18/2020 8:26 AM MATERIAL LIAISON): Resolved. Pt w/ h/o COPD (on albuterol, [...] qhs Assessment & Plan (07/16/2020 9:15 AM MATERIAL LIAISON): P/w 2 days of SOB, malaise, fever [...] now Assessment & Plan (09/03/2019 12:21 PM MATERIAL LIAISON): Suspect due to deconditioning plus morbid obesity with minor contribution from ground-glass opacities. Would pursue HRCT chest to further evaluation GGO if hypoxemia worsens (though no exertional hypoxemia was noted on informal 6MW during hospital stay). Assessment & Plan (08/30/2019 3:03 PM MATERIAL LIAISON): Unclear etiology of shortness of breath with activity. Differential includes arrhythmia, viral, cardiac, progression of inflammatory/infectious/neoplastic process noted on CT --RVP- negative --Monitor on tele --trops negative x2 Assessment & Plan (08/29/2019 12:28 PM MATERIAL LIAISON): Unclear etiology of shortness of breath with [...] 2.5-3.5) Assessment & Plan (09/03/2019 12:38 PM MATERIAL LIAISON): Will resume prior warfarin dosing at discharge. Needs bridging with enoxaparin until warfarin therapeutic (goal INR 2.5-3.5). Instructed to undergo repeat INR 5 days after warfarin resumption. Plan to provide prescription for enoxaparin for 7 days with refill in case not therapeutic by then. Assessment & Plan (08/30/2019 3:36 PM MATERIAL LIAISON): Patient with mechanical mitral valve on home [...] transportation issues (goes to Dr. Leo, cardiology, [place], [place]). Patient here with pleuritic chest pain [...] AM Assessment & Plan (08/29/2019 12:43 PM MATERIAL LIAISON): Patient with mechanical mitral valve on home [...] transportation issues (goes to Dr. Leo, cardiology, [place], [place]). Patient here with pleuritic chest pain [...] AM Assessment & Plan (08/28/2019 7:43 PM MATERIAL LIAISON): - Patient with mechanical mitral valve on [...] test Assessment & Plan (09/03/2019 12:39 PM MATERIAL LIAISON): Atypical; reproducible on palpation. Reassured likely musculoskeletal. Analgesics. Assessment & Plan (08/30/2019 2:56 PM MATERIAL LIAISON): Patient with complaint of atypical chest pain, less likely ACS. EKG without new ischemic changes. Troponin negative x1. No events on tele. Patient denies pain this morning - trop negative x2 - continue to on tele --Topical lidocaine, scheduled tylenol Assessment & Plan (08/29/2019 12:38 PM MATERIAL LIAISON): Patient with complaint of atypical chest pain, less likely ACS. EKG without new ischemic changes. Troponin negative x1. No events on tele - Repeat troponin - Monitor on tele --Topical lidocaine, scheduled tylenol Assessment & Plan (08/28/2019 7:47 PM MATERIAL LIAISON): - Patient with complaint of atypical chest [...] protocol Assessment & Plan (07/16/2020 11:51 AM MATERIAL LIAISON): H/o IVIS and obesity (BMI 56.64). On home CPAP. Plan: - Continue home CPAP Assessment & Plan (07/15/2020 10:49 AM MATERIAL LIAISON): Cont CPAP Assessment & Plan (09/03/2019 12:21 PM MATERIAL LIAISON): Continue home nocturnal NPPV. Assessment & Plan (08/30/2019 3:03 PM MATERIAL LIAISON): Continue home nocturnal NPPV Assessment & Plan (08/29/2019 12:20 PM MATERIAL LIAISON): Continue home nocturnal NPPV Assessment & Plan (08/28/2019 7:45 PM MATERIAL LIAISON): - Continue home nocturnal NPPV Abnormal CT scan 08/28/2019 Assessment & Plan (08/28/2020 5:38 PM MATERIAL LIAISON): - Will refer to general surgery due to intermittent abdominal pain in the setting of ventral hernia and findings of omental infarction on recent imaging. 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 [facility] to get restarted on medication. [...] concerns Assessment & Plan (09/14/2021 1:07 PM MATERIAL LIAISON): - Doing well on amoxicillin suppression with [...] surgical candidate it was decided to continue residential suppression to decrease her risk of recurrent infection. - Recent labs reviewed - Discussed with patient the rational for treatment, culture results, risk of recurrent infection, signs/symptoms of recurrent infection, and to contact ID clinic with any questions or concerns Assessment & Plan (08/28/2020 5:37 PM MATERIAL LIAISON): - No concern for recurrent endocarditis. Tolerating [...] should up with CT surgery as scheduled snf current use of antibiotics 03/11/2019 Assessment & [...] 2.5-3.5) Assessment & Plan (07/15/2020 4:35 AM MATERIAL LIAISON): Chronically on suppressive amoxicillin. Endocarditis in 2019, has mechanical MV Assessment & Plan (10/26/2019 4:59 PM CDT): - Recent CBC and CMP reviewed with no change to current antibiotic dose - Continue to monitor for adverse effects of antibiotics Assessment & Plan (09/03/2019 12:22 PM MATERIAL LIAISON): Patient on long-term antibiotics for the purpose of chronic suppression due to endocarditis in the setting of mechanical valve. Followed as outpatient by ID. Continue home amoxicillin regimen. Assessment & Plan (08/30/2019 3:02 PM MATERIAL LIAISON): Patient on long winder tender antibiotics for the purpose of chronic suppression due to endocarditis in the setting of mechanical valve. Followed as outpatient by ID. --Continue home amoxicillin regimen. Assessment & Plan (08/29/2019 11:18 AM MATERIAL LIAISON): Patient on residential antibiotics for the purpose of chronic suppression due to endocarditis in the setting of mechanical valve. Followed as outpatient by ID. --Continue home amoxicillin regimen. Assessment & Plan (08/28/2019 7:51 PM MATERIAL LIAISON): - Patient on residential amoxicillin for the purpose of chronic suppression [...] & Plan (02/22/2019 7:51 PM CDT): Fransisca Powell is a 44yo F with history of [...] questions or change in clinical situations at [phone]. After hours, the ID fellow on-call can be reached at [phone]. Assessment & Plan (02/23/2019 6:35 AM CDT): [...] daily Assessment & Plan (07/16/2020 11:42 AM MATERIAL LIAISON): H/o severe MR s/p mechanical MVR 11/2018. C/b endocarditis in e/o perioperative infection 2/2 central line site complication. Goal INR 2.5-3.5. On warfarin 7mg prior to admit. Plan: - See coagulopathy - Continue amoxicillin ppx w/ 500mg q8 as per ID (followed outpatient) Assessment & Plan (07/16/2020 9:15 AM MATERIAL LIAISON): Mechanical MV in 2019 on warfarin. INR [...] 12/18/2018 Assessment & Plan (07/15/2020 10:49 AM MATERIAL LIAISON): BMI 56.6, risk factor for respiratory decompensation [...] 11/13/2018 Assessment & Plan (07/19/2020 6:26 AM MATERIAL LIAISON): Pt w/ baseline Hgb 12s. P/w Hgb [...] 7.4 Assessment & Plan (07/16/2020 9:14 AM MATERIAL LIAISON): Dark tarry stools x2 days prior to [...] lisinopril Assessment & Plan (07/16/2020 11:57 AM MATERIAL LIAISON): H/o HTN. On home losartan 25 Plan: - Continue losartan 25mg every day Assessment & Plan (02/16/2019 3:30 PM CDT): home meds: furosemide 80 mg daily and losartan 25 mg daily - pt has not been hypertensive - hold home meds Assessment & Plan (12/18/2018 3:15 PM CDT): Controlled. On cozaar. Severe mitral regurgitation 09/29/2018 Overview (09/29/2018): Added automatically from request for surgery [id number] Mitral valve insufficiency 09/29/2018 Overview (10/29/2018): Added automatically from request for surgery [id number] Assessment & Plan (02/17/2025 5:00 PM CDT): [...] 2.5-3.5) Assessment & Plan (09/03/2019 12:21 PM MATERIAL LIAISON): Patient with history of MR s/p bileaflet mechanical MVR. Management as above with regard to anticoagulation. Appears euvolemic; continue home furosemide. Assessment & Plan (08/30/2019 3:03 PM MATERIAL LIAISON): Patient with history of MR s/p bileaflet mechanical MVR. Management as above with regard to anticoagulation - Appears euvolemic; continue home lasix Assessment & Plan (08/29/2019 11:17 AM MATERIAL LIAISON): Patient with history of MR s/p bileaflet mechanical MVR; last TTE 03/2019 and physiologic at that time. Management as above with regard to anticoagulation - Appears euvolemic; continue home lasix Assessment & Plan (08/28/2019 7:48 PM MATERIAL LIAISON): - Patient with history of MR s/p bileaflet mechanical MVR; last TTE 03/2019 and physiologic at that time - Management as above with regard to anticoagulation - Appears euvolemic; continue home lasix Non-rheumatic mitral regurgitation 09/29/2018 Overview (11/14/2018): Added automatically from request for surgery [id number] Peripheral vascular disease 09/29/2018 Overview (11/19/2018): Added automatically from request for surgery [id number] Assessment & Plan (02/17/2025 5:00 PM CDT): [...] insulin Assessment & Plan (07/16/2020 11:56 AM MATERIAL LIAISON): Home diet controlled. A1c 6.6. Total cholesterol 121, HDL 23, LDL 63 Plan: - LDSSI while inpatient - Consistent carb diet - Atorva 10 for ppx Assessment & Plan (07/16/2020 9:19 AM MATERIAL LIAISON): A1C 6.6%; diet controlled at home -Start LDSSI given glucose 210 Assessment & Plan (09/03/2019 12:17 PM MATERIAL LIAISON): Diet controlled. Remains normoglycemic. Assessment & Plan (08/29/2019 12:19 PM MATERIAL LIAISON): Diet controlled. BS normoglycemic. Assessment & Plan (08/28/2019 7:52 PM MATERIAL LIAISON): - Diet controlled. BS normoglycemic. Assessment & [...] weekly Assessment & Plan (07/16/2020 11:49 AM MATERIAL LIAISON): H/o SLE, diagnosed as teenager reportedly. W/ [...] a/c Assessment & Plan (07/16/2020 9:17 AM MATERIAL LIAISON): No evidence of flare -Cont plaquenil -Plan to start heparin drip when INR <2.5 given hx of mechanical MV and APLS Assessment & Plan (09/03/2019 12:18 PM MATERIAL LIAISON): No evidence of flare. Continue HCQ as before. Followed by Rheumatology here as outpatient. Assessment & Plan (08/30/2019 3:12 PM MATERIAL LIAISON): Patient with SLE followed by Rheumatology as outpatient - Continue HCQ - No current SLE flare; continue to monitor Assessment & Plan (08/29/2019 12:19 PM MATERIAL LIAISON): Patient with SLE followed by Rheumatology as outpatient - Continue HCQ - No current SLE flare; continue to monitor Assessment & Plan (08/28/2019 7:52 PM MATERIAL LIAISON): - Patient with SLE followed by Rheumatology [...] 07/16/2020 Assessment & Plan (07/16/2020 9:17 AM MATERIAL LIAISON): P/w sore throat, cough, PRABHAKAR, nausea, malaise, [...] 08/31/2019 Assessment & Plan (08/31/2019 9:44 AM MATERIAL LIAISON): Reports frequent palpitations yesterday associated with shortness of breath and fatigue yesterday. None since admission --Continue to monitor on tele Assessment & Plan (08/29/2019 12:24 PM MATERIAL LIAISON): Reports frequent palpitations yesterday associated with shortness of breath and fatigue yesterday. None since admission --Continue to monitor on tele Encounters Date Type Department Care Team Description 02/18/2025 SHOP/CHAP Initial Eligibility Review [facility] OP CASE MANAGEMENT [address] [place] [address] Trinity Cali, RAMONA 02/15/2025 12:14 PM CDT - 02/17/2025 6:11 PM CDT Hospital Encounter [facility] [address] [place] [address] Dottie Triana MD Blustein, MD Stevenson Aguayo, MD Jah Rivas, MD Duane Scales, Radha Devlin MD Chest pain, unspecified type (Primary Dx) Discharge Disposition: Discharge to home or self care 01/12/2025 Orders Only [facility] [address] [place] [address] Guido Concepcion MD PhD Malignant neoplasm of lower lobe, left bronchus or lung (HCC) (Primary Dx) 01/12/2025 Orders Only [facility] Radiation Oncology [address] [place] [address] Guido Concepcion MD PhD 12/27/2024 [facility] [address] [facility] [address] [place] [address] Morales Jim [facility] 12/24/2024 12:34 PM CDT - 12/24/2024 11:59 PM CDT Hospital Encounter [facility] Radiation Oncology [address] [place] [address] Guido Concepcion MD PhD Discharge Disposition: Discharge to home or self care 12/24/2024 Completion of Therapy [facility] [address] [place] [address] Rima Rowe NP 12/24/2024 Completion of Therapy [facility] [address] [place] [address] Guido Concepcion MD PhD 12/24/2024 Orders Only RAD ONC TREATMENTS Miscellaneous, Not In File 12/23/2024 12:27 PM CDT - 12/23/2024 11:59 PM CDT Hospital Encounter [facility] [address] [facility] [place] [address] Guido Concepcion MD PhD Discharge Disposition: Discharge to home or self care 12/23/2024 OTV [facility] [address] [place] [address] Milagro Mayes MD 12/23/2024 Orders Only RAD ONC TREATMENTS Miscellaneous, Not In File 12/22/2024 1:04 PM CDT - 12/22/2024 11:59 PM CDT Hospital Encounter [facility] Radiation Oncology [address] [place] [address] Guido Concepcion MD PhD Discharge Disposition: Discharge to home or self care 12/22/2024 Orders Only RAD ONC TREATMENTS Miscellaneous, Not In File 12/21/2024 10:52 AM CDT - 12/21/2024 11:59 PM CDT Hospital Encounter [facility] On[facility] [address] [place] [address] Guido Concepcion MD PhD Discharge Disposition: Discharge to home or self care 12/21/2024 Orders Only RAD ONC TREATMENTS Miscellaneous, Not In File 12/20/2024 11:54 AM CDT - 12/20/2024 11:59 PM CDT Hospital Encounter [facility] [address] [place] [address] Guido Concepcion MD PhD Discharge Disposition: Discharge to home or self care 12/20/2024 Orders Only RAD ONC TREATMENTS Miscellaneous, Not In File 12/13/2024 Telephone [facility] [address] [place] [address] Katarina Buchanan RN 12/08/2024 Telephone [facility] [address] [place] [address] [place] [address] Katarina Buchanan RN 12/07/2024 8:00 AM CDT Ancillary Procedure [facility] IP [address] [facility] [address] [place] [address] 12/07/2024 5:25 AM CDT - 12/07/2024 4:30 PM CDT Emergency [facility] Emergency Department [address] [place] [address] Mirta Gonzalez MD Shortness of breath (Primary Dx); Chest pain on breathing; Acute on chronic congestive heart failure, unspecified heart failure type (HCC); Pericarditis Discharge Disposition: Discharge to home or self care 12/02/2024 Telephone [facility] [address] [place] [address] Katarina Buchanan RN 11/30/2024 10:20 PM CDT - 11/30/2024 11:59 PM CDT Hospital Encounter [facility] [address] [place] [address] Guido Concepcion MD PhD Discharge Disposition: Discharge to home or self care 11/30/2024 Telephone [facility] [address] [place] [address] Katarina Buchanan RN 11/25/2024 2:10 PM CDT - 11/25/2024 11:59 PM CDT Hospital Encounter [facility] [place] [address] Guido Concepcion MD PhD Discharge Disposition: Discharge to home or self care from Last 3 Months Immunizations Immunization Administration Dates Next Due Influenza, Trivalent, Cell C ulture-based MDCK, Preservative Free, Antibiotic Free, Intramuscular 07/22/2024 Influenza, Trivalent, Preservative Free, Intramu scular 08/11/2014 Influenza, Unspecified 10/25/2015 Pneumococcal Polysaccharide PPV23 07/11/2015 Surgical History Surgery Date Site/Laterality Comments TONSILLECTOMY/ADENOIDECTOMY CHOLECYSTECTOMY TUBAL LIGATION HYSTERECTOMY 08/11/2017 - 08/10/2018 total IR PICC LINE PLACEMENT > 5 YEARS 11/23/2018 N/A IR PICC LINE PLACEMENT > 5 YEARS 12/25/2018 N/A MITRAL VALVE REPLACEMENT 11/11/2018 mechanical valve CYSTOSCOPY 12/09/2017 - 01/08/2018 AORTIC ILIAC FEMORIAL ANGIOG PRIETO INTERVENTION INCISION AND DRAINAGE 12/09/2018 - 01/08/2019 groin wound COLONOSCOPY FLUID DRAIN SOFT TISSUE 03/17/2020 N/A ABSCESS CATHETER INJECTION 05/04/2020 N/A CARDIAC SURGERY OOPHORECTOMY UPPER GASTROINTESTINAL ENDOSCOPY Medical History Medical History Date Comments Other specified counseling Patie nt Education - Diabetes - (Added by TW Conv) Lupus Type 2 diabetes mellitus (HCC) Mitral valve insufficiency Sleep apnea Hypertension COPD (chronic obstructive pu lmonary disease) (HCC) Asthma Chronic bronchitis (HCC) Chronic kidney disease stage 2 Arthritis Iron deficiency anemia DVT (deep vein thrombosis) in Bacterial endocarditis Lupus Obesity Acute hypoxic respiratory failure (HCC) 01/07/20 CHF (congestive heart failure) (HCC) Hypercholesteremia Family History Medical History Relation Name Comments Diabetes Brother Family history of diabetes mellitus - (Added by TW Conv) Heart disease Mother Family history of cardiac disorder - (Added by TW Conv) Hypertension Mother Blood pressure elevated - (Added by TW Conv) Lupus Mother Family history of systemic lupus erythematosus - (Added by TW Conv) Diabetes type I Other 1 Type 1 Diabe elena Mellitus - (Added by TW Conv) Heart disease Other 2 Heart Disease - (Added by TW Conv) Lupus Other 3 Systemic Lupus Erythematosus - (Added by TW Conv) Cancer Sister 1 Family history of malignant neoplasm - (Added by TW Conv) Hypertension Sister 2 Blood pressure elevated - (Added by TW Conv) Lupus Sister 3 Family history of systemic lupus erythematosus - (Added by TW Conv) Anesthesia problems Neg Hx Relation Name Status Comments Brother Mother Other 1 Other 2 Other 3 Sister 1 Sister 2 Sister 3 Social History Tobacco Use Types Packs/Day Years Used Date Smoking Tobacco: Former Cigarettes 0.5 18 0 10/2003 - 10/2021 Passive Smoke Exposure: Never Smokeless Tobacco: Never Tobacco Cessation:Counseling Given: Not Answered Comments:< 1/2 pack daily Alcohol Use Standard Drinks/Week Comments Yes 0 (1 standard drink = 0.6 oz pur e alcohol) rarely [facility] Utilities Answer Date Recorded In the past 12 months has th e electric, gas, oil, or water company threatened to shut off services in your [...] week 08/27/2024 How often do you attend chur ch or synagogue services? Never 08/27/2024 Do you belong to any clubs o r organizations such as buddhism groups, unions, fraternal or athletic groups, or [...] any time in the past 12 m [facility], were you homeless or living in a senior living (including now)? No 08/27/2024 Personal Safety Answer Date Recorded Have you ever been in or are you currently in a harmful physical or emotional relationship or is someone making you feel afraid or unsafe? Denies 02/15/2025 Comments No Sex and Gender Information Value Date Recorded Sex Assigned at Not on file Legal Sex Female 7:25 AM MATERIAL LIAISON Gender Identity Female 06/07/2021 5:59 PM CDT Sexual Orientation Straight 06/07/2021 5: 59 PM CDT Obstetrics History Last Filed Vital Signs Vital Sign Reading [...] 02/15/2025 4:30 PM CDT Plan of Treatment Health Maintenance Due Date Last Done Comments Albumin Creatinine Ratio, Urine 1975 Breast Cancer Screening-Mammogram 1975 Depression Screening 1975 Dilated Eye Exam 1975 Foot Exam 1975 DTaP/Tdap/Td Vaccine (1 - Tdap) 1986 Hepatitis B Screening 1993 Regular Well Visit/Exam 18-64 1993 Zoster Vaccine (1 of 2) 1994 Pneumococcal vaccine <65 (2 of 2 - PCV) 07/11/2016 07/11/2015 Influenza Vaccine (#1) 2025 , 10/25/2015, 08/11/2014 Hemoglobin A1C 08/18/2025 02/15/2025, 12/10, 07/15/2020, Additional history exists Lipid Panel 02/15/2026 02/15/2025, 09/2024, 01/07/2024, Additional history exists eGFR 02/16/2026 02/16/2025, 03/2025, 02/15/2025, Additional history exists Colon Cancer Screening-Colonoscopy 07/10/20262015, 07/10/2016 Hepatitis C Screening Completed 01/01/2023, 019 Medical Devices Implanted Type Area Sole Cementer Device Identifier Shelf Expiration Date Model / Serial / Lot [employer] [id number] Masters-Series 31mm 26.1mm Mechanical Expanded Cuff Style - [id number] - [id number] Implanted:Qty: 1 on 11/11/2018 by Buck Bustillos MD at [facility] N/A: Heart [employer] 02/22/2020 [id number] / [id number] / Daig [facility] [id number] Angio-Seal Vip Bondek-Plus 6fr .035in 70cm Hemostatic Latex Free - [id number] Implanted:Qty: 1 on 11/14/2018 by Rodrigo Gómez MD at [facility] [employer] 06/10/2019 [id number] / / [id number] [employer] [id number] Viabahn 6mm 2.5cm 120cm Flexible Self Expand Radiopaque Stent - [id number] Implanted:Qty: 1 on 11/19/2018 by Param Mcrae Jr., MD at [facility] [employer] 12/03/2020 [id number] / / [employer] [id number] Viabahn 6mm 6fr 5cm 120cm Delivery System Superficial Femoral - [id number] Implanted:Qty: 1 on 11/19/2018 by Param Mcrae Jr., MD at [facility] [employer] 04/20/2021 [id number] / / [employer] [id number] Angio-Seal Vip Bondek-Plus 6fr .035in 70cm Hemostatic Latex Free - [id number] Implanted:Qty: 1 on 11/19/2018 by Param Mcrae Jr., MD at [facility] MOMENT[employer] 06/10/2019 [id number] / / [id number] Procedures Procedure Name Priority Date/Time Associated Diagnosis [...] 1 PM CDT 02/17/2025 12:01 PM CDT Radha Zepeda MD LAB POCT ORDERABLES - D EVICE Final Result Performing Organization Address City/[facility] Co de Phone Number [facility] [place] [address] * POCT glucose (02/17/2025 8:16 AM CDT) Glucose, POC 89 70 - 199 mg/dL Blood 02/17/2025 8:16 AM CDT 02/17/2025 8:16 AM CDT Radha Zepeda MD LAB POCT ORDERABLES - D EVICE Final Result Performing Organization Address City/[facility] Co de Phone Number [facility] Department [place] [employer] [place] [address] * eGFR (02/16/2025 8:55 PM CDT) eGFR [...] CDT 02/16/2025 9:05 PM CDT Nevin Sargent NP LAB BLOOD ORDERABLES Final Res ult Performing Organization Address [facility] de Phone Number [facility] [place] [address] * (ABNORMAL) Protime-INR (02/16/2025 8:55 PM CDT) PT 16.7(H) 9.7 - 13.0 sec INR 1.53(H) 0.90 - 1.20 [facility] Comment: Interpretive data Oral anticoagulant therapeutic ranges: Venous thromboembolism prophylaxis or treatment: 2.0-3.0 CARDIOLOGY Standard range: 2.0-3.0 High-intensity range: 2.5-3.5 Refer to indication-specific guidelines for appropriate target ranges for prosthetic heart valve replacement. Current interpretive data was last revised on 2019. Blood 02/16/2025 8:55 PM CDT 02/16/2025 9:11 PM CDT Nevin Sargent NP LAB BLOOD ORDERABLES Final Res ult Performing Organization Address [facility] de Phone Number [facility] [place] [address] * (ABNORMAL) CBC without differential (02/16/2025 8:55 PM CDT) WBC 7.71 3.80 - 9.90 K/cumm Hgb 12.2 11.9 - 15.5 g/dL [facility] Hct 38.4 35.6 - 45.5 % [facility] Plt 242 150 - 400 K/cumm [facility] MPV 10.1 9.1 - 12.3 fL [facility] RBC 4.81 3.90 - 5.20 M/cumm [facility] MCV 79.8(L) 81.3 - 96.4 fL [facility] MCH 25.4(L) 27.1 - 33.3 pg [facility] MCHC 31.8(L) 32.3 - 35.7 g/dL [facility] RDW CV 17.1(H) 11.1 - 14.9 % [facility] RDW SD 49.1(H) 35.7 - 48.1 fL [facility] NRBC abs 0.00 0.00 - 0.01 K/cumm [facility] Blood 02/16/2025 8:55 PM CDT 02/16/2025 9:05 PM CDT Nevin Sargent NP LAB BLOOD ORDERABLES Final Res ult Performing Organization Address City/State/[facility] Co de Phone Number [facility] [place] [address] * (ABNORMAL) Comprehensive metabolic panel (02/16/2025 8:55 PM CDT) Sodium 140 135 - 145 mmol/L Potassium, pl 3.9 3.3 - 4.9 mmol/L [facility] Chloride 101 97 - 110 mmol/L [facility] CO2 29 22 - 32 mmol/L [facility] Anion gap 10 2 - 15 mmol/L [facility] BUN 14 6 - 25 mg/dL [facility] Creatinine 0.95 0.60 - 1.10 mg/dL [facility] Glucose 98 70 - 199 mg/dL [facility] Comment: Interpretive Data Fasting glucose >/= [...] 2022. Calcium 9.1 8.5 - 10.3 mg/dL [facility] Bilirubin, total 0.4 0.1 - 1.2 mg/dL [facility] Protein, pl 7.8 6.5 - 8.5 g/dL [facility] Albumin 3.5 3.5 - 5.0 g/dL [facility] Alk phos 235(H) 40 - 130 Units/L [facility] ALT 42 7 - 45 Units/L [facility] AST 54(H) 10 - 45 Units/L [facility] Blood 02/16/2025 8:55 PM CDT 02/16/2025 9:05 PM CDT us Nevin Sargent [employer] LAB BLOOD ORDERABLES Final Res ult Performing Organization Address [facility]/ZIP Co de Phone Number [facility] [place] [address] * POCT glucose (02/16/2025 8:44 PM CDT) Glucose, POC 104 70 - 199 mg/dL Blood 02/16/2025 8:44 PM CDT 02/16/2025 8:44 PM CDT Brad Tyson MD LAB POCT ORDERABLES - DE VICE Final Result Performing Organization Address [facility] Co de Phone Number [facility] [place] [employer] [place] [address] * POCT glucose (02/16/2025 5:16 PM CDT) Glucose, POC 94 70 - 199 mg/dL Blood 02/16/2025 5:16 PM CDT 02/16/2025 5:16 PM CDT Brad Tyson MD LAB POCT ORDERABLES - DE VICE Final Result [facility] [place] [address] * NM MPI SPECT (Stress) Single Study [...] the Cardiovascular Division is available in the [facility] electronic medical record. Standard myocardial perfusion images [...] the Cardiovascular Division is available in the [facility] electronic medical record. Standard myocardial perfusion images [...] it. Electronically signed by: Adolfo Mcmillan M.D. Diya Jules MD IM NM PROCEDURES Final Res ult * Stress Test for Myocardial Perfusion (02/16/2025 12:39 PM CDT) Anatomical Region Laterality Modality Nuclear Medicine 02/16/2025 11:2 0 AM CDT Narrative 02/16/2025 2:26 PM CDT [facility] [place] [address] [place] Patient Name: FRANSISCA POWELL R : 1975 (50y ) Gender: F Study Date: 02/16/2025 11:20:00 AM Ht(Inch): 64 Wt(Lb): 275 BSA: 2.37 Tech: Location: [id number] Order Provider: DIYA JULES BMI: 47.2 Ref [...] Note Chalo Ivory MD PhD - 02/16/2025 [facility] Cardiac [place] [address] [place] Patient Name: FRANSISCA POWELL R : 1975 (50y ) Gender: F Study Date: 02/16/2025 11:20:00 AM Ht(Inch): 64 Wt(Lb): 275 BSA: 2.37 Tech: Location: [place] [id number] Order Provider: DIYA JULES BMI: 47.2 Ref [...] * (ABNORMAL) Protime-INR (02/16/2025 8:34 AM CDT) PT 14.6(H) 9.7 - 13.0 sec INR 1.34(H) 0.90 - 1.20 [facility] Comment: Interpretive data Oral anticoagulant therapeutic ranges: Venous thromboembolism prophylaxis or treatment: 2.0-3.0 CARDIOLOGY Standard range: 2.0-3.0 High-intensity range: 2.5-3.5 Refer to indication-specific guidelines for appropriate target ranges for prosthetic heart valve replacement. Current interpretive data was last revised on 2019. Blood 02/16/2025 8:34 AM CDT 02/16/2025 8:47 AM CDT Nevin Sargent NP LAB BLOOD ORDERABLES Final Res ult [facility] Department of Laboratories [place], [place] [id number] * POCT glucose (02/16/2025 8:04 AM CDT) Glucose, POC 108 70 - 199 mg/dL Blood 02/16/2025 8:04 AM CDT 02/16/2025 8:04 AM CDT us Bard Tyson MD LAB POCT ORDERABLES - DE VICE Final Result Performing Organization Address City/[facility]/ZIP Co de Phone Number [facility] [place] [employer] [place] [address] * eGFR (02/15/2025 8:17 PM CDT) eGFR >90 >=60 mL/min/1. 73 [...] 8:17 PM CDT 02/15/2025 8:26 PM CDT us Diya Jules MD LAB BLOOD ORDERABLES Final Result Performing Organization Address City/[facility]/ZIP Co de Phone Number [facility] [place] [address] * Magnesium (02/15/2025 8:17 PM CDT) Magnesium 2.1 1.4 - 2.5 mg/dL Blood 02/15/2025 8:17 PM CDT 02/15/2025 8:26 PM CDT Diya Juels MD LAB BLOOD ORDERABLES Final Result [facility] [place] [address] * (ABNORMAL) Lipid panel (02/15/2025 8:17 PM [...] on 2018. Triglycerides 89 <=149 mg/dL [facility] Comment: Interpretive Data Ages < or = [...] on 2018. HDL 29(L) >=40 mg/dL [facility] Comment: Interpretive Data Ages < or = [...] on 2018. LDL, calculated 75 <=129 mg/dL [facility] Comment: Interpretive Data Ages < or = 19 years Acceptable: <110 mg/dL Borderline high: 110-129 mg/dL High: >or= 130 mg/dL Ages > or = 20 years Optimal: <100 mg/dL Near optimal: 100-129 mg/dL Borderline high: 130-159 mg/dL High: >160 mg/dL Calculated using the Aron LDL-C estimating equation. This equation was implemented on 2024. Prior to this date LDL-C was estimated using the Friedewald equation. Literature References: 1. Expert Panel on Integrated Guidelines for Cardiovascular Health and Risk Reduction in Children and Adolescents. Pediatrics 2011;128:S213 2. NCEP Expert Panel. Circulation 2004;110:227 3. Aron M et al. DONNA Cardiol. 2019December 09;5(5):540-548. doi: 10.1001/jamacardio.2020.0013 Current Interpretive Data was last revised on 2024. Non-HDL Cholesterol 92 mg/dL [facility] Comment: Interpretive Data Ages < or [...] last revised on 2018. Chol/HDL ratio 4 [facility] Blood 02/15/2025 8:17 PM CDT 02/15/2025 8:26 PM CDT Narrative [facility] - 02/16/2025 9:50 AM CDT Reflex Brad Tyson MD LAB BLOOD ORDERABLES Fin al Result Performing Organization Address City/[facility]/ZIP Co de Phone Number [facility] [place] [address] * Basic metabolic panel (02/15/2025 8:17 PM CDT) Pathologist [facility] Sodium 140 135 - 145 mmol/L Potassium, pl 3.6 3.3 - 4.9 mmol/L [facility] Chloride 103 97 - 110 mmol/L [facility] CO2 31 22 - 32 mmol/L [facility] Anion gap 6 2 - 15 mmol/L [facility] BUN 10 6 - 25 mg/dL [facility] Creatinine 0.77 0.60 - 1.10 mg/dL [facility] Glucose 108 70 - 199 mg/dL [facility] Comment: Interpretive Data Fasting glucose >/= [...] 2022. Calcium 9.0 8.5 - 10.3 mg/dL [facility] Blood 02/15/2025 8:17 PM CDT 02/15/2025 8:26 PM CDT Diya Jules MD LAB BLOOD ORDERABLES Final Result Performing Organization Address [facility]/ZIP Co de Phone Number [facility] [place] [address] * POCT glucose (02/15/2025 8:01 PM CDT) [facility] Glucose, POC 104 70 - 199 mg/dL Blood 02/15/2025 8:01 PM CDT 02/15/2025 8:01 PM CDT Adolfo Gamino MD LAB POCT ORDERABLES - DEV ICE Final Result Performing Organization Address [facility] de Phone Number [facility] [place] [address] * Troponin I high-sensitivity 6-hour (02/15/2025 6:12 PM CDT) [facility] Trop I hs 6 <=17 ng/L Comment: Interpretive Data For further [facility] resources including the diagnostic algorithm and an aid in interpretation, copy and paste this link: https://bjhlab.testcatalog.org/show/hsTrop-[email or web address] Current Interpretive Data last revised 2020. Trop I hs delta 0 ng/L [facility] Trop I hs interp Insignificant [facility] Blood 02/15/2025 6:12 PM CDT 02/15/2025 6:20 PM CDT Yfn Javier MD LAB BLOOD ORDERABLES Fi nal Result Performing Organization Address [facility] Co de Phone Number [facility] [place] [address] * ECG 12 lead (02/15/2025 5:33 PM CDT) [facility] Ventricular Rate EKG/Min 68 BPM [facility] Atrial Rate 68 BPM [facility] MS-Interval (MSEC) 168 ms [facility] QRS-Interval (MSEC) 94 ms [facility] QT-Interval (MSEC) 430 ms [facility] QTc 457 ms [facility] P [place] 64 degrees [facility] R [place] 56 degrees [facility] T [place] 80 degrees [facility] Diagnosis Normal sinus rhythm Normal ECG When compared with ECG of 19-JUL-2020 10:21, Minimal criteria for Inferior infarct are no longer Present T wave inversion no longer evident in Anterior leads Nonspecific T wave abnormality now evident in Lateral leads Confirmed by AARON MA M.D ([id number]) on 02/16/2025 9:54:10 AM [facility] 02/15/2025 5:33 PM CDT 02/16/2025 9:54 AM CDT us Diya Jules MD ECG ORDERABLES Final Resul t Performing Organization Address City/[facility] Co de Phone Number [facility] [employer] [facility] * POCT glucose (02/15/2025 5:04 PM CDT) Glucose, POC 84 70 - 199 mg/dL Blood 02/15/2025 5:04 PM CDT 02/15/2025 5:04 PM CDT Adolfo Gamino MD LAB POCT ORDERABLES - DEV ICE Final Result Performing Organization Address [facility] de Phone Number [facility] Department [place] [employer] [place] [address] * POCT glucose (02/15/2025 3:39 PM CDT) Glucose, POC 83 70 - 199 mg/dL Blood 02/15/2025 3:39 PM CDT 02/15/2025 3:39 PM CDT Dottie Triana MD LAB POCT ORDERABLES - D EVICE Final Result Performing Organization Address [facility] de Phone Number [facility] Department [place] [employer] [place] [address] * Troponin I high-sensitivity 4-hour (02/15/2025 3:36 PM CDT) Trop I hs 4 <=17 ng/L Comment: Interpretive Data For further hscTnI resources including the diagnostic algorithm and an aid in interpretation, copy and paste this link: [email or web address]/show/[email or web address] Current Interpretive Data last revised 2020. Trop I hs delta -2 ng/L [facility] Trop I hs interp Insignificant [facility] Blood 02/15/2025 3:36 PM CDT 02/15/2025 3:55 PM CDT Yfn Javier MD LAB BLOOD ORDERABLES Fi nal Result Performing Organization Address City/[facility]/ZIP Co de Phone Number [facility] [place] [address] * ECG 12-LEAD (02/15/2025 2:23 PM CDT) Narrative [facility] - 02/15/2025 2:23 PM CDT Derrick Kebede [...] follow up: further workup in the ED Dottie Triana MD ECG ORDERABLES Final R esult [facility] * Troponin I high-sensitivity 2-hour (02/15/2025 1:45 PM CDT) Trop I hs 5 <=17 ng/L Comment: Interpretive Data For further hscTnI resources including the diagnostic algorithm and an aid in interpretation, copy and paste this link: [email or web address]/show/[email or web address] Current Interpretive Data last revised 2020. Trop I hs delta -1 ng/L [facility] Trop I hs interp Insignificant [facility] Blood 02/15/2025 1:45 PM CDT 02/15/2025 2:11 PM CDT us Yfn Javier MD LAB BLOOD ORDERABLES Fi nal Result [facility] [place] [address] * XR Chest PA Lateral 2 Views [...] present. Electronically signed by: Melly Angulo M.D. us Dottie Triana MD IMG XR PROCEDURES Final Result * POCT ketone, blood (02/15/2025 12:22 PM CDT) [facility] Beta-Hydroxybut yrate, POC 0.1 0.0 - 0.5 mmol/L Blood 02/15/2025 12:2 2 PM CDT 02/15/2025 12:22 PM CDT Dottie Triana MD LAB POCT ORDERABLES - D EVICE Final Result Performing Organization Address [facility] de Phone Number [facility] [place] [employer] [place] [address] * Troponin I high-sensitivity series (baseline, 2hr, 4hr, 6hr) (02/15/2025 12:06 PM CDT) [facility] Trop I hs 6 <=17 ng/L Comment: Interpretive Data For further hscTnI resources including the diagnostic algorithm and an aid in interpretation, copy and paste this link: https://bjhlab.testcatalog.org/show/[email or web address] Current Interpretive Data last revised 2020. Blood 02/15/2025 12:0 6 PM CDT 02/15/2025 12:47 PM CDT Dottie Triana MD LAB BLOOD ORDERABLES Fi nal Result Performing Organization Address [facility] Co de Phone Number [facility] Department [place] [employer] [place] [address] * eGFR (02/15/2025 12:06 PM CDT) [facility] eGFR >90 >=60 mL/min/1. 73 m2 Comment: [...] of Race in Diagnosing Kidney Disease, JASN 202). The CKD-EPI equation should not be used for patients with unstable renal function and has not been validated in children and those over 70. Current interpretive data was last reviewed 2021. Blood 02/15/2025 12:0 6 PM CDT 02/15/2025 12:47 PM CDT us Yfn Javier MD LAB BLOOD ORDERABLES Fi nal Result [facility] [place] [address] * (ABNORMAL) Differential, auto (02/15/2025 12:06 PM CDT) Pathologist [facility] Neutrophil abs 4.03 1.50 - 6.50 K/cumm Imm gran abs 0.02 0.00 - 0.10 K/cumm [facility] Lymphocyte abs 0.62(L) 0.80 - 3.30 K/cumm [facility] Monocyte abs 0.46 0.20 - 0.80 K/cumm [facility] Eosinophil abs 0.14 0.00 - 0.50 K/cumm [facility] Basophil abs 0.02 0.00 - 0.10 K/cumm [facility] Neutrophil pct 76.2 % [facility] Comment: Interpretive Data Percent cell count reference ranges are not reported, since discordance with absolute values may lead to misinterpretation of CBC data. Current Interpretive Data was last revised on 2017. Imm gran pct 0.4 % [facility] Comment: Interpretive Data Percent cell count reference ranges are not reported, since discordance with absolute values may lead to misinterpretation of CBC data. Current Interpretive Data was last revised on 2017. Lymphocyte pct 11.7 % [facility] Comment: Interpretive Data Percent cell count reference ranges are not reported, since discordance with absolute values may lead to misinterpretation of CBC data. Current Interpretive Data was last revised on 2017. Monocyte pct 8.7 % [facility] Comment: Interpretive Data Percent cell count reference ranges are not reported, since discordance with absolute values may lead to misinterpretation of CBC data. Current Interpretive Data was last revised on 2017. Eosinophil pct 2.6 % [facility] Comment: Interpretive Data Percent cell count reference ranges are not reported, since discordance with absolute values may lead to misinterpretation of CBC data. Current Interpretive Data was last revised on 2017. Basophil pct 0.4 % [facility] Comment: Interpretive Data Percent cell count reference ranges are not reported, since discordance with absolute values may lead to misinterpretation of CBC data. Current Interpretive Data was last revised on 2017. Blood 02/15/2025 12:0 6 PM CDT 02/15/2025 12:47 PM CDT us Yfn Javier MD LAB BLOOD ORDERABLES Fi nal Result [facility] [place] [address] * Pro B-type natriuretic peptide (02/15/2025 12:06 [...] CDT Dottie Triana MD LAB BLOOD ORDERABLES nal Result [facility] [place] [address] * (ABNORMAL) CBC with auto differential (02/15/2025 12:06 PM CDT) WBC 5.29 3.80 - 9.90 K/cumm Hgb 12.2 11.9 - 15.5 g/dL [facility] Hct 39.2 35.6 - 45.5 % [facility] Plt 220 150 - 400 K/cumm [facility] MPV 10.4 9.1 - 12.3 fL [facility] RBC 4.85 3.90 - 5.20 M/cumm [facility] MCV 80.8(L) 81.3 - 96.4 fL [facility] MCH 25.2(L) 27.1 - 33.3 pg [facility] MCHC 31.1(L) 32.3 - 35.7 g/dL [facility] RDW CV 17.1(H) 11.1 - 14.9 % [facility] RDW SD 49.9(H) 35.7 - 48.1 fL [facility] NRBC abs 0.00 0.00 - 0.01 K/cumm [facility] Blood Venous blood specimen / Unknown 02/15/2025 12:06 PM CDT 02/15/2025 12:47 PM CDT Dottie Triana MD LAB BLOOD ORDERABLES Fi nal Result Performing Organization Address [facility] de Phone Number [facility] [place] [address] * (ABNORMAL) Hemoglobin A1c (02/15/2025 12:06 PM CDT) Pathologist [facility] Hgb A1C 6.3(H) 4.0 - 5.6 % Estimated Average Glucose 134 mg/dL [facility] Comment: The ADA recommends reporting an estimated Average Glucose (eAG) with all Hemoglobin A1c results using the equation derived from a study of 507 normal and diabetic adults. Minority populations were underrepresented and children were not included. (Diabetes Care 2020; 43(S1): S66-S76). The eAG is not equivalent to a fasting glucose. Blood 02/15/2025 12:0 6 PM CDT 02/15/2025 12:52 PM CDT Narrative [facility] - 02/16/2025 4:45 PM CDT Reflex Brad Tyson MD LAB BLOOD ORDERABLES Fin al Result Performing Organization Address [facility] de Phone Number [facility] [place] [address] * (ABNORMAL) Comprehensive metabolic panel (02/15/2025 12:06 PM CDT) [facility] Sodium 138 135 - 145 mmol/L Potassium, pl 3.2(L) 3.3 - 4.9 mmol/L [facility] Chloride 99 97 - 110 mmol/L [facility] CO2 30 22 - 32 mmol/L [facility] Anion gap 9 2 - 15 mmol/L [facility] BUN 10 6 - 25 mg/dL [facility] Creatinine 0.69 0.60 - 1.10 mg/dL [facility] Glucose 113 70 - 199 mg/dL [facility] Comment: Interpretive Data Fasting glucose >/= [...] 2022. Calcium 8.9 8.5 - 10.3 mg/dL [facility] Bilirubin, total 0.3 0.1 - 1.2 mg/dL [facility] Protein, pl 7.8 6.5 - 8.5 g/dL [facility] Albumin 3.5 3.5 - 5.0 g/dL [facility] Alk phos 230(H) 40 - 130 Units/L [facility] ALT 35 7 - 45 Units/L [facility] AST 47(H) 10 - 45 Units/L [facility] Blood 02/15/2025 12:0 6 PM CDT 02/15/2025 12:47 PM CDT us Dottie Triana MD LAB BLOOD ORDERABLES Fi nal Result [facility] Department [place] [address] * RAD ONC ARIA SESSION SUMMARY (12/24/2024 [...] ORD ERABLES Final Result Performing Organization Address [facility] de Phone Number ARILevi * RAD ONC ARIA SESSION SUMMARY (12/22/2024 [...] ORD ERABLES Final Result Performing Organization Address [facility] Co de Phone Number DECLAN * RAD ONC ARIA SESSION SUMMARY [...] ORD ERABLES Final Result Performing Organization Address [facility] de Phone Number DECLAN * RAD ONC ARIA SESSION SUMMARY [...] ORD ERABLES Final Result Performing Organization Address City/[facility] Co de Phone Number DECLAN * POCT glucose (12/07/2024 10:03 AM CDT) Glucose, POC 109 70 - 199 mg/dL Blood 12/07/2024 10:0 3 AM CDT 12/07/2024 10:03 AM CDT Mirta Gonzalez MD LAB POCT ORDERABLES - DEVICE Final Result [facility] [place] [address] * US Vein Duplex Lower Extremity Bilateral Complete (12/07/2024 9:01 AM CDT) Anatomical Region Laterality Modality Vascular Bilateral Ultrasound 12/07/2024 8:20 AM CDT Narrative 12/07/2024 6:12 PM CDT [facility] - Department of Vascular Surgery, Vascular Laboratory [address] [place] [id number] Lower Extremity Venous Ultrasound Report Patient Name: [...] R, ttp L popliteal - FINDINGS: Performing Tool Drawing Checker: Patti Singh RVT. Bilateral: Venous Doppler signals [...] Procedure Note Vitaliy Tejada MD - 12/07/2024 [facility] - Department of Vascular Surgery,Vascular Laboratory [address] [place] [address] Lower Extremity Venous Ultrasound Report Patient Name: [...] R, ttp L popliteal - FINDINGS: Performing Tool Drawing Checker: Patti Singh RVT. Bilateral: Venous Doppler signals [...] Tejada MD FACS 12/07/2024 5:43:55 PM CDT us Ingrid Giles MD IMG US PROCEDURES Final Res ult * CT [...] ur Straw Yellow Clarity, ur Cloudy(A) Clear [facility] Specific gravity, ur 1.011 1.003 - 1.030 [facility] pH, urine 6.5 [facility] Comment: Interpretive Data U rine pH is affected by diet, medications, systemic acid-base disturbances, and renal tubular function. pH may affect urinary stone formation. For example, urine pH below 6.0 may help reduce the tendency for calcium phosphate stones and pH greater than 6.0 may reduce the tendency for uric acid stone formation. Source: [employer] Current Interpretive Data was last revised on 2017 Protein, ur ql Trace Negative [facility] Glucose, ur ql 3+(A) Negative [facility] Ketones, ur Negative Negative [facility] Bilirubin, ur Negative Negative [facility] Blood, ur Negative Negative [facility] Urobilinogen, ur <2.0 <2.0 mg/dL [facility] Nitrite, ur Positive(A) Negative [facility] Leukocyte esterase, ur 1+(A) Negative [facility] UA reflex comment Reflex to microscopic UA will be performed. [facility] Urine 12/07/2024 6:19 AM CDT 12/07/2024 6:27 AM CDT Ingrid Giles MD LAB MICROBIOLOGY - GENERAL ORDERABLES Final Result Performing Organization Address [facility] Co de Phone Number [facility] [place] [address] * POCT glucose (12/07/2024 6:19 AM CDT) Glucose, POC 102 70 - 199 mg/dL Blood 12/07/2024 6:19 AM CDT 12/07/2024 6:19 AM CDT Mirta Gonzalez MD LAB POCT ORDERABLES - DEVICE Final Result Performing Organization Address [facility] de Phone Number [facility] [place] [address] * (ABNORMAL) Urinalysis, microscopic only (12/07/2024 6:19 AM CDT) WBC, ur 6-10(A) 0 - 5 /HPF RBC, ur 0-2 0 - 2 /HPF [facility] Epithelial cells, squamous, ur 1-5 0 - 5 /HPF [facility] Bacteria, ur 2+(A) [facility] Culture Reflex Comment Reflex conditions for urine culture (WBC >10) not met. [facility] Urine 12/07/2024 6:19 AM CDT 12/07/2024 6:27 AM CDT Ingrid Giles MD LAB URINE ORDERABLES Final Result Performing Organization Address [facility] Co de Phone Number [facility] [employer] [place] [address] * Troponin I high-sensitivity 6-hour (12/07/2024 6:16 AM CDT) Trop I hs 4 <=17 ng/L Comment: Interpretive Data For further hscTnI resources including the diagnostic algorithm and an aid in interpretation, copy and paste this link: https://[employer].org/show/hsTrop-1 Current Interpretive Data last revised 2020. Trop I hs delta -1 ng/L [facility] Trop I hs interp Insignificant [facility] Blood 12/07/2024 6:16 AM CDT 12/07/2024 6:31 AM CDT Karla Griggs MD LAB BLOOD ORDERABLES Sue l Result [facility] [place] [address] * (ABNORMAL) Erythrocyte sedimentation rate (12/07/2024 6:16 AM CDT) Pathologist [facility] Erythrocyte sedimentation rate 76(H) 1 - 20 mm/hr Blood 12/07/2024 6:16 AM CDT 12/07/2024 6:31 AM CDT Mirta Gonzalez MD LAB BLOOD ORDERABLES Final Result [facility] [place] [address] * Troponin I high-sensitivity 2-hour (12/07/2024 5:49 AM CDT) Pathologist [facility] Trop I hs 4 <=17 ng/L Comment: Interpretive Data For further hscTnI resources including the diagnostic algorithm and an aid in interpretation, copy and paste this link: https://[employer].org/show/hsTrop-1 Current Interpretive Data last revised 2020. Trop I hs delta See Comment ng/L [facility] Comment:Inappropriate collec tion time to report a delta. Trop I hs pct delta See Comment % [facility] Comment:Inappropriate collec tion time to report a delta. Trop I hs interp See Comment [facility] Comment:Inappropriate collec tion time to report a delta. Blood 12/07/2024 5:49 AM CDT 12/07/2024 6:27 AM CDT us Karla Griggs MD LAB BLOOD ORDERABLES Sue l Result [facility] [place] [address] * POCT glucose (12/07/2024 5:49 AM CDT) Glucose, POC 111 70 - 199 mg/dL Blood 12/07/2024 5:49 AM CDT 12/07/2024 5:49 AM CDT Notinfile Unknown LAB POCT ORDERABLES - DEVICE F inal Result Performing Organization Address [facility] de Phone Number [facility] Department [place] [employer] [place] [address] * Troponin I high-sensitivity 4-hour (12/07/2024 4:59 AM CDT) Pathologist [facility] Trop I hs 4 <=17 ng/L Comment: Interpretive Data For further hscTnI resources including the diagnostic algorithm and an aid in interpretation, copy and paste this link: https://bjhlab.testcatalog.org/show/hsTrop-1 Current Interpretive Data last revised 2020. Trop I hs delta -1 ng/L [facility] Trop I hs interp Insignificant [facility] Blood 12/07/2024 4:59 AM CDT 12/07/2024 5:21 AM CDT us Karla Griggs MD LAB BLOOD ORDERABLES Sue l Result [facility] Department [place] [employer] [place] [address] * POCT glucose (12/07/2024 3:34 AM CDT) Pathologist [facility] Glucose, POC 103 70 - 199 mg/dL Blood 12/07/2024 3:34 AM CDT 12/07/2024 3:34 AM CDT Notinfile Unknown LAB POCT ORDERABLES - DEVICE F inal Result Performing Organization Address [facility] Co de Phone Number [facility] [place] [employer] [place] [address] * (ABNORMAL) Protime-INR (12/07/2024 12:14 AM CDT) [facility] PT 15.6(H) 9.7 - 13.0 sec INR 1.43(H) 0.90 - 1.20 [facility] Comment: Interpretive data Oral anticoagulant therapeutic ranges: Venous thromboembolism prophylaxis or treatment: 2.0-3.0 CARDIOLOGY Standard range: 2.0-3.0 High-intensity range: 2.5-3.5 Refer to indication-specific guidelines for appropriate target ranges for prosthetic heart valve replacement. Current interpretive data was last revised on 2019. Blood 12/07/2024 12:1 4 AM CDT 12/07/2024 12:45 AM CDT Mirta Gonzalez MD LAB BLOOD ORDERABLES Final Result Performing Organization Address City/[facility] Co de Phone Number [facility] [place] [employer] [place] [address] * Troponin I high-sensitivity series (baseline, 2hr, 4hr, 6hr) (12/07/2024 12:08 AM CDT) Pathologist [facility] Trop I hs 5 <=17 ng/L Comment: Interpretive Data For further hscTnI resources including the diagnostic algorithm and an aid in interpretation, copy and paste this link: https://bjhlab.testcatalog.org/show/hsTrop-1 Current Interpretive Data last revised 2020. Blood 12/07/2024 12:0 8 AM CDT 12/07/2024 12:51 AM CDT Mirta Gonzalez MD LAB BLOOD ORDERABLES Final Result [facility] [place] [employer] [place] [address] * eGFR (12/07/2024 12:08 AM CDT) eGFR 75 >=60 mL/min/1. 73 m2 Comment: [...] 8 AM CDT 12/07/2024 12:51 AM CDT us Mirta Gonzalez MD LAB BLOOD ORDERABLES Final Result [facility] Department [place] [employer] [place] [address] * Differential, auto (12/07/2024 12:08 AM CDT) Neutrophil abs 5.09 1.50 - 6.50 K/cumm Imm gran abs 0.04 0.00 - 0.10 K/cumm [facility] Lymphocyte abs 0.96 0.80 - 3.30 K/cumm [facility] Monocyte abs 0.46 0.20 - 0.80 K/cumm [facility] Eosinophil abs 0.15 0.00 - 0.50 K/cumm [facility] Basophil abs 0.03 0.00 - 0.10 K/cumm [facility] Neutrophil pct 75.7 % [facility] Comment: Interpretive Data Percent cell count reference ranges are not reported, since discordance with absolute values may lead to misinterpretation of CBC data. Current Interpretive Data was last revised on 2017. Imm gran pct 0.6 % [facility] Comment: Interpretive Data Percent cell count reference ranges are not reported, since discordance with absolute values may lead to misinterpretation of CBC data. Current Interpretive Data was last revised on 2017. Lymphocyte pct 14.3 % [facility] Comment: Interpretive Data Percent cell count reference ranges are not reported, since discordance with absolute values may lead to misinterpretation of CBC data. Current Interpretive Data was last revised on 2017. Monocyte pct 6.8 % [facility] Comment: Interpretive Data Percent cell count reference ranges are not reported, since discordance with absolute values may lead to misinterpretation of CBC data. Current Interpretive Data was last revised on 2017. Eosinophil pct 2.2 % [facility] Comment: Interpretive Data Percent cell count reference ranges are not reported, since discordance with absolute values may lead to misinterpretation of CBC data. Current Interpretive Data was last revised on 2017. Basophil pct 0.4 % [facility] Comment: Interpretive Data Percent cell count reference ranges are not reported, since discordance with absolute values may lead to misinterpretation of CBC data. Current Interpretive Data was last revised on 2017. Blood 12/07/2024 12:0 8 AM CDT 12/07/2024 12:51 AM CDT Mirta Gonzalez MD LAB BLOOD ORDERABLES Final Result [facility] [place] [address] * Pro B-type natriuretic peptide (12/07/2024 12:08 [...] Heart J. 2006:27:330-337. 2. [place] RW, Mariaa AM. J. AM Osman Cardiol: Cardiovasc Imag. 2009;2: 216- 225. Interpretive Data Last Revised Date: 2018. Blood 12/07/2024 12:0 8 AM CDT 12/07/2024 12:51 AM CDT Mirta Gonzalez MD LAB BLOOD ORDERABLES Final Result Performing Organization Address [facility] Co de Phone Number [facility] [place] [address] * (ABNORMAL) CBC with auto differential (12/07/2024 12:08 AM CDT) WBC 6.73 3.80 - 9.90 K/cumm Hgb 10.9(L) 11.9 - 15.5 g/dL [facility] Hct 34.4(L) 35.6 - 45.5 % [facility] Plt 253 150 - 400 K/cumm [facility] MPV 10.3 9.1 - 12.3 fL [facility] RBC 4.27 3.90 - 5.20 M/cumm [facility] MCV 80.6(L) 81.3 - 96.4 fL [facility] MCH 25.5(L) 27.1 - 33.3 pg [facility] MCHC 31.7(L) 32.3 - 35.7 g/dL [facility] RDW CV 14.7 11.1 - 14.9 % [facility] RDW SD 43.5 35.7 - 48.1 fL [facility] NRBC abs 0.00 0.00 - 0.01 K/cumm [facility] Blood 12/07/2024 12:0 8 AM CDT 12/07/2024 12:51 AM CDT Mirta Gonzalez MD LAB BLOOD ORDERABLES Final Result Performing Organization Address City/[facility]/ZIP Co de Phone Number [facility] [place] [address] * (ABNORMAL) CRP (acute phase) (12/07/2024 12:08 AM CDT) Pathologist [facility] CRP 10.3(H) <=10.0 mg/L Blood 12/07/2024 12:0 8 AM CDT 12/07/2024 12:51 AM CDT Mirta Gonzalez MD LAB BLOOD ORDERABLES Final Result [facility] [place] [address] * (ABNORMAL) Comprehensive metabolic panel (12/07/2024 12:08 AM CDT) Sodium 142 135 - 145 mmol/L Potassium, pl 3.9 3.3 - 4.9 mmol/L [facility] Chloride 102 97 - 110 mmol/L [facility] CO2 27 22 - 32 mmol/L [facility] Anion gap 13 2 - 15 mmol/L [facility] BUN 12 6 - 25 mg/dL [facility] Creatinine 0.93 0.60 - 1.10 mg/dL [facility] Glucose 91 70 - 199 mg/dL [facility] Comment: Interpretive Data Fasting glucose >/= [...] 2022. Calcium 9.6 8.5 - 10.3 mg/dL [facility] Bilirubin, total 0.3 0.1 - 1.2 mg/dL [facility] Protein, pl 9.2(H) 6.5 - 8.5 g/dL [facility] Albumin 4.3 3.5 - 5.0 g/dL [facility] Alk phos 200(H) 40 - 130 Units/L [facility] ALT 28 7 - 45 Units/L [facility] AST 33 10 - 45 Units/L [facility] Blood 12/07/2024 12:0 8 AM CDT 12/07/2024 12:51 AM CDT Mirta Gonzalez MD LAB BLOOD ORDERABLES Final Result [facility] [place] [address] * XR Chest PA Lateral 2 Views [...] it. Electronically signed by: Natalio Gaspar M.D. us Mirta Gonzalez MD IMG XR PROCEDURES Fin al Result * ECG 12-LEAD (12/06/2024 10:15 PM CDT) Narrative [facility] - 12/06/2024 10:15 PM CDT Srinivas Cardoza [...] on prior ECG Srinivas Cardoza MD 12/06/24 2215 Mirta Gonzalez MD ECG ORDERABLES Final Result [facility] * Hepatitis C antibody (01/01/2023 11:06 AM CDT) Pathologist [facility] Hep C Ab Nonreactive Nonreactive [facility] Comment: Interpretive Data Nonreactive: Antibodies to HCV [...] last revised on 2019. Testing performed by: [facility], [address] [place] [address], [place]., [address] Blood 01/01/2023 11:0 6 AM CDT 01/01/2023 2:22 PM CDT Tory Gonzalez MD LAB MICROBIOLOGY - GENERAL ORDERABLES Final Result Performing Organization Address City/State/ZIP Co me Phone Number [facility] [address] [facility]. [place] [address] * COLONOSCOPY IMAGES (07/10/2016) Anatomical Region Laterality Modality Other Narrative 07/10/2016 Ordered by an unspecified provider. Historical Provider GI PROCEDURE ORDERABLES F inal Result from Last 3 Months or Most Recently Relevant to Health Maintenance Insurance [facility] MEDICARE [facility]ANTAGE [facility] Address: [address] [address] [place] [address] MEDICARE [facility] MEDICARE ADVANTAGE [facility] Address: [address] [address] [place] [address] MEDICARE [facility] MEDICARE ADVANTAGE ID[employer] Advance Directives For more information, please contact: [phone] * Full Code (Latest Code Status on [...] 3:10 PM 05/04/2020 8:07 PM Care Teams Manager Services Relationship Specialty Start Date End Date Howard Bourgeois MD PCP - General 11/29/16 Sean Olguin MD Consulting Physician Cardiovascular Disease 10/21/18 Radha Sim MD Consulting Physician Internal Medicine 12/26/18 Jackson Purdy Jr., MD Surgeon General Surgery 12/26/18 Enrike Schrader MD Consulting Physician Cardiology 12/26/18 Guido Concepcion MD PhD [address] [facility] DEPT RADIATION ONCOLOGY, [place] [address] Radiation Oncologist Radiation Oncology 11/23/24
--- OUTSIDE RECORDS SUMMARY | 2025-02-23 14:56 | XMS_ITS | Encounter Summary ---
Author Organization [facility] Healthcare Address [address] [place] [address] Care Team Providers Care Hearing Aid Assembly Supervisor Name Role Phone Howard Bourgeois MD Primary Care Provider [phone] Sean Olguin MD Unavailable Radha Sim MD Unavailable [phone] Rajwinder Carlos MD, Jackson NJohnny Unavailable [phone] Enrike Schrader MD Unavailable [phone] Guido Concepcion MD PhD Unavailable [phone] Encounter Details Date Type Department Care Team (Late st Contact Info) Description 12/13/2024 Telephone [facility] Radiation Oncology [address] [facility] Advanced Medicine [facility] [place] [address] Katarina Buchanan RN Social History Tobacco Use Types Packs/Day Years Used Date Smoking Tobacco: Former Cigarettes 0.5 18 0 10/2003 - 10/2021 Passive Smoke Exposure: Never Smokeless Tobacco: Never Comments:< 1/2 pack daily Alcohol Use Standard Drinks/Week Comments Yes 0 (1 standard drink = 0.6 oz pur e alcohol) rarely [facility] Utilities Answer Date Recorded In the past 12 months has [employer], gas, oil, or water company threatened [...] often do you attend chur ch or nondenominational services? Never 08/27/2024 Do you belong to any clubs o r organizations such as rastafari groups, unions, fraternal or athletic groups, or [...] any time in the past 12 m [facility], were you homeless or living in a detention (including now)? No 08/27/2024 Personal Safety Answer Date Recorded Have you ever been in or are you currently in a harmful physical or emotional relationship or is someone making you feel afraid or unsafe? 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 Gender Identity Female 06/07/2021 5:59 PM CDT Sexual Orientation Straight 06/07/2021 5: 59 PM CDT documented as of this encounter Plan of Treatment Not on file documented as of this encounter Visit Diagnoses Not on filedocumented in this encounter Care Teams Hearing Aid Assembly Supervisor Relationship Specialty Start Date End Date Howard Bourgeois MD PCP - General 11/29/16 Sean Olguin MD Consulting Physician Cardiovascular Disease 10/21/18 Radha Sim MD Consulting Physician Internal Medicine 12/26/18 Jackson Purdy Jr., MD Surgeon General Surgery 12/26/18 Enrike Schrader MD Consulting Physician Cardiology 12/26/18 Guido Concepcion MD PhD [address] [facility] DEPT RADIATION ONCOLOGY, [place] [address] Radiation Oncologist Radiation Oncology 11/23/24 documented as of this encounter
--- OUTSIDE RECORDS SUMMARY | 2025-02-23 14:56 | XMS_ITS | Encounter Summary ---
Author Organization [facility] Healthcare Address [address] [place] [address] Care Team Providers Care Stone Mason Name Role Phone Howard Bourgeois MD Primary Care Provider [phone] Sean Olguin MD Unavailable Radha Sim MD Unavailable [phone] Rajwinder Carlos MD, Jackson NJohnny Unavailable [phone] Enrike Schrader MD Unavailable [phone] Guido Concepcion MD PhD Unavailable [phone] Encounter Details Date Type Department Care Team (Late st Contact Info) Description 11/30/2024 Telephone [facility] Advanced Medicine Radiation Oncology [address] [facility] Advanced Medicine [facility] [place] [address] Katarina Buchanan RN Social History Tobacco Use Types Packs/Day Years Used Date Smoking Tobacco: Former Cigarettes 0.5 18 0 10/2003 - 10/2021 Passive Smoke Exposure: Never Smokeless Tobacco: Never Comments:< 1/2 pack daily Alcohol Use Standard Drinks/Week Comments Yes 0 (1 standard drink = 0.6 oz pur e alcohol) rarely [facility] Utilities Answer Date Recorded In the past 12 months has [employer] electric, gas, oil, or water company threatened [...] often do you attend chur ch or zoroastrian services? Never 08/27/2024 Do you belong to any clubs o r organizations such as orthodox groups, unions, fraternal or athletic groups, or [...] any time in the past 12 m [facility], were you homeless or living in a group home (including now)? No 08/27/2024 Personal Safety Answer Date Recorded Have you ever been in or are you currently in a harmful physical or emotional relationship or is someone making you feel afraid or unsafe? 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 Gender Identity Female 06/07/2021 5:59 PM CDT Sexual Orientation Straight 06/07/2021 5: 59 PM CDT documented as of this encounter Plan of Treatment Not on file documented as of this encounter Visit Diagnoses Not on filedocumented in this encounter Care Teams Stone Mason Relationship Specialty Start Date End Date Howard Bourgeois MD PCP - General 11/29/16 Sean Olguin MD Consulting Physician Cardiovascular Disease 10/21/18 Radha Sim MD Consulting Physician Internal Medicine 12/26/18 Jackson Purdy Jr., MD Surgeon General Surgery 12/26/18 Enrike Schrader MD Consulting Physician Cardiology 12/26/18 Guido Concepcion MD PhD [address] [facility] DEPT RADIATION ONCOLOGY, [place] [address] Radiation Oncologist Radiation Oncology 11/23/24 documented as of this encounter
--- OUTSIDE RECORDS SUMMARY | 2025-02-23 14:56 | XMS_ITS | Encounter Summary ---
Author Organization [facility] Address [address] [place] [address] Phone Care Team Providers Care Tile And Marble Installer Name Role Phone Howard Bourgeois MD Primary Care Provider [phone] Sean Olguin MD Unavailable Radha Sim MD Unavailable [phone] Rajwinder Carlos MD, Jackson Hinkle Unavailable [phone] Enrike Schrader MD Unavailable [phone] Cara Santacruz RN Unavailable [phone] Marium Tobar [facility] Unavailable [phone] Guido Concepcion MD PhD Unavailable [phone] Encounter Details Date Type Department Care Team (Late st Contact Info) Description 10/31/2022 Orders Only [facility] Scanning, Provider Social History Tobacco Use Types Packs/Day Years [...] often do you attend chur ch or buddhism services? Never 07/20/2020 Do you belong to [...] on file Legal Sex Female 7:25 AM PLASTIC BATTERY ASSEMBLER Gender Identity Female 06/07/2021 5:59 PM CDT Sexual Orientation Straight 06/07/2021 5: 59 PM CDT documented as of this encounter Plan of Treatment Not on file documented as of this encounter Procedures Procedure Name Priority Date/Time Associated Diagnosis Comments SCAN - LABS 10/31/2022 documented in this encounter Results * SCAN - LABS (10/31/2022) us Provider Scanning Final Result documented in this encounter Visit Diagnoses Not on filedocumented [...] COVID: Suspected 08/12/2024 08/12/2024 08/12/2024 8:15 AM PLASTIC BATTERY ASSEMBLER documented as of this encounter Care Teams Tile And Marble Installer Relationship Specialty Start Date End Date Howard Bourgeois MD PCP - General 11/29/16 Sean Olguin MD Consulting Physician Cardiovascular Disease 10/21/18 Radha Sim MD Consulting Physician Internal Medicine 12/26/18 Jackson Purdy Jr., MD Surgeon General Surgery 12/26/18 Enrike Schrader MD Consulting Physician Cardiology 12/26/18 Cara Santacruz RN [address] [address] [facility] Outpatient Billboard Poster Helper 01/12/24 01/14/24 Marium Tobar, VICE PRESIDENT LENDING [address] [facility] ([facility] Mailstop [phone] [place] [address] SHOP Outpatient Billboard Poster Helper 08/27/24 09/21/24 Guido Concepcion MD PhD [address] [facility] DEPT RADIATION ONCOLOGY, [place] [address] Radiation Oncologist Radiation Oncology 11/23/24 documented as of this encounter
--- OUTSIDE RECORDS SUMMARY | 2025-02-23 14:56 | XMS_ITS | Encounter Summary ---
Author Organization [facility] Healthcare Address [address] [place] [address] Care Team Providers Care Lead Printer Name Role Phone Howard Bourgeois MD Primary Care Provider [phone] Sean Olguin MD Unavailable Radha Sim MD Unavailable [phone] Rajwinder Carlos MD, Jackson NJohnny Unavailable [phone] Enrike Schrader MD Unavailable [phone] Guido Concepcion MD PhD Unavailable [phone] Encounter Details Date Type Department Care Team (Late st Contact Info) Description 12/02/2024 Telephone [facility] Advanced Medicine Radiation Oncology [address] [facility] Advanced Medicine [facility] [place] [address] Katarina Buchanan RN Social History Tobacco Use Types Packs/Day Years Used Date Smoking Tobacco: Former Cigarettes 0.5 18 0 10/2003 - 10/2021 Passive Smoke Exposure: Never Smokeless Tobacco: Never Comments:< 1/2 pack daily Alcohol Use Standard Drinks/Week Comments Yes 0 (1 standard drink = 0.6 oz pur e alcohol) rarely [facility] Utilities Answer Date Recorded In the past 12 months has [employer] electric, gas, oil, or water company threatened [...] often do you attend chur ch or scientology services? Never 08/27/2024 Do you belong to any clubs o r organizations such as mandaeism groups, unions, fraternal or athletic groups, or [...] any time in the past 12 m [facility], were you homeless or living in a fpc (including now)? No 08/27/2024 Personal Safety Answer Date Recorded Have you ever been in or are you currently in a harmful physical or emotional relationship or is someone making you feel afraid or unsafe? 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 Gender Identity Female 06/07/2021 5:59 PM CDT Sexual Orientation Straight 06/07/2021 5: 59 PM CDT documented as of this encounter Plan of Treatment Not on file documented as of this encounter Visit Diagnoses Not on filedocumented in this encounter Care Teams Lead Printer Relationship Specialty Start Date End Date Howard Bourgeois MD PCP - General 11/29/16 Sean Olguin MD Consulting Physician Cardiovascular Disease 10/21/18 aRdha Sim MD Consulting Physician Internal Medicine 12/26/18 Jackson Purdy Jr., MD Surgeon General Surgery 12/26/18 Enrike Schrader MD Consulting Physician Cardiology 12/26/18 Guido Concepcion MD PhD [address] [facility] DEPT RADIATION ONCOLOGY, [place] [address] Radiation Oncologist Radiation Oncology 11/23/24 documented as of this encounter
--- OUTSIDE RECORDS SUMMARY | 2025-02-23 14:56 | XMS_ITS | Clinical Summary ---
Author Organization [facility] Address [address] [place] [address] Care Team Providers Care Acquisition Marketing Coordinator Name Role Phone Unavailable Primary Care Provider Unavailabl e Allergies Active Allergy Reactions Criticality Noted Date Comments Penicillins 11/24/2018 Medications acetaminophen (TYLENOL) 325 MG tablet Take 1 tablet (325 mg total) by mouth every 6 (six) hours as needed for moderate pain (4 - 6) (with oxycodone 5mg). 0 9 Active amitriptyline (ELAVIL) 100 MG tablet Take 1 tablet (100 mg total) by mouth nightly. 0 9 Active atorvastatin (LIPITOR) 10 MG tablet Take 1 tablet (10 mg total) by mouth nightly. 0 9 Active dextrose (GLUTOSE) 40 % gel Take 15 g by mouth as needed for low blood sugar. 15 g 9 Active docusate sodium (COLACE) 100 MG capsule Take 1 capsule (100 mg total) by mouth 2 (two) times a day as needed for constipation. 0 9 Active enoxaparin (LOVENOX) 150 MG/ML injection Inject 1 mL (150 mg total) under the skin every 12 (twelve) hours. 0 9 Active ergocalciferol (VITAMIN D2) 59468 units capsule Take 1 capsule (50,000 Units total) by mouth once a week. 0 9 Active famotidine (PEPCID) 20 MG tablet 1 tablet (20 mg total) by PO/Per Tube route 2 (two) times a day. 0 9 Active ferrous sulfate 325 (65 FE) MG tablet 1 tablet (325 mg total) by PO/Per Tube route daily with breakfast. 0 9 Active Fluticasone-Fernie meterol (AIRDUO RESPICLICK) 113-14 MCG/ACT inhaler Inhale 1 puff RT 2 (two) times a day. 9 Active furosemide (LASIX) 40 MG tablet Take 1 tablet (40 mg total) by mouth once a day. 0 9 Active gabapentin (NEURONTIN) 300 MG capsule Take 1 capsule (300 mg total) by mouth 2 (two) times a day. 0 9 Active insulin lispro (HumaLOG) 100 UNIT/ML injection Inject 0-6 Units under the skin 4 (four) times a day before meals and nightly. 10 mL 9 Active ipratropium-alb uterol (DUO-NEB) 0.5-2.5 mg/3 mL nebulizer Inhale 3 mL Every 4 hours as needed. for wheezing or shortness of breath. 0 9 Active lidocaine (LIDOCARE) 4 % patch patch Place 1 patch on the skin once a day. 0 9 Active multivitamin w/ minerals (THERA M PLUS) tablet tablet Take 1 tablet by mouth once a day. 0 9 Active pantoprazole (PROTONIX) 40 MG EC/DR tablet Take 1 tablet (40 mg total) by mouth Daily at 6am. 0 9 Active polyethylene glycol (MIRALAX) packet 17 g by PO/Per Tube route once a day. 10 each 9 Active potassium chloride (MICRO-K) 10 MEQ CR capsule 2 capsules (20 mEq total) by PO/Per Tube route once a day. 0 9 Active SITagliptin (JANUVIA) 100 MG tablet 1 tablet (100 mg total) by PO/Per Tube route once a day. 0 9 Active venlafaxine (EFFEXOR) 25 MG tablet Take 1 tablet (25 mg total) by mouth 3 (three) times a day with meals. 0 9 Active vitamin B-12 1000 MCG tablet Take 1 tablet (1,000 mcg total) by mouth every 30 (thirty) days. 0 9 Active warfarin (COUMADIN) 4 MG tablet Take as directed per After Visit Summary. 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) 0 9 Active Active Problems Problem Noted Date Diagnosed Date Antibiotic therapy indicated 11/24/2018 Immunizations Immunization Administration Dates Next Due Influenza, Unspecified 11/25/2018(Deferr ed: Not eligible - Medical contraindication) Family History Medical History Relation Name Comments Arthritis Father Asthma Father COPD Father Depression Father Diabetes Father Drug abuse Father Asthma Mother Cancer Mother Heart disease Mother Alcohol abuse Sister Relation Name Status Comments Father Mother Sister Social History Tobacco Use Types Packs/Day Years Used Date Smoking Tobacco: Former Cigarettes 0.5 25 0 11/24/1993 - 11/10/2018 Smokeless Tobacco: Never Alcohol Use Standard Drinks/Week Comments Yes 0 (1 standard drink = 0.6 oz pur e alcohol) once a year Comments Unknown Sex and Gender Information Value Date Recorded Sex Assigned at Not on file Legal Sex Female 3:31 PM EDT Gender Identity Not on file Sexual Orientation Not on file Last Filed Vital Signs Vital Sign Reading Time Taken Comments Blood Pressure 100/60 12/15/2018 8:08 AM CDT Pulse 94 12/15/2018 8:50 AM CDT Temperature 36.2 C (97.1 F) 12/15/2018 8:08 AM CDT Respiratory Rate 20 12/15/2018 8:50 AM CDT Oxygen Saturation 97% 12/14/2018 8:31 PM CDT Inhaled Oxygen Concentration - - Weight 155 kg (341 lb 11.4 oz) 12/14/2018 2:00 P M CDT Height 162.6 cm (5' 4) 11/24/2018 4:07 PM CDT Body Mass Index 58.65 11/24/2018 4:07 PM CDT Plan of Treatment Not on file Advance Directives * Full Resuscitation (Latest Code Status on File) Date Activated Date Inactivated Comments 11/24/2018 7:42 PM 12/15/2018 4:49 PM Full code
--- OUTSIDE RECORDS SUMMARY | 2025-02-23 14:56 | XMS_ITS | Encounter Summary ---
Author Organization [facility] Healthcare Address [address] [place] [address] Care Team Providers Care Cylinder Inspector Name Role Phone Howard Bourgeois MD Primary Care Provider [phone] Sean Olguin MD Unavailable Radha Sim MD Unavailable [phone] Rajwinder Carlos MD, Jackson NJohnny Unavailable [phone] Enrike Schrader MD Unavailable [phone] Guido Concepcion MD PhD Unavailable [phone] Encounter Details Date Type Department Care Team (Late st Contact Info) Description 12/08/2024 Telephone [facility] Advanced Medicine Radiation Oncology [address] [facility] Advanced Medicine [facility] [place] [address] Katarina Buchanan RN Social History Tobacco Use Types Packs/Day Years Used Date Smoking Tobacco: Former Cigarettes 0.5 18 0 10/2003 - 10/2021 Passive Smoke Exposure: Never Smokeless Tobacco: Never Comments:< 1/2 pack daily Alcohol Use Standard Drinks/Week Comments Yes 0 (1 standard drink = 0.6 oz pur e alcohol) rarely [facility] Utilities Answer Date Recorded In the past 12 months has [employer] electric, gas, oil, or water company threatened [...] often do you attend chur ch or anglican services? Never 08/27/2024 Do you belong to [...] any time in the past 12 m [facility], were you homeless or living in a prison (including now)? No 08/27/2024 Personal Safety Answer Date Recorded Have you ever been in or are you currently in a harmful physical or emotional relationship or is someone making you feel afraid or unsafe? 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 Gender Identity Female 06/07/2021 5:59 PM CDT Sexual Orientation Straight 06/07/2021 5: 59 PM CDT documented as of this encounter Plan of Treatment Not on file documented as of this encounter Visit Diagnoses Not on filedocumented in this encounter Care Teams Cylinder Inspector Relationship Specialty Start Date End Date Howard Bourgeois MD PCP - General 11/29/16 Sean Olguin MD Consulting Physician Cardiovascular Disease 10/21/18 Radha Sim MD Consulting Physician Internal Medicine 12/26/18 Jackson Purdy Jr., MD Surgeon General Surgery 12/26/18 Enrike Schrader MD Consulting Physician Cardiology 12/26/18 Guido Concepcion MD PhD [address] [facility] DEPT RADIATION ONCOLOGY, [place] [address] Radiation Oncologist Radiation Oncology 11/23/24 documented as of this encounter
--- OUTSIDE RECORDS SUMMARY | 2025-02-23 14:56 | XMS_ITS | Encounter Summary ---
Author Organization [facility] Address [address] [place] [address] Phone Care Team Providers Care Drycleaner Name Role Phone Howard Bourgeois MD Primary Care Provider [phone] Sean Olguin MD Unavailable Radha Sim MD Unavailable [phone] Rajwinder Carlos MD, Jackson Hinkle Unavailable [phone] Enrike Schrader MD Unavailable [phone] Anaid Salvador RN Unavailable [phone] Cara Santacruz RN Unavailable Marium Tobar [facility] Unavailable [phone] Guido benz MD PhD Unavailable [phone] Encounter Details Date Type Department Care Team (Late st Contact Info) Description 05/19/2018 Telephone [facility] Scheduling [address] [place] [address] Rosa Sanchez Social History Tobacco Use Types Packs/Day Years Used Date Smoking Tobacco: Every Day Smokeless Tobacco: Current Alcohol Use Standard Drinks/Week Comments No 0 (1 standard drink = 0.6 oz pur e alcohol) Comments Unknown Sex and Gender Information Value Date Recorded Sex Assigned at Not on file Legal Sex Female 7:25 AM ELECTRICAL MAINTENANCE SUPERVISOR Gender Identity Female 06/07/2021 5:59 PM CDT [...] 12/18/2018 01/06/2024 10:18 AM CDT COVID: Suspected 07/14/2020 07/14/2020 07/15/2020 3:17 AM ELECTRICAL MAINTENANCE SUPERVISOR Rhino/Enterovirus 07/14/2020 07/15/2020 07/22/2020 3:07 AM ELECTRICAL MAINTENANCE SUPERVISOR Respiratory Infection (MARA), contact + droplet Comment:Automatically added due to negative COVID-19 result. Patient classified as High Risk for COVID-19 by the Medical Triage Attending. There are two negative COVID-19 test done at least 24 hours apart. Patient meets criteria for COVID-19 isolation discontinuation. Elgin Herman RN 07/16/2020 07/15/2020 07/15/2020 07/16/2020 9:[address] COVID: Suspected 07/15/2020 07/15/2020 07/16/2020 1:17 AM ELECTRICAL MAINTENANCE SUPERVISOR COVID: Suspected 01/06/2024 01/06/2024 01/06/2024 4:36 AM CDT COVID: Suspected 08/12/2024 08/12/2024 08/12/2024 8:15 AM ELECTRICAL MAINTENANCE SUPERVISOR documented as of this encounter Care Teams Drycleaner Relationship Specialty Start Date End Date Howard Bourgeois MD PCP - General 11/29/16 Sean Olguin MD Consulting Physician Cardiovascular Disease 10/21/18 Radha Sim MD Consulting Physician Internal Medicine 12/26/18 Jackson Purdy Jr., MD Surgeon General Surgery 12/26/18 Enrike Schrader MD Consulting Physician Cardiology 12/26/18 Anaid Salvador RN [address] [address] [facility] Outpatient Calender Machine Operator 07/20/20 08/17/20 Cara Santacruz RN [address] [address] SHOP Outpatient Calender Machine Operator 01/12/24 01/14/24 Marium Tobar [facility] [address] [facility] ([facility] Mailstop [phone] [place] [address] SHOP Outpatient Calender Machine Operator 08/27/24 09/21/24 Guido Concepcion MD PhD [address] [facility] DEPT RADIATION ONCOLOGY, [place] [address] Radiation Oncologist Radiation Oncology 11/23/24 documented as of this encounter
--- NOTE | 2025-02-23 14:57 | ED_ITS ---
HPI - Neuro Symptoms/Deficit General Chief Complaint: Neuro Symptoms/Deficit Stated Complaint: stuttering,LKW 1300 Time Seen by Provider: 02/23/25 14:57 History of Present Illness HPI Narrative: About 2 hours ago, patient was mid conversation when she suddenly stopped being able to speak, she also felt like her face was drooping. She felt dizzy and confused. Her symptoms have now resolved. She has never had a stroke in the past, she does have heart disease, diabetes, she is on warfarin. Related Data Allergies Allergy/AdvReac Type Severity Reaction Status Date / Time PCN Allergy Mild Uncoded 03/08/08 07:43 Review of Systems 2 Review of Systems: All systems reviewed & are unremarkable except as noted in HPI and below Exam 2 Narrative: EXAMINATION OF ORGAN SYSTEMS/BODY AREAS: Constitutional: Vital signs per nursing GENERAL:[No acute distress, non-toxic appearing.] HEAD: Normal with no signs of head trauma. EYES: EOMI, conjunctiva normal ENT: Hearing grossly intact LUNGS: Nonlabored breathing. HEART: [Regular rate and rhythm] ABD: [Soft], [nontender to palpation] EXT: Normal range of motion SKIN: [No rashes or lesions.] NEURO: [Alert and oriented x 3. No gross focal sensory or strength deficits. No facial droop. Slightly stuttering speech.] PSYCH: Anxious/tearful affect Course Vital Signs Vital signs: Vital Signs Temperature 97.8 F 02/23/25 15:06 Pulse Rate 65 02/23/25 15:06 Respiratory Rate 16 02/23/25 15:06 Blood Pressure 130/74 02/23/25 15:06 Pulse Oximetry 94 02/23/25 15:06 Oxygen Delivery Room Air 02/23/25 15:06 Temperature 97.8 F 02/23/25 15:12 Pulse Rate 70 02/23/25 15:23 Respiratory Rate 16 02/23/25 15:13 Blood Pressure 130/74 02/23/25 15:13 Pulse Oximetry 95 02/23/25 15:13 Oxygen Delivery Room Air 02/23/25 15:06 MDM - Neuro Symptoms/Deficit MDM Narrative Medical decision making narrative: 50F p/w aphasia/L facial droop now thankfully resolved; 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 CTA head/neck neg, discussed with neurologist and hospitalist for admission, patient comfortable with this plan. NIH stroke scale currently 0. Lab Data 02/23/25 15:26 02/23/25 15:26 Labs: Lab Results 02/23/25 02/23/25 Range/Units 14:56 15:26 WBC 6.7 (4.5-10.0) K/mm3 RBC 4.66 (4.2-5.4) M/mm3 Hgb 11.9 L (12.0-15.0) g/dL Hct 38.0 (37.0-47.0) % MCV 81.5 (80-100) fl MCH 25.5 L (26-34) pg MCHC 31.3 L (32-36) g/dl RDW 17.5 H (11.5-14.5) % Plt Count 328 (150-375) k/mm3 MPV 9.7 (7.4-10.4) fl Immature Gran % (Auto) 0.3 (0-0.5) % Neut % (Auto) 74.4 H (45.5-73.1) % Lymph % (Auto) 14.1 L (18.3-44.2) % [place] % (Auto) 8.3 (2.6-8.5) % Eos % (Auto) 2.6 (0-4.4) % Baso % (Auto) 0.3 (0.2-1.2) % Lymph # (Auto) 0.94 (0.9-3.2) K/mm3 [place] # (Auto) 0.6 (0.1-0.6) K/mm3 Eos # (Auto) 0.2 (0-0.3) K/mm3 Baso # (Auto) 0.0 (0.0-0.1) K/mm3 Abs Immat Gran (auto) 0.02 (0.00-0.031) K/mm3 Absolute Neuts (auto) 5.0 (1.3-6.7) K/mm3 Absolute Nucleated RBC 0.000 (0.0-0.012) K/mm3 Nucleated RBC % 0.0 (0.0-0.2) % PT 28.5 H (11.1-14.7) Seconds INR 2.7 APTT 86.9 H (22.3-36.8) Seconds Sodium 134 L (137-145) mmol/L Potassium 4.1 (3.4-5.0) mmol/L Chloride 100 (98-107) mmol/L Carbon Dioxide 24 (22-30) mmol/L Anion Gap 10 (4-12) mmol/L BUN 17 (7-17) mg/dL Creatinine 0.92 (0.7-1.0) mg/dL Estim Creat Clear Calc 85 ml/min Estimated GFR > 60 (59 - ) Glucose 101 (65-110) mg/dL POC Capillary Glucose 100 (65-105) mg/dl Calcium 8.8 (8.4-10.2) mg/dL Total Bilirubin 0.4 (0.2-1.3) mg/dL AST 54 H (14-36) U/L ALT 48 H (6-35) U/L Alkaline Phosphatase 237 H (38-126) U/L Troponin I 0.014 (0.000-0.034) ng/mL Total Protein 8.1 (6.3-8.2) g/dL Albumin 3.9 (3.5-5.1) g/dL Critical Care Time Critical Care Time Critical Care Time: Yes Total Critical Care Time: 31 Discharge Plan Discharge Clinical Impression: Transient cerebral ischemia, Aphasia, Facial droop Patient Disposition: Still a Patient Condition: Stable Patient Language: Lithuanian Follow-up/Referrals: Christelle,Howard Patino MD [Primary Care Provider] -
[2025-02-23 15:32] LABS: Hematocrit 38.0 % (37.0-47.0); Hemoglobin 11.9 g/dL (12.0-15.0); Immature Granulocyte Percent A 0.3 % (0-0.5); Lymphocytes Absolute Auto 0.94 K/mm3 (0.9-3.2); Mean Corpuscular HGB Conc 31.3 g/dl (32-36); Mean Corpuscular Hemoglobin 25.5 pg (26-34); Mean Corpuscular Volume 81.5 fl (80-100); Nucleated Red Blood Cells Absolute Auto 0.000 K/mm3 (0.0-0.012); Nucleated Red Blood Cells Perc 0.0 % (0.0-0.2); Platelet Count Result 328 k/mm3 (150-375); Red Blood Count 4.66 M/mm3 (4.2-5.4); White Blood Count 6.7 K/mm3 (4.5-10.0)
[2025-02-23 15:44] LABS: INR 2.7; Prothrombin Time 28.5 Seconds (11.1-14.7)
[2025-02-23 15:45] LABS: Partial Thromboplastin Time 86.9 Seconds (22.3-36.8)
[2025-02-23 15:54] LABS: Alanine Aminotransferase 48 U/L (6-35); Albumin Level 3.9 g/dL (3.5-5.1); Alkaline Phosphatase 237 U/L (38-126); Anion Gap 10 mmol/L (4-12); Aspartate Amino Transferase 54 U/L (14-36); Bilirubin,Total 0.4 mg/dL (0.2-1.3); Blood Urea Nitrogen 17 mg/dL (7-17); Calcium 8.8 mg/dL (8.4-10.2); Carbon Dioxide 24 mmol/L (22-30); Chloride 100 mmol/L (98-107); Estimated CRCL calculation 85 ml/min; Estimated Glomerular Filt Rate > 60; Glucose 101 mg/dL (65-110); Potassium 4.1 mmol/L (3.4-5.0); Sodium 134 mmol/L (137-145); Total Protein 8.1 g/dL (6.3-8.2)
[2025-02-23 16:06] LABS: Troponin I 0.014 ng/mL (0.000-0.034)
--- OUTSIDE RECORDS SUMMARY | 2025-02-23 16:13 | XMS_ITS | Encounter Summary ---
Author Organization [facility] Healthcare Address [address] [place] [address] Care Team Providers Care Machinery Mover Name Role Phone Howard Bourgeois MD Primary Care Provider [phone] Sean Olguin MD Unavailable Radha Sim MD Unavailable [phone] Rajwinder Carlos MD, Jackson NJohnny Unavailable [phone] Enrike Schrader MD Unavailable [phone] Guido Concepcion MD PhD Unavailable [phone] Encounter Details Date Type Department Care Team (Late st Contact Info) Description 11/30/2024 Telephone [facility] Advanced Medicine Radiation Oncology [address] [facility] Advanced Medicine [facility] [place] [address] Katarina Buchanan RN Social History Tobacco Use Types Packs/Day Years Used Date Smoking Tobacco: Former Cigarettes 0.5 18 0 10/2003 - 10/2021 Passive Smoke Exposure: Never Smokeless Tobacco: Never Comments:< 1/2 pack daily Alcohol Use Standard Drinks/Week Comments Yes 0 (1 standard drink = 0.6 oz pur e alcohol) rarely [facility] Utilities Answer Date Recorded In the past 12 months has [employer] electric, gas, oil, or water company threatened [...] often do you attend chur ch or orthodox services? Never 08/27/2024 Do you belong to any clubs o r organizations such as congregational groups, unions, fraternal or athletic groups, or [...] any time in the past 12 m [facility], were you homeless or living in a assisted (including now)? No 08/27/2024 Personal Safety Answer Date Recorded Have you ever been in or are you currently in a harmful physical or emotional relationship or is someone making you feel afraid or unsafe? 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 Gender Identity Female 06/07/2021 5:59 PM CDT Sexual Orientation Straight 06/07/2021 5: 59 PM CDT documented as of this encounter Plan of Treatment Not on file documented as of this encounter Visit Diagnoses Not on filedocumented in this encounter Care Teams Machinery Mover Relationship Specialty Start Date End Date Howard Bourgeois MD PCP - General 11/29/16 Sean Olguin MD Consulting Physician Cardiovascular Disease 10/21/18 Radha Sim MD Consulting Physician Internal Medicine 12/26/18 Jackson Purdy Jr., MD Surgeon General Surgery 12/26/18 Enrike Schrader MD Consulting Physician Cardiology 12/26/18 Guido Concepcion MD PhD [address] [facility] DEPT RADIATION ONCOLOGY, [place] [address] Radiation Oncologist Radiation Oncology 11/23/24 documented as of this encounter
--- OUTSIDE RECORDS SUMMARY | 2025-02-23 16:13 | XMS_ITS | Encounter Summary ---
Author Organization [facility] Address [address] [place] [address] Phone Care Team Providers Care Shipwright Supervisor Name Role Phone Howard Bourgeois MD Primary Care Provider [phone] Sean Olguin MD Unavailable Radha Sim MD Unavailable [phone] Rajwinder Carlos MD, Jackson Hinkle Unavailable Enrike Schrader MD Unavailable [phone] Anaid Salvador RN Unavailable Cara Santacruz RN Unavailable Marium Tobar [facility] Unavailable [phone] Guido benz MD PhD Unavailable [phone] Encounter Details Date Type Department Care Team (Late st Contact Info) Description 05/19/2018 Telephone [facility] Scheduling [address] [place] [address] Rosa Sanchez Social History Tobacco Use Types Packs/Day Years Used Date Smoking Tobacco: Every Day Smokeless Tobacco: Current Alcohol Use Standard Drinks/Week Comments No 0 (1 standard drink = 0.6 oz pur e alcohol) Comments Unknown Sex and Gender Information Value Date Recorded Sex Assigned at Not on file Legal Sex Female 7:25 AM HOOP DRIVING MACHINE OPERATOR HELPER Gender Identity Female 06/07/2021 5:59 PM CDT [...] chart. Remain on precautions for now. Xin Rsus RN 08/30/2019 IP review: pt had effective abx on 02/13 at 1400 (meropenum). 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 Patient is not a candidate for isolation removal at this time. Xin Russ RN 02/15/2019 10:39 AM 12/18/2018 12/18/2018 01/06/2024 10:18 AM CDT COVID: Suspected 07/14/2020 07/14/2020 07/15/2020 3:17 AM HOOP DRIVING MACHINE OPERATOR HELPER Rhino/Enterovirus 07/14/2020 07/15/2020 07/22/2020 3:07 AM HOOP DRIVING MACHINE OPERATOR HELPER Respiratory Infection (MARA), contact + droplet Comment:Automatically added due to negative COVID-19 result. Patient classified as High Risk for COVID-19 by the Medical Triage Attending. There are two negative COVID-19 test done at least 24 hours apart. Patient meets criteria for COVID-19 isolation discontinuation. Elgin Herman RN 07/16/2020 07/15/2020 07/15/2020 07/16/2020 9:[address] COVID: Suspected 07/15/2020 07/15/2020 07/16/2020 1:17 AM HOOP DRIVING MACHINE OPERATOR HELPER COVID: Suspected 01/06/2024 01/06/2024 01/06/2024 4:36 AM CDT COVID: Suspected 08/12/2024 08/12/2024 08/12/2024 8:15 AM HOOP DRIVING MACHINE OPERATOR HELPER documented as of this encounter Care Teams Shipwright Supervisor Relationship Specialty Start Date End Date Howard Bourgeois MD PCP - General 11/29/16 Sean Olguin MD Consulting Physician Cardiovascular Disease 10/21/18 Radha Sim MD Consulting Physician Internal Medicine 12/26/18 Jackson Purdy Jr., MD Surgeon General Surgery 12/26/18 Enrike Schrader MD Consulting Physician Cardiology 12/26/18 Anaid Salvador RN [address] [address] [facility] Out[facility] C[facility]ar Binder 07/20/20 08/17/20 Cara Santacruz RN [address] [address] [facility] Out[facility] C[facility]ar Binder 01/12/24 01/14/24 Marium Tobar [facility] [address] [facility] ([facility] Mailstop [phone] [place] [address] [facility] Outpatient Cigar Binder 08/27/24 09/21/24 Guido Concepcion MD PhD [address] [facility], [place] [address] Radiation Oncologist Radiation Oncology 11/23/24 documented as of this encounter
--- OUTSIDE RECORDS SUMMARY | 2025-02-23 16:13 | XMS_ITS | Clinical Summary ---
Author Organization [facility] Address [address] [place] [address] Care Team Providers Care Help Desk Consultant Name Role Phone Unavailable Primary Care Provider [...] hours. 0 9 Active ergocalciferol (VITAMIN D2) 47449 units capsule Take 1 capsule (50,000 Units [...]
--- OUTSIDE RECORDS SUMMARY | 2025-02-23 16:13 | XMS_ITS | Clinical Summary ---
Author Organization [facility] Address [address] [facility] [place] [address] Care Team Providers Care Coal Carrier Name Role Phone Howard Bourgeois MD Primary Care Provider Carmen Dyson RN Unavailable Unavailab le Source Comments [facility],non-owned Affiliates and Associated Physician Practices is amultiple site organization consisting of ambulatory clinics and hospital sitesin [place], [place], [place] and [place]. This disclosure is being madepursuant to the Care Everywhere program and may not contain all information available regarding this patient. 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 Gender Identity Not on file Sexual Orientation [...] 74 - 106 mg/dL 12/13/2018 4:37 AM [facility] Sodium 139 136 - 145 mmol/L 12/13/2018 4:37 AM CDT [facility] Potassium 4.1 3.5 - 5.1 mmol/L 12/13/2018 4:37 AM CDT [facility] Chloride 103 98 - 107 mmol/L 12/13/2018 4:37 AM [facility] CO2 29 22 - 31 mmol/L 12/13/2018 4:37 AM [facility] Calcium 8.4(L) 8.5 - 10.1 mg/dL 12/13/2018 4:37 AM [facility] Anion Gap 7(L) 8 - 16 mmol/L 12/13/2018 4:37 AM CDT [facility] BUN 18 7 - 21 mg/dL 12/13/2018 4:37 AM CDT [facility] Creatinine 0.94 0.50 - 1.30 mg/dL 12/13/2018 4:37 AM CDT [facility] eGFR by MDRD >60 >60 mL/min/1.7 3m2 12/13/2018 4:37 AM CDT [facility] eGFR by MDRD >60 >60 mL/min/1.7 3m2 12/13/2018 4:37 AM CDT [facility] Blood BLOOD SPECIMEN / Unknown Venipuncture / Unknown 12/13/2018 4:15 AM CDT 12/13/2018 4:20 AM CDT us Provider Unknown LAB - CHEMISTRY ORDERABLES Sue l Result [facility] [address] [phone] from Last 3 Months or Most Recently Relevant to Health Maintenance Insurance MEDICARE MEDICARE MEDICARE Advance Directives * Full Code (Latest Code Status on File) Date Activated Date Inactivated Comments 10/31/2017 1:38 PM 11/01/2017 7:51 PM * Full Code Date Activated Date Inactivated Comments 10/31/2017 1:38 PM 10/31/2017 1:38 PM Care Teams Coal Carrier Relationship Specialty Start Date End Date Howard Bourgeois MD [address] [facility] [address] [place] [address] PCP - General Internal Medicine 10/15/17 Carmen Dyson, RN Registered Nurse 10/31/17
--- OUTSIDE RECORDS SUMMARY | 2025-02-23 16:13 | XMS_ITS | Referral Summary ---
Author Organization [facility] Address [address] [place] [address] Care Team Providers Care Ice Cream Freezer Name Role Phone Howard Bourgeois MD Primary Care Provider Sean Olguin MD Unavailable Radha Sim MD Unavailable [phone] Rajwinder Carlos MD, Jackson Hinkle Unavailable [phone] Enrike Schrader MD Unavailable [phone] Guido Concepcion MD PhD Unavailable [phone] Encounters Date Type Department Care Team Description 02/18/2025 SHOP/CHAP Initial Eligibility Review [facility]NAG[facility] [address] [place] [id number] Trinity Cali, RAMONA 02/15/2025 12:14 PM CDT - 02/17/2025 6:11 PM CDT Hospital Encounter [facility] 1 [place] [id number] Dottie Triana MD Blustein, MD Stevenson Aguayo, MD Jah Rivas Timothy Robert, MD Qureshi, Adnan Mehboob, MD Chest pain, unspecified type (Primary Dx) Discharge Disposition: Discharge to home or self care 01/12/2025 Orders Only [facility] [address] [facility] [place] [address] Guido Concepcion MD PhD Malignant neoplasm of lower lobe, left bronchus or lung (HCC) (Primary Dx) 01/12/2025 Orders Only [facility] Radiation Oncology [address] [place] [address] Guido Concepcion MD PhD 12/27/2024 [facility] [address] [place] [address] Morales Jim [facility] 12/24/2024 Completion of Therapy [facility] [address] [place] [address] Rima Rowe NP 12/24/2024 Completion of Therapy [facility] Radiation Oncology [address] [place] [address] Guido Concepcion MD PhD 12/24/2024 Orders Only RAD ONC TREATMENTS Miscellaneous, Not In File 12/24/2024 12:34 PM CDT - 12/24/2024 11:59 PM CDT Hospital Encounter [facility] [address] [place] [address] Guido Concepcion MD PhD Discharge Disposition: Discharge to home or self care 12/23/2024 OTV [facility] [address] [place] [address] Milagro Mayes MD 12/23/2024 Orders Only RAD ONC TREATMENTS Miscellaneous, Not In File 12/23/2024 12:27 PM CDT - 12/23/2024 11:59 PM CDT Hospital Encounter [facility] [address] [place] [address] Guido Concepcion MD PhD Discharge Disposition: Discharge to home or self care 12/22/2024 Orders Only RAD ONC TREATMENTS Miscellaneous, Not In File 12/22/2024 1:04 PM CDT - 12/22/2024 11:59 PM CDT Hospital Encounter [facility] [address] [facility] [place] [address] Guido Concepcion MD PhD Discharge Disposition: Discharge to home or self care 12/21/2024 Orders Only RAD ONC TREATMENTS Miscellaneous, Not In File 12/21/2024 10:52 AM CDT - 12/21/2024 11:59 PM CDT Hospital Encounter [facility] [address] [facility] [place] [address] Guido Concepcion MD PhD Discharge Disposition: Discharge to home or self care 12/20/2024 Orders Only RAD ONC TREATMENTS Miscellaneous, Not In File 12/20/2024 11:54 AM CDT - 12/20/2024 11:59 PM CDT Hospital Encounter [facility] [address] [facility] [place] [address] Guido Concepcion MD PhD Discharge Disposition: Discharge to home or self care 12/13/2024 Telephone [facility] [address] [facility] [place] [address] Katarina Buchanan RN 12/08/2024 Telephone [facility] [address] [facility] [place] [address] Katarina Buchanan RN 12/07/2024 8:00 AM CDT Ancillary Procedure [facility] IP [address] [facility] [address] [place] [address] 12/07/2024 5:25 AM CDT - 12/07/2024 4:30 PM CDT Emergency [facility] Emergency Department 1 [place] [address] Mirta Gonzalez MD Shortness of breath (Primary Dx); Chest pain on breathing; Acute on chronic congestive heart failure, unspecified heart failure type (HCC); Pericarditis Discharge Disposition: Discharge to home or self care 12/02/2024 Telephone [facility] [address] [place] [address] Katarina Buchanan RN 11/30/2024 10:20 PM CDT - 11/30/2024 11:59 PM CDT Hospital Encounter [facility] Radiation Oncology [address] [place] [address] Guido Concepcion MD PhD Discharge Disposition: Discharge to home or self care 11/30/2024 Telephone [facility] Radiation Oncology [address] [place] [address] Katarina Buchanan RN 11/25/2024 2:10 PM CDT - 11/25/2024 11:59 PM CDT Hospital Encounter [facility] Radiation Oncology [address] [place] [address] Guido Concepcion MD PhD Discharge Disposition: Discharge to home or self care from Last 3 Months Allergies Active Allergy Reactions Criticality Noted Date Comments Penicillins Hives,Rash,Swelling, Othe r (See comments) Medium 09/18/2017 Swelling and rash; tolerates amoxicillin, Medications venlafaxine XR (EFFEXOR-XR) 75 mg 24 hr capsule Take 1 capsule (75 mg total) by mouth daily with breakfast 30 capsule Active multivit lvpyyjzl-vxch-RE-c alcium (THERA-M) 9 mg iron-400 mcg tablet [...] 07/16/2020 Assessment & Plan (07/17/2020 7:29 AM MUNICIPAL MAINTENANCE WORKER): Pt reported suprapubic discomfort during hospital stay. UA w/ positive nitrites, neg LE, 6-10 WBCs. Plan: - Ciprofloxacin IV 07/15 x1, transition to oral therapy for total 3d course (12/5pm-12/8am) Coagulopathy 07/15/2020 Assessment & Plan (07/19/2020 6:28 AM MUNICIPAL MAINTENANCE WORKER): Pt w/ h/o chronic warfarin use (goal [...] f/u Assessment & Plan (07/15/2020 2:19 AM MUNICIPAL MAINTENANCE WORKER): See #MVR Anxiety 07/15/2020 Assessment & Plan (02/17/2025 5:00 PM CDT): Resume home Wellbutrin and venlafaxine. Assessment & Plan (02/16/2025 3:52 PM CDT): Resume home Wellbutrin and venlafaxine Assessment & Plan (02/15/2025 5:38 PM CDT): Resume home Wellbutrin and venlafaxine Assessment & Plan (07/16/2020 11:53 AM MUNICIPAL MAINTENANCE WORKER): H/o anxiety and chronic pain (reported h/o fibromyalgia per pt). On home Effexor Plan: - Continue home venlafaxine 75mg every day Assessment & Plan (07/15/2020 10:49 AM MUNICIPAL MAINTENANCE WORKER): Mood stable -Cont venlafaxine Omental infarction 07/15/2020 Assessment & Plan (07/18/2020 8:27 AM MUNICIPAL MAINTENANCE WORKER): Asymptomatic. CT A/P w/ ventral abdominal hernia containing omental fat w/ slight increase in stranding. Camargo possibly technical support representative of omental infarct. Occurring in s/o acute blood loss anemia. Lactate 1.1, abdominal exam benign. Tolerating food/fluid well Plan: - CTM - Transfuse as above Assessment & Plan (07/16/2020 9:18 AM MUNICIPAL MAINTENANCE WORKER): CT A/P: ventral abdominal hernia containing omental fat, with slight interval increase in stranding in the omental tissues likely secondary to a focus of omental infarction. -Likely occurred in the setting of dehydration and anemia -LA 1.1; Abdominal exam benign. RBCs transfused as above Melena 07/14/2020 Overview (07/16/2020): Added automatically from request for surgery [id number] Assessment & Plan (07/17/2020 7:30 AM MUNICIPAL MAINTENANCE WORKER): See acute blood loss anemia Intertrigo 02/20/2020 [...] 08/29/2019 Assessment & Plan (07/18/2020 8:26 AM MUNICIPAL MAINTENANCE WORKER): Resolved. Pt w/ h/o COPD (on albuterol, [...] qhs Assessment & Plan (07/16/2020 9:15 AM MUNICIPAL MAINTENANCE WORKER): P/w 2 days of SOB, malaise, fever [...] now Assessment & Plan (09/03/2019 12:21 PM MUNICIPAL MAINTENANCE WORKER): Suspect due to deconditioning plus morbid obesity with minor contribution from ground-glass opacities. Would pursue HRCT chest to further evaluation GGO if hypoxemia worsens (though no exertional hypoxemia was noted on informal 6MW during hospital stay). Assessment & Plan (08/30/2019 3:03 PM MUNICIPAL MAINTENANCE WORKER): Unclear etiology of shortness of breath with activity. Differential includes arrhythmia, viral, cardiac, progression of inflammatory/infectious/neoplastic process noted on CT --RVP- negative --Monitor on tele --trops negative x2 Assessment & Plan (08/29/2019 12:28 PM MUNICIPAL MAINTENANCE WORKER): Unclear etiology of shortness of breath with [...] 2.5-3.5) Assessment & Plan (09/03/2019 12:38 PM MUNICIPAL MAINTENANCE WORKER): Will resume prior warfarin dosing at discharge. Needs bridging with enoxaparin until warfarin therapeutic (goal INR 2.5-3.5). Instructed to undergo repeat INR 5 days after warfarin resumption. Plan to provide prescription for enoxaparin for 7 days with refill in case not therapeutic by then. Assessment & Plan (08/30/2019 3:36 PM MUNICIPAL MAINTENANCE WORKER): Patient with mechanical mitral valve on home [...] transportation issues (goes to Dr. Leo, cardiology, [place], [place]). Patient here with pleuritic chest pain [...] AM Assessment & Plan (08/29/2019 12:43 PM MUNICIPAL MAINTENANCE WORKER): Patient with mechanical mitral valve on home [...] transportation issues (goes to Dr. Leo, cardiology, [place], [place]). Patient here with pleuritic chest pain [...] AM Assessment & Plan (08/28/2019 7:43 PM MUNICIPAL MAINTENANCE WORKER): - Patient with mechanical mitral valve on [...] test Assessment & Plan (09/03/2019 12:39 PM MUNICIPAL MAINTENANCE WORKER): Atypical; reproducible on palpation. Reassured likely musculoskeletal. Analgesics. Assessment & Plan (08/30/2019 2:56 PM MUNICIPAL MAINTENANCE WORKER): Patient with complaint of atypical chest pain, less likely ACS. EKG without new ischemic changes. Troponin negative x1. No events on tele. Patient denies pain this morning - trop negative x2 - continue to on tele --Topical lidocaine, scheduled tylenol Assessment & Plan (08/29/2019 12:38 PM MUNICIPAL MAINTENANCE WORKER): Patient with complaint of atypical chest pain, less likely ACS. EKG without new ischemic changes. Troponin negative x1. No events on tele - Repeat troponin - Monitor on tele --Topical lidocaine, scheduled tylenol Assessment & Plan (08/28/2019 7:47 PM MUNICIPAL MAINTENANCE WORKER): - Patient with complaint of atypical chest [...] protocol Assessment & Plan (07/16/2020 11:51 AM MUNICIPAL MAINTENANCE WORKER): H/o IVIS and obesity (BMI 56.64). On home CPAP. Plan: - Continue home CPAP Assessment & Plan (07/15/2020 10:49 AM MUNICIPAL MAINTENANCE WORKER): Cont CPAP Assessment & Plan (09/03/2019 12:21 PM MUNICIPAL MAINTENANCE WORKER): Continue home nocturnal NPPV. Assessment & Plan (08/30/2019 3:03 PM MUNICIPAL MAINTENANCE WORKER): Continue home nocturnal NPPV Assessment & Plan (08/29/2019 12:20 PM MUNICIPAL MAINTENANCE WORKER): Continue home nocturnal NPPV Assessment & Plan (08/28/2019 7:45 PM MUNICIPAL MAINTENANCE WORKER): - Continue home nocturnal NPPV Abnormal CT scan 08/28/2019 Assessment & Plan (08/28/2020 5:38 PM MUNICIPAL MAINTENANCE WORKER): - Will refer to general surgery due to intermittent abdominal pain in the setting of ventral hernia and findings of omental infarction on recent imaging. - Discussed warning signs with patient (severe abdominal pain, fevers, changes in bowel habits, blood in stool, etc) and when to seek care Assessment & Plan (09/01/2019 2:25 PM MUNICIPAL MAINTENANCE WORKER): Patient with abnormal CT scan with findings [...] provided no complications and provided her outpatient paraffiner can follow up biopsy results with her Assessment & Plan (08/30/2019 3:13 PM MUNICIPAL MAINTENANCE WORKER): Patient with abnormal CT scan with findings [...] biopsy Assessment & Plan (08/29/2019 11:29 AM MUNICIPAL MAINTENANCE WORKER): Patient with abnormal CT scan with findings [...] biopsy) Assessment & Plan (08/28/2019 8:02 PM MUNICIPAL MAINTENANCE WORKER): - Patient with abnormal CT scan with [...] (09/01/2019): Added automatically from request for surgery [id number] Assessment & Plan (09/03/2019 12:40 PM MUNICIPAL MAINTENANCE WORKER): Given possibility of indolent lymphoma in context [...] concern for recurrent infection. Rx resent to [facility] pharmacy today to get restarted on medication. [...] concerns Assessment & Plan (09/14/2021 1:07 PM MUNICIPAL MAINTENANCE WORKER): - Doing well on amoxicillin suppression with [...] surgical candidate it was decided to continue long filler cigar roller machine suppression to decrease her risk of recurrent infection. - Recent labs reviewed - Discussed with patient the rational for treatment, culture results, risk of recurrent infection, signs/symptoms of recurrent infection, and to contact ID clinic with any questions or concerns Assessment & Plan (08/28/2020 5:37 PM MUNICIPAL MAINTENANCE WORKER): - No concern for recurrent endocarditis. Tolerating [...] should up with CT surgery as scheduled nursing home current use of antibiotics 03/11/2019 Assessment & [...] 2.5-3.5) Assessment & Plan (07/15/2020 4:35 AM MUNICIPAL MAINTENANCE WORKER): Chronically on suppressive amoxicillin. Endocarditis in 2019, has mechanical MV Assessment & Plan (10/26/2019 4:59 PM CDT): - Recent CBC and CMP reviewed with no change to current antibiotic dose - Continue to monitor for adverse effects of antibiotics Assessment & Plan (09/03/2019 12:22 PM MUNICIPAL MAINTENANCE WORKER): Patient on long-term antibiotics for the purpose of chronic suppression due to endocarditis in the setting of mechanical valve. Followed as outpatient by ID. Continue home amoxicillin regimen. Assessment & Plan (08/30/2019 3:02 PM MUNICIPAL MAINTENANCE WORKER): Patient on long filler cigar roller machine antibiotics for the purpose of chronic suppression due to endocarditis in the setting of mechanical valve. Followed as outpatient by ID. --Continue home amoxicillin regimen. Assessment & Plan (08/29/2019 11:18 AM MUNICIPAL MAINTENANCE WORKER): Patient on care home antibiotics for the purpose of chronic suppression due to endocarditis in the setting of mechanical valve. Followed as outpatient by ID. --Continue home amoxicillin regimen. Assessment & Plan (08/28/2019 7:51 PM MUNICIPAL MAINTENANCE WORKER): - Patient on long filler cigar roller machine amoxicillin for the purpose of chronic suppression [...] questions or change in clinical situations at [phone]. After hours, the ID fellow on-call can be reached at [phone]. Assessment & Plan (02/23/2019 6:35 AM CDT): [...] daily Assessment & Plan (07/16/2020 11:42 AM MUNICIPAL MAINTENANCE WORKER): H/o severe MR s/p mechanical MVR 11/2018. C/b endocarditis in e/o perioperative infection 2/2 central line site complication. Goal INR 2.5-3.5. On warfarin 7mg prior to admit. Plan: - See coagulopathy - Continue amoxicillin ppx w/ 500mg q8 as per ID (followed outpatient) Assessment & Plan (07/16/2020 9:15 AM MUNICIPAL MAINTENANCE WORKER): Mechanical MV in 2019 on warfarin. INR [...] 12/18/2018 Assessment & Plan (07/15/2020 10:49 AM MUNICIPAL MAINTENANCE WORKER): BMI 56.6, risk factor for respiratory decompensation [...] 11/13/2018 Assessment & Plan (07/19/2020 6:26 AM MUNICIPAL MAINTENANCE WORKER): Pt w/ baseline Hgb 12s. P/w Hgb [...] 7.4 Assessment & Plan (07/16/2020 9:14 AM MUNICIPAL MAINTENANCE WORKER): Dark tarry stools x2 days prior to [...] lisinopril Assessment & Plan (07/16/2020 11:57 AM MUNICIPAL MAINTENANCE WORKER): H/o HTN. On home losartan 25 Plan: - Continue losartan 25mg every day Assessment & Plan (02/16/2019 3:30 PM CDT): home meds: furosemide 80 mg daily and losartan 25 mg daily - pt has not been hypertensive - hold home meds Assessment & Plan (12/18/2018 3:15 PM CDT): Controlled. On cozaar. Severe mitral regurgitation 09/29/2018 Overview (09/29/2018): Added automatically from request for surgery [id number] Mitral valve insufficiency 09/29/2018 Overview (10/29/2018): Added automatically from request for surgery [id number] Assessment & Plan (02/17/2025 5:00 PM CDT): [...] 2.5-3.5) Assessment & Plan (09/03/2019 12:21 PM MUNICIPAL MAINTENANCE WORKER): Patient with history of MR s/p bileaflet mechanical MVR. Management as above with regard to anticoagulation. Appears euvolemic; continue home furosemide. Assessment & Plan (08/30/2019 3:03 PM MUNICIPAL MAINTENANCE WORKER): Patient with history of MR s/p bileaflet mechanical MVR. Management as above with regard to anticoagulation - Appears euvolemic; continue home lasix Assessment & Plan (08/29/2019 11:17 AM MUNICIPAL MAINTENANCE WORKER): Patient with history of MR s/p bileaflet mechanical MVR; last TTE 03/2019 and physiologic at that time. Management as above with regard to anticoagulation - Appears euvolemic; continue home lasix Assessment & Plan (08/28/2019 7:48 PM MUNICIPAL MAINTENANCE WORKER): - Patient with history of MR s/p bileaflet mechanical MVR; last TTE 03/2019 and physiologic at that time - Management as above with regard to anticoagulation - Appears euvolemic; continue home lasix Non-rheumatic mitral regurgitation 09/29/2018 Overview (11/14/2018): Added automatically from request for surgery [id number] Peripheral vascular disease 09/29/2018 Overview (11/19/2018): Added automatically from request for surgery [id number] Assessment & Plan (02/17/2025 5:00 PM CDT): [...] insulin Assessment & Plan (07/16/2020 11:56 AM MUNICIPAL MAINTENANCE WORKER): Home diet controlled. A1c 6.6. Total cholesterol 121, HDL 23, LDL 63 Plan: - LDSSI while inpatient - Consistent carb diet - Atorva 10 for ppx Assessment & Plan (07/16/2020 9:19 AM MUNICIPAL MAINTENANCE WORKER): A1C 6.6%; diet controlled at home -Start LDSSI given glucose 210 Assessment & Plan (09/03/2019 12:17 PM MUNICIPAL MAINTENANCE WORKER): Diet controlled. Remains normoglycemic. Assessment & Plan (08/29/2019 12:19 PM MUNICIPAL MAINTENANCE WORKER): Diet controlled. BS normoglycemic. Assessment & Plan (08/28/2019 7:52 PM MUNICIPAL MAINTENANCE WORKER): - Diet controlled. BS normoglycemic. Assessment & [...] weekly Assessment & Plan (07/16/2020 11:49 AM MUNICIPAL MAINTENANCE WORKER): H/o SLE, diagnosed as teenager reportedly. W/ [...] a/c Assessment & Plan (07/16/2020 9:17 AM MUNICIPAL MAINTENANCE WORKER): No evidence of flare -Cont plaquenil -Plan to start heparin drip when INR <2.5 given hx of mechanical MV and APLS Assessment & Plan (09/03/2019 12:18 PM MUNICIPAL MAINTENANCE WORKER): No evidence of flare. Continue HCQ as before. Followed by Rheumatology here as outpatient. Assessment & Plan (08/30/2019 3:12 PM MUNICIPAL MAINTENANCE WORKER): Patient with SLE followed by Rheumatology as outpatient - Continue HCQ - No current SLE flare; continue to monitor Assessment & Plan (08/29/2019 12:19 PM MUNICIPAL MAINTENANCE WORKER): Patient with SLE followed by Rheumatology as outpatient - Continue HCQ - No current SLE flare; continue to monitor Assessment & Plan (08/28/2019 7:52 PM MUNICIPAL MAINTENANCE WORKER): - Patient with SLE followed by Rheumatology as outpatient - Continue HCQ - No current SLE flare; continue to monitor Assessment & Plan (02/23/2019 2:12 PM CDT): Patient has known diagnosis of SLE, followed by rheumatology at [facility] (last seen 01/25/2019) - continue hydroxychloroquine 400 mg daily Assessment & Plan (12/18/2018 3:16 PM CDT): On Plaquenil. Resolved Problems Problem Noted Date Diagnosed Date Resolved Date Fever 07/15/2020 07/16/2020 Assessment & Plan (07/16/2020 9:17 AM MUNICIPAL MAINTENANCE WORKER): P/w sore throat, cough, PRABHAKAR, nausea, malaise, [...] 08/31/2019 Assessment & Plan (08/31/2019 9:44 AM MUNICIPAL MAINTENANCE WORKER): Reports frequent palpitations yesterday associated with shortness of breath and fatigue yesterday. None since admission --Continue to monitor on tele Assessment & Plan (08/29/2019 12:24 PM MUNICIPAL MAINTENANCE WORKER): Reports frequent palpitations yesterday associated with shortness [...] = 0.6 oz pur e alcohol) rarely [facility] Open Mile[employer] Answer Date Recorded In the past 12 months has th e [employer], gas, oil, or water [employer] threatened to shut off services in your [...] week 08/27/2024 How often do you attend [facility] ch or roman catholic services? Never 08/27/2024 Do you belong to any clubs o r organizations such as rastafarian groups, unions, fraternal or athletic groups, or [...] any time in the past 12 m [facility], were you homeless or living in a intermediate (including now)? No 08/27/2024 Personal Safety Answer Date Recorded Have you ever been in or are you currently in a harmful physical or emotional relationship or is someone making you feel afraid or unsafe? Denies 02/15/2025 Comments No Sex and Gender Information Value Date Recorded Sex Assigned at Not on file Legal Sex Female 7:25 AM MUNICIPAL MAINTENANCE WORKER Gender Identity Female 06/07/2021 5:59 PM CDT [...] on file Medical Devices Implanted Type Area Electric Furnace Operator Device Identifier Shelf Expiration Date Model / Serial / Lot [employer] [id number] Masters-Series 31mm 26.1mm Mechanical Expanded Cuff Style - [id number] - [id number] Implanted:Qty: 1 on 11/11/2018 by Buck Bustillos MD at [facility] N/A: Heart [employer] 02/22/2020 [id number] / [id number] / Daig Refugio/[employer] [id number] Angio-Seal Vip Bondek-Plus 6fr .035in 70cm Hemostatic Latex Free - [id number] Implanted:Qty: 1 on 11/14/2018 by Rodrigo Gómez MD at [facility] [employer] 06/10/2019 [id number] / / [id number] [employer] [id number] Viabahn 6mm 2.5cm 120cm Flexible Self Expand Radiopaque Stent - [id number] Implanted:Qty: 1 on 11/19/2018 by Param Mcrae Jr., MD at [facility] [employer] 12/03/2020 [id number] / / [employer] [id number] Viabahn 6mm 6fr 5cm 120cm Delivery System Superficial Femoral - [id number] Implanted:Qty: 1 on 11/19/2018 by Param Mcrae Jr., MD at [facility] [employer] 04/20/2021 [id number] / / [employer]ig [employer]ug[employer] [id number] Angio-Seal Vip Bondek-Plus 6fr .035in 70cm Hemostatic Latex Free - [id number] Implanted:Qty: 1 on 11/19/2018 by Param Mcrae Jr., MD at [facility] [employer] 06/10/2019 [id number] / / [id number] Procedures Procedure Name Priority Date/Time Associated Diagnosis [...] ORDERABLES - D EVICE Final Result [facility]ADIS[facility] Department [place] [address] * POCT glucose (02/17/2025 8:16 AM CDT) Glucose, POC 89 70 - 199 mg/dL Blood 02/17/2025 8:16 AM CDT 02/17/2025 8:16 AM CDT Radha Zepeda MD LAB POCT ORDERABLES - D EVICE Final Result Performing Organization Address [facility] Co de Phone Number MADISYN [facility] Department [place] [address] * eGFR (02/16/2025 8:55 PM CDT) eGFR [...] ORDERABLES Final Res ult Performing Organization Address City/[facility]/ZIP Co de Phone Number [facility] [place] [address] * (ABNORMAL) Protime-INR (02/16/2025 8:55 PM CDT) PT 16.7(H) 9.7 - 13.0 sec INR 1.53(H) 0.90 - 1.20 [facility] Comment: Interpretive data Oral anticoagulant therapeutic ranges: Venous thromboembolism prophylaxis or treatment: 2.0-3.0 CARDIOLOGY Standard range: 2.0-3.0 High-intensity range: 2.5-3.5 Refer to indication-specific guidelines for appropriate target ranges for prosthetic heart valve replacement. Current interpretive data was last revised on 2019. Blood 02/16/2025 8:55 PM CDT 02/16/2025 9:11 PM CDT Nevin Sargent NP LAB BLOOD ORDERABLES Final Res ult [facility] [place] [address] * (ABNORMAL) CBC without differential (02/16/2025 8:55 PM CDT) WBC 7.71 3.80 - 9.90 K/cumm Hgb 12.2 11.9 - 15.5 g/dL [facility] [place] Hct 38.4 35.6 - 45.5 % [facility] Plt 242 150 - 400 K/cumm [facility] MPV 10.1 9.1 - 12.3 fL [facility] RBC 4.81 3.90 - 5.20 M/cumm [facility] MCV 79.8(L) 81.3 - 96.4 fL [facility] MCH 25.4(L) 27.1 - 33.3 pg [facility] MCHC 31.8(L) 32.3 - 35.7 g/dL [facility] RDW CV 17.1(H) 11.1 - 14.9 % [facility] RDW SD 49.1(H) 35.7 - 48.1 fL [facility] NRBC abs 0.00 0.00 - 0.01 K/cumm [facility] Blood 02/16/2025 8:55 PM CDT 02/16/2025 9:05 PM CDT Nevin Sargent ANTENNA ENGINEER LAB BLOOD ORDERABLES Final Res ult [facility] [place] [address] * (ABNORMAL) Comprehensive metabolic panel (02/16/2025 8:55 PM CDT) Sodium 140 135 - 145 mmol/L Potassium, pl 3.9 3.3 - 4.9 mmol/L [facility] Chloride 101 97 - 110 mmol/L [facility] CO2 29 22 - 32 mmol/L [facility] Anion gap 10 2 - 15 mmol/L [facility] BUN 14 6 - 25 mg/dL [facility] Creatinine 0.95 0.60 - 1.10 mg/dL [facility] Glucose 98 70 - 199 mg/dL [facility] Comment: Interpretive Data Fasting glucose >/= 126 [...] 2022. Calcium 9.1 8.5 - 10.3 mg/dL [facility] Bilirubin, total 0.4 0.1 - 1.2 mg/dL [facility] Protein, pl 7.8 6.5 - 8.5 g/dL [facility] Albumin 3.5 3.5 - 5.0 g/dL [facility] Alk phos 235(H) 40 - 130 Units/L [facility] ALT 42 7 - 45 Units/L [facility] AST 54(H) 10 - 45 Units/L [facility] Blood 02/16/2025 8:55 PM CDT 02/16/2025 9:05 PM CDT Nevin Sargent ANTENNA ENGINEER LAB BLOOD ORDERABLES Final Res ult [facility] [place] [address] * POCT glucose (02/16/2025 8:44 PM CDT) Glucose, POC 104 70 - 199 mg/dL Blood 02/16/2025 8:44 PM CDT 02/16/2025 8:44 PM CDT Brad Tyson MD LAB POCT ORDERABLES - DE VICE Final Result Performing Organization Address [facility] [place] [address] * POCT glucose (02/16/2025 5:16 PM CDT) Glucose, POC 94 70 - 199 mg/dL Blood 02/16/2025 5:16 PM CDT 02/16/2025 5:16 PM CDT Brad Tyson MD LAB POCT ORDERABLES - DE VICE Final Result Performing Organization Address [facility] [place] [address] * NM MPI SPECT (Stress) Single Study [...] the Cardiovascular Division is available in the [facility] electronic medical record. Standard myocardial perfusion images [...] the Cardiovascular Division is available in the [facility] electronic medical record. Standard myocardial perfusion images [...] AM CDT Narrative 02/16/2025 2:26 PM CDT [facility] [place] [address] [place] Patient Name: FRANSISCA POWELL R : 1975 (50y ) Gender: F Study Date: 02/16/2025 11:20:00 AM Ht(Inch): 64 Wt(Lb): 275 BSA: 2.37 Tech: Location: [id number] Order Provider: DIYA JULES BMI: 47.2 Ref [...] Note Chalo Ivory MD PhD - 02/16/2025 [facility] [place] [address] [place] Patient Name: FRANSISCA POWELL R : 1975 (50y ) Gender: F Study Date: 02/16/2025 11:20:00 AM Ht(Inch): 64 Wt(Lb): 275 BSA: 2.37 Tech: Location: [id number] Order Provider: DIYA JULES BMI: 47.2 Ref [...] (ABNORMAL) Protime-INR (02/16/2025 8:34 AM CDT) Pathologist [facility] PT 14.6(H) 9.7 - 13.0 sec INR 1.34(H) 0.90 - 1.20 [facility] Comment: Interpretive data Oral anticoagulant therapeutic ranges: Venous thromboembolism prophylaxis or treatment: 2.0-3.0 CARDIOLOGY Standard range: 2.0-3.0 High-intensity range: 2.5-3.5 Refer to indication-specific guidelines for appropriate target ranges for prosthetic heart valve replacement. Current interpretive data was last revised on 2019. Blood 02/16/2025 8:34 AM CDT 02/16/2025 8:47 AM CDT Nevin Sargent NP LAB BLOOD ORDERABLES Final Res ult [facility] [place] [address] * POCT glucose (02/16/2025 8:04 AM CDT) [facility] Glucose, POC 108 70 - 199 mg/dL Blood 02/16/2025 8:04 AM CDT 02/16/2025 8:04 AM CDT Brad Tsyon MD LAB POCT ORDERABLES - DE VICE Final Result [facility] [place] [address] * eGFR (02/15/2025 8:17 PM CDT) Pathologist [facility] eGFR >90 >=60 mL/min/1. 73 m2 Comment: [...] BLOOD ORDERABLES Final Result Performing Organization Address City/[facility] Co de Phone Number [facility] [place] [address] * Magnesium (02/15/2025 8:17 PM CDT) Magnesium 2.1 1.4 - 2.5 mg/dL Blood 02/15/2025 8:17 PM CDT 02/15/2025 8:26 PM CDT Diya Jules MD LAB BLOOD ORDERABLES Final Result Performing Organization Address City/State/[facility] Co de Phone Number [facility] [place] [address] * (ABNORMAL) Lipid panel (02/15/2025 8:17 PM [...] on 2018. Triglycerides 89 <=149 mg/dL [facility] Comment: Interpretive Data Ages < or = [...] on 2018. HDL 29(L) >=40 mg/dL [facility] Comment: Interpretive Data Ages < or = [...] 2018. LDL, calculated 75 <=129 mg/dL [facility] Comment: Interpretive Data Ages < or = [...] revised on 2024. Non-HDL Cholesterol 92 mg/dL [facility] Comment: Interpretive Data Ages < or = [...] last revised on 2018. Chol/HDL ratio 4 [facility] Blood 02/15/2025 8:17 PM CDT 02/15/2025 8:26 PM CDT Narrative [facility] - 02/16/2025 9:50 AM CDT Reflex us Brad Tyson MD LAB BLOOD ORDERABLES Fin al Result [facility] [place] [address] * Basic metabolic panel (02/15/2025 8:17 PM CDT) Sodium 140 135 - 145 mmol/L Potassium, pl 3.6 3.3 - 4.9 mmol/L [facility] Chloride 103 97 - 110 mmol/L [facility] CO2 31 22 - 32 mmol/L [facility] Anion gap 6 2 - 15 mmol/L [facility] BUN 10 6 - 25 mg/dL [facility] Creatinine 0.77 0.60 - 1.10 mg/dL [facility] Glucose 108 70 - 199 mg/dL [facility] Comment: Interpretive Data Fasting glucose >/= 126 [...] 2022. Calcium 9.0 8.5 - 10.3 mg/dL [facility] Blood 02/15/2025 8:17 PM CDT 02/15/2025 8:26 PM CDT Diya Jules MD LAB BLOOD ORDERABLES Final Result Performing Organization Address City/[facility]/ZIP Co de Phone Number [facility] [place] [address] * POCT glucose (02/15/2025 8:01 PM CDT) Glucose, POC 104 70 - 199 mg/dL Blood 02/15/2025 8:01 PM CDT 02/15/2025 8:01 PM CDT Adolfo Gamino MD LAB POCT ORDERABLES - DEV ICE Final Result [facility] [place] [address] * Troponin I high-sensitivity 6-hour (02/15/2025 6:12 PM CDT) Pathologist [facility] Trop I hs 6 <=17 ng/L Comment: Interpretive Data For further [facility] resources including the diagnostic algorithm and an aid in interpretation, copy and paste this link: [email or web address].[email or web address]/show/[email or web address] Current Interpretive Data last revised 2020. Trop I hs delta 0 ng/L [facility] Trop I hs interp Insignificant [facility] Blood 02/15/2025 6:12 PM CDT 02/15/2025 6:20 PM CDT Yfn Javier MD LAB BLOOD ORDERABLES Fi nal Result Performing Organization Address City/[facility] Co de Phone Number [facility] [place] [address] * ECG 12 lead (02/15/2025 5:33 PM CDT) Ventricular Rate EKG/Min 68 BPM [facility] Atrial Rate 68 BPM [facility] OK-Interval (MSEC) 168 ms [facility] QRS-Interval (MSEC) 94 ms [facility] QT-Interval (MSEC) 430 ms [facility] QTc 457 ms [facility] P [place] 64 degrees [facility] R [place] 56 degrees [facility] T [place] 80 degrees [facility] Diagnosis Normal sinus rhythm Normal ECG When compared with ECG of 19-JUL-2020 10:21, Minimal criteria for Inferior infarct are no longer Present T wave inversion no longer evident in Anterior leads Nonspecific T wave abnormality now evident in Lateral leads Confirmed by AARON MA M.D ([id number]) on 02/16/2025 9:54:10 AM [facility] 02/15/2025 5:33 PM CDT 02/16/2025 9:54 AM CDT us Diya Jules MD ECG ORDERABLES Final Resul t Performing Organization Address City/[facility]/ZIP Co de Phone Number [facility] * POCT glucose (02/15/2025 5:04 PM CDT) Glucose, POC 84 70 - 199 mg/dL Blood 02/15/2025 5:04 PM CDT 02/15/2025 5:04 PM CDT us Adolfo Gamino MD LAB POCT ORDERABLES - DEV ICE Final Result [facility] [place] [address] * POCT glucose (02/15/2025 3:39 PM CDT) Glucose, POC 83 70 - 199 mg/dL Blood 02/15/2025 3:39 PM CDT 02/15/2025 3:39 PM CDT Dottie Triana MD LAB POCT ORDERABLES - D EVICE Final Result Performing Organization Address [facility] de Phone Number [facility] [place] [address] * Troponin I high-sensitivity 4-hour (02/15/2025 3:36 PM CDT) Trop I hs 4 <=17 ng/L Comment: Interpretive Data For further hscTnI resources including the diagnostic algorithm and an aid in interpretation, copy and paste this link: https://bjhlab.testcatalog.org/show/[email or web address] Current Interpretive Data last revised 2020. Trop I hs delta -2 ng/L [facility] Trop I hs interp Insignificant [facility] Blood 02/15/2025 3:36 PM CDT 02/15/2025 3:55 PM CDT Yfn Javier MD LAB BLOOD ORDERABLES Fi nal Result Performing Organization Address City/[facility]/ZIP Co de Phone Number [facility] [place] [address] * ECG 12-LEAD (02/15/2025 2:23 PM CDT) [...] ORDERABLES Final R esult Performing Organization Address City/[facility] Co de Phone Number [facility] * Troponin I high-sensitivity 2-hour (02/15/2025 1:45 PM CDT) Trop I hs 5 <=17 ng/L Comment: Interpretive Data For further hscTnI resources including the diagnostic algorithm and an aid in interpretation, copy and paste this link: https://bjhlab.testcatalog.org/show/[email or web address] Current Interpretive Data last revised 2020. Trop I hs delta -1 ng/L [facility] Trop I hs interp Insignificant [facility] Blood 02/15/2025 1:45 PM CDT 02/15/2025 2:11 PM CDT us Yfn Javier MD LAB BLOOD ORDERABLES Fi nal Result Performing Organization Address City/[facility] Co de Phone Number [facility] [place] [address] * XR Chest PA Lateral 2 Views [...] POCT ketone, blood (02/15/2025 12:22 PM CDT) [facility] Beta-Hydroxybut yrate, POC 0.1 0.0 - 0.5 mmol/L Blood 02/15/2025 12:2 2 PM CDT 02/15/2025 12:22 PM CDT Dottie Triana MD LAB POCT ORDERABLES - D EVICE Final Result [facility] Department [place] [address] * Troponin I high-sensitivity series (baseline, 2hr, [...] ORDERABLES Fi nal Result Performing Organization Address [facility] Co de Phone Number [facility] [place] [address] * eGFR (02/15/2025 12:06 PM CDT) eGFR [...] ORDERABLES Fi nal Result Performing Organization Address City/[facility]/ZIP Co de Phone Number [facility] [place] [address] * (ABNORMAL) Differential, auto (02/15/2025 12:06 PM CDT) Neutrophil abs 4.03 1.50 - 6.50 K/cumm Imm gran abs 0.02 0.00 - 0.10 K/cumm [facility] Lymphocyte abs 0.62(L) 0.80 - 3.30 K/cumm [facility] Monocyte abs 0.46 0.20 - 0.80 K/cumm [facility] Eosinophil abs 0.14 0.00 - 0.50 K/cumm [facility] Basophil abs 0.02 0.00 - 0.10 K/cumm [facility] Neutrophil pct 76.2 % [facility] Comment: Interpretive Data Percent cell count reference ranges are not reported, since discordance with absolute values may lead to misinterpretation of CBC data. Current Interpretive Data was last revised on 2017. Imm gran pct 0.4 % [facility] Comment: Interpretive Data Percent cell count reference ranges are not reported, since discordance with absolute values may lead to misinterpretation of CBC data. Current Interpretive Data was last revised on 2017. Lymphocyte pct 11.7 % [facility] Comment: Interpretive Data Percent cell count reference ranges are not reported, since discordance with absolute values may lead to misinterpretation of CBC data. Current Interpretive Data was last revised on 2017. Monocyte pct 8.7 % [facility] Comment: Interpretive Data Percent cell count reference ranges are not reported, since discordance with absolute values may lead to misinterpretation of CBC data. Current Interpretive Data was last revised on 2017. Eosinophil pct 2.6 % [facility] Comment: Interpretive Data Percent cell count reference ranges are not reported, since discordance with absolute values may lead to misinterpretation of CBC data. Current Interpretive Data was last revised on 2017. Basophil pct 0.4 % [facility] Comment: Interpretive Data Percent cell count reference ranges are not reported, since discordance with absolute values may lead to misinterpretation of CBC data. Current Interpretive Data was last revised on 2017. Blood 02/15/2025 12:0 6 PM CDT 02/15/2025 12:47 PM CDT us Yfn Javier MD LAB BLOOD ORDERABLES Fi nal Result [facility] [place] [address] * Pro B-type natriuretic peptide (02/15/2025 12:06 [...] ORDERABLES Fi nal Result Performing Organization Address [facility]/ZIP Co de Phone Number [facility] [place] [address] * (ABNORMAL) CBC with auto differential (02/15/2025 12:06 PM CDT) WBC 5.29 3.80 - 9.90 K/cumm Hgb 12.2 11.9 - 15.5 g/dL [facility] Hct 39.2 35.6 - 45.5 % [facility] Plt 220 150 - 400 K/cumm [facility] MPV 10.4 9.1 - 12.3 fL [facility] RBC 4.85 3.90 - 5.20 M/cumm [facility] MCV 80.8(L) 81.3 - 96.4 fL [facility] MCH 25.2(L) 27.1 - 33.3 pg [facility] MCHC 31.1(L) 32.3 - 35.7 g/dL [facility] RDW CV 17.1(H) 11.1 - 14.9 % [facility] RDW SD 49.9(H) 35.7 - 48.1 fL [facility] NRBC abs 0.00 0.00 - 0.01 K/cumm [facility] Blood Venous blood specimen / Unknown 02/15/2025 12:06 PM CDT 02/15/2025 12:47 PM CDT us Dottie Triana MD LAB BLOOD ORDERABLES Fi nal Result [facility] [place] [address] * (ABNORMAL) Hemoglobin A1c (02/15/2025 12:06 PM CDT) Hgb A1C 6.3(H) 4.0 - 5.6 % Estimated Average Glucose 134 mg/dL [facility] Comment: The ADA recommends reporting an estimated Average Glucose (eAG) with all Hemoglobin A1c results using the equation derived from a study of 507 normal and diabetic adults. Minority populations were underrepresented and children were not included. (Diabetes Care 2020; 43(S1): S66-S76). The eAG is not equivalent to a fasting glucose. Blood 02/15/2025 12:0 6 PM CDT 02/15/2025 12:52 PM CDT Narrative [facility] - 02/16/2025 4:45 PM CDT Reflex us Brad Tyson MD LAB BLOOD ORDERABLES Fin al Result [facility] [place] [address] * (ABNORMAL) Comprehensive metabolic panel (02/15/2025 12:06 PM CDT) Sodium 138 135 - 145 mmol/L Potassium, pl 3.2(L) 3.3 - 4.9 mmol/L [facility] Chloride 99 97 - 110 mmol/L [facility] CO2 30 22 - 32 mmol/L [facility] Anion gap 9 2 - 15 mmol/L [facility] BUN 10 6 - 25 mg/dL [facility] Creatinine 0.69 0.60 - 1.10 mg/dL [facility] Glucose 113 70 - 199 mg/dL [facility] Comment: Interpretive Data Fasting glucose >/= 126 [...] 2022. Calcium 8.9 8.5 - 10.3 mg/dL [facility] Bilirubin, total 0.3 0.1 - 1.2 mg/dL [facility] Protein, pl 7.8 6.5 - 8.5 g/dL [facility] Albumin 3.5 3.5 - 5.0 g/dL [facility] Alk phos 230(H) 40 - 130 Units/L [facility] ALT 35 7 - 45 Units/L [facility] AST 47(H) 10 - 45 Units/L [facility] Blood 02/15/2025 12:0 6 PM CDT 02/15/2025 12:47 PM CDT us Dottie Triana MD LAB BLOOD ORDERABLES Fi nal Result [facility] [place] [address] * RAD ONC ARIA SESSION SUMMARY (12/24/2024 [...] ORD ERABLES Final Result Performing Organization Address City/[facility] Co de Phone Number [facility] * POCT glucose (12/07/2024 10:03 AM CDT) Glucose, POC 109 70 - 199 mg/dL Blood 12/07/2024 10:0 3 AM CDT 12/07/2024 10:03 AM CDT us Mirta Gonzalez MD LAB POCT ORDERABLES - DEVICE Final Result Performing Organization Address City/[facility] Co de Phone Number [facility] [place] [address] * US Vein Duplex Lower Extremity Bilateral Complete (12/07/2024 9:01 AM CDT) Anatomical Region Laterality Modality Vascular Bilateral Ultrasound 12/07/2024 8:20 AM CDT Narrative 12/07/2024 6:12 PM CDT [facility] - Department of Vascular Surgery, Vascular Laboratory [address] [place] [address] Lower Extremity Venous Ultrasound Report Patient Name: [...] R, ttp L popliteal - FINDINGS: Performing Property Condition Assessor: Patti Singh RVT. Bilateral: Venous Doppler signals [...] Tejada MD - 12/07/2024 [facility] - Department of Vascular Surgery,Vascular Laboratory [address] [place] [address] Lower Extremity Venous Ultrasound Report Patient Name: [...] R, ttp L popliteal - FINDINGS: Performing Property Condition Assessor: Patti Singh RVT. Bilateral: Venous Doppler signals [...] above. Electronically Signed By: Vitaliy Tejada MD [facility] 12/07/2024 5:43:55 PM CDT us Ingrid Giles [...] ur Straw Yellow Clarity, ur Cloudy(A) Clear [facility] Specific gravity, ur 1.011 1.003 - 1.030 [facility] pH, urine 6.5 [facility] Comment: Interpretive Data U rine pH is affected by diet, medications, systemic acid-base disturbances, and renal tubular function. pH may affect urinary stone formation. For example, urine pH below 6.0 may help reduce the tendency for calcium phosphate stones and pH greater than 6.0 may reduce the tendency for uric acid stone formation. Source: [facility] [employer] Current Interpretive Data was last revised on 2017 Protein, ur ql Trace Negative [facility] Glucose, ur ql 3+(A) Negative [facility] Ketones, ur Negative Negative [facility] Bilirubin, ur Negative Negative [facility] Blood, ur Negative Negative [facility] Urobilinogen, ur <2.0 <2.0 mg/dL [facility] Nitrite, ur Positive(A) Negative [facility] Leukocyte esterase, ur 1+(A) Negative [facility] UA reflex comment Reflex to microscopic UA will be performed. [facility] Urine 12/07/2024 6:19 AM CDT 12/07/2024 6:27 AM CDT Ingrid Giles MD LAB MICROBIOLOGY - GENERAL ORDERABLES Final Result [facility] [place] [address] * POCT glucose (12/07/2024 6:19 AM CDT) Glucose, POC 102 70 - 199 mg/dL Blood 12/07/2024 6:19 AM CDT 12/07/2024 6:19 AM CDT Mirta Gonzalez MD LAB POCT ORDERABLES - DEVICE Final Result Performing Organization Address [facility] Co de Phone Number [facility] [place] [address] * (ABNORMAL) Urinalysis, microscopic only (12/07/2024 6:19 AM CDT) WBC, ur 6-10(A) 0 - 5 /HPF RBC, ur 0-2 0 - 2 /HPF [facility] Epithelial cells, squamous, ur 1-5 0 - 5 /HPF [facility] Bacteria, ur 2+(A) [facility] Culture Reflex Comment Reflex conditions for urine culture (WBC >10) not met. [facility] Urine 12/07/2024 6:19 AM CDT 12/07/2024 6:27 AM CDT Ingrid Giles MD LAB URINE ORDERABLES Final Result Performing Organization Address [facility] de Phone Number [facility] [place] [address] * Troponin I high-sensitivity 6-hour (12/07/2024 6:16 AM CDT) Pathologist [facility] Trop I hs 4 <=17 ng/L Comment: Interpretive Data For further [facility] resources including the diagnostic algorithm and an aid in interpretation, copy and paste this link: https://bjhlab.testcatalog.org/show/[email or web address] Current Interpretive Data last revised 2020. Trop I hs delta -1 ng/L [facility] Trop I hs interp Insignificant [facility] Blood 12/07/2024 6:16 AM CDT 12/07/2024 6:31 AM CDT Karla Griggs MD LAB BLOOD ORDERABLES Sue l Result Performing Organization Address [facility] Co de Phone Number [facility] [place] [address] * (ABNORMAL) Erythrocyte sedimentation rate (12/07/2024 6:16 AM CDT) Pathologist [facility] Erythrocyte sedimentation rate 76(H) 1 - 20 mm/hr Blood 12/07/2024 6:16 AM CDT 12/07/2024 6:31 AM CDT Mirta Gonzalez MD LAB BLOOD ORDERABLES [place] [address] * Troponin I high-sensitivity 2-hour (12/07/2024 5:49 AM CDT) [facility] Trop I hs 4 <=17 ng/L Comment: Interpretive Data For further hscTnI resources including the diagnostic algorithm and an aid in interpretation, copy and paste this link: https://bjhlab.testcatalog.org/show/[email or web address] Current Interpretive Data last revised 2020. Trop I hs delta See Comment ng/L [facility] Comment:Inappropriate collec tion time to report a delta. Trop I hs pct delta See Comment % [facility] Comment:Inappropriate collec tion time to report a delta. Trop I hs interp See Comment [facility] Comment:Inappropriate collec tion time to report a delta. Blood 12/07/2024 5:49 AM CDT 12/07/2024 6:27 AM CDT Karla Griggs MD LAB BLOOD ORDERABLES [place] [address] * POCT glucose (12/07/2024 5:49 AM CDT) Pathologist [facility] Glucose, POC 111 70 - 199 mg/dL Blood 12/07/2024 5:49 AM CDT 12/07/2024 5:49 AM CDT us Notinfile Unknown LAB POCT ORDERABLES - DEVICE F inal Result Performing Organization Address [facility] de Phone Number [facility] [place] [address] * Troponin I high-sensitivity 4-hour (12/07/2024 4:59 AM CDT) Trop I hs 4 <=17 ng/L Comment: Interpretive Data For further hscTnI resources including the diagnostic algorithm and an aid in interpretation, copy and paste this link: https://bjhlab.testcatalog.org/show/[email or web address] Current Interpretive Data last revised 2020. Trop I hs delta -1 ng/L [facility] Trop I hs interp Insignificant [facility] Blood 12/07/2024 4:59 AM CDT 12/07/2024 5:21 AM CDT Karla Griggs MD LAB BLOOD ORDERABLES Sue l Result Performing Organization Address [facility] de Phone Number [facility] [place] [address] * POCT glucose (12/07/2024 3:34 AM CDT) Glucose, POC 103 70 - 199 mg/dL Blood 12/07/2024 3:34 AM CDT 12/07/2024 3:34 AM CDT us Notinfile Unknown LAB POCT ORDERABLES - DEVICE F inal Result Performing Organization Address [facility] de Phone Number [facility] [place] [address] * (ABNORMAL) Protime-INR (12/07/2024 12:14 AM CDT) Pathologist [facility] PT 15.6(H) 9.7 - 13.0 sec INR 1.43(H) 0.90 - 1.20 [facility] Comment: Interpretive data Oral anticoagulant therapeutic ranges: Venous thromboembolism prophylaxis or treatment: 2.0-3.0 CARDIOLOGY Standard range: 2.0-3.0 High-intensity range: 2.5-3.5 Refer to indication-specific guidelines for appropriate target ranges for prosthetic heart valve replacement. Current interpretive data was last revised on 2019. Blood 12/07/2024 12:1 4 AM CDT 12/07/2024 12:45 AM CDT Mirta Gonzalez MD LAB BLOOD ORDERABLES Final Result Performing Organization Address [facility] de Phone Number [facility] [place] [address] * Troponin I high-sensitivity series (baseline, 2hr, 4hr, 6hr) (12/07/2024 12:08 AM CDT) Pathologist [facility] Trop I hs 5 <=17 ng/L Comment: Interpretive Data For further hscTnI resources including the diagnostic algorithm and an aid in interpretation, copy and paste this link: https://bjhlab.testcatalog.org/show/[email or web address] Current Interpretive Data last revised 2020. Blood 12/07/2024 12:0 8 AM CDT 12/07/2024 12:51 AM CDT Mirta Gonzalez MD LAB BLOOD ORDERABLES Final Result Performing Organization Address [facility] Co de Phone Number [facility] [place] [address] * eGFR (12/07/2024 12:08 AM CDT) Pathologist [facility] eGFR 75 >=60 mL/min/1. 73 m2 Comment: [...] Gonzalez MD LAB BLOOD ORDERABLES Final Result [facility] [place] [address] * Differential, auto (12/07/2024 12:08 AM CDT) Neutrophil abs 5.09 1.50 - 6.50 K/cumm Imm gran abs 0.04 0.00 - 0.10 K/cumm [facility] Lymphocyte abs 0.96 0.80 - 3.30 K/cumm [facility] Monocyte abs 0.46 0.20 - 0.80 K/cumm [facility] Eosinophil abs 0.15 0.00 - 0.50 K/cumm [facility] Basophil abs 0.03 0.00 - 0.10 K/cumm [facility] Neutrophil pct 75.7 % [facility] Comment: Interpretive Data Percent cell count reference ranges are not reported, since discordance with absolute values may lead to misinterpretation of CBC data. Current Interpretive Data was last revised on 2017. Imm gran pct 0.6 % [facility] Comment: Interpretive Data Percent cell count reference ranges are not reported, since discordance with absolute values may lead to misinterpretation of CBC data. Current Interpretive Data was last revised on 2017. Lymphocyte pct 14.3 % [facility] Comment: Interpretive Data Percent cell count reference ranges are not reported, since discordance with absolute values may lead to misinterpretation of CBC data. Current Interpretive Data was last revised on 2017. Monocyte pct 6.8 % [facility] Comment: Interpretive Data Percent cell count reference ranges are not reported, since discordance with absolute values may lead to misinterpretation of CBC data. Current Interpretive Data was last revised on 2017. Eosinophil pct 2.2 % [facility] Comment: Interpretive Data Percent cell count reference ranges are not reported, since discordance with absolute values may lead to misinterpretation of CBC data. Current Interpretive Data was last revised on 2017. Basophil pct 0.4 % [facility] Comment: Interpretive Data Percent cell count reference ranges are not reported, since discordance with absolute values may lead to misinterpretation of CBC data. Current Interpretive Data was last revised on 2017. Blood 12/07/2024 12:0 8 AM CDT 12/07/2024 12:51 AM CDT Mirta Gonzalez MD LAB BLOOD ORDERABLES Final Result [facility] [place] [address] * Pro B-type natriuretic peptide (12/07/2024 12:08 [...] Gonzalez MD LAB BLOOD ORDERABLES Final Result [facility] [place] [address] * (ABNORMAL) CBC with auto differential (12/07/2024 12:08 AM CDT) Pathologist [facility] WBC 6.73 3.80 - 9.90 K/cumm Hgb 10.9(L) 11.9 - 15.5 g/dL [facility] Hct 34.4(L) 35.6 - 45.5 % [facility] Plt 253 150 - 400 K/cumm [facility] MPV 10.3 9.1 - 12.3 fL [facility] RBC 4.27 3.90 - 5.20 M/cumm [facility] MCV 80.6(L) 81.3 - 96.4 fL [facility] MCH 25.5(L) 27.1 - 33.3 pg [facility] MCHC 31.7(L) 32.3 - 35.7 g/dL [facility] RDW CV 14.7 11.1 - 14.9 % [facility] RDW SD 43.5 35.7 - 48.1 fL [facility] NRBC abs 0.00 0.00 - 0.01 K/cumm [facility] Blood 12/07/2024 12:0 8 AM CDT 12/07/2024 12:51 AM CDT Mirta Gonzalez MD LAB BLOOD ORDERABLES Final Result Performing Organization Address City/[facility]/ZIP Co de Phone Number [facility] [place] [address] * (ABNORMAL) CRP (acute phase) (12/07/2024 12:08 AM CDT) [facility] CRP 10.3(H) <=10.0 mg/L Blood 12/07/2024 12:0 8 AM CDT 12/07/2024 12:51 AM CDT Mirta Gonzalez MD LAB BLOOD ORDERABLES Final Result Performing Organization Address City/[facility] Co de Phone Number [facility] [place] [address] * (ABNORMAL) Comprehensive metabolic panel (12/07/2024 12:08 AM CDT) [facility] Sodium 142 135 - 145 mmol/L Potassium, pl 3.9 3.3 - 4.9 mmol/L [facility] Chloride 102 97 - 110 mmol/L [facility] CO2 27 22 - 32 mmol/L [facility] Anion gap 13 2 - 15 mmol/L [facility] BUN 12 6 - 25 mg/dL [facility] Creatinine 0.93 0.60 - 1.10 mg/dL [facility] Glucose 91 70 - 199 mg/dL [facility] Comment: Interpretive Data Fasting glucose >/= 126 [...] 2022. Calcium 9.6 8.5 - 10.3 mg/dL [facility] Bilirubin, total 0.3 0.1 - 1.2 mg/dL [facility] Protein, pl 9.2(H) 6.5 - 8.5 g/dL [facility] Albumin 4.3 3.5 - 5.0 g/dL [facility] Alk phos 200(H) 40 - 130 Units/L [facility] ALT 28 7 - 45 Units/L [facility] AST 33 10 - 45 Units/L [facility] Blood 12/07/2024 12:0 8 AM CDT 12/07/2024 12:51 AM CDT Mirta Gonzalez MD LAB BLOOD ORDERABLES Final Result [facility] [place] [address] * XR Chest PA Lateral 2 Views [...] ECG 12-LEAD (12/06/2024 10:15 PM CDT) Narrative [facility] - 12/06/2024 10:15 PM CDT Srinivas Cardoza [...] on prior ECG Srinivas Cardoza MD 12/06/24 [id number] Mirta Gonzalez MD ECG ORDERABLES Final Result Performing Organization Address [facility] Co de Phone Number [facility] * Hepatitis C antibody (01/01/2023 11:06 [...] last revised on 2019. Testing performed by: [facility], [address] [place] [address]., [id number] Blood 01/01/2023 11:0 6 AM CDT 01/01/2023 2:22 PM CDT Tory Gonzalez MD LAB MICROBIOLOGY - GENERAL ORDERABLES Final Result Performing Organization Address [facility] de Phone Number [facility] [address] [facility]. [place] [address] * COLONOSCOPY IMAGES (07/10/2016) Anatomical Region Laterality Modality Other Narrative 07/10/2016 Ordered by an unspecified provider. Historical Provider GI PROCEDURE ORDERABLES F inal Result from Last 3 Months or Most Recently Relevant to Health Maintenance Insurance IDPA [facility] MEDICARE ADVANTAGE MEDICARE [facility] MEDICARE ADVANTAGE MEDICARE IDPA Advance Directives For more information, please contact: [phone] * Full Code (Latest Code Status on [...] 3:10 PM 05/04/2020 8:07 PM Care Teams [employer] Relationship Specialty Start Date End Date Howard Bourgeois MD PCP - General 11/29/16 Sean Olguin MD Consulting Physician Cardiovascular Disease 10/21/18 Radha Sim MD Consulting Physician Internal Medicine 12/26/18 Jackson Purdy Jr., MD Surgeon General Surgery 12/26/18 Enrike Schrader MD Consulting Physician Cardiology 12/26/18 Guido Concepcion MD PhD [address] [facility] [place] [address] Radiation Oncologist Radiation Oncology 11/23/24
--- OUTSIDE RECORDS SUMMARY | 2025-02-23 16:13 | XMS_ITS | Encounter Summary ---
Author Organization [facility] Healthcare Address [address] [place] [address] Care Team Providers Care Staff Midwife/Apprenticeship Director Name Role Phone Howard Bourgeois MD Primary Care Provider [phone] Sean Olguin MD Unavailable Radha Sim MD Unavailable [phone] Rajwinder Carlos MD, Jackosn NJohnny Unavailable [phone] Enrike Schrader MD Unavailable [phone] Guido Concepcion MD PhD Unavailable [phone] Encounter Details Date Type Department Care Team (Late st Contact Info) Description 12/13/2024 Telephone [facility] Radiation Oncology [address] [facility] Advanced Medicine [facility] [place] [address] Katarina Buchanan RN Social History Tobacco Use Types Packs/Day Years Used Date Smoking Tobacco: Former Cigarettes 0.5 18 0 10/2003 - 10/2021 Passive Smoke Exposure: Never Smokeless Tobacco: Never Comments:< 1/2 pack daily Alcohol Use Standard Drinks/Week Comments Yes 0 (1 standard drink = 0.6 oz pur e alcohol) rarely [facility] Utilities Answer Date Recorded In the past 12 months has [employer] electric, gas, oil, or water company threatened [...] time in the past 12 m [facility], were you homeless or living in a snf (including now)? No 08/27/2024 Personal Safety Answer Date Recorded Have you ever been in or are you currently in a harmful physical or emotional relationship or is someone making you feel afraid or unsafe? Denies 12/06/2024 Comments No Sex and Gender Information Value Date Recorded Sex Assigned at Not on file Legal Sex Female 7:25 AM [employer] Gender Identity Female 06/07/2021 5:59 PM CDT Sexual Orientation Straight 06/07/2021 5: 59 PM CDT documented as of this encounter Plan of Treatment Not on file documented as of this encounter Visit Diagnoses Not on filedocumented in this encounter Care Teams Staff Midwife/Apprenticeship Director Relationship Specialty Start Date End Date Howard Bourgeois MD PCP - General 11/29/16 Sean Olguin MD Consulting Physician Cardiovascular Disease 10/21/18 Radha Sim MD Consulting Physician Internal Medicine 12/26/18 Jackson Purdy Jr., MD Surgeon General Surgery 12/26/18 Enrike Schrader MD Consulting Physician Cardiology 12/26/18 Guido Concepcion MD PhD [address] [facility]IATION ONCOLOGY, [place] [address] Radiation Oncologist Radiation Oncology 11/23/24 documented as of this encounter
--- OUTSIDE RECORDS SUMMARY | 2025-02-23 16:13 | XMS_ITS | Clinical Summary ---
Author Organization [facility] Address [address] [place] [address] Care Team Providers Care Scientific Recruiter Name Role Phone Howard Bourgeois MD Primary Care Provider Sean Olguin MD Unavailable Radha Sim MD Unavailable [phone] Rajwinder Carlos MD, Jackson Hinkle Unavailable Enrike Schrader MD Unavailable [phone] Guido Concepcion MD PhD Unavailable [phone] Allergies Active Allergy Reactions Criticality Noted Date Comments Penicillins Hives,Rash,Swelling, Othe r (See comments) Medium 09/18/2017 Swelling and rash; tolerates amoxicillin, Medications venlafaxine XR (EFFEXOR-XR) 75 mg 24 hr capsule Take 1 capsule (75 mg total) by mouth daily with breakfast 30 capsule 11 019 Active multivit mxmcwnmx-vxgy-QJ-c alcium (THERA-M) 9 mg iron-400 mcg tablet [...] 07/16/2020 Assessment & Plan (07/17/2020 7:29 AM POT RELINER): Pt reported suprapubic discomfort during hospital stay. UA w/ positive nitrites, neg LE, 6-10 WBCs. Plan: - Ciprofloxacin IV 07/15 x1, transition to oral therapy for total 3d course (12/5pm-12/8am) Coagulopathy 07/15/2020 Assessment & Plan (07/19/2020 6:28 AM POT RELINER): Pt w/ h/o chronic warfarin use (goal [...] f/u Assessment & Plan (07/15/2020 2:19 AM POT RELINER): See #MVR Anxiety 07/15/2020 Assessment & Plan (02/17/2025 5:00 PM CDT): Resume home Wellbutrin and venlafaxine. Assessment & Plan (02/16/2025 3:52 PM CDT): Resume home Wellbutrin and venlafaxine Assessment & Plan (02/15/2025 5:38 PM CDT): Resume home Wellbutrin and venlafaxine Assessment & Plan (07/16/2020 11:53 AM POT RELINER): H/o anxiety and chronic pain (reported h/o fibromyalgia per pt). On home Effexor Plan: - Continue home venlafaxine 75mg every day Assessment & Plan (07/15/2020 10:49 AM POT RELINER): Mood stable -Cont venlafaxine Omental infarction 07/15/2020 Assessment & Plan (07/18/2020 8:27 AM POT RELINER): Asymptomatic. CT A/P w/ ventral abdominal hernia containing omental fat w/ slight increase in stranding. 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 Occurring in s/o acute blood loss anemia. Lactate 1.1, abdominal exam benign. Tolerating food/fluid well Plan: - CTM - Transfuse as above Assessment & Plan (07/16/2020 9:18 AM POT RELINER): CT A/P: ventral abdominal hernia containing omental fat, with slight interval increase in stranding in the omental tissues likely secondary to a focus of omental infarction. -Likely occurred in the setting of dehydration and anemia -LA 1.1; Abdominal exam benign. RBCs transfused as above Melena 07/14/2020 Overview (07/16/2020): Added automatically from request for surgery [id number] Assessment & Plan (07/17/2020 7:30 AM POT RELINER): See acute blood loss anemia Intertrigo 02/20/2020 [...] 08/29/2019 Assessment & Plan (07/18/2020 8:26 AM POT RELINER): Resolved. Pt w/ h/o COPD (on albuterol, [...] qhs Assessment & Plan (07/16/2020 9:15 AM POT RELINER): P/w 2 days of SOB, malaise, fever [...] now Assessment & Plan (09/03/2019 12:21 PM POT RELINER): Suspect due to deconditioning plus morbid obesity with minor contribution from ground-glass opacities. Would pursue HRCT chest to further evaluation GGO if hypoxemia worsens (though no exertional hypoxemia was noted on informal 6MW during hospital stay). Assessment & Plan (08/30/2019 3:03 PM POT RELINER): Unclear etiology of shortness of breath with activity. Differential includes arrhythmia, viral, cardiac, progression of inflammatory/infectious/neoplastic process noted on CT --RVP- negative --Monitor on tele --trops negative x2 Assessment & Plan (08/29/2019 12:28 PM POT RELINER): Unclear etiology of shortness of breath with [...] prophylaxis Echocardiogram on 08/12/2024 showed mechanical [place] MVR, LVEF 78%, mildly dilated LV and [...] 2.5-3.5) Assessment & Plan (09/03/2019 12:38 PM POT RELINER): Will resume prior warfarin dosing at discharge. Needs bridging with enoxaparin until warfarin therapeutic (goal INR 2.5-3.5). Instructed to undergo repeat INR 5 days after warfarin resumption. Plan to provide prescription for enoxaparin for 7 days with refill in case not therapeutic by then. Assessment & Plan (08/30/2019 3:36 PM POT RELINER): Patient with mechanical mitral valve on home [...] transportation issues (goes to Dr. Leo, cardiology, [place], [place]). Patient here with pleuritic chest pain [...] AM Assessment & Plan (08/29/2019 12:43 PM POT RELINER): Patient with mechanical mitral valve on home [...] transportation issues (goes to Dr. Leo, cardiology, [place], [place]). Patient here with pleuritic chest pain [...] AM Assessment & Plan (08/28/2019 7:43 PM POT RELINER): - Patient with mechanical mitral valve on [...] test Assessment & Plan (09/03/2019 12:39 PM POT RELINER): Atypical; reproducible on palpation. Reassured likely musculoskeletal. Analgesics. Assessment & Plan (08/30/2019 2:56 PM POT RELINER): Patient with complaint of atypical chest pain, less likely ACS. EKG without new ischemic changes. Troponin negative x1. No events on tele. Patient denies pain this morning - trop negative x2 - continue to on tele --Topical lidocaine, scheduled tylenol Assessment & Plan (08/29/2019 12:38 PM POT RELINER): Patient with complaint of atypical chest pain, less likely ACS. EKG without new ischemic changes. Troponin negative x1. No events on tele - Repeat troponin - Monitor on tele --Topical lidocaine, scheduled tylenol Assessment & Plan (08/28/2019 7:47 PM POT RELINER): - Patient with complaint of atypical chest [...] protocol Assessment & Plan (07/16/2020 11:51 AM POT RELINER): H/o IVIS and obesity (BMI 56.64). On home CPAP. Plan: - Continue home CPAP Assessment & Plan (07/15/2020 10:49 AM POT RELINER): Cont CPAP Assessment & Plan (09/03/2019 12:21 PM POT RELINER): Continue home nocturnal NPPV. Assessment & Plan (08/30/2019 3:03 PM POT RELINER): Continue home nocturnal NPPV Assessment & Plan (08/29/2019 12:20 PM POT RELINER): Continue home nocturnal NPPV Assessment & Plan (08/28/2019 7:45 PM POT RELINER): - Continue home nocturnal NPPV Abnormal CT scan 08/28/2019 Assessment & Plan (08/28/2020 5:38 PM POT RELINER): - Will refer to general surgery due to intermittent abdominal pain in the setting of ventral hernia and findings of omental infarction on recent imaging. - Discussed warning signs with patient (severe abdominal pain, fevers, changes in bowel habits, blood in stool, etc) and when to seek care Assessment & Plan (09/01/2019 2:25 PM POT RELINER): Patient with abnormal CT scan with findings [...] provided no complications and provided her outpatient farm planner can follow up biopsy results with her Assessment & Plan (08/30/2019 3:13 PM POT RELINER): Patient with abnormal CT scan with findings [...] biopsy Assessment & Plan (08/29/2019 11:29 AM POT RELINER): Patient with abnormal CT scan with findings [...] biopsy) Assessment & Plan (08/28/2019 8:02 PM POT RELINER): - Patient with abnormal CT scan with [...] (09/01/2019): Added automatically from request for surgery [id number] Assessment & Plan (09/03/2019 12:40 PM POT RELINER): Given possibility of indolent lymphoma in context [...] concern for recurrent infection. [email or web address] to get restarted on medication. [...] concerns Assessment & Plan (09/14/2021 1:07 PM POT RELINER): - Doing well on amoxicillin suppression with [...] surgical candidate it was decided to continue intermediate suppression to decrease her risk of recurrent infection. - Recent labs reviewed - Discussed with patient the rational for treatment, culture results, risk of recurrent infection, signs/symptoms of recurrent infection, and to contact ID clinic with any questions or concerns Assessment & Plan (08/28/2020 5:37 PM POT RELINER): - No concern for recurrent endocarditis. Tolerating [...] should up with CT surgery as scheduled [facility] current use of antibiotics 03/11/2019 Assessment & [...] 2.5-3.5) Assessment & Plan (07/15/2020 4:35 AM POT RELINER): Chronically on suppressive amoxicillin. Endocarditis in 2019, has mechanical MV Assessment & Plan (10/26/2019 4:59 PM CDT): - Recent CBC and CMP reviewed with no change to current antibiotic dose - Continue to monitor for adverse effects of antibiotics Assessment & Plan (09/03/2019 12:22 PM POT RELINER): Patient on long-term antibiotics for the purpose of chronic suppression due to endocarditis in the setting of mechanical valve. Followed as outpatient by ID. Continue home amoxicillin regimen. Assessment & Plan (08/30/2019 3:02 PM POT RELINER): Patient on buttermaker antibiotics for the purpose of chronic suppression due to endocarditis in the setting of mechanical valve. Followed as outpatient by ID. --Continue home amoxicillin regimen. Assessment & Plan (08/29/2019 11:18 AM POT RELINER): Patient on intermediate antibiotics for the purpose of chronic suppression due to endocarditis in the setting of mechanical valve. Followed as outpatient by ID. --Continue home amoxicillin regimen. Assessment & Plan (08/28/2019 7:51 PM POT RELINER): - Patient on intermediate amoxicillin for the purpose of chronic suppression [...] wound. - Unclear evidence of IE from INCKI, Plan follow up NICKI with no surgical [...] questions or change in clinical situations at [phone]. After hours, the ID fellow on-call can be reached at [phone]. Assessment & Plan (02/23/2019 6:35 AM CDT): [...] daily Assessment & Plan (07/16/2020 11:42 AM POT RELINER): H/o severe MR s/p mechanical MVR 11/2018. C/b endocarditis in e/o perioperative infection 2/2 central line site complication. Goal INR 2.5-3.5. On warfarin 7mg prior to admit. Plan: - See coagulopathy - Continue amoxicillin ppx w/ 500mg q8 as per ID (followed outpatient) Assessment & Plan (07/16/2020 9:15 AM POT RELINER): Mechanical MV in 2019 on warfarin. INR [...] 12/18/2018 Assessment & Plan (07/15/2020 10:49 AM POT RELINER): BMI 56.6, risk factor for respiratory decompensation [...] 11/13/2018 Assessment & Plan (07/19/2020 6:26 AM POT RELINER): Pt w/ baseline Hgb 12s. P/w Hgb [...] 7.4 Assessment & Plan (07/16/2020 9:14 AM POT RELINER): Dark tarry stools x2 days prior to [...] lisinopril Assessment & Plan (07/16/2020 11:57 AM POT RELINER): H/o HTN. On home losartan 25 Plan: - Continue losartan 25mg every day Assessment & Plan (02/16/2019 3:30 PM CDT): home meds: furosemide 80 mg daily and losartan 25 mg daily - pt has not been hypertensive - hold home meds Assessment & Plan (12/18/2018 3:15 PM CDT): Controlled. On cozaar. Severe mitral regurgitation 09/29/2018 Overview (09/29/2018): Added automatically from request for surgery [id number] Mitral valve insufficiency 09/29/2018 Overview (10/29/2018): Added automatically from request for surgery [id number] Assessment & Plan (02/17/2025 5:00 PM CDT): [...] 2.5-3.5) Assessment & Plan (09/03/2019 12:21 PM POT RELINER): Patient with history of MR s/p bileaflet mechanical MVR. Management as above with regard to anticoagulation. Appears euvolemic; continue home furosemide. Assessment & Plan (08/30/2019 3:03 PM POT RELINER): Patient with history of MR s/p bileaflet mechanical MVR. Management as above with regard to anticoagulation - Appears euvolemic; continue home lasix Assessment & Plan (08/29/2019 11:17 AM POT RELINER): Patient with history of MR s/p bileaflet mechanical MVR; last TTE 03/2019 and physiologic at that time. Management as above with regard to anticoagulation - Appears euvolemic; continue home lasix Assessment & Plan (08/28/2019 7:48 PM POT RELINER): - Patient with history of MR s/p bileaflet mechanical MVR; last TTE 03/2019 and physiologic at that time - Management as above with regard to anticoagulation - Appears euvolemic; continue home lasix Non-rheumatic mitral regurgitation 09/29/2018 Overview (11/14/2018): Added automatically from request for surgery [id number] Peripheral vascular disease 09/29/2018 Overview (11/19/2018): Added automatically from request for surgery [id number] Assessment & Plan (02/17/2025 5:00 PM CDT): [...] insulin Assessment & Plan (07/16/2020 11:56 AM POT RELINER): Home diet controlled. A1c 6.6. Total cholesterol 121, HDL 23, LDL 63 Plan: - LDSSI while inpatient - Consistent carb diet - Atorva 10 for ppx Assessment & Plan (07/16/2020 9:19 AM POT RELINER): A1C 6.6%; diet controlled at home -Start LDSSI given glucose 210 Assessment & Plan (09/03/2019 12:17 PM POT RELINER): Diet controlled. Remains normoglycemic. Assessment & Plan (08/29/2019 12:19 PM POT RELINER): Diet controlled. BS normoglycemic. Assessment & Plan (08/28/2019 7:52 PM POT RELINER): - Diet controlled. BS normoglycemic. Assessment & [...] weekly Assessment & Plan (07/16/2020 11:49 AM POT RELINER): H/o SLE, diagnosed as teenager reportedly. W/ [...] a/c Assessment & Plan (07/16/2020 9:17 AM POT RELINER): No evidence of flare -Cont plaquenil -Plan to start heparin drip when INR <2.5 given hx of mechanical MV and APLS Assessment & Plan (09/03/2019 12:18 PM POT RELINER): No evidence of flare. Continue HCQ as before. Followed by Rheumatology here as outpatient. Assessment & Plan (08/30/2019 3:12 PM POT RELINER): Patient with SLE followed by Rheumatology as outpatient - Continue HCQ - No current SLE flare; continue to monitor Assessment & Plan (08/29/2019 12:19 PM POT RELINER): Patient with SLE followed by Rheumatology as outpatient - Continue HCQ - No current SLE flare; continue to monitor Assessment & Plan (08/28/2019 7:52 PM POT RELINER): - Patient with SLE followed by Rheumatology as outpatient - Continue HCQ - No current SLE flare; continue to monitor Assessment & Plan (02/23/2019 2:12 PM CDT): Patient has known diagnosis of SLE, followed by rheumatology at [facility] (last seen 01/25/2019) - continue hydroxychloroquine 400 mg daily Assessment & Plan (12/18/2018 3:16 PM CDT): On Plaquenil. Resolved Problems Problem Noted Date Diagnosed Date Resolved Date Fever 07/15/2020 07/16/2020 Assessment & Plan (07/16/2020 9:17 AM POT RELINER): P/w sore throat, cough, PRABHAKAR, nausea, malaise, [...] 08/31/2019 Assessment & Plan (08/31/2019 9:44 AM POT RELINER): Reports frequent palpitations yesterday associated with shortness of breath and fatigue yesterday. None since admission --Continue to monitor on tele Assessment & Plan (08/29/2019 12:24 PM POT RELINER): Reports frequent palpitations yesterday associated with shortness of breath and fatigue yesterday. None since admission --Continue to monitor on tele Encounters Date Type Department Care Team Description 02/18/2025 SHOP/CHAP Initial Eligibility Review [facility] OP CASE MANAGEMENT [address] [place] [address] Trinity Cali, RAMONA 02/15/2025 12:14 PM CDT - 02/17/2025 6:11 PM CDT Hospital Encounter [facility] [address] [place] [address] Dottie Triana MD Blustein, MD Stevenson Aguayo, MD Jah Rivas, MD Duane Scales, Radha Devlin MD Chest pain, unspecified type (Primary Dx) Discharge Disposition: Discharge to home or self care 01/12/2025 Orders Only [facility] Rad[facility] On[facility] [address] [place] [address] Guido Concepcion MD PhD Malignant neoplasm of lower lobe, left bronchus or lung (HCC) (Primary Dx) 01/12/2025 Orders Only [facility] Radiation Oncology [address] [place] [address] Guido Concepcion MD PhD 12/27/2024 [facility] [address] [facility] [address] [place] [address] [facility] 12/24/2024 12:34 PM CDT - 12/24/2024 11:59 PM CDT Hospital Encounter [facility] Radiation Oncology [address] [place] [address] Guido Concepcion MD PhD Discharge Disposition: Discharge to home or self care 12/24/2024 Completion of Therapy [facility] [address] [place] [address] Rima Rowe NP 12/24/2024 Completion of Therapy [facility] Radiation Oncology [address] [place] [address] Guido Concepcion MD PhD 12/24/2024 Orders Only RAD ONC TREATMENTS Miscellaneous, Not In File 12/23/2024 12:27 PM CDT - 12/23/2024 11:59 PM CDT Hospital Encounter [facility] [address] [facility] [place] [address] Guido Concepcion MD PhD Discharge Disposition: Discharge to home or self care 12/23/2024 OTV [facility] Radiation Oncology [address] [place] [address] Milagro Mayes MD 12/23/2024 Orders Only RAD ONC TREATMENTS Miscellaneous, Not In File 12/22/2024 1:04 PM CDT - 12/22/2024 11:59 PM CDT Hospital Encounter [facility] Radiation Oncology [address] [place] [address] Guido Concepcion MD PhD Discharge Disposition: Discharge to home or self care 12/22/2024 Orders Only RAD ONC TREATMENTS Miscellaneous, Not In File 12/21/2024 10:52 AM CDT - 12/21/2024 11:59 PM CDT Hospital Encounter [facility] Radiation Oncology [address] [place] [address] Guido Concepcion MD PhD Discharge Disposition: Discharge to home or self care 12/21/2024 Orders Only RAD ONC TREATMENTS Miscellaneous, Not In File 12/20/2024 11:54 AM CDT - 12/20/2024 11:59 PM CDT Hospital Encounter [facility] [address] [place] [address] Guido Concepcion MD PhD Discharge Disposition: Discharge to home or self care 12/20/2024 Orders Only RAD ONC TREATMENTS Miscellaneous, Not In File 12/13/2024 Telephone [facility] [address] [place] [address] Katarina Buchanan RN 12/08/2024 Telephone [facility] [address] [place] [address] [place] [address] Katarina Buchanan RN 12/07/2024 8:00 AM CDT Ancillary Procedure [facility] Vascular Lab IP [address] [facility] [address] [place] [address] 12/07/2024 5:25 AM CDT - 12/07/2024 4:30 PM CDT Emergency [facility] Emergency Department [address] [place] [address] Mirta Gonzalez MD Shortness of breath (Primary Dx); Chest pain on breathing; Acute on chronic congestive heart failure, unspecified heart failure type (HCC); Pericarditis Discharge Disposition: Discharge to home or self care 12/02/2024 Telephone [facility] Radiation Oncology [address] [place] [address] Katarina Buchanan RN 11/30/2024 10:20 PM CDT - 11/30/2024 11:59 PM CDT Hospital Encounter [facility] Radiation Oncology [address] [place] [address] Guido Concepcion MD PhD Discharge Disposition: Discharge to home or self care 11/30/2024 Telephone [facility] [address] [place] [address] Katarina Buchanan RN 11/25/2024 2:10 PM CDT - 11/25/2024 11:59 PM CDT Hospital Encounter [facility] Radiation On[facility] [place] [address] Guido Concepcion MD PhD Discharge Disposition: Discharge [...] = 0.6 oz pur e alcohol) rarely [facility] Utilities Answer Date Recorded In the [...] often do you attend chur ch or rastafarian services? Never 08/27/2024 Do you belong to any clubs o r organizations such as bahai groups, unions, fraternal or athletic groups, or [...] any time in the past [address] [facility], were you homeless or living in a senior care (including now)? No 08/27/2024 Personal Safety Answer Date Recorded Have you ever been in or are you currently in a harmful physical or emotional relationship or is someone making you feel afraid or unsafe? Denies 02/15/2025 Comments No Sex and Gender Information Value Date Recorded Sex Assigned at Not on file Legal Sex Female 7:25 AM POT RELINER Gender Identity Female 06/07/2021 5:59 PM CDT [...] 01/01/2023, 019 Medical Devices Implanted Type Area Designated Broker Device Identifier Shelf Expiration Date Model / Serial / Lot [employer] [id number] Masters-Series 31mm 26.1mm Mechanical Expanded Cuff Style - [id number] - [id number] Implanted:Qty: 1 on 11/11/2018 by Buck Bustillos MD at [facility] N/A: Heart [employer] 02/22/2020 [id number] / [id number] / Daig Refugio/[employer] [id number] Angio-Seal Vip Bondek-Plus 6fr .035in 70cm Hemostatic Latex Free - [id number] Implanted:Qty: 1 on 11/14/2018 by Rodrigo Gómez MD at [facility] [employer] 06/10/2019 [id number] / / [id number] [employer] [id number] Viabahn 6mm 2.5cm 120cm Flexible Self Expand Radiopaque Stent - [id number] Implanted:Qty: 1 on 11/19/2018 by Param Mcrae Jr., MD at [facility] [employer] 12/03/2020 [id number] / / [employer] [id number] Viabahn 6mm 6fr 5cm 120cm Delivery System Superficial Femoral - [id number] Implanted:Qty: 1 on 11/19/2018 by Param Mcrae Jr., MD at [facility] [employer] 04/20/2021 [id number] / / [employer]ig [employer] [id number] Angio-Seal Vip Bondek-Plus 6fr .035in 70cm Hemostatic Latex Free - [id number] Implanted:Qty: 1 on 11/19/2018 by Param Mcrae Jr., MD at [facility] [employer] 06/10/2019 [id number] / / [id number] Procedures Procedure Name Priority Date/Time Associated Diagnosis [...] D EVICE Final Result Performing Organization Address City/[facility] Co de Phone Number [facility] Department [place] [address] * POCT glucose (02/17/2025 8:16 AM CDT) Glucose, POC 89 70 - 199 mg/dL Blood 02/17/2025 8:16 AM CDT 02/17/2025 8:16 AM CDT Radha Zepeda MD LAB POCT ORDERABLES - D EVICE Final Result Performing Organization Address City/[facility] Co de Phone Number [facility] Department [place] [address] * eGFR (02/16/2025 8:55 PM CDT) eGFR [...] ORDERABLES Final Res ult Performing Organization Address [facility] de Phone Number [facility] [place] [address] * (ABNORMAL) Protime-INR (02/16/2025 8:55 PM CDT) PT 16.7(H) 9.7 - 13.0 sec INR 1.53(H) 0.90 - 1.20 [facility] Comment: Interpretive data Oral anticoagulant therapeutic ranges: Venous thromboembolism prophylaxis or treatment: 2.0-3.0 CARDIOLOGY Standard range: 2.0-3.0 High-intensity range: 2.5-3.5 Refer to indication-specific guidelines for appropriate target ranges for prosthetic heart valve replacement. Current interpretive data was last revised on 2019. Blood 02/16/2025 8:55 PM CDT 02/16/2025 9:11 PM CDT Nevin Sargent NP LAB BLOOD ORDERABLES Final Res ult Performing Organization Address [facility] de Phone Number [facility] Department [place] [address] * (ABNORMAL) CBC without differential (02/16/2025 8:55 PM CDT) WBC 7.71 3.80 - 9.90 K/cumm Hgb 12.2 11.9 - 15.5 g/dL [facility] Hct 38.4 35.6 - 45.5 % [facility] Plt 242 150 - 400 K/cumm [facility] MPV 10.1 9.1 - 12.3 fL [facility] RBC 4.81 3.90 - 5.20 M/cumm [facility] MCV 79.8(L) 81.3 - 96.4 fL [facility] MCH 25.4(L) 27.1 - 33.3 pg [facility] MCHC 31.8(L) 32.3 - 35.7 g/dL [facility] RDW CV 17.1(H) 11.1 - 14.9 % [facility] RDW SD 49.1(H) 35.7 - 48.1 fL [facility] NRBC abs 0.00 0.00 - 0.01 K/cumm [facility] Blood 02/16/2025 8:55 PM CDT 02/16/2025 9:05 PM CDT Nevin Sargent NP LAB BLOOD ORDERABLES Final Res ult Performing Organization Address City/State/[facility] Co de Phone Number [facility] [facility] Department [place] [address] * (ABNORMAL) Comprehensive metabolic panel (02/16/2025 8:55 PM CDT) Sodium 140 135 - 145 mmol/L Potassium, pl 3.9 3.3 - 4.9 mmol/L [facility] Chloride 101 97 - 110 mmol/L [facility] CO2 29 22 - 32 mmol/L [facility] Anion gap 10 2 - 15 mmol/L [facility] BUN 14 6 - 25 mg/dL [facility] Creatinine 0.95 0.60 - 1.10 mg/dL [facility] Glucose 98 70 - 199 mg/dL [facility] Comment: Interpretive Data Fasting glucose >/= [...] Calcium 9.1 8.5 - 10.3 mg/dL [facility] Bilirubin, total 0.4 0.1 - 1.2 mg/dL [facility] Protein, pl 7.8 6.5 - 8.5 g/dL [facility] Albumin 3.5 3.5 - 5.0 g/dL [facility] Alk phos 235(H) 40 - 130 Units/L [facility] ALT 42 7 - 45 Units/L [facility] AST 54(H) 10 - 45 Units/L [facility] Blood 02/16/2025 8:55 PM CDT 02/16/2025 9:05 PM CDT us Nevin Sargent [employer] PROFESSIONAL LAB BLOOD ORDERABLES Final Res ult Performing Organization Address [facility]/ZIP Co de Phone Number [facility] Department [place] [address] * POCT glucose (02/16/2025 8:44 PM CDT) Glucose, POC 104 70 - 199 mg/dL Blood 02/16/2025 8:44 PM CDT 02/16/2025 8:44 PM CDT Brad Tyson MD LAB POCT ORDERABLES - DE VICE Final Result Performing Organization Address [facility] Co de Phone Number [facility] [place] [address] * POCT glucose (02/16/2025 5:16 PM CDT) Glucose, POC 94 70 - 199 mg/dL Blood 02/16/2025 5:16 PM CDT 02/16/2025 5:16 PM CDT Brad Tyson MD LAB POCT ORDERABLES - DE VICE Final Result [facility] [place] [address] * NM MPI SPECT (Stress) Single Study [...] the Cardiovascular Division is available in the [facility] electronic medical record. Standard myocardial perfusion [...] the Cardiovascular Division is available in the [facility] electronic medical record. Standard myocardial perfusion [...] AM CDT Narrative 02/16/2025 2:26 PM CDT [facility] [place] [address] [place] [employer] Patient Name: FRANSISCA POWELL R : 1975 (50y ) Gender: F Study Date: 02/16/2025 11:20:00 AM Ht(Inch): 64 Wt(Lb): 275 BSA: 2.37 Tech: Location: [id number] Order Provider: DIYA JULES BMI: 47.2 Ref [...] Note Chalo Ivory MD PhD - 02/16/2025 [facility] Card[place] [address] [place] [employer] Patient Name: FRANSISCA POWELL R : 1975 (50y ) Gender: F Study Date: 02/16/2025 11:20:00 AM Ht(Inch): 64 Wt(Lb): 275 BSA: 2.37 Tech: Location: [place] [address] Order Provider: DIYA JULES BMI: 47.2 Ref [...] ORDERABLES Final Res ult [facility] Department of Laboratories [place], [place] [id number] * POCT glucose (02/16/2025 8:04 AM CDT) Glucose, POC 108 70 - 199 mg/dL Blood 02/16/2025 8:04 AM CDT 02/16/2025 8:04 AM CDT us Brad Tyson MD LAB POCT ORDERABLES - DE VICE Final Result Performing Organization Address City/[facility]/ZIP Co de Phone Number MADIS[facility] [place] [address] * eGFR (02/15/2025 8:17 PM CDT) eGFR [...] BLOOD ORDERABLES Final Result Performing Organization Address City/[facility]/ZIP Co de Phone Number [facility] [place] [address] * Magnesium (02/15/2025 8:17 PM CDT) Magnesium 2.1 1.4 - 2.5 mg/dL Blood 02/15/2025 8:17 PM CDT 02/15/2025 8:26 PM CDT Diya Jules MD LAB BLOOD ORDERABLES Final Result [facility] [place] [address] * (ABNORMAL) Lipid panel (02/15/2025 8:17 PM [...] on 2018. Triglycerides 89 <=149 mg/dL [facility] Comment: Interpretive Data Ages < or [...] on 2018. LDL, calculated 75 <=129 mg/dL [facility] Comment: Interpretive Data Ages < or [...] on 2024. Non-HDL Cholesterol 92 mg/dL [facility] Comment: Interpretive Data Ages < or [...] revised on 2018. Chol/HDL ratio 4 [facility] Blood 02/15/2025 8:17 PM CDT 02/15/2025 8:26 PM CDT Narrative [facility] - 02/16/2025 9:50 AM CDT Reflex Brad Tyson MD LAB BLOOD ORDERABLES Fin al Result Performing Organization Address City/[facility]/ZIP Co de Phone Number [facility] Department [place] [address] * Basic metabolic panel (02/15/2025 8:17 PM CDT) Pathologist [facility] Sodium 140 135 - 145 mmol/L Potassium, pl 3.6 3.3 - 4.9 mmol/L [facility] Chloride 103 97 - 110 mmol/L [facility] CO2 31 22 - 32 mmol/L [facility] Anion gap 6 2 - 15 mmol/L [facility] BUN 10 6 - 25 mg/dL [facility] Creatinine 0.77 0.60 - 1.10 mg/dL [facility] Glucose 108 70 - 199 mg/dL [facility] Comment: Interpretive Data Fasting glucose >/= [...] Calcium 9.0 8.5 - 10.3 mg/dL [facility] Blood 02/15/2025 8:17 PM CDT 02/15/2025 8:26 PM CDT Diya Jules MD LAB BLOOD ORDERABLES Final Result Performing Organization Address [facility]/ZIP Co de Phone Number [facility] Department [place] [address] * POCT glucose (02/15/2025 8:01 PM CDT) [facility] Glucose, POC 104 70 - 199 mg/dL Blood 02/15/2025 8:01 PM CDT 02/15/2025 8:01 PM CDT Adolfo Gamino MD LAB POCT ORDERABLES - DEV ICE Final Result Performing Organization Address [facility] de Phone Number [facility] [place] [address] * Troponin I high-sensitivity 6-hour (02/15/2025 6:12 PM CDT) [facility] Trop I hs 6 <=17 ng/L Comment: Interpretive Data For further [facility] resources including the diagnostic algorithm and an aid in interpretation, copy and paste this link: https://bjhlab.testcatalog.org/show/hsTrop-1 Current Interpretive Data last revised 2020. Trop I hs delta 0 ng/L [facility] Trop I hs interp Insignificant [facility] Blood 02/15/2025 6:12 PM CDT 02/15/2025 6:20 PM CDT Yfn Javier MD LAB BLOOD ORDERABLES Fi nal Result Performing Organization Address [facility] Co de Phone Number [facility] [place] [address] * ECG 12 lead (02/15/2025 5:33 PM CDT) [facility] Ventricular Rate EKG/Min 68 BPM [facility] Atrial Rate 68 BPM [facility] OK-Interval (MSEC) 168 ms [facility] QRS-Interval (MSEC) 94 ms [facility] QT-Interval (MSEC) 430 ms [facility] QTc 457 ms [facility] P Philipp 64 degrees [facility] R Philipp 56 degrees [facility] T Philipp 80 degrees [facility] Diagnosis Normal sinus rhythm Normal ECG When compared with ECG of 19-JUL-2020 10:21, Minimal criteria for Inferior infarct are no longer Present T wave inversion no longer evident in Anterior leads Nonspecific T wave abnormality now evident in Lateral leads Confirmed by AARON MA M.D ([id number]) on 02/16/2025 9:54:10 AM [facility] 02/15/2025 5:33 PM CDT 02/16/2025 9:54 AM CDT us Diya Jules MD ECG ORDERABLES Final Resul t Performing Organization Address City/[facility] Co de Phone Number [facility] * POCT glucose (02/15/2025 5:04 PM CDT) Glucose, POC 84 70 - 199 mg/dL Blood 02/15/2025 5:04 PM CDT 02/15/2025 5:04 PM CDT Adolfo Gamino MD LAB POCT ORDERABLES - DEV ICE Final Result Performing Organization Address [facility] de Phone Number [facility] Department [place] [address] * POCT glucose (02/15/2025 3:39 PM CDT) Glucose, POC 83 70 - 199 mg/dL Blood 02/15/2025 3:39 PM CDT 02/15/2025 3:39 PM CDT Dottie Triana MD LAB POCT ORDERABLES - D EVICE Final Result Performing Organization Address [facility] de Phone Number [facility] Department [place] [address] * Troponin I high-sensitivity 4-hour (02/15/2025 3:36 PM CDT) Trop I hs 4 <=17 ng/L Comment: Interpretive Data For further hscTnI resources including the diagnostic algorithm and an aid in interpretation, copy and paste this link: https://bjhlab.Thingies.org/show/hsTrop-[email or web address] Current Interpretive Data last revised 2020. Trop I hs delta -2 ng/L [facility] Trop I hs interp Insignificant [facility] Blood 02/15/2025 3:36 PM CDT 02/15/2025 3:55 PM CDT Yfn Javier MD LAB BLOOD ORDERABLES Fi nal Result Performing Organization Address City/[facility]/ZIP Co de Phone Number [facility] Department [place] [address] * ECG 12-LEAD (02/15/2025 2:23 PM CDT) Narrative [facility] - 02/15/2025 2:23 PM CDT Derrick Kebede [...] Triana MD ECG ORDERABLES Final R esult [facility] * Troponin I high-sensitivity 2-hour (02/15/2025 1:45 PM CDT) Trop I hs 5 <=17 ng/L Comment: Interpretive Data For further hscTnI resources including the diagnostic algorithm and an aid in interpretation, copy and paste this link: https://bjhlab.Thingies.org/show/hsTrop-1 Current Interpretive Data last revised 2020. Trop I hs delta -1 ng/L [facility] Trop I hs interp Insignificant [facility] Blood 02/15/2025 1:45 PM CDT 02/15/2025 2:11 PM CDT us Yfn Javier MD LAB BLOOD ORDERABLES Fi nal Result [facility] [place] [address] * XR Chest PA Lateral 2 Views [...] POCT ketone, blood (02/15/2025 12:22 PM CDT) [facility] Beta-Hydroxybut yrate, POC 0.1 0.0 - 0.5 mmol/L Blood 02/15/2025 12:2 2 PM CDT 02/15/2025 12:22 PM CDT Dottie Triana MD LAB POCT ORDERABLES - D EVICE Final Result Performing Organization Address [facility] de Phone Number [facility] [place] [address] * Troponin I high-sensitivity series (baseline, 2hr, 4hr, 6hr) (02/15/2025 12:06 PM CDT) [facility] Trop I hs 6 <=17 ng/L Comment: Interpretive Data For further hscTnI resources including the diagnostic algorithm and an aid in interpretation, copy and paste this link: https://bjhlab.testcatalog.org/show/[email or web address]-1 Current Interpretive Data last revised 2020. Blood 02/15/2025 12:0 6 PM CDT 02/15/2025 12:47 PM CDT Dottie Triana MD LAB BLOOD ORDERABLES Fi nal Result Performing Organization Address [facility] Co de Phone Number [facility] Department [place] [address] * eGFR (02/15/2025 12:06 PM CDT) [facility] eGFR >90 >=60 mL/min/1. 73 m2 Comment: [...] LAB BLOOD ORDERABLES Fi nal Result [facility] Department [place] [address] * (ABNORMAL) Differential, auto (02/15/2025 12:06 PM CDT) Pathologist [facility] Neutrophil abs 4.03 1.50 - 6.50 K/cumm Imm gran abs 0.02 0.00 - 0.10 K/cumm [facility] Lymphocyte abs 0.62(L) 0.80 - 3.30 K/cumm [facility] Monocyte abs 0.46 0.20 - 0.80 K/cumm [facility] Eosinophil abs 0.14 0.00 - 0.50 K/cumm [facility] Basophil abs 0.02 0.00 - 0.10 K/cumm [facility] Neutrophil pct 76.2 % [facility] Comment: Interpretive Data Percent cell count reference ranges are not reported, since discordance with absolute values may lead to misinterpretation of CBC data. Current Interpretive Data was last revised on 2017. Imm gran pct 0.4 % [facility] Comment: Interpretive Data Percent cell count reference ranges are not reported, since discordance with absolute values may lead to misinterpretation of CBC data. Current Interpretive Data was last revised on 2017. Lymphocyte pct 11.7 % [facility] Comment: Interpretive Data Percent cell count reference ranges are not reported, since discordance with absolute values may lead to misinterpretation of CBC data. Current Interpretive Data was last revised on 2017. Monocyte pct 8.7 % [facility] Comment: Interpretive Data Percent cell count reference ranges are not reported, since discordance with absolute values may lead to misinterpretation of CBC data. Current Interpretive Data was last revised on 2017. Eosinophil pct 2.6 % [facility] Comment: Interpretive Data Percent cell count reference ranges are not reported, since discordance with absolute values may lead to misinterpretation of CBC data. Current Interpretive Data was last revised on 2017. Basophil pct 0.4 % [facility] Comment: Interpretive Data Percent cell count reference ranges are not reported, since discordance with absolute values may lead to misinterpretation of CBC data. Current Interpretive Data was last revised on 2017. Blood 02/15/2025 12:0 6 PM CDT 02/15/2025 12:47 PM CDT us Yfn Javier MD LAB BLOOD ORDERABLES Fi nal Result [facility] [place] [address] * Pro B-type natriuretic peptide (02/15/2025 12:06 [...] MD LAB BLOOD ORDERABLES nal Result [facility] [place] [address] * (ABNORMAL) CBC with auto differential (02/15/2025 12:06 PM CDT) WBC 5.29 3.80 - 9.90 K/cumm Hgb 12.2 11.9 - 15.5 g/dL [facility] Hct 39.2 35.6 - 45.5 % [facility] Plt 220 150 - 400 K/cumm [facility] MPV 10.4 9.1 - 12.3 fL [facility] RBC 4.85 3.90 - 5.20 M/cumm [facility] MCV 80.8(L) 81.3 - 96.4 fL [facility] MCH 25.2(L) 27.1 - 33.3 pg [facility] MCHC 31.1(L) 32.3 - 35.7 g/dL [facility] RDW CV 17.1(H) 11.1 - 14.9 % [facility] RDW SD 49.9(H) 35.7 - 48.1 fL [facility] NRBC abs 0.00 0.00 - 0.01 K/cumm [facility] Blood Venous blood specimen / Unknown 02/15/2025 12:06 PM CDT 02/15/2025 12:47 PM CDT Dottie Triana MD LAB BLOOD ORDERABLES Fi nal Result Performing Organization Address [facility] de Phone Number [facility] Department [place] [address] * (ABNORMAL) Hemoglobin A1c (02/15/2025 12:06 PM CDT) Pathologist [facility] Hgb A1C 6.3(H) 4.0 - 5.6 % Estimated Average Glucose 134 mg/dL [facility] Comment: The ADA recommends reporting an [...] CDT 02/15/2025 12:52 PM CDT Narrative [facility] - 02/16/2025 4:45 PM CDT Reflex Brad Tyson MD LAB BLOOD ORDERABLES Fin al Result Performing Organization Address [facility] de Phone Number [facility] Department [place] [address] * (ABNORMAL) Comprehensive metabolic panel (02/15/2025 12:06 PM CDT) [facility] Sodium 138 135 - 145 mmol/L Potassium, pl 3.2(L) 3.3 - 4.9 mmol/L [facility] Chloride 99 97 - 110 mmol/L [facility] CO2 30 22 - 32 mmol/L [facility] Anion gap 9 2 - 15 mmol/L [facility] BUN 10 6 - 25 mg/dL [facility] Creatinine 0.69 0.60 - 1.10 mg/dL [facility] Glucose 113 70 - 199 mg/dL [facility] Comment: Interpretive Data Fasting glucose >/= [...] Calcium 8.9 8.5 - 10.3 mg/dL [facility] Bilirubin, total 0.3 0.1 - 1.2 mg/dL [facility] Protein, pl 7.8 6.5 - 8.5 g/dL [facility] Albumin 3.5 3.5 - 5.0 g/dL [facility] Alk phos 230(H) 40 - 130 Units/L [facility] ALT 35 7 - 45 Units/L [facility] AST 47(H) 10 - 45 Units/L [facility] Blood 02/15/2025 12:0 6 PM CDT 02/15/2025 12:47 PM CDT us Dottie Triana MD LAB BLOOD ORDERABLES Fi nal Result [facility] Department [place] [address] * RAD ONC ARIA SESSION SUMMARY (12/24/2024 [...] ORD ERABLES Final Result Performing Organization Address [facility] de Phone Number ARILevi * RAD ONC [...] ORD ERABLES Final Result Performing Organization Address [facility] Co de Phone Number DECLAN * [...] ORD ERABLES Final Result Performing Organization Address [facility] de Phone Number DECLAN * RAD ONC [...] ORD ERABLES Final Result Performing Organization Address City/[facility] Co de Phone Number DECLAN * POCT glucose (12/07/2024 10:03 AM CDT) Glucose, POC 109 70 - 199 mg/dL Blood 12/07/2024 10:0 3 AM CDT 12/07/2024 10:03 AM CDT Mirta Gonzalez MD LAB POCT ORDERABLES - DEVICE Final Result [facility] Department [place] [address] * US Vein Duplex Lower Extremity Bilateral Complete (12/07/2024 9:01 AM CDT) Anatomical Region Laterality Modality Vascular Bilateral Ultrasound 12/07/2024 8:20 AM CDT Narrative 12/07/2024 6:12 PM CDT [facility] - Department of Vascular Surgery, Vascular Laboratory [address] [place] [address] Lower Extremity Venous Ultrasound Report Patient Name: [...] R, ttp L popliteal - FINDINGS: Performing Layer Up: Patti Singh RVT. Bilateral: Venous Doppler signals [...] Procedure Note Vitaliy Tejada MD - 12/07/2024 [facility] - Department of Vascular Surgery,Vascular Laboratory [address] [place] [address] Lower Extremity Venous Ultrasound Report Patient Name: [...] R, ttp L popliteal - FINDINGS: Performing Layer Up: Patti Singh RVT. Bilateral: Venous Doppler signals [...] Straw Yellow Clarity, ur Cloudy(A) Clear [facility] Specific gravity, ur 1.011 1.003 - 1.030 [facility] pH, urine 6.5 [facility] Comment: Interpretive Data U rine pH is affected by diet, medications, systemic acid-base disturbances, and renal tubular function. pH may affect urinary stone formation. For example, urine pH below 6.0 may help reduce the tendency for calcium phosphate stones and pH greater than 6.0 may reduce the tendency for uric acid stone formation. Source: [employer] Current Interpretive Data was last revised on 2017 Protein, ur ql Trace Negative [facility] Glucose, ur ql 3+(A) Negative [facility] Ketones, ur Negative Negative [facility] Bilirubin, ur Negative Negative [facility] Blood, ur Negative Negative [facility] Urobilinogen, ur <2.0 <2.0 mg/dL [facility] Nitrite, ur Positive(A) Negative [facility] Leukocyte esterase, ur 1+(A) Negative [facility] UA reflex comment Reflex to microscopic UA will be performed. [facility] Urine 12/07/2024 6:19 AM CDT 12/07/2024 6:27 AM CDT Ingrid Giles MD LAB MICROBIOLOGY - GENERAL ORDERABLES Final Result Performing Organization Address [facility] Co de Phone Number [facility] [place] [address] * POCT glucose (12/07/2024 6:19 AM CDT) Glucose, POC 102 70 - 199 mg/dL Blood 12/07/2024 6:19 AM CDT 12/07/2024 6:19 AM CDT Mirta Gonzalez MD LAB POCT ORDERABLES - DEVICE Final Result Performing Organization Address [facility] de Phone Number [facility] [place] [address] * (ABNORMAL) Urinalysis, microscopic only (12/07/2024 6:19 AM CDT) WBC, ur 6-10(A) 0 - 5 /HPF RBC, ur 0-2 0 - 2 /HPF [facility] Epithelial cells, squamous, ur 1-5 0 - 5 /HPF [facility] Bacteria, ur 2+(A) [facility] Culture Reflex Comment Reflex conditions for urine culture (WBC >10) not met. [facility] Urine 12/07/2024 6:19 AM CDT 12/07/2024 6:27 AM CDT Ingrid Giles MD LAB URINE ORDERABLES Final Result Performing Organization Address [facility] Co de Phone Number [facility] [place] [address] * Troponin I high-sensitivity 6-hour (12/07/2024 6:16 AM CDT) Trop I hs 4 <=17 ng/L Comment: Interpretive Data For further hscTnI resources including the diagnostic algorithm and an aid in interpretation, copy and paste this link: [email or web address].[email or web address]/show/[email or web address] Current Interpretive Data last revised 2020. Trop I hs delta -1 ng/L [facility] Trop I hs interp Insignificant [facility] Blood 12/07/2024 6:16 AM CDT 12/07/2024 6:31 AM CDT Karla Griggs MD LAB BLOOD ORDERABLES Sue l Result [facility] Department [place] [address] * (ABNORMAL) Erythrocyte sedimentation rate (12/07/2024 6:16 AM CDT) Pathologist [facility] Erythrocyte sedimentation rate 76(H) 1 - 20 mm/hr Blood 12/07/2024 6:16 AM CDT 12/07/2024 6:31 AM CDT Mirta Gonzalez MD LAB BLOOD ORDERABLES Final Result [facility] Department [place] [address] * Troponin I high-sensitivity 2-hour (12/07/2024 5:49 AM CDT) Pathologist [facility] Trop I hs 4 <=17 ng/L Comment: Interpretive Data For further hscTnI resources including the diagnostic algorithm and an aid in interpretation, copy and paste this link: https://Ubidyne.[email or web address]/show/hsTrop-1 Current Interpretive Data last revised 2020. Trop I hs delta See Comment ng/L [facility] Comment:Inappropriate collec tion time to report a delta. Trop I hs pct delta See Comment % [facility] Comment:Inappropriate collec tion time to report a delta. Trop I hs interp See Comment [facility] Comment:Inappropriate collec tion time to report a delta. Blood 12/07/2024 5:49 AM CDT 12/07/2024 6:27 AM CDT us Karla Griggs MD LAB BLOOD ORDERABLES Sue l Result [facility] [place] [address] * POCT glucose (12/07/2024 5:49 AM CDT) Glucose, POC 111 70 - 199 mg/dL Blood 12/07/2024 5:49 AM CDT 12/07/2024 5:49 AM CDT Notinfile Unknown LAB POCT ORDERABLES - DEVICE F inal Result Performing Organization Address [facility] de Phone Number [facility] Department [place] [address] * Troponin I high-sensitivity 4-hour (12/07/2024 4:59 AM CDT) Pathologist [facility] The [facility] Ill Trop I hs 4 <=17 ng/L Comment: Interpretive Data For further hscTnI resources including the diagnostic algorithm and an aid in interpretation, copy and paste this link: https://bjhlab.testcatalog.org/show/hsTrop-1 Current Interpretive Data last revised 2020. Trop I hs delta -1 ng/L [facility] Trop I hs interp Insignificant [facility] Blood 12/07/2024 4:59 AM CDT 12/07/2024 5:21 AM CDT us Karla Griggs MD LAB BLOOD ORDERABLES Sue l Result [facility] Department [place] [address] * POCT glucose (12/07/2024 3:34 AM CDT) Pathologist [facility] Glucose, POC 103 70 - 199 mg/dL Blood 12/07/2024 3:34 AM CDT 12/07/2024 3:34 AM CDT Notinfile Unknown LAB POCT ORDERABLES - DEVICE F inal Result Performing Organization Address [facility] Co de Phone Number [facility] [place] [address] * (ABNORMAL) Protime-INR (12/07/2024 12:14 AM CDT) [facility] PT 15.6(H) 9.7 - 13.0 sec INR 1.43(H) 0.90 - 1.20 [facility] Comment: Interpretive data Oral anticoagulant therapeutic ranges: Venous thromboembolism prophylaxis or treatment: 2.0-3.0 CARDIOLOGY Standard range: 2.0-3.0 High-intensity range: 2.5-3.5 Refer to indication-specific guidelines for appropriate target ranges for prosthetic heart valve replacement. Current interpretive data was last revised on 2019. Blood 12/07/2024 12:1 4 AM CDT 12/07/2024 12:45 AM CDT Mirta Gonzalez MD LAB BLOOD ORDERABLES Final Result Performing Organization Address City/[facility] Co de Phone Number [facility] [place] [address] * Troponin I high-sensitivity series (baseline, 2hr, 4hr, 6hr) (12/07/2024 12:08 AM CDT) Pathologist [facility] Trop I hs 5 <=17 ng/L Comment: Interpretive Data For further hscTnI resources including the diagnostic algorithm and an aid in interpretation, copy and paste this link: https://bjhlab.testcatalog.org/show/[email or web address]-1 Current Interpretive Data last revised 2020. Blood 12/07/2024 12:0 8 AM CDT 12/07/2024 12:51 AM CDT Mirta Gonzalez MD LAB BLOOD ORDERABLES Final Result [facility] [place] [address] * eGFR (12/07/2024 12:08 AM CDT) eGFR [...] MD LAB BLOOD ORDERABLES Final Result [facility] [place] [address] * Differential, auto (12/07/2024 12:08 AM CDT) [...] [facility] BJ Neutrophil pct 75.7 % [facility] Comment: Interpretive Data Percent cell count reference ranges are not reported, since discordance with absolute values may lead to misinterpretation of CBC data. Current Interpretive Data was last revised on 2017. Imm gran pct 0.6 % [facility] Comment: Interpretive Data Percent cell count reference ranges are not reported, since discordance with absolute values may lead to misinterpretation of CBC data. Current Interpretive Data was last revised on 2017. Lymphocyte pct 14.3 % [facility] Comment: Interpretive Data Percent cell count reference ranges are not reported, since discordance with absolute values may lead to misinterpretation of CBC data. Current Interpretive Data was last revised on 2017. Monocyte pct 6.8 % [facility] Comment: Interpretive Data Percent cell count reference ranges are not reported, since discordance with absolute values may lead to misinterpretation of CBC data. Current Interpretive Data was last revised on 2017. Eosinophil pct 2.2 % [facility] Comment: Interpretive Data Percent cell count reference ranges are not reported, since discordance with absolute values may lead to misinterpretation of CBC data. Current Interpretive Data was last revised on 2017. Basophil pct 0.4 % [facility] Comment: Interpretive Data Percent cell count reference ranges are not reported, since discordance with absolute values may lead to misinterpretation of CBC data. Current Interpretive Data was last revised on 2017. Blood 12/07/2024 12:0 8 AM CDT 12/07/2024 12:51 AM CDT Mirta Gonzalez MD LAB BLOOD ORDERABLES Final Result [facility] Department [place] [address] * Pro B-type natriuretic peptide (12/07/2024 12:08 [...] BLOOD ORDERABLES Final Result Performing Organization Address [facility] Co de Phone Number [facility] Department [place] [address] * (ABNORMAL) CBC with auto differential (12/07/2024 12:08 AM CDT) WBC 6.73 3.80 - 9.90 K/cumm Hgb 10.9(L) 11.9 - 15.5 g/dL [facility] Hct 34.4(L) 35.6 - 45.5 % [facility] Plt 253 150 - 400 K/cumm [facility] MPV 10.3 9.1 - 12.3 fL [facility] RBC 4.27 3.90 - 5.20 M/cumm [facility] MCV 80.6(L) 81.3 - 96.4 fL [facility] MCH 25.5(L) 27.1 - 33.3 pg [facility] MCHC 31.7(L) 32.3 - 35.7 g/dL [facility] RDW CV 14.7 11.1 - 14.9 % [facility] RDW SD 43.5 35.7 - 48.1 fL [facility] NRBC abs 0.00 0.00 - 0.01 K/cumm [facility] Blood 12/07/2024 12:0 8 AM CDT 12/07/2024 12:51 AM CDT Mirta Gonzalez MD LAB BLOOD ORDERABLES Final Result Performing Organization Address City/[facility]/ZIP Co de Phone Number [facility] Department [place] [address] * (ABNORMAL) CRP (acute phase) (12/07/2024 12:08 AM CDT) Pathologist [facility] CRP 10.3(H) <=10.0 mg/L Blood 12/07/2024 12:0 8 AM CDT 12/07/2024 12:51 AM CDT Mirta Gonzalez MD LAB BLOOD ORDERABLES Final Result [facility] Department [place] [address] * (ABNORMAL) Comprehensive metabolic panel (12/07/2024 12:08 AM CDT) Sodium 142 135 - 145 mmol/L Potassium, pl 3.9 3.3 - 4.9 mmol/L [facility] Chloride 102 97 - 110 mmol/L [facility] CO2 27 22 - 32 mmol/L [facility] Anion gap 13 2 - 15 mmol/L [facility] BUN 12 6 - 25 mg/dL [facility] Creatinine 0.93 0.60 - 1.10 mg/dL [facility] Glucose 91 70 - 199 mg/dL [facility] Comment: Interpretive Data Fasting glucose >/= [...] Calcium 9.6 8.5 - 10.3 mg/dL [facility] Bilirubin, total 0.3 0.1 - 1.2 mg/dL [facility] Protein, pl 9.2(H) 6.5 - 8.5 g/dL [facility] Albumin 4.3 3.5 - 5.0 g/dL [facility] Alk phos 200(H) 40 - 130 Units/L [facility] ALT 28 7 - 45 Units/L [facility] AST 33 10 - 45 Units/L [facility] Blood 12/07/2024 12:0 8 AM CDT 12/07/2024 12:51 AM CDT Mirta Gonzalez MD LAB BLOOD ORDERABLES Final Result [facility] Department [place] [address] * XR Chest PA Lateral 2 Views [...] 12-LEAD (12/06/2024 10:15 PM CDT) Narrative [facility] - 12/06/2024 10:15 PM CDT Srinivas Cardoza MD 12/06/2024 10:15 PM ECG 12 lead Date/Time: 12/06/2024 10:15 PM Performed by: Srinivas Cardoaz MD Authorized by: Rj Swann MD PhD [...] Mirta Gonzalez MD ECG ORDERABLES Final Result [facility] * Hepatitis C antibody (01/01/2023 11:06 AM CDT) Pathologist [facility] Hep C Ab Nonreactive Nonreactive [facility] Comment: Interpretive Data Nonreactive: Antibodies to [...] last revised on 2019. Testing performed by: [facility], [address] [place] [address], [place] [address] Blood 01/01/2023 11:0 6 AM CDT 01/01/2023 2:22 PM CDT Tory Gonzalez MD LAB MICROBIOLOGY - GENERAL ORDERABLES Final Result Performing Organization Address City/State/ZIP Co ar Phone Number [facility] [id number] [facility]. Department [place] [address] * COLONOSCOPY IMAGES (07/10/2016) Anatomical Region Laterality Modality Other Narrative 07/10/2016 Ordered by an unspecified provider. Historical Provider GI PROCEDURE ORDERABLES F inal Result from Last 3 Months or Most Recently Relevant to Health Maintenance Insurance [employer] [facility] MEDICARE ADVANTAGE MEDICARE [facility] Address: [address] [address] [place] [address] [facility] MEDICARE ADVANTAGE MEDICARE [facility] Address: [address] [address] [place] [address] [facility] MEDICARE ADVANTAGE IDPA Advance Directives For more information, please contact: [phone] * Full Code (Latest Code Status on [...] 3:10 PM 05/04/2020 8:07 PM Care Teams Scientific Recruiter Relationship Specialty Start Date End Date Howard Bourgeois MD PCP - General 11/29/16 Sean Olguin MD Consulting Physician Cardiovascular Disease 10/21/18 Radha Sim MD Consulting Physician Internal Medicine 12/26/18 Jackson Purdy Jr., MD Surgeon General Surgery 12/26/18 Enrike Schrader MD Consulting Physician Cardiology 12/26/18 Guido Concepcion MD PhD [id number] [facility] ONCOLOGY, [place] [address] Radiation Oncologist Radiation Oncology 11/23/24
--- OUTSIDE RECORDS SUMMARY | 2025-02-23 16:13 | XMS_ITS ---
Author Organization [facility] al Address [address] [place] [address] Care Team Providers Care Victim Advocate Name Role Phone Howard Bourgeois MD Primary Care Provider Sean Olguin MD Unavailable Radha Sim MD Unavailable [phone] Rajwinder Carlos MD, Jackson Hinkle Unavailable [phone] Enrike Schrader MD Unavailable [phone] Guido Concepcion MD PhD Unavailable [phone] Active Problems Problem Noted Date Diagnosed Date [...] 07/16/2020 Assessment & Plan (07/17/2020 7:29 AM SENIOR RESEARCH ASSOCIATE): Pt reported suprapubic discomfort during hospital stay. UA w/ positive nitrites, neg LE, 6-10 WBCs. Plan: - Ciprofloxacin IV 07/15 x1, transition to oral therapy for total 3d course (12/5pm-12/8am) Coagulopathy 07/15/2020 Assessment & Plan (07/19/2020 6:28 AM SENIOR RESEARCH ASSOCIATE): Pt w/ h/o chronic warfarin use (goal [...] f/u Assessment & Plan (07/15/2020 2:19 AM SENIOR RESEARCH ASSOCIATE): See #MVR Anxiety 07/15/2020 Assessment & Plan (02/17/2025 5:00 PM CDT): Resume home Wellbutrin and venlafaxine. Assessment & Plan (02/16/2025 3:52 PM CDT): Resume home Wellbutrin and venlafaxine Assessment & Plan (02/15/2025 5:38 PM CDT): Resume home Wellbutrin and venlafaxine Assessment & Plan (07/16/2020 11:53 AM SENIOR RESEARCH ASSOCIATE): H/o anxiety and chronic pain (reported h/o fibromyalgia per pt). On home Effexor Plan: - Continue home venlafaxine 75mg every day Assessment & Plan (07/15/2020 10:49 AM SENIOR RESEARCH ASSOCIATE): Mood stable -Cont venlafaxine Omental infarction 07/15/2020 Assessment & Plan (07/18/2020 8:27 AM SENIOR RESEARCH ASSOCIATE): Asymptomatic. CT A/P w/ ventral abdominal hernia containing omental fat w/ slight increase in stranding. [place] possibly hobbies and crafts sales representative of omental infarct. Occurring in s/o acute blood loss anemia. Lactate 1.1, abdominal exam benign. Tolerating food/fluid well Plan: - CTM - Transfuse as above Assessment & Plan (07/16/2020 9:18 AM SENIOR RESEARCH ASSOCIATE): CT A/P: ventral abdominal hernia containing omental fat, with slight interval increase in stranding in the omental tissues likely secondary to a focus of omental infarction. -Likely occurred in the setting of dehydration and anemia -LA 1.1; Abdominal exam benign. RBCs transfused as above Melena 07/14/2020 Overview (07/16/2020): Added automatically from request for surgery [id number] Assessment & Plan (07/17/2020 7:30 AM SENIOR RESEARCH ASSOCIATE): See acute blood loss anemia Intertrigo 02/20/2020 [...] 08/29/2019 Assessment & Plan (07/18/2020 8:26 AM SENIOR RESEARCH ASSOCIATE): Resolved. Pt w/ h/o COPD (on albuterol, [...] qhs Assessment & Plan (07/16/2020 9:15 AM SENIOR RESEARCH ASSOCIATE): P/w 2 days of SOB, malaise, fever [...] now Assessment & Plan (09/03/2019 12:21 PM SENIOR RESEARCH ASSOCIATE): Suspect due to deconditioning plus morbid obesity with minor contribution from ground-glass opacities. Would pursue HRCT chest to further evaluation GGO if hypoxemia worsens (though no exertional hypoxemia was noted on informal 6MW during hospital stay). Assessment & Plan (08/30/2019 3:03 PM SENIOR RESEARCH ASSOCIATE): Unclear etiology of shortness of breath with activity. Differential includes arrhythmia, viral, cardiac, progression of inflammatory/infectious/neoplastic process noted on CT --RVP- negative --Monitor on tele --trops negative x2 Assessment & Plan (08/29/2019 12:28 PM SENIOR RESEARCH ASSOCIATE): Unclear etiology of shortness of breath with [...] 2.5-3.5) Assessment & Plan (09/03/2019 12:38 PM SENIOR RESEARCH ASSOCIATE): Will resume prior warfarin dosing at discharge. Needs bridging with enoxaparin until warfarin therapeutic (goal INR 2.5-3.5). Instructed to undergo repeat INR 5 days after warfarin resumption. Plan to provide prescription for enoxaparin for 7 days with refill in case not therapeutic by then. Assessment & Plan (08/30/2019 3:36 PM SENIOR RESEARCH ASSOCIATE): Patient with mechanical mitral valve on home [...] transportation issues (goes to Dr. Leo, cardiology, [place], [place]). Patient here with pleuritic chest pain [...] AM Assessment & Plan (08/29/2019 12:43 PM SENIOR RESEARCH ASSOCIATE): Patient with mechanical mitral valve on home [...] transportation issues (goes to Dr. Leo, cardiology, [place], [place]). Patient here with pleuritic chest pain [...] AM Assessment & Plan (08/28/2019 7:43 PM SENIOR RESEARCH ASSOCIATE): - Patient with mechanical mitral valve on [...] test Assessment & Plan (09/03/2019 12:39 PM SENIOR RESEARCH ASSOCIATE): Atypical; reproducible on palpation. Reassured likely musculoskeletal. Analgesics. Assessment & Plan (08/30/2019 2:56 PM SENIOR RESEARCH ASSOCIATE): Patient with complaint of atypical chest pain, less likely ACS. EKG without new ischemic changes. Troponin negative x1. No events on tele. Patient denies pain this morning - trop negative x2 - continue to on tele --Topical lidocaine, scheduled tylenol Assessment & Plan (08/29/2019 12:38 PM SENIOR RESEARCH ASSOCIATE): Patient with complaint of atypical chest pain, less likely ACS. EKG without new ischemic changes. Troponin negative x1. No events on tele - Repeat troponin - Monitor on tele --Topical lidocaine, scheduled tylenol Assessment & Plan (08/28/2019 7:47 PM SENIOR RESEARCH ASSOCIATE): - Patient with complaint of atypical chest [...] protocol Assessment & Plan (07/16/2020 11:51 AM SENIOR RESEARCH ASSOCIATE): H/o IVIS and obesity (BMI 56.64). On home CPAP. Plan: - Continue home CPAP Assessment & Plan (07/15/2020 10:49 AM SENIOR RESEARCH ASSOCIATE): Cont CPAP Assessment & Plan (09/03/2019 12:21 PM SENIOR RESEARCH ASSOCIATE): Continue home nocturnal NPPV. Assessment & Plan (08/30/2019 3:03 PM SENIOR RESEARCH ASSOCIATE): Continue home nocturnal NPPV Assessment & Plan (08/29/2019 12:20 PM SENIOR RESEARCH ASSOCIATE): Continue home nocturnal NPPV Assessment & Plan (08/28/2019 7:45 PM SENIOR RESEARCH ASSOCIATE): - Continue home nocturnal NPPV Abnormal CT scan 08/28/2019 Assessment & Plan (08/28/2020 5:38 PM SENIOR RESEARCH ASSOCIATE): - Will refer to general surgery due to intermittent abdominal pain in the setting of ventral hernia and findings of omental infarction on recent imaging. - Discussed warning signs with patient (severe abdominal pain, fevers, changes in bowel habits, blood in stool, etc) and when to seek care Assessment & Plan (09/01/2019 2:25 PM SENIOR RESEARCH ASSOCIATE): Patient with abnormal CT scan with findings [...] provided no complications and provided her outpatient recovery advocate can follow up biopsy results with her Assessment & Plan (08/30/2019 3:13 PM SENIOR RESEARCH ASSOCIATE): Patient with abnormal CT scan with findings [...] biopsy Assessment & Plan (08/29/2019 11:29 AM SENIOR RESEARCH ASSOCIATE): Patient with abnormal CT scan with findings [...] biopsy) Assessment & Plan (08/28/2019 8:02 PM SENIOR RESEARCH ASSOCIATE): - Patient with abnormal CT scan with [...] (09/01/2019): Added automatically from request for surgery [id number] Assessment & Plan (09/03/2019 12:40 PM SENIOR RESEARCH ASSOCIATE): Given possibility of indolent lymphoma in context [...] concern for recurrent infection. Rx resent to [facility] today to get restarted on medication. [...] concerns Assessment & Plan (09/14/2021 1:07 PM SENIOR RESEARCH ASSOCIATE): - Doing well on amoxicillin suppression with [...] candidate it was decided to continue termite treater suppression to decrease her risk of recurrent infection. - Recent labs reviewed - Discussed with patient the rational for treatment, culture results, risk of recurrent infection, signs/symptoms of recurrent infection, and to contact ID clinic with any questions or concerns Assessment & Plan (08/28/2020 5:37 PM SENIOR RESEARCH ASSOCIATE): - No concern for recurrent endocarditis. Tolerating [...] should up with CT surgery as scheduled senior living current use of antibiotics 03/11/2019 Assessment & [...] 2.5-3.5) Assessment & Plan (07/15/2020 4:35 AM SENIOR RESEARCH ASSOCIATE): Chronically on suppressive amoxicillin. Endocarditis in 2019, has mechanical MV Assessment & Plan (10/26/2019 4:59 PM CDT): - Recent CBC and CMP reviewed with no change to current antibiotic dose - Continue to monitor for adverse effects of antibiotics Assessment & Plan (09/03/2019 12:22 PM SENIOR RESEARCH ASSOCIATE): Patient on long-term antibiotics for the purpose of chronic suppression due to endocarditis in the setting of mechanical valve. Followed as outpatient by ID. Continue home amoxicillin regimen. Assessment & Plan (08/30/2019 3:02 PM SENIOR RESEARCH ASSOCIATE): Patient on senior living antibiotics for the purpose of chronic suppression due to endocarditis in the setting of mechanical valve. Followed as outpatient by ID. --Continue home amoxicillin regimen. Assessment & Plan (08/29/2019 11:18 AM SENIOR RESEARCH ASSOCIATE): Patient on termite treater antibiotics for the purpose of chronic suppression due to endocarditis in the setting of mechanical valve. Followed as outpatient by ID. --Continue home amoxicillin regimen. Assessment & Plan (08/28/2019 7:51 PM SENIOR RESEARCH ASSOCIATE): - Patient on termite treater amoxicillin for the purpose of chronic suppression [...] questions or change in clinical situations at [phone]. After hours, the ID fellow on-call can be reached at [phone]. Assessment & Plan (02/23/2019 6:35 AM CDT): [...] daily Assessment & Plan (07/16/2020 11:42 AM SENIOR RESEARCH ASSOCIATE): H/o severe MR s/p mechanical MVR 11/2018. C/b endocarditis in e/o perioperative infection 2/2 central line site complication. Goal INR 2.5-3.5. On warfarin 7mg prior to admit. Plan: - See coagulopathy - Continue amoxicillin ppx w/ 500mg q8 as per ID (followed outpatient) Assessment & Plan (07/16/2020 9:15 AM SENIOR RESEARCH ASSOCIATE): Mechanical MV in 2019 on warfarin. INR [...] 12/18/2018 Assessment & Plan (07/15/2020 10:49 AM SENIOR RESEARCH ASSOCIATE): BMI 56.6, risk factor for respiratory decompensation [...] 11/13/2018 Assessment & Plan (07/19/2020 6:26 AM SENIOR RESEARCH ASSOCIATE): Pt w/ baseline Hgb 12s. P/w Hgb [...] 7.4 Assessment & Plan (07/16/2020 9:14 AM SENIOR RESEARCH ASSOCIATE): Dark tarry stools x2 days prior to [...] lisinopril Assessment & Plan (07/16/2020 11:57 AM SENIOR RESEARCH ASSOCIATE): H/o HTN. On home losartan 25 Plan: - Continue losartan 25mg every day Assessment & Plan (02/16/2019 3:30 PM CDT): home meds: furosemide 80 mg daily and losartan 25 mg daily - pt has not been hypertensive - hold home meds Assessment & Plan (12/18/2018 3:15 PM CDT): Controlled. On cozaar. Severe mitral regurgitation 09/29/2018 Overview (09/29/2018): Added automatically from request for surgery [id number] Mitral valve insufficiency 09/29/2018 Overview (10/29/2018): Added automatically from request for surgery [id number] Assessment & Plan (02/17/2025 5:00 PM CDT): [...] 2.5-3.5) Assessment & Plan (09/03/2019 12:21 PM SENIOR RESEARCH ASSOCIATE): Patient with history of MR s/p bileaflet mechanical MVR. Management as above with regard to anticoagulation. Appears euvolemic; continue home furosemide. Assessment & Plan (08/30/2019 3:03 PM SENIOR RESEARCH ASSOCIATE): Patient with history of MR s/p bileaflet mechanical MVR. Management as above with regard to anticoagulation - Appears euvolemic; continue home lasix Assessment & Plan (08/29/2019 11:17 AM SENIOR RESEARCH ASSOCIATE): Patient with history of MR s/p bileaflet mechanical MVR; last TTE 03/2019 and physiologic at that time. Management as above with regard to anticoagulation - Appears euvolemic; continue home lasix Assessment & Plan (08/28/2019 7:48 PM SENIOR RESEARCH ASSOCIATE): - Patient with history of MR s/p bileaflet mechanical MVR; last TTE 03/2019 and physiologic at that time - Management as above with regard to anticoagulation - Appears euvolemic; continue home lasix Non-rheumatic mitral regurgitation 09/29/2018 Overview (11/14/2018): Added automatically from request for surgery [id number] Peripheral vascular disease 09/29/2018 Overview (11/19/2018): Added automatically from request for surgery [id number] Assessment & Plan (02/17/2025 5:00 PM CDT): [...] insulin Assessment & Plan (07/16/2020 11:56 AM SENIOR RESEARCH ASSOCIATE): Home diet controlled. A1c 6.6. Total cholesterol 121, HDL 23, LDL 63 Plan: - LDSSI while inpatient - Consistent carb diet - Atorva 10 for ppx Assessment & Plan (07/16/2020 9:19 AM SENIOR RESEARCH ASSOCIATE): A1C 6.6%; diet controlled at home -Start LDSSI given glucose 210 Assessment & Plan (09/03/2019 12:17 PM SENIOR RESEARCH ASSOCIATE): Diet controlled. Remains normoglycemic. Assessment & Plan (08/29/2019 12:19 PM SENIOR RESEARCH ASSOCIATE): Diet controlled. BS normoglycemic. Assessment & Plan (08/28/2019 7:52 PM SENIOR RESEARCH ASSOCIATE): - Diet controlled. BS normoglycemic. Assessment & [...] weekly Assessment & Plan (07/16/2020 11:49 AM SENIOR RESEARCH ASSOCIATE): H/o SLE, diagnosed as teenager reportedly. W/ [...] a/c Assessment & Plan (07/16/2020 9:17 AM SENIOR RESEARCH ASSOCIATE): No evidence of flare -Cont plaquenil -Plan to start heparin drip when INR <2.5 given hx of mechanical MV and APLS Assessment & Plan (09/03/2019 12:18 PM SENIOR RESEARCH ASSOCIATE): No evidence of flare. Continue HCQ as before. Followed by Rheumatology here as outpatient. Assessment & Plan (08/30/2019 3:12 PM SENIOR RESEARCH ASSOCIATE): Patient with SLE followed by Rheumatology as outpatient - Continue HCQ - No current SLE flare; continue to monitor Assessment & Plan (08/29/2019 12:19 PM SENIOR RESEARCH ASSOCIATE): Patient with SLE followed by Rheumatology as outpatient - Continue HCQ - No current SLE flare; continue to monitor Assessment & Plan (08/28/2019 7:52 PM SENIOR RESEARCH ASSOCIATE): - Patient with SLE followed by Rheumatology as outpatient - Continue HCQ - No current SLE flare; continue to monitor Assessment & Plan (02/23/2019 2:12 PM CDT): Patient has known diagnosis of SLE, followed by rheumatology at [facility] (last seen 01/25/2019) - continue hydroxychloroquine [...] 07/16/2020 Assessment & Plan (07/16/2020 9:17 AM SENIOR RESEARCH ASSOCIATE): P/w sore throat, cough, PRABHAKAR, nausea, malaise, [...] 08/31/2019 Assessment & Plan (08/31/2019 9:44 AM SENIOR RESEARCH ASSOCIATE): Reports frequent palpitations yesterday associated with shortness of breath and fatigue yesterday. None since admission --Continue to monitor on tele Assessment & Plan (08/29/2019 12:24 PM SENIOR RESEARCH ASSOCIATE): Reports frequent palpitations yesterday associated with shortness of breath and fatigue yesterday. None since admission --Continue to monitor on tele
--- OUTSIDE RECORDS SUMMARY | 2025-02-23 16:13 | XMS_ITS | Encounter Summary ---
Author Organization [facility] Address [address] [place] [address] Phone Care Team Providers Care Vp Home Health Name Role Phone Howard Bourgeois MD Primary Care Provider [phone] Sean Olguin MD Unavailable Radha Sim MD Unavailable [phone] Rajwinder Carlos MD, Jackson Hinkle Unavailable [phone] Enrike Schrader MD Unavailable [phone] Cara Santacruz RN Unavailable [phone] Marium Tobar [facility] Unavailable [phone] Guido Concepcion MD PhD Unavailable [phone] Encounter Details Date Type Department Care Team [...] attend chur ch or scientology services? Never 07/20/2020 Do you belong to any clubs o r organizations such as presybeterian groups, unions, fraternal or athletic groups, or [...] on file Legal Sex Female 7:25 AM VOLUMETRIC WEIGHER Gender Identity Female 06/07/2021 5:59 PM CDT [...] COVID: Suspected 08/12/2024 08/12/2024 08/12/2024 8:15 AM VOLUMETRIC WEIGHER documented as of this encounter Care Teams Vp Home Health Relationship Specialty Start Date End Date Howard Bourgeois MD PCP - General 11/29/16 Sean Olguin MD Consulting Physician Cardiovascular Disease 10/21/18 Radha Sim MD Consulting Physician Internal Medicine 12/26/18 Jackson Purdy Jr., MD Surgeon General Surgery 12/26/18 Enrike Schrader MD Consulting Physician Cardiology 12/26/18 Cara Santacruz RN [phone] [address] [facility] Outpatient Paving Stone Installer 01/12/24 01/14/24 Marium Tobar, ELECTRICIAN RESEARCH [address] [facility] ([facility] Mailstop [phone] [place] [address] [facility] Outpatient Paving Stone Installer 08/27/24 09/21/24 Guido Concepcion MD PhD [address] [facility] DEPT RADIATION ONCOLOGY, [place] [address] Radiation Oncologist Radiation Oncology 11/23/24 documented as of this encounter
--- OUTSIDE RECORDS SUMMARY | 2025-02-23 16:13 | XMS_ITS | Encounter Summary ---
Author Organization [facility] Address [address] [place] [address] Care Team Providers Care Mica Splitter Name Role Phone Howard Bourgeois MD Primary Care Provider [phone] Sean Olguin MD Unavailable Radha Sim MD Unavailable [phone] Rajwinder Carlos MD, Jackson Hinkle Unavailable [phone] Enrike Schrader MD Unavailable [phone] Cara Santacruz RN Unavailable [phone] Marium Tobar [facility] Unavailable [phone] Guido Concepcion MD PhD Unavailable [phone] Encounter Details Date Type Department Care Team (Late st Contact Info) Description 10/18/2021 Telephone [facility] [address] [facility] [address] [place] [id number] Etelvina Angelo RN Social History Tobacco Use [...] often do you attend chur ch or quaker services? Never 07/20/2020 Do you belong to any clubs o r organizations such as mormon groups, unions, fraternal or athletic groups, or [...] on file Legal Sex Female 7:25 AM AIRFIELD DEFENCE GUARD Gender Identity Female 06/07/2021 5:59 PM CDT [...] COVID: Suspected 08/12/2024 08/12/2024 08/12/2024 8:15 AM AIRFIELD DEFENCE GUARD documented as of this encounter Care Teams Mica Splitter Relationship Specialty Start Date End Date Howard Bourgeois MD PCP - General 11/29/16 Sean Olguin MD Consulting Physician Cardiovascular Disease 10/21/18 Radah Sim MD Consulting Physician Internal Medicine 12/26/18 Jackson Purdy Jr., MD Surgeon General Surgery 12/26/18 Enrike Schrader MD Consulting Physician Cardiology 12/26/18 Cara Santacruz RN [address] [facility] [address] [place] [address] [facility]OP Outpatient Recapper 01/12/24 01/14/24 Marium Tobar LCSW [address] [facility] ([facility] Mailstop [phone] [place] [address] SHOP Outpatient Recapper 08/27/24 09/21/24 Guido Concepcion MD PhD [address] [facility] DEPT RADIATION ONCOLOGY, [place] [address] Radiation Oncologist Radiation Oncology 11/23/24 documented as of this encounter
--- OUTSIDE RECORDS SUMMARY | 2025-02-23 16:13 | XMS_ITS | Encounter Summary ---
Author Organization [facility] Address [address] [place] [address] Care Team Providers Care Sound Editor Name Role Phone Howard Bourgeois MD Primary Care Provider [phone] Sean Olguin MD Unavailable Radha Sim MD Unavailable [phone] Rajwinder Carlos MD, Jackson NJohnny Unavailable [phone] Enrike Schrader MD Unavailable [phone] Guido Concepcion MD PhD Unavailable [phone] Encounter Details Date Type Department Care Team (Late st Contact Info) Description 12/08/[address] [facility] Advanced Medicine Radiation Oncology [address] [facility] Advanced Medicine [facility] [place] [address] Katarina Buchanan RN Social History Tobacco Use Types Packs/Day Years Used Date Smoking Tobacco: Former Cigarettes 0.5 18 0 10/2003 - 10/2021 Passive Smoke Exposure: Never Smokeless Tobacco: Never Comments:< 1/2 pack daily Alcohol Use Standard Drinks/Week Comments Yes 0 (1 standard drink = 0.6 oz pur e alcohol) rarely [facility] Utilities Answer Date Recorded In the past 12 months has [employer] electric, gas, oil, or water company threatened [...] often do you attend chur ch or spiritism services? Never 08/27/2024 Do you belong to any clubs o r organizations such as advent groups, unions, fraternal or athletic groups, or [...] any time in the past 12 m [facility], were you homeless or living in a retirement (including now)? No 08/27/2024 Personal Safety Answer Date Recorded Have you ever been in or are you currently in a harmful physical or emotional relationship or is someone making you feel afraid or unsafe? Denies 12/06/2024 Comments No Sex and Gender Information Value Date Recorded Sex Assigned at Not on file Legal Sex Female 7:25 AM ADZING AND BORING MACHINE HELPER Gender Identity Female 06/07/2021 5:59 PM CDT Sexual Orientation Straight 06/07/2021 5: 59 PM CDT documented as of this encounter Plan of Treatment Not on file documented as of this encounter Visit Diagnoses Not on filedocumented in this encounter Care Teams Sound Editor Relationship Specialty Start Date End Date Howard Bourgeois MD PCP - General 11/29/16 Sean Olguin MD Consulting Physician Cardiovascular Disease 10/21/18 Radha Sim MD Consulting Physician Internal Medicine 12/26/18 Jackson Purdy Jr., MD Surgeon General Surgery 12/26/18 Enrike Schrader MD Consulting Physician Cardiology 12/26/18 Guido Concepcion MD PhD [address] [facility] DEPT RADIATION ONCOLOGY, [place] [address] Radiation Oncologist Radiation Oncology 11/23/24 documented as of this encounter
--- OUTSIDE RECORDS SUMMARY | 2025-02-23 16:13 | XMS_ITS | Encounter Summary ---
Author Organization [facility] Healthcare Address [address] [place] [address] Care Team Providers Care Heater Mechanic Name Role Phone Howard Bourgeois MD Primary Care Provider [phone] Sean Olguin MD Unavailable Radha Sim MD Unavailable [phone] Rajwinder Carlos MD, Jackson NJohnny Unavailable [phone] Enrike Schrader MD Unavailable [phone] Guido Concepcion MD PhD Unavailable [phone] Encounter Details Date Type Department Care Team (Late st Contact Info) Description 12/02/2024 Telephone [facility] Advanced Medicine Radiation Oncology [address] [facility] Advanced Medicine [facility] [place] [address] Katarina Buchanan RN Social History Tobacco Use Types Packs/Day Years Used Date Smoking Tobacco: Former Cigarettes 0.5 18 0 10/2003 - 10/2021 Passive Smoke Exposure: Never Smokeless Tobacco: Never Comments:< 1/2 pack daily Alcohol Use Standard Drinks/Week Comments Yes 0 (1 standard drink = 0.6 oz pur e alcohol) rarely [facility] Utilities Answer Date Recorded In the past 12 months has [facility] electric, gas, oil, or water company threatened [...] any clubs o r organizations such as buddhist groups, unions, fraternal or athletic groups, or [...] were you homeless or living in a chcf (including now)? No 08/27/2024 Personal Safety Answer Date Recorded Have you ever been in or are you currently in a harmful physical or emotional relationship or is someone making you feel afraid or unsafe? Denies 12/06/2024 Comments No Sex and Gender Information Value Date Recorded Sex Assigned at Not on file Legal Sex Female 7:25 AM PHYSICAL EDUCATION INSTRUCTOR Gender Identity Female 06/07/2021 5:59 PM CDT Sexual Orientation Straight 06/07/2021 5: 59 PM CDT documented as of this encounter Plan of Treatment Not on file documented as of this encounter Visit Diagnoses Not on filedocumented in this encounter Care Teams Heater Mechanic Relationship Specialty Start Date End Date Howard Bourgeois MD PCP - General 11/29/16 Sean Olguin MD Consulting Physician Cardiovascular Disease 10/21/18 Radha Sim MD Consulting Physician Internal Medicine 12/26/18 Jackson Purdy Jr., MD Surgeon General Surgery 12/26/18 Enrike Schrader MD Consulting Physician Cardiology 12/26/18 Guido Concepcion MD PhD [address] [facility] ONCOLOGY, [place] [address] Radiation Oncologist Radiation Oncology 11/23/24 documented as of this encounter
--- NOTE | 2025-02-23 18:24 | P.HP_ITS ---
H&P: HPI History of Present Illness Date/Time: 02/23/25 18:24 Chief Complaint: Stroke-like symptoms Narrative: 50-year-old female past medical history of heart disease, diabetes, on chronic anticoagulation warfarin presents the hospital with stroke-like symptoms. She states that know where she was unable to speak and she felt like she had a facial droop. Her symptoms lasted about an hour. She feels that the symptoms have completely resolved. She states about a month ago she was hospitalized for CHF of exacerbation and had her diuretics increased however she is still struggling with edema. Patient denies nausea running fever chills, dysuria. Lab work shows INR of 2.7 sodium of 134, AST 54, ALT 48, alkaline phos 237. CT head and neck shows no acute intercranial process. Small pericardial effusion versus pericardial thickening and mild interstitial edema versus respiratory infection Review of Systems Review of Systems: 12 systems were reviewed and are negativ e except for as per HPI. [facility] Family History Family History (Updated 02/23/25 @ 21:15 by Trinity Cleaning RN) Mother Lupus Heart failure Father Cirrhosis Other Parents Social History Social History Smoking packs per day: 1 Smoking cigarettes per day: 20.0 Smoking status: Former smoker Tobacco type: cigarettes Alcohol intake: never Substance use: never Substance use type: does not use Do You Feel Safe in your Home?: Yes Lack of Transportation: No Lack of Food: Never True Current Housing: I Have Housing Concerned About Future Housing: No Difficulty Paying Gas/Electric Bills: No Difficulty Paying for Meds: No Currently Unemployed: No Education: High School Diploma/GED Difficulty w/ Childcare or Family Care: No Spiritual care concerns: No Meds Home Medications and Allergies Home Medications ?Medication ?Instructions ?Recorded ?Confirmed ?Type albuterol sulfate 90 mcg/actuation 2 puff inhalation Q4-6H PRN 02/23/25 02/23/25 History aerosol inhaler (Ventolin HFA) shortness of breath or wheezing amoxicillin 500 mg capsule 500 mg PO TID 02/23/25 02/23/25 History aspirin 81 mg capsule 81 mg PO DAILY 02/23/25 02/23/25 History atorvastatin 40 mg tablet 40 mg PO DAILY 02/23/25 02/23/25 History azathioprine 100 mg tablet 100 mg PO HS 02/23/25 02/23/25 History belimumab 200 mg/mL subcutaneous 200 mg subcut WEEKLY 02/23/25 02/23/25 History auto-injector (Benlysta) budesonide-formoterol HFA 80 2 puff inhalation BID 02/23/25 02/23/25 History mcg-4.5 mcg/actuation aerosol inhaler (Symbicort) bupropion HCl 150 mg tablet,12 hr 150 mg PO BID 02/23/25 02/23/25 History sustained-release empagliflozin 25 mg tablet 25 mg PO DAILY 02/23/25 02/23/25 History (Jardiance) hydroxychloroquine 200 mg tablet 200 mg PO QPM 02/23/25 02/23/25 History lancets 33 gauge (OneTouch Delica 02/23/25 02/23/25 History Plus Lancet) lisinopril 10 mg tablet 10 mg PO QPM 02/23/25 02/23/25 History metoprolol tartrate 25 mg tablet 25 mg PO BID 02/23/25 02/23/25 History naloxone 4 mg/actuation nasal spray 1 spray intranasal Q2M PRN opioid 02/23/25 02/23/25 History overdose oxybutynin chloride 5 mg tablet 5 mg PO BID 02/23/25 02/23/25 History semaglutide 1 mg/dose (4 mg/3 mL) 1 mg subcut WEEKLY 02/23/25 02/23/25 History subcutaneous pen injector (Ozempic) spironolactone 25 mg tablet 25 mg PO DAILY 02/23/25 02/23/25 History torsemide 20 mg tablet 40 mg PO DAILY 02/23/25 02/23/25 History tramadol 50 mg tablet 50 mg PO Q6H PRN pain 02/23/25 02/23/25 History venlafaxine 75 mg tablet 75 mg PO DAILY 02/23/25 02/23/25 History warfarin 6 mg tablet 6 mg PO QPM 02/23/25 02/23/25 History Allergies Allergy/AdvReac Type Severity Reaction Status Date / Time PCN Allergy Mild Itching Uncoded 02/23/25 18:54 Vital Signs Vital Signs - 24 hr 02/23/25 15:06 02/23/25 15:12 02/23/25 15:13 Temperature 97.8 F 97.8 F Pulse Rate 65 68 68 Respiratory Rate 16 16 16 Blood Pressure 130/74 130/74 130/74 Pulse Oximetry 94 94 95 Oxygen Delivery Room Air 02/23/25 15:23 02/23/25 18:15 Temperature Pulse Rate 70 68 Respiratory Rate 19 Blood Pressure 131/79 Pulse Oximetry 93 Oxygen Delivery Exam Narrative: General: well appearing, appears stated age. HEENT: normocephalic, atraumatic. Mucous membranes moist. EOMI, PERRLA, bilateral sclera anicteric, no conjunctival injection. Neck supple without JVD, lymphadenopathy, or bruit. Respiratory: clear to ascultation bilaterally. No rales/rhonic/wheezes. Cardiovascular: Regular rate and rhythm, normal S1-S2 upon ascultation. No murm urs, rubs, or clicks. PMI is nondisplaced, capillary refill less than 3 second. Abdomen: Soft, round, no pulsatile masses, nondistended and nontender. No rebound, no guarding. No CVA tenderness, no hepatosplenomegaly. Bowel sounds present to all four quadrants. No high pitch or tinkling sounds, resonant to percussion. Extremities: No cyanosis, clubbing, or edema present. Pulses are palpable 2/2. Active ROM to all four extremities. Neuro: Alert and orientated x 4. PERRLA. Cranial nerves 2-12 intact without focal deficit. Skin: Warm, dry, and intact, without rash, erythema, or lesion. Psych: pleasant, cooperative, normal speech, normal affect, no hallucinations, no dysarthia H&P: Results Labs Labs: Short CBC 02/23/25 Range/Units 15:26 WBC 6.7 (4.5-10.0) K/mm3 Hgb 11.9 L (12.0-15.0) g/dL Hct 38.0 (37.0-47.0) % Plt Count 328 (150-375) k/mm3 BMP 02/23/25 15:26 Sodium 134 L Potassium 4.1 Chloride 100 Carbon Dioxide 24 BUN 17 Creatinine 0.92 Glucose 101 Calcium 8.8 Cardiac Enzymes 02/23/25 Range/Units 15:26 Troponin I 0.014 (0.000-0.034) ng/mL Liver Function 02/23/25 Range/Units 15:26 Total Bilirubin 0.4 (0.2-1.3) mg/dL AST 54 H (14-36) U/L ALT 48 H (6-35) U/L Alkaline Phosphatase 237 H (38-126) U/L Albumin 3.9 (3.5-5.1) g/dL Assessment and Plan Assessment and plan (1) Transient cerebral ischemia: Code(s): G45.9 - Transient cerebral ischemic attack, unspecified Status: Acute Assessment and Plan: Neurology consulted Plan for MRI in the morning N NIH 0 (2) Pericardial effusion: Code(s): I31.39 - Other pericardial effusion (noninflammatory) Status: Acute Assessment and Plan: Cardiology consulted pending recommendations (3) Pulmonary edema: Code(s): J81.1 - Chronic pulmonary edema Status: Acute Assessment and Plan: Versus infection versus CHF Cardiology consulted BNP 93 Will start home diuretics Continue Jardiance (4) Diabetes: Code(s): E11.9 - Type 2 diabetes mellitus without complications Status: Acute Assessment and Plan: Diabetic diet Accu-Cheks a.c. HS SSI (5) Mechanical heart valve present: Code(s): Z95.2 - Presence of prosthetic heart valve Status: Acute Assessment and Plan: Continue warfarin and aspirin Daily INR Quality VTE Prophylaxis VTE prophylaxis: mechanical ordered and pharmacologic ordered Hospitalist [facility] Advance Care Plan I have confirmed that the patient's Advanced Care Plan is present, code status is documented, or surrogate decision maker is listed in patient medical record.: Yes Medication Reconciliation I have utilized all available resources to obtain, update and review the patients current medications (includes all prescriptions, OTC, herbals, cannabis, and nutritional supplements).: Yes
[2025-02-23 19:49] LABS: NT Pro B Type Natriuretic Pept 180 pg/mL (19.9-100)
[2025-02-23] MEDS: ACETAMINOPHEN 325 MG TABLET 650 MG PO (21:41)
--- NOTE | 2025-02-23 23:24 | PCRCNOTE ---
Window of time for administration has passed. See next scheduled administration.
[2025-02-24] VITALS (15 sets, daily range): BP systolic 105–136; BP diastolic 67–101; PULSE 63–75; RESP 18–23; TEMP 36.4–36.5; O2SAT 92–96; BMI 47.5
--- NOTE | 2025-02-24 | ECHO_ITS ---
Patient Info Name: Fransisca Etienne Case Age: 50 years : 1975 Gender: Female Ht: 64 in Wt: 279 lbs BSA: 2.47 m2 HR: 63 bpm BP: 116 / 72 mmHg Technical Quality: Good Exam Date: 02/24/2025 2:27 PM Patient Status: I Admit Date: 02/24/2025 Exam Type: CA echo dop color flow w con Complete two-dimensional, color flow and Doppler transthoracic echocardiogram is performed with contrast to opacify the left ventricle and to improve the deliniation of the left ventricle endocardial borders. Staff Referring Physician: Teetee Rangel Hide Stretcher Hand: Madalyn Nixon Attending Provider: Jackie Ambriz MD Contrast/Agitated Saline Contrast/Ag. Saline: Definity Amount: 2.00 ml Administered By: Madalyn Nixon Existing IV Access: Yes IV Access Condition: patent with no signs of infiltration Summary 1. Normal left ventricular size and systolic function, definity contrast used to improve visualization. 2. Dilated left atrium. 3. Normally functioning mechanical mitral valve. Left Ventricle Left ventricular chamber dimension is normal. Left ventricular systolic function is normal, estimated at 60-65. The left ventricular diastolic function is normal. Right Ventricle Right ventricular chamber dimension is normal. Left Atria Left atrial chamber dimension is moderately enlarged. Right Atria Right atrial chamber dimension is normal. Aortic Valve The aortic valve is normal. Pulmonic Valve The pulmonic valve is not well visualized. Mitral Valve There is no regurgitation of the mechanical mitral valve. Tricuspid Valve The tricuspid valve leaflets are normal. There is trace tricuspid valve regurgitation. Pericardium/Pleural The pericardium appears normal. Aorta The aortic root size at the sinus of Valsalva is normal. Left Ventricular Outflow Tract Name Value Normal LVOT 2D LVOT Diameter 2.3 cm LVOT Doppler LVOT Peak Velocity 110 cm/s LVOT Peak Gradient 5 mmHg LVOT Mean Gradient 2 mmHg LVOT VTI 20 cm LVOT VTI/AV VTI Ratio 0.6 LVOT Stroke Volume 81 ml LVOT CO 5.0 l/min LVOT CI 2.0 l/min/m2 Pulmonic Valve Name Value Normal PV Doppler PV Peak Velocity 114 cm/s PV Peak Gradient 5 mmHg Mitral Valve Name Value Normal MV Doppler MV Peak Gradient 10 mmHg MV Mean Gradient 4 mmHg MV Area (Cont Eq VTI) 1.9 cm2 MV Regurgitation Doppler MR Peak Gradient 72 mmHg MV Diastolic Function MV E Peak Velocity 146 cm/s MV A Peak Velocity 79 cm/s MV E/A 1.9 MV Decel Time (PW) 281 ms Tricuspid Valve Name Value Normal TV Regurgitation Doppler TR Peak Velocity 254 cm/s TR Peak Gradient 24 mmHg TV Annular TDI TV Lateral Aniyah s' Velocity 13.4 cm/s >=9.5 Aortic Valve Name Value Normal AV Doppler AV Peak Velocity 168 cm/s AV Peak Gradient 11 mmHg AV Mean Gradient 6 mmHg AV VTI 33 cm AV Area (Cont Eq VTI) 2.5 cm2 >=3.0 AV Area (Cont Eq Ariel) 2.7 cm2 AV DI (Ariel) 0.66 AV Regurgitation 2D LVOT Area 4.0 cm2 Ventricles Name Value Normal LV Dimensions 2D/MM IVS Diastolic Thickness (2D) 0.8 cm 0.6-1.0 LVID Diastole (2D) 5.3 cm 3.8-5.2 LVIW Diastolic Thickness (2D) 1.0 cm 0.6-0.9 LVID Systole (2D) 3.1 cm 2.2-3.5 LVOT Diameter 2.3 cm LV Mass (2D Cubed) 177.88 g 67.00-162.00 LV Mass Index (2D Cubed) 72 g/m2 43-95 Relative Wall Thickness (2D) 0.36 <=0.42 LV Fractional Shortening/Ejection Fraction 2D/MM LV Fractional Shortening (2D) 42 % 27-45 LV EF (2D Teichholz) 72 % LV Diastolic Volume (4C MOD) 163 ml LV EF (4C MOD) 58 % LV Diastolic Volume (2C MOD) 158 ml LV EF (2C MOD) 69 % LV Diastolic Volume (BP MOD) 160 ml 46-106 LV Diastolic Volume Index (BP MOD) 65 ml/m2 29-61 LV Systolic Volume (BP MOD) 61 ml 14-42 LV Systolic Volume Index (BP MOD) 25 ml/m2 8-24 LV EF (BP MOD) 62 % 54-74 LV Diastolic Length (4C) 9.2 cm LV Systolic Length (4C) 7.4 cm LV Stroke Volume (4C MOD) 94 ml Atria Name Value Normal RA Dimensions RA Systolic Major [place] Length (4C) 5.4 cm 2.2-2.8 RA Area (4C) 17.4 cm2 <=18.0 Report Signatures
[2025-02-24 05:36] LABS: Hematocrit 39.1 % (37.0-47.0); Hemoglobin 11.8 g/dL (12.0-15.0); Immature Granulocyte Percent A 0.5 % (0-0.5); Lymphocytes Absolute Auto 0.66 K/mm3 (0.9-3.2); Mean Corpuscular HGB Conc 30.2 g/dl (32-36); Mean Corpuscular Hemoglobin 25.5 pg (26-34); Mean Corpuscular Volume 84.4 fl (80-100); Nucleated Red Blood Cells Absolute Auto 0.000 K/mm3 (0.0-0.012); Nucleated Red Blood Cells Perc 0.0 % (0.0-0.2); Platelet Count Result 312 k/mm3 (150-375); Red Blood Count 4.63 M/mm3 (4.2-5.4); White Blood Count 5.8 K/mm3 (4.5-10.0)
[2025-02-24 06:07] LABS: INR 2.2; Prothrombin Time 24.3 Seconds (11.1-14.7)
[2025-02-24 06:14] LABS: Anion Gap 8 mmol/L (4-12); Blood Urea Nitrogen 13 mg/dL (7-17); Calcium 9.1 mg/dL (8.4-10.2); Carbon Dioxide 26 mmol/L (22-30); Chloride 104 mmol/L (98-107); Estimated CRCL calculation 95 ml/min; Estimated Glomerular Filt Rate > 60; Glucose 92 mg/dL (65-110); Potassium 4.3 mmol/L (3.4-5.0); Sodium 138 mmol/L (137-145)
[2025-02-24] MEDS: VENLAFAXINE HCL 75 MG TABLET PO (09:18)
[2025-02-24] MEDS: ATORVASTATIN 40 MG TABLET PO (09:18)
[2025-02-24] MEDS: SPIRONOLACTONE 25 MG TABLET PO (09:18)
[2025-02-24] MEDS: TORSEMIDE 20 MG TABLET 40 MG PO (09:18)
[2025-02-24] MEDS: METOPROLOL TARTRATE 25 MG TABLET PO ×2 (09:18→20:49)
[2025-02-24] MEDS: EMPAGLIFLOZIN 25 MG TABLET PO (09:19)
[2025-02-24] MEDS: buPROPion HCL SR (12 HR) 150 MG TAB PO ×2 (09:19→20:49)
[2025-02-24] MEDS: ASPIRIN 81 MG ENTERIC TABLET PO (09:19)
[2025-02-24] MEDS: FLUTICASONE/SALMETEROL 45-21 MCG INHALER 1 PUFF 2 PUFF INHALATION ×2 (09:19→19:47)
[2025-02-24] MEDS: ONDANSETRON INJ 4 MG/2 ML VIAL IV PUSH ×2 (10:36→16:36)
[2025-02-24] MEDS: traMADol HCL (*CRX) 50 MG TABLET PO ×2 (10:37→16:34)
--- NOTE | 2025-02-24 10:51 | PM.CNCAR ---
Assessment and Plan Assessment and plan (1) Pericardial effusion: Code(s): I31.39 - Other pericardial effusion (noninflammatory) Status: Acute (2) Mechanical heart valve present: Code(s): Z95.2 - Presence of prosthetic heart valve Status: Acute (3) Chronic diastolic heart failure: Code(s): I50.32 - Chronic diastolic (congestive) heart failure Status: Acute Plan 50-year-old woman with mechanical mitral valve replacement on warfarin, chronic diastolic heart failure, lupus, and diabetes found to be aphasic with facial droop for which she presented for further evaluation of stroke/TIA Pericardial effusion -no hemodynamic compromise -recommend to follow up with Dr. Leo outpatient Mechanical mitral valve replacement -continue aspirin 81 mg p.o. daily -keep INR levels 2.5-3.5 -if INR continues to be subtherapeutic, we will need to bridge with Lovenox Pleuritic chest discomfort -has been stable for several years -I have encouraged her to follow-up with Dr. 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 Will sign off. History of Present Illness History of Present Illness Consult date/time: 02/24/25 10:51 Requesting physician: Teetee Rangel APRN Reason For Visit: tia Narrative: 50-year-old woman with mechanical mitral valve replacement on warfarin, chronic diastolic heart failure, lupus, and diabetes found to be aphasic with facial droop for which she presented for further evaluation of stroke/TIA. Her symptoms have since resolved. She has chest discomfort that she has been experiencing for several years now and typically the pain worsens when she is laying down or when she takes deep breaths. This has not significantly changed and duration, frequency, or severity. She was recently at [place] for similar chest discomfort for which a nuclear stress test was performed showing normal myocardial perfusion imaging. Denies any syncopal events. Review of Systems Cardiovascular: Cardiovascular: Reports as per HPI Respiratory: Respiratory: Reports as per HPI [facility] Family History Family History (Updated 02/23/25 @ 21:15 by Trinity Cleaning RN) Mother Lupus Heart failure Father Cirrhosis Other Parents Social History Social History Smoking packs per day: 1 Smoking cigarettes per day: 20.0 Smoking status: Former smoker Tobacco type: cigarettes Alcohol intake: never Substance use: never Substance use type: does not use Do You Feel Safe in your Home?: Yes Lack of Transportation: No Lack of Food: Never True Current Housing: I Have Housing Concerned About Future Housing: No Difficulty Paying Gas/Electric Bills: No Difficulty Paying for Meds: No Currently Unemployed: No Education: High School Diploma/GED Difficulty w/ Childcare or Family Care: No Spiritual care concerns: No Meds Home Medications and Allergies Home Medications ?Medication ?Instructions ?Recorded ?Confirmed ?Type albuterol sulfate 90 mcg/actuation 2 puff inhalation Q4-6H PRN 02/23/25 02/23/25 History aerosol inhaler (Ventolin HFA) shortness of breath or wheezing amoxicillin 500 mg capsule 500 mg PO TID 02/23/25 02/23/25 History aspirin 81 mg capsule 81 mg PO DAILY 02/23/25 02/23/25 History atorvastatin 40 mg tablet 40 mg PO DAILY 02/23/25 02/23/25 History azathioprine 100 mg tablet 100 mg PO HS 02/23/25 02/23/25 History belimumab 200 mg/mL subcutaneous 200 mg subcut WEEKLY 02/23/25 02/23/25 History auto-injector (Benlysta) budesonide-formoterol HFA 80 2 puff inhalation BID 02/23/25 02/23/25 History mcg-4.5 mcg/actuation aerosol inhaler (Symbicort) bupropion HCl 150 mg tablet,12 hr 150 mg PO BID 02/23/25 02/23/25 History sustained-release empagliflozin 25 mg tablet 25 mg PO DAILY 02/23/25 02/23/25 History (Jardiance) hydroxychloroquine 200 mg tablet 200 mg PO QPM 02/23/25 02/23/25 History lancets 33 gauge (OneTouch Delica 02/23/25 02/23/25 History Plus Lancet) lisinopril 10 mg tablet 10 mg PO QPM 02/23/25 02/23/25 History metoprolol tartrate 25 mg tablet 25 mg PO BID 02/23/25 02/23/25 History naloxone 4 mg/actuation nasal spray 1 spray intranasal Q2M PRN opioid 02/23/25 02/23/25 History overdose oxybutynin chloride 5 mg tablet 5 mg PO BID 02/23/25 02/23/25 History semaglutide 1 mg/dose (4 mg/3 mL) 1 mg subcut WEEKLY 02/23/25 02/23/25 History subcutaneous pen injector (Ozempic) spironolactone 25 mg tablet 25 mg PO DAILY 02/23/25 02/23/25 History torsemide 20 mg tablet 40 mg PO DAILY 02/23/25 02/23/25 History tramadol 50 mg tablet 50 mg PO Q6H PRN pain 02/23/25 02/23/25 History venlafaxine 75 mg tablet 75 mg PO DAILY 02/23/25 02/23/25 History warfarin 6 mg tablet 6 mg PO QPM 02/23/25 02/23/25 History Allergies Allergy/AdvReac Type Severity Reaction Status Date / Time PCN Allergy Mild Itching Uncoded 02/23/25 18:54 Vital Signs Vital Signs - 24 hr 02/23/25 15:06 02/23/25 15:12 02/23/25 15:13 Temperature 36.6 C 36.6 C Pulse Rate 65 68 68 Respiratory Rate 16 16 16 Blood Pressure 130/74 130/74 130/74 Pulse Oximetry 94 94 95 Oxygen Delivery Room Air 02/23/25 15:23 02/23/25 18:15 02/23/25 19:46 Temperature 36.6 C Pulse Rate 70 68 64 Respiratory Rate 19 18 Blood Pressure 131/79 116/72 Pulse Oximetry 93 94 Oxygen Delivery 02/23/25 22:00 02/24/25 00:30 02/24/25 03:05 Temperature 36.6 C Pulse Rate 64 63 Respiratory Rate 20 23 H Blood Pressure 116/72 Pulse Oximetry 94 95 Oxygen Delivery CPAP CPAP 02/24/25 06:00 02/24/25 09:18 02/24/25 09:20 Temperature 36.5 C Pulse Rate 70 75 Respiratory Rate 18 Blood Pressure 136/78 Pulse Oximetry 95 96 Oxygen Delivery Room Air 02/24/25 10:21 Temperature 36.4 C Pulse Rate 69 Respiratory Rate 18 Blood Pressure 129/86 Pulse Oximetry 95 Oxygen Delivery Exam Const: General: comfortable HENMT: Mouth: Yes moist mucous membranes Eyes: EOM: EOMs intact bilaterally Neck: Neck: no JVD Resp: Effort & Inspection: normal respiratory effort Auscultation: clear to auscultation bilaterally Cardio: Rate: regular rate Rhythm: regular rhythm Other: Mechanical S1 Results Labs and Meds 02/24/25 05:14 02/24/25 05:14 Lab results: Cardiac Enzymes 02/23/25 Range/Units 15:26 AST 54 H (14-36) U/L Troponin I 0.014 (0.000-0.034) ng/mL Coagulation 02/23/25 02/24/25 Range/Units 15:26 05:14 PT 28.5 H 24.3 H (11.1-14.7) Seconds APTT 86.9 H (22.3-36.8) Seconds CBC 02/23/25 02/24/25 Range/Units 15:26 05:14 WBC 6.7 5.8 (4.5-10.0) K/mm3 RBC 4.66 4.63 (4.2-5.4) M/mm3 Hgb 11.9 L 11.8 L (12.0-15.0) g/dL Hct 38.0 39.1 (37.0-47.0) % Plt Count 328 312 (150-375) k/mm3 Lymph # (Auto) 0.94 0.66 L (0.9-3.2) K/mm3 [place] # (Auto) 0.6 0.4 (0.1-0.6) K/mm3 Eos # (Auto) 0.2 0.1 (0-0.3) K/mm3 Baso # (Auto) 0.0 0.0 (0.0-0.1) K/mm3 Comprehensive Metabolic Panel 02/23/25 02/24/25 Range/Units 15:26 05:14 Sodium 134 L 138 (137-145) mmol/L Potassium 4.1 4.3 (3.4-5.0) mmol/L Chloride 100 104 (98-107) mmol/L Carbon Dioxide 24 26 (22-30) mmol/L BUN 17 13 (7-17) mg/dL Creatinine 0.92 0.82 (0.7-1.0) mg/dL Glucose 101 92 (65-110) mg/dL Calcium 8.8 9.1 (8.4-10.2) mg/dL AST 54 H (14-36) U/L ALT 48 H (6-35) U/L Alkaline Phosphatase 237 H (38-126) U/L Total Protein 8.1 (6.3-8.2) g/dL Albumin 3.9 (3.5-5.1) g/dL Intake and Output 02/23/25 02/24/25 02/24/25 23:59 07:59 15:59 Intake Total 60 Output Total 1 Balance -1 60 Intake: Oral 60 Output: Stool 1 Other: # Unmeasured Voids 200 Number of Bowel Movements Today 1 Patient Weight 02/24/25 23:59 Weight 125.7 kg
[2025-02-24] MEDS: ACETAMINOPHEN 325 MG TABLET 650 MG PO ×2 (12:39→17:53)
--- NOTE | 2025-02-24 14:08 | P.CONNEU_ITS ---
Assessment and Plan Assessment and plan (1) Transient cerebral ischemia: Code(s): G45.9 - Transient cerebral ischemic attack, unspecified Status: Acute (2) Chronic headache: Code(s): R51.9 - Headache, unspecified; G89.29 - Other chronic pain Status: Acute (3) Mechanical heart valve present: Code(s): Z95.2 - Presence of prosthetic heart valve Status: Acute (4) Diabetes: Code(s): E11.9 - Type 2 diabetes mellitus without complications Status: Acute (5) Lupus (systemic lupus erythematosus): Code(s): M32.9 - Systemic lupus erythematosus, unspecified Status: Acute Plan the patient had difficulty with speech and numbness in the left side of the body and drooping of the face raising possibility of transient ischemic attack which resolved in 40 minutes or so. She does have risk factors and hence I agree with the following a for cerebrovascular disease. CT angiogram of the head and neck and CT scan of brain were normal. She is scheduled to have an MRI of the brain which we shall follow the results. In the meanwhile she should be treated with a continuing use of anticoagulation and statins. She may require some preventive therapy for recurrent headaches the due course. Consult date: 02/24/25 HPI: Fransisca Schwab is a 50 year old female With history of a spell where she could not talk for about 40 minutes. She also had numbness on the left side of the body as well as headache. Patient is still having headache today. She generally has headache up to 2 times a week. She started having headache in her 30s when she was also diagnosed to have lupus erythematosus. She was also found to have lupus anticoagulants positivity and she had a mitral valve replacement with mechanical valve. She is on anticoagulation. Her numbness in the left side as well as speech improved and have not recurred. She has history of diabetes mellitus. A CT angiogram of the head and neck was performed which did not show any abnormality. A CT scan of the brain was also performed which did not show any significant abnormalities. Patient is scheduled to have an MRI of the brain. The headaches tend to be in frontotemporal area but seem to be around head also sometimes. Review of Systems 2 Review of Systems: All systems reviewed & are unremarkable except as noted in HPI and below [facility] Past Medical History Medical History (Updated 02/24/25 @ 14:13 by Clinton Reyez MD) Lupus (systemic lupus erythematosus) Chronic headache Family History Family History (Updated 02/23/25 @ 21:15 by Trinity Cleaning RN) Mother Lupus Heart failure Father Cirrhosis Other Parents Social History Social History Smoking packs per day: 1 Smoking cigarettes per day: 20.0 Smoking status: Former smoker Tobacco type: cigarettes Alcohol intake: never Substance use: never Substance use type: does not use Do You Feel Safe in your Home?: Yes Lack of Transportation: No Lack of Food: Never True Current Housing: I Have Housing Concerned About Future Housing: No Difficulty Paying Gas/Electric Bills: No Difficulty Paying for Meds: No Currently Unemployed: No Education: High School Diploma/GED Difficulty w/ Childcare or Family Care: No Spiritual care concerns: No Meds Home Medications and Allergies Home Medications ?Medication ?Instructions ?Recorded ?Confirmed ?Type albuterol sulfate 90 mcg/actuation 2 puff inhalation Q4-6H PRN 02/23/25 02/23/25 History aerosol inhaler (Ventolin HFA) shortness of breath or wheezing amoxicillin 500 mg capsule 500 mg PO TID 02/23/25 02/23/25 History aspirin 81 mg capsule 81 mg PO DAILY 02/23/25 02/23/25 History atorvastatin 40 mg tablet 40 mg PO DAILY 02/23/25 02/23/25 History azathioprine 100 mg tablet 100 mg PO HS 02/23/25 02/23/25 History belimumab 200 mg/mL subcutaneous 200 mg subcut WEEKLY 02/23/25 02/23/25 History auto-injector (Benlysta) budesonide-formoterol HFA 80 2 puff inhalation BID 02/23/25 02/23/25 History mcg-4.5 mcg/actuation aerosol inhaler (Symbicort) bupropion HCl 150 mg tablet,12 hr 150 mg PO BID 02/23/25 02/23/25 History sustained-release empagliflozin 25 mg tablet 25 mg PO DAILY 02/23/25 02/23/25 History (Jardiance) hydroxychloroquine 200 mg tablet 200 mg PO QPM 02/23/25 02/23/25 History lancets 33 gauge (OneTouch Delica 02/23/25 02/23/25 History Plus Lancet) lisinopril 10 mg tablet 10 mg PO QPM 02/23/25 02/23/25 History metoprolol tartrate 25 mg tablet 25 mg PO BID 02/23/25 02/23/25 History naloxone 4 mg/actuation nasal spray 1 spray intranasal Q2M PRN opioid 02/23/25 02/23/25 History overdose oxybutynin chloride 5 mg tablet 5 mg PO BID 02/23/25 02/23/25 History semaglutide 1 mg/dose (4 mg/3 mL) 1 mg subcut WEEKLY 02/23/25 02/23/25 History subcutaneous pen injector (Ozempic) spironolactone 25 mg tablet 25 mg PO DAILY 02/23/25 02/23/25 History torsemide 20 mg tablet 40 mg PO DAILY 02/23/25 02/23/25 History tramadol 50 mg tablet 50 mg PO Q6H PRN pain 02/23/25 02/23/25 History venlafaxine 75 mg tablet 75 mg PO DAILY 02/23/25 02/23/25 History warfarin 6 mg tablet 6 mg PO QPM 02/23/25 02/23/25 History Allergies Allergy/AdvReac Type Severity Reaction Status Date / Time PCN Allergy Mild Itching Uncoded 02/23/25 18:54 Vital Signs Vital Signs - 24 hr 02/23/25 15:06 02/23/25 15:12 02/23/25 15:13 Temperature 97.8 F 97.8 F Pulse Rate 65 68 68 Respiratory Rate 16 16 16 Blood Pressure 130/74 130/74 130/74 Pulse Oximetry 94 94 95 Oxygen Delivery Room Air 02/23/25 15:23 02/23/25 18:15 02/23/25 19:46 Temperature 97.9 F Pulse Rate 70 68 64 Respiratory Rate 19 18 Blood Pressure 131/79 116/72 Pulse Oximetry 93 94 Oxygen Delivery 02/23/25 22:00 02/24/25 00:30 02/24/25 03:05 Temperature 97.9 F Pulse Rate 64 63 Respiratory Rate 20 23 H Blood Pressure 116/72 Pulse Oximetry 94 95 Oxygen Delivery CPAP CPAP 02/24/25 06:00 02/24/25 09:18 02/24/25 09:20 Temperature 97.7 F Pulse Rate 70 75 Respiratory Rate 18 Blood Pressure 136/78 Pulse Oximetry 95 96 Oxygen Delivery Room Air 02/24/25 10:21 Temperature 97.6 F Pulse Rate 69 Respiratory Rate 18 Blood Pressure 129/86 Pulse Oximetry 95 Oxygen Delivery Exam 2 Const: General: cooperative, well developed and alert O rientation/consciousness: oriented to person, oriented to place and oriented to time HENMT: Head: atraumatic Mouth: Yes oropharynx normal Eyes: Alignment and Position: position normal Pupils: Equal, round and reactive pupils present EOM: EOMs intact bilaterally Neck: Neck: supple Resp: Effort & Inspection: normal respiratory effort Cardio: Rhythm: regular rhythm Skin: General skin exam: normal color and no rashes or lesions noted Neuro: General: oriented to person, oriented to place and oriented to time Cranial nerves: Yes CN's II-XII intact bilaterally, Yes facial sensation intact/muscles of mastication intact, Yes Equal, round and reactive pupils present, Yes Bilaterally intact EOM present, Yes Nystagmus not present, Yes facial symmetry, Yes Midline tongue present, Yes Symmetric palate elevation present and Yes Ability to bilaterally elevate shoulders present Cognition (Neuro): normal cognition Speech: normal speech Motor exam (neuro): 5/5 motor strength present throughout, Motor fasciculations not present, Normal motor muscle tone present throughout and Motor abnormalities not present C oordination: [id number] test normal and Normal rapid alternating movements of the distal upper extremity present (Neuro) Other: Decreased vibration sense in both lower limbs. Deep tendon reflexes decreased at knees and ankles however no weakness was noted. Results Labs 02/24/25 05:14 02/24/25 05:14 Labs: Short CBC 02/23/25 02/24/25 Range/Units 15:26 05:14 WBC 6.7 5.8 (4.5-10.0) K/mm3 Hgb 11.9 L 11.8 L (12.0-15.0) g/dL Hct 38.0 39.1 (37.0-47.0) % Plt Count 328 312 (150-375) k/mm3 BMP 02/23/25 02/24/25 15:26 05:14 Sodium 134 L 138 Potassium 4.1 4.3 Chloride 100 104 Carbon Dioxide 24 26 BUN 17 13 Creatinine 0.92 0.82 Glucose 101 92 Calcium 8.8 9.1 Cardiac Enzymes 02/23/25 Range/Units 15:26 Troponin I 0.014 (0.000-0.034) ng/mL Liver Function 02/23/25 Range/Units 15:26 Total Bilirubin 0.4 (0.2-1.3) mg/dL AST 54 H (14-36) U/L ALT 48 H (6-35) U/L Alkaline Phosphatase 237 H (38-126) U/L Albumin 3.9 (3.5-5.1) g/dL
[2025-02-24] MEDS: PERFLUTREN LIPID MICROSPHERES 1.5 ML VIAL DILUTED TO 10 ML TOTAL VOLUME IV PUSH (14:55)
--- NOTE | 2025-02-24 15:50 | P.PNIM_ITS ---
Progress Note: A&P Assessment and Plan (1) Transient cerebral ischemia: Code(s): G45.9 - Transient cerebral ischemic attack, unspecified Status: Acute Assessment and Plan: Neurology consulted Plan for MRI in the morning N [facility] 0 (2) Pericardial effusion: Code(s): I31.39 - Other pericardial effusion (noninflammatory) Status: Acute Assessment and Plan: Cardiology consulted pending recommendations (3) Pulmonary edema: Code(s): J81.1 - Chronic pulmonary edema Status: Acute Assessment and Plan: Versus infection versus CHF Cardiology consulted BNP 93 Will start home diuretics Continue Jardiance (4) Diabetes: Code(s): E11.9 - Type 2 diabetes mellitus without complications Status: Acute Assessment and Plan: Diabetic diet Accu-Cheks a.c. HS SSI (5) Mechanical heart valve present: Code(s): Z95.2 - Presence of prosthetic heart valve Status: Acute Assessment and Plan: Continue warfarin and aspirin Daily INR Plan patient presented with stroke like symptoms with difficulty speaking, and facial droop, her symptoms now have resolve, CT scan of the head abd CTA of head and neck are normal, to further evaluate patient will have MRI or the head, patient is seen by the neurologist and recommended to continue antiplatelet and anticoagulation. Patient also has history of mechanical mitral valve, taking warfarin and seen by verifying specialist recommending INR between 2.5 to 3.5 if the INR is subtherapeutic, will need bridging with Lovenox, her INR is 2.2 today, will bridge her with Lovenox 125mg BID, will monitor, Subjective Date/time seen: 02/24/25 15:50 Interval history: Stroke-like symptoms Narrative: 50-year-old female past medical history of heart disease, diabetes, on chronic anticoagulation warfarin presents the hospital with stroke-like symptoms. She states that know where she was unable to speak and she felt like she had a facial droop. Her symptoms lasted about an hour. She feels that the symptoms have completely resolved. She states about a month ago she was hospitalized for CHF of exacerbation and had her diuretics increased however she is still struggling with edema. Patient denies nausea running fever chills, dysuria. Lab work shows INR of 2.7 sodium of 134, AST 54, ALT 48, alkaline phos 237. CT head and neck shows no acute intercranial process. Small pericardial effusion versus pericardial thickening and mild interstitial edema versus respiratory infection patient presented with stroke like symptoms with difficulty speaking, and facial droop, her symptoms now have resolve, CT scan of the head abd CTA of head and neck are normal, to further evaluate patient will have MRI or the head, patient is seen by the neurologist and recommended to continue antiplatelet and anticoagulation. Patient also has history of mechanical mitral valve, taking warfarin and seen by verifying specialist recommending INR between 2.5 to 3.5 if the INR is subtherapeutic, will need bridging with Lovenox, her INR is 2.2 today, will bridge her with Lovenox 125mg BID, will monitor, Review of Systems Review of Systems: 12 systems were reviewed and are negativ e except for as per HPI. All systems reviewed & are unremarkable except as noted in HPI and below Exam Narrative: Morbidly obese Patient is comfortable, NAD HEENT: eyes are clear and none icteric LUNGS:CTA HEART: RR S1S2 ABD: BS+, Soft and nontender Lower extremities: no edema SKIN: nonjaundiced Neuro: grossly intact. Objective Data Vital Signs Vital Signs: Vital Signs - 24 hr 02/23/25 18:15 02/23/25 19:46 02/23/25 22:00 Temperature 36.6 C 36.6 C Pulse Rate 68 64 64 Respiratory Rate 19 18 20 Blood Pressure 131/79 116/72 116/72 Pulse Oximetry 93 94 94 Oxygen Delivery 02/24/25 00:30 02/24/25 03:05 02/24/25 06:00 Temperature 36.5 C Pulse Rate 63 70 Respiratory Rate 23 H 18 Blood Pressure 136/78 Pulse Oximetry 95 95 Oxygen Delivery CPAP CPAP 02/24/25 08:04 02/24/25 09:18 02/24/25 09:20 Temperature Pulse Rate 72 75 Respiratory Rate Blood Pressure Pulse Oximetry 96 Oxygen Delivery Room Air 02/24/25 10:21 02/24/25 12:05 02/24/25 14:00 Temperature 36.4 C 36.4 C Pulse Rate 69 72 63 Respiratory Rate 18 18 Blood Pressure 129/86 110/72 Pulse Oximetry 95 92 Oxygen Delivery 02/24/25 15:09 Temperature 36.5 C Pulse Rate 71 Respiratory Rate Blood Pressure 134/101 H Pulse Oximetry 93 Oxygen Delivery Intake/Output Intake/Output: Intake & Output 02/21/25 02/22/25 02/23/25 02/24/25 23:59 23:59 23:59 23:59 Intake Total 180 Output Total 1 Balance 179 Meds/Results Medications: Active Medications Generic Name Dose Route Start Last Admin Trade Name Freq PRN Reason Stop Dose Admin Acetaminophen 650 mg 02/23/25 18:30 02/24/25 12:39 Acetaminophen 325 Mg Tablet PO 650 mg Q4H PRN Administration Mild Pain (1-3) or Fever Albuterol 2 puff 02/23/25 22:13 Albuterol Sulfate (*Sp) Aerosol 1 Puff INHALATION Q4-6H PRN shortness of breath or wheezing Aspirin 81 mg 02/24/25 09:00 02/24/25 09:19 Aspirin 81 Mg Enteric Tablet PO 81 mg QAM SAHARA Administration Atorvastatin Calcium 40 mg 02/24/25 09:00 02/24/25 09:18 Atorvastatin 40 Mg Tablet PO 40 mg DAILY SAHARA Administration Bupropion HCl 150 mg 02/24/25 09:00 02/24/25 09:19 Bupropion Hcl Sr (12 Hr) 150 Mg Tab PO 150 mg Q12HR SAHARA Administration Dextrose 12.5 gm 02/23/25 18:30 Dextrose 50% 25 Gm/50 Ml Syringe IV PUSH PRN PRN Hypoglycemia Protocol Empagliflozin 25 mg 02/24/25 09:00 02/24/25 09:19 Empagliflozin 25 Mg Tablet PO 25 mg DAILY SAHARA Administration Enoxaparin Sodium 125 mg 02/24/25 15:45 Enoxaparin 120 Mg/0.8 Ml Syringe SUB-Q Q12H SAHARA Glucagon 1 mg 02/23/25 18:30 Glucagon For Inj 1 Mg Vial IM PRN PRN Hypoglycemia Protocol Glucose 15 gm 02/23/25 18:30 Glucose Oral Gel 15 Gm Of Glucse In 37.5 Gm Tube PO PRN PRN Hypoglycemia Protocol Hydroxychloroquine Sulfate 200 mg 02/24/25 18:00 Hydroxychloroquine Sulfate 200 Mg Tablet PO QPM SAHARA Dextrose 1,000 mls @ 100 mls/hr 02/23/25 18:30 Dextrose 5% 1,000 Ml IVPB PRN PRN Hypoglycemia Protocol Insulin Aspart 2 - 5 units 02/24/25 08:00 02/24/25 12:33 Insulin Aspart (*Bkc) 100 Units/Ml SUB-Q Not Given TIDWM [facility] Protocol Insulin Aspart 1 - 2 units 02/23/25 21:00 02/23/25 21:13 Insulin Aspart (*Bkc) 100 Units/Ml SUB-Q Not Given HS [facility] Protocol Lisinopril 10 mg 02/24/25 18:00 Lisinopril 10 Mg Tablet PO QPM [facility] Metoprolol Tartrate 25 mg 02/24/25 09:00 02/24/25 09:18 Metoprolol Tartrate 25 Mg Tablet PO 25 mg Q12HR SAHARA Administration Ondansetron HCl 4 mg 02/24/25 10:12 02/24/25 10:36 Ondansetron Inj 4 Mg/2 Ml Vial IV PUSH 4 mg Q4H PRN Administration Nausea And Vomiting Oxybutynin Chloride 5 mg 02/24/25 09:00 02/24/25 09:18 Oxybutynin Chloride 5 Mg Tablet PO 5 mg BID SAHARA Administration Perflutren Lipid Microsphere 0 ml 02/23/25 19:21 Perflutren Lipid Microspheres 1.5 Ml Vial Diluted To 10 Ml Total Volume IV PUSH 02/26/25 19:21 ONCE PRN adequate visualization Protocol Fluticasone/Salmeterol 2 puff 02/23/25 20:00 02/24/25 09:19 Fluticasone/Salmeterol 45-21 Mcg Inhaler 1 Puff INHALATION 2 puff Q12HRT SAHARA Administration Spironolactone 25 mg 02/24/25 09:00 02/24/25 09:18 Spironolactone 25 Mg Tablet PO 25 mg DAILY SA[facility]ARA Administration Torsemide 40 mg 02/24/25 09:00 02/24/25 09:18 Torsemide 20 Mg Tablet PO 40 mg DAILY SAHARA Administration Tramadol HCl 50 mg 02/24/25 10:08 02/24/25 10:37 Tramadol Hcl (*Crx) 50 Mg Tablet PO 50 mg Q6H PRN Administration pain 4-6 Venlafaxine HCl 75 mg 02/24/25 09:00 02/24/25 09:18 Venlafaxine Hcl 75 Mg Tablet PO 75 mg DAILY SAHARA Administration Warfarin Sodium 6 mg 02/24/25 18:00 Warfarin (*Pbkc) 3 Mg Tablet PO QPM [facility] Radiology Results: ITS Impressions Head CT 02/23/25 15:03 IMPRESSION: No acute intracranial process. Results reported telephonically to Dr. Hernandez by Dr. Gregory at 3:08 PM on 02/23/2025. Chest X-Ray 02/23/25 15:26 Impression: 1: Cardiomegaly with mild interstitial edema. Head/Neck CTA 02/23/25 16:48 IMPRESSION: No large vessel intracranial occlusion, high-grade intracranial stenosis, or aneurysm. No carotid or vertebral artery occlusion, dissection, or significant stenosis. Small pericardial effusion versus pericardial thickening. Mild interstitial pulmonary edema, versus respiratory bronchiolitis or infection. Labs Labs: Laboratory Results - last 24 hr 02/23/25 02/23/25 02/24/25 15:26 19:37 05:14 WBC 5.8 RBC 4.63 Hgb 11.8 L Hct 39.1 MCV 84.4 MCH 25.5 L MCHC 30.2 L RDW 17.6 H Plt Count 312 MPV 9.9 Immature Gran % (Auto) 0.5 Neut % (Auto) 78.3 H Lymph % (Auto) 11.4 L Kane % (Auto) 6.9 Eos % (Auto) 2.4 Baso % (Auto) 0.5 Lymph # (Auto) 0.66 L Kane # (Auto) 0.4 Eos # (Auto) 0.1 Baso # (Auto) 0.0 Abs Immat Gran (auto) 0.03 Absolute Neuts (auto) 4.5 Absolute Nucleated RBC 0.000 Nucleated RBC % 0.0 PT 24.3 H INR 2.2 Sodium 134 L 138 Potassium 4.1 4.3 Chloride 100 104 Carbon Dioxide 24 26 Anion Gap 10 8 BUN 17 13 Creatinine 0.92 0.82 Estim Creat Clear Calc 85 95 Estimated GFR > 60 > 60 Glucose 101 92 POC Capillary Glucose 93 Calcium 8.8 9.1 Total Bilirubin 0.4 AST 54 H ALT 48 H Alkaline Phosphatase 237 H Troponin I 0.014 NT-Pro-B Natriuret Pep 180 H Total Protein 8.1 Albumin 3.9 02/24/25 02/24/25 02/24/25 08:01 11:54 15:08 WBC RBC Hgb Hct MCV MCH MCHC RDW Plt Count MPV Immature Gran % (Auto) Neut % (Auto) Lymph % (Auto) Kane % (Auto) Eos % (Auto) Baso % (Auto) Lymph # (Auto) Kane # (Auto) Eos # (Auto) Baso # (Auto) Abs Immat Gran (auto) Absolute Neuts (auto) Absolute Nucleated RBC Nucleated RBC % PT INR Sodium Potassium Chloride Carbon Dioxide Anion Gap BUN Creatinine Estim Creat Clear Calc Estimated GFR Glucose POC Capillary Glucose 89 120 H 104 Calcium Total Bilirubin AST ALT Alkaline Phosphatase Troponin I NT-Pro-B Natriuret Pep Total Protein Albumin Quality VTE Prophylaxis VTE prophylaxis: mechanical ordered and pharmacologic ordered
--- NOTE | 2025-02-24 17:30 | IVDEFINITY ---
Prior to administration of IV Definity the patient was educated on the risks and benefits of the imaging enhancing agent including potential adverse side effects. The patient verbalized understanding. Allergies were verified. No exclusion criteria were identified and at least one of the following inclusion criteria were met: 1) physician request, 2) patient technically difficult to image (per the [place] [employer] guidelines of two or more segments not discernable within the apical view), or 3) questionable left ventricular function. ?
[2025-02-24] MEDS: HYDROXYCHLOROQUINE SULFATE 200 MG TABLET PO (17:49)
[2025-02-24] MEDS: WARFARIN (*PBKC) 3 MG TABLET 6 MG PO (17:49)
[2025-02-24] MEDS: ENOXAPARIN 80 MG/0.8 ML SYRINGE 125 MG SUB-Q (17:51)
[2025-02-25] VITALS (13 sets, daily range): BP systolic 98–125; BP diastolic 50–85; PULSE 57–74; RESP 16–20; TEMP 36.5–36.7; O2SAT 93–97
[2025-02-25] MEDS: ENOXAPARIN 80 MG/0.8 ML SYRINGE 125 MG SUB-Q ×2 (05:01→16:58)
[2025-02-25 05:32] LABS: Hematocrit 38.5 % (37.0-47.0); Hemoglobin 12.0 g/dL (12.0-15.0); Mean Corpuscular HGB Conc 31.2 g/dl (32-36); Mean Corpuscular Hemoglobin 25.6 pg (26-34); Mean Corpuscular Volume 82.1 fl (80-100); Platelet Count Result 333 k/mm3 (150-375); Red Blood Count 4.69 M/mm3 (4.2-5.4); White Blood Count 6.6 K/mm3 (4.5-10.0)
[2025-02-25 05:53] LABS: Anion Gap 9 mmol/L (4-12); Blood Urea Nitrogen 23 mg/dL (7-17); Calcium 9.0 mg/dL (8.4-10.2); Carbon Dioxide 29 mmol/L (22-30); Chloride 97 mmol/L (98-107); Estimated CRCL calculation 66 ml/min; Estimated Glomerular Filt Rate 48; Glucose 103 mg/dL (65-110); Magnesium 2.2 mg/dL (1.6-2.3); Potassium 4.4 mmol/L (3.4-5.0); Sodium 135 mmol/L (137-145)
[2025-02-25] MEDS: ACETAMINOPHEN 325 MG TABLET 650 MG PO ×2 (05:54→16:56)
[2025-02-25] MEDS: ONDANSETRON INJ 4 MG/2 ML VIAL IV PUSH (05:54)
[2025-02-25 06:09] LABS: INR 1.9; Prothrombin Time 21.8 Seconds (11.1-14.7)
[2025-02-25] MEDS: FLUTICASONE/SALMETEROL 45-21 MCG INHALER 1 PUFF 2 PUFF INHALATION ×2 (07:51→20:43)
[2025-02-25] MEDS: VENLAFAXINE HCL 75 MG TABLET PO (10:10)
[2025-02-25] MEDS: ASPIRIN 81 MG ENTERIC TABLET PO (10:10)
[2025-02-25] MEDS: buPROPion HCL SR (12 HR) 150 MG TAB PO ×2 (10:10→22:13)
[2025-02-25] MEDS: EMPAGLIFLOZIN 25 MG TABLET PO (10:10)
[2025-02-25] MEDS: ATORVASTATIN 40 MG TABLET PO (10:11)
--- NOTE | 2025-02-25 11:18 | PC.NURSE ---
RN spoke with hospitalist Pb as patient's blood pressure is decreased (see vitals). Hospitalist Pb stated to hold three medications (see MAR).
--- NOTE | 2025-02-25 16:32 | P.PNIM_ITS ---
Progress Note: A&P Assessment and Plan (1) Transient cerebral ischemia: Code(s): G45.9 - Transient cerebral ischemic attack, unspecified Status: Acute Assessment and Plan: Neurology consulted Plan for MRI in the morning N [facility] 0 (2) Pericardial effusion: Code(s): I31.39 - Other pericardial effusion (noninflammatory) Status: Acute Assessment and Plan: Cardiology consulted pending recommendations (3) Pulmonary edema: Code(s): J81.1 - Chronic pulmonary edema Status: Acute Assessment and Plan: Versus infection versus CHF Cardiology consulted BNP 93 Will start home diuretics Continue Jardiance (4) Diabetes: Code(s): E11.9 - Type 2 diabetes mellitus without complications Status: Acute Assessment and Plan: Diabetic diet Accu-Cheks a.c. HS SSI (5) Mechanical heart valve present: Code(s): Z95.2 - Presence of prosthetic heart valve Status: Acute Assessment and Plan: Continue warfarin and aspirin Daily INR Plan patient presented with stroke like symptoms with difficulty speaking, and facial droop, her symptoms now have resolve, CT scan of the head and CTA of head and neck are normal, to further evaluate patient will have MRI or the head, which did not show any acute injury, patient is seen by the dynamics ax solution architect and recommended to continue antiplatelet and anticoagulation. Patient also has history of mechanical mitral valve, taking warfarin and seen by dynamics ax solution architect recommending INR between 2.5 to 3.5 if the INR is subtherapeutic, will need bridging with Lovenox, her INR is 1.9 today, will bridge her with Lovenox 125mg BID, will monitor, today patient blood pressure was low and held patient BP meds, will monitor, Subjective Date/time seen: 02/25/25 16:32 Interval history: Stroke-like symptoms Narrative: 50-year-old female past medical history of heart disease, diabetes, on chronic anticoagulation warfarin presents the hospital with stroke-like symptoms. She states that know where she was unable to speak and she felt like she had a facial droop. Her symptoms lasted about an hour. She feels that the symptoms have completely resolved. She states about a month ago she was hospitalized for CHF of exacerbation and had her diuretics increased however she is still struggling with edema. Patient denies nausea running fever chills, dysuria. Lab work shows INR of 2.7 sodium of 134, AST 54, ALT 48, alkaline phos 237. CT head and neck shows no acute intercranial process. Small pericardial effusion versus pericardial thickening and mild interstitial edema versus respiratory infection patient presented with stroke like symptoms with difficulty speaking, and facial droop, her symptoms now have resolve, CT scan of the head and CTA of head and neck are normal, to further evaluate patient will have MRI or the head, which did not show any acute injury, patient is seen by the dynamics ax solution architect and recommended to continue antiplatelet and anticoagulation. Patient also has history of mechanical mitral valve, taking warfarin and seen by dynamics ax solution architect recommending INR between 2.5 to 3.5 if the INR is subtherapeutic, will need bridging with Lovenox, her INR is 1.9 today, will bridge her with Lovenox 125mg BID, will monitor, today patient blood pressure was low and held patient BP meds, will monitor, Review of Systems Review of Systems: 12 systems were reviewed and are negativ e except for as per HPI. All systems reviewed & are unremarkable except as noted in HPI and below Exam Narrative: Morbidly obese Patient is comfortable, NAD HEENT: eyes are clear and none icteric LUNGS:CTA HEART: RR S1S2 ABD: BS+, Soft and nontender Lower extremities: no edema SKIN: nonjaundiced Neuro: grossly intact. Objective Data Vital Signs Vital Signs: Vital Signs - 24 hr 02/24/25 19:47 02/24/25 19:51 02/24/25 19:51 Temperature Pulse Rate 65 65 Respiratory Rate 19 Blood Pressure Pulse Oximetry 95 95 Oxygen Delivery CPAP BiPAP Fraction of Inspired Oxygen 21 02/24/25 20:00 02/24/25 20:42 02/24/25 20:49 Temperature 36.5 C Pulse Rate 63 66 73 Respiratory Rate 18 Blood Pressure 105/67 Pulse Oximetry 93 Oxygen Delivery Fraction of Inspired Oxygen 02/24/25 20:49 02/25/25 00:05 02/25/25 03:28 Temperature Pulse Rate 73 57 L 67 Respiratory Rate 18 20 Blood Pressure Pulse Oximetry 93 96 Oxygen Delivery BiPAP CPAP Fraction of Inspired Oxygen 02/25/25 04:00 02/25/25 04:39 02/25/25 07:52 Temperature 36.5 C Pulse Rate 67 57 L Respiratory Rate 16 Blood Pressure 98/56 L Pulse Oximetry 97 93 Oxygen Delivery Room Air Fraction of Inspired Oxygen 02/25/25 10:05 02/25/25 10:10 02/25/25 10:10 Temperature Pulse Rate 65 Respiratory Rate Blood Pressure 100/50 L Pulse Oximetry Oxygen Delivery Room Air Fraction of Inspired Oxygen 02/25/25 14:00 Temperature 36.7 C Pulse Rate 66 Respiratory Rate 16 Blood Pressure 107/68 Pulse Oximetry 93 Oxygen Delivery Fraction of Inspired Oxygen Intake/Output Intake/Output: Intake & Output 02/22/25 02/23/25 02/24/25 02/25/25 23:59 23:59 23:59 23:59 Intake Total 1242 510 Output Total 1 Balance 1241 510 Meds/Results Medications: Active Medications Generic Name Dose Route Start Last Admin Trade Name Freq PRN Reason Stop Dose Admin Acetaminophen 650 mg 02/23/25 18:30 02/25/25 05:54 Acetaminophen 325 Mg Tablet PO 650 mg Q4H PRN Administration Mild Pain (1-3) or Fever Albuterol 2 puff 02/23/25 22:13 Albuterol Sulfate (*Sp) Aerosol 1 Puff INHALATION Q4-6H PRN shortness of breath or wheezing Aspirin 81 mg 02/24/25 09:00 02/25/25 10:10 Aspirin 81 Mg Enteric Tablet PO 81 mg QAM SAHARA Administration Atorvastatin Calcium 40 mg 02/24/25 09:00 02/25/25 10:11 Atorvastatin 40 Mg Tablet PO 40 mg DAILY SAHARA Administration Bupropion HCl 150 mg 02/24/25 09:00 02/25/25 10:10 Bupropion Hcl Sr (12 Hr) 150 Mg Tab PO 150 mg Q12HR SAHARA Administration Dextrose 12.5 gm 02/23/25 18:30 Dextrose 50% 25 Gm/50 Ml Syringe IV PUSH PRN PRN Hypoglycemia Protocol Empagliflozin 25 mg 02/24/25 09:00 02/25/25 10:10 Empagliflozin 25 Mg Tablet PO 25 mg DAILY SAHARA Administration Enoxaparin Sodium 125 mg 02/24/25 18:00 02/25/25 05:01 Enoxaparin 80 Mg/0.8 Ml Syringe SUB-Q 125 mg Q12H SAHARA Administration Glucagon 1 mg 02/23/25 18:30 Glucagon For Inj 1 Mg Vial IM PRN PRN Hypoglycemia Protocol Glucose 15 gm 02/23/25 18:30 Glucose Oral Gel 15 Gm Of Glucse In 37.5 Gm Tube PO PRN PRN Hypoglycemia Protocol Hydroxychloroquine Sulfate 200 mg 02/24/25 18:00 02/24/25 17:49 Hydroxychloroquine Sulfate 200 Mg Tablet PO 200 mg QPM SAHARA Administration Dextrose 1,000 mls @ 100 mls/hr 02/23/25 18:30 Dextrose 5% 1,000 Ml IVPB PRN PRN Hypoglycemia Protocol Insulin Aspart 2 - 5 units 02/24/25 08:00 02/25/25 12:17 Insulin Aspart (*Bkc) 100 Units/Ml SUB-Q Not Given TIDWM [facility] Protocol Insulin Aspart 1 - 2 units 02/23/25 21:00 02/24/25 20:53 Insulin Aspart (*Bkc) 100 Units/Ml SUB-Q Not Given HS [facility] Protocol Lisinopril 10 mg 02/24/25 18:00 02/24/25 17:49 Lisinopril 10 Mg Tablet PO 10 mg QPM SAHARA Administration Metoprolol Tartrate 25 mg 02/24/25 09:00 02/25/25 11:19 Metoprolol Tartrate 25 Mg Tablet PO Not Given Q12HR SAHARA Ondansetron HCl 4 mg 02/24/25 10:12 02/25/25 05:54 Ondansetron Inj 4 Mg/2 Ml Vial IV PUSH 4 mg Q4H PRN Administration Nausea And Vomiting Oxybutynin Chloride 5 mg 02/24/25 09:00 02/25/25 10:10 Oxybutynin Chloride 5 Mg Tablet PO 5 mg BID SAHARA Administration Fluticasone/Salmeterol 2 puff 02/23/25 20:00 02/25/25 07:51 Fluticasone/Salmeterol 45-21 Mcg Inhaler 1 Puff INHALATION 2 puff Q12HRT SAHARA Administration Spironolactone 25 mg 02/24/25 09:00 02/25/25 11:20 Spironolactone 25 Mg Tablet PO Not Given DAILY SAHARA Torsemide 40 mg 02/24/25 09:00 02/25/25 11:20 Torsemide 20 Mg Tablet PO Not Given DAILY SAHARA Tramadol HCl 50 mg 02/24/25 10:08 02/24/25 16:34 Tramadol Hcl (*Crx) 50 Mg Tablet PO 50 mg Q6H PRN Administration pain 4-6 Venlafaxine HCl 75 mg 02/24/25 09:00 02/25/25 10:10 Venlafaxine Hcl 75 Mg Tablet PO 75 mg DAILY SAHARA Administration Warfarin Sodium 6 mg 02/24/25 18:00 02/24/25 17:49 Warfarin (*Pbkc) 3 Mg Tablet PO 6 mg QPM SAHARA Administration Radiology Results: ITS Impressions Head CT 02/23/25 15:03 IMPRESSION: No acute intracranial process. Results reported telephonically to Dr. Hernandez by Dr. Gregory at 3:08 PM on . Chest X-Ray 02/23/25 15:26 Impression: 1: Cardiomegaly with mild interstitial edema. Head/Neck CTA 02/23/25 16:48 IMPRESSION: No large vessel intracranial occlusion, high-grade intracranial stenosis, or aneurysm. No carotid or vertebral artery occlusion, dissection, or significant stenosis. Small pericardial effusion versus pericardial thickening. Mild interstitial pulmonary edema, versus respiratory bronchiolitis or infection. Brain MRI 02/25/25 05:54 IMPRESSION: Normal exam. Labs Labs: Laboratory Results - last 24 hr 02/24/25 02/24/25 02/25/25 16:39 20:45 05:00 WBC 6.6 RBC 4.69 Hgb 12.0 Hct 38.5 MCV 82.1 MCH 25.6 L MCHC 31.2 L RDW 17.6 H Plt Count 333 MPV 10.2 PT 21.8 H INR 1.9 Sodium 135 L Potassium 4.4 Chloride 97 L Carbon Dioxide 29 Anion Gap 9 BUN 23 H D Creatinine 1.20 H Estim Creat Clear Calc 66 Estimated GFR 48 L Glucose 103 POC Capillary Glucose 85 114 H Calcium 9.0 Magnesium 2.2 02/25/25 02/25/25 08:32 11:56 WBC RBC Hgb Hct MCV MCH MCHC RDW Plt Count MPV PT INR Sodium Potassium Chloride Carbon Dioxide Anion Gap BUN Creatinine Estim Creat Clear Calc Estimated GFR Glucose POC Capillary Glucose 97 86 Calcium Magnesium Quality VTE Prophylaxis VTE prophylaxis: mechanical ordered and pharmacologic ordered
[2025-02-25] MEDS: traMADol HCL (*CRX) 50 MG TABLET PO (16:57)
[2025-02-25] MEDS: HYDROXYCHLOROQUINE SULFATE 200 MG TABLET PO (16:57)
[2025-02-25] MEDS: WARFARIN (*PBKC) 3 MG TABLET 6 MG PO (16:58)
[2025-02-25] MEDS: METOPROLOL TARTRATE 25 MG TABLET PO (22:13)
[2025-02-26] VITALS (14 sets, daily range): BP systolic 105–123; BP diastolic 58–77; PULSE 60–78; RESP 16–18; TEMP 36.1–36.7; O2SAT 94–97
[2025-02-26] MEDS: ACETAMINOPHEN 325 MG TABLET 650 MG PO ×3 (03:30→15:40)
[2025-02-26] MEDS: ONDANSETRON INJ 4 MG/2 ML VIAL IV PUSH (03:31)
[2025-02-26 06:13] LABS: Hematocrit 38.3 % (37.0-47.0); Hemoglobin 12.1 g/dL (12.0-15.0); Mean Corpuscular HGB Conc 31.6 g/dl (32-36); Mean Corpuscular Hemoglobin 25.9 pg (26-34); Mean Corpuscular Volume 81.8 fl (80-100); Platelet Count Result 339 k/mm3 (150-375); Red Blood Count 4.68 M/mm3 (4.2-5.4); White Blood Count 6.9 K/mm3 (4.5-10.0)
[2025-02-26 06:28] LABS: INR 2.6; Prothrombin Time 27.0 Seconds (11.1-14.7)
[2025-02-26] MEDS: ENOXAPARIN 80 MG/0.8 ML SYRINGE 125 MG SUB-Q ×2 (06:29→17:19)
[2025-02-26 07:04] LABS: Anion Gap 7 mmol/L (4-12); Blood Urea Nitrogen 19 mg/dL (7-17); Calcium 9.1 mg/dL (8.4-10.2); Carbon Dioxide 29 mmol/L (22-30); Chloride 96 mmol/L (98-107); Estimated CRCL calculation 84 ml/min; Estimated Glomerular Filt Rate > 60; Glucose 103 mg/dL (65-110); Magnesium 2.3 mg/dL (1.6-2.3); Potassium 4.2 mmol/L (3.4-5.0); Sodium 132 mmol/L (137-145)
[2025-02-26] MEDS: VENLAFAXINE HCL 75 MG TABLET PO (08:14)
[2025-02-26] MEDS: TORSEMIDE 20 MG TABLET 40 MG PO (08:15)
[2025-02-26] MEDS: EMPAGLIFLOZIN 25 MG TABLET PO (08:15)
[2025-02-26] MEDS: SPIRONOLACTONE 25 MG TABLET PO (08:15)
[2025-02-26] MEDS: ATORVASTATIN 40 MG TABLET PO (08:15)
[2025-02-26] MEDS: METOPROLOL TARTRATE 25 MG TABLET PO ×2 (08:15→21:29)
[2025-02-26] MEDS: buPROPion HCL SR (12 HR) 150 MG TAB PO ×2 (08:15→21:28)
[2025-02-26] MEDS: ASPIRIN 81 MG ENTERIC TABLET PO (08:15)
[2025-02-26] MEDS: FLUTICASONE/SALMETEROL 45-21 MCG INHALER 1 PUFF 2 PUFF INHALATION ×2 (09:33→20:02)
--- NOTE | 2025-02-26 13:59 | P.PNIM_ITS ---
Progress Note: A&P Assessment and Plan (1) Transient cerebral ischemia: Code(s): G45.9 - Transient cerebral ischemic attack, unspecified Status: Acute Assessment and Plan: Neurology consulted Plan for MRI in the morning N NIH 0 (2) Pericardial effusion: Code(s): I31.39 - Other pericardial effusion (noninflammatory) Status: Acute Assessment and Plan: Cardiology consulted pending recommendations (3) Pulmonary edema: Code(s): J81.1 - Chronic pulmonary edema Status: Acute Assessment and Plan: Versus infection versus CHF Cardiology consulted BNP 93 Will start home diuretics Continue Jardiance (4) Diabetes: Code(s): E11.9 - Type 2 diabetes mellitus without complications Status: Acute Assessment and Plan: Diabetic diet Accu-Cheks a.c. HS SSI (5) Mechanical heart valve present: Code(s): Z95.2 - Presence of prosthetic heart valve Status: Acute Assessment and Plan: Continue warfarin and aspirin Daily INR Plan patient presented with stroke like symptoms with difficulty speaking, and facial droop, her symptoms now have resolve, CT scan of the head and CTA of head and neck are normal, to further evaluate patient will have MRI or the head, which did not show any acute injury, patient is seen by the career technology teacher and recommended to continue antiplatelet and anticoagulation. Patient also has history of mechanical mitral valve, taking warfarin and seen by career technology teacher recommending INR between 2.5 to 3.5 if the INR is subtherapeutic, will need bridging with Lovenox, her INR is 2.6, will continue bridge with Lovenox one more day, and INR is between 2.5 and 3.5, will bridge her with Lovenox 125mg BID, will monitor, on 02/25 patient blood pressure was low and held patient BP meds, will monitor, today patient is close to normal. Subjective Date/time seen: 02/26/25 13:59 Interval history: Stroke-like symptoms Narrative: 50-year-old female past medical history of heart disease, diabetes, on chronic anticoagulation warfarin presents the hospital with stroke-like symptoms. She states that know where she was unable to speak and she felt like she had a facial droop. Her symptoms lasted about an hour. She feels that the symptoms have completely resolved. She states about a month ago she was hospitalized for CHF of exacerbation and had her diuretics increased however she is still struggling with edema. Patient denies nausea running fever chills, dysuria. Lab work shows INR of 2.7 sodium of 134, AST 54, ALT 48, alkaline phos 237. CT head and neck shows no acute intercranial process. Small pericardial effusion versus pericardial thickening and mild interstitial edema versus respiratory i nfection patient presented with stroke like symptoms with difficulty speaking, and facial droop, her symptoms now have resolve, CT scan of the head and CTA of head and neck are normal, to further evaluate patient will have MRI or the head, which did not show any acute injury, patient is seen by the career technology teacher and recommended to continue antiplatelet and anticoagulation. Patient also has history of mechanical mitral valve, taking warfarin and seen by career technology teacher recommending INR between 2.5 to 3.5 if the INR is subtherapeutic, will need bridging with Lovenox, her INR is 2.6, will continue bridge with Lovenox one more day, and INR is between 2.5 and 3.5, will bridge her with Lovenox 125mg BID, will monitor, on 02/25 patient blood pressure was low and held patient BP meds, will monitor, today patient is close to normal. Review of Systems Review of Systems: 12 systems were reviewed and are negativ e except for as per HPI. All systems reviewed & are unremarkable except as noted in HPI and below Exam Narrative: Morbidly obese Patient is comfortable, NAD HEENT: eyes are clear and none icteric LUNGS:CTA HEART: RR S1S2 ABD: BS+, Soft and nontender Lower extremities: no edema SKIN: nonjaundiced Neuro: grossly intact. Objective Data Vital Signs Vital Signs: Vital Signs - 24 hr 02/25/25 14:00 02/25/25 16:00 02/25/25 20:00 Temperature 36.7 C Pulse Rate 66 65 Respiratory Rate 16 Blood Pressure 107/68 Pulse Oximetry 93 Oxygen Delivery Room Air 02/25/25 20:00 02/25/25 20:50 02/25/25 22:13 Temperature 36.6 C Pulse Rate 74 65 66 Respiratory Rate 16 Blood Pressure 125/85 Pulse Oximetry 94 Oxygen Delivery 02/26/25 00:00 02/26/25 01:51 02/26/25 04:00 Temperature Pulse Rate 66 60 Respiratory Rate 16 Blood Pressure Pulse Oximetry Oxygen Delivery CPAP 02/26/25 05:17 02/26/25 08:04 02/26/25 08:15 Temperature 36.7 C Pulse Rate 65 66 62 Respiratory Rate 18 Blood Pressure 123/77 Pulse Oximetry 97 Oxygen Delivery 02/26/25 09:34 Temperature Pulse Rate Respiratory Rate Blood Pressure Pulse Oximetry 96 Oxygen Delivery Room Air Intake/Output Intake/Output: Intake & Output 02/23/25 02/24/25 02/25/25 02/26/25 23:59 23:59 23:59 23:59 Intake Total 1242 1700 520 Output Total 1 Balance 1241 1700 520 Meds/Results Medications: Active Medications Generic Name Dose Route Start Last Admin Trade Name Freq PRN Reason Stop Dose Admin Acetaminophen 650 mg 02/23/25 18:30 02/26/25 08:22 Acetaminophen 325 Mg Tablet PO 650 mg Q4H PRN Administration Mild Pain (1-3) or Fever Albuterol 2 puff 02/23/25 22:13 Albuterol Sulfate (*Sp) Aerosol 1 Puff INHALATION Q4-6H PRN shortness of breath or wheezing Aspirin 81 mg 02/24/25 09:00 02/26/25 08:15 Aspirin 81 Mg Enteric Tablet PO 81 mg QAM SAHARA Administration Atorvastatin Calcium 40 mg 02/24/25 09:00 02/26/25 08:15 Atorvastatin 40 Mg Tablet PO 40 mg DAILY SAHARA Administration Bupropion HCl 150 mg 02/24/25 09:00 02/26/25 08:15 Bupropion Hcl Sr (12 Hr) 150 Mg Tab PO 150 mg Q12HR SAHARA Administration Dextrose 12.5 gm 02/23/25 18:30 Dextrose 50% 25 Gm/50 Ml Syringe IV PUSH PRN PRN Hypoglycemia Protocol Empagliflozin 25 mg 02/24/25 09:00 02/26/25 08:15 Empagliflozin 25 Mg Tablet PO 25 mg DAILY SAHARA Administration Enoxaparin Sodium 125 mg 02/24/25 18:00 02/26/25 06:29 Enoxaparin 80 Mg/0.8 Ml Syringe SUB-Q 125 mg Q12H SAHARA Administration Glucagon 1 mg 02/23/25 18:30 Glucagon For Inj 1 Mg Vial IM PRN PRN Hypoglycemia Protocol Glucose 15 gm 02/23/25 18:30 Glucose Oral Gel 15 Gm Of Glucse In 37.5 Gm Tube PO PRN PRN Hypoglycemia Protocol Hydroxychloroquine Sulfate 200 mg 02/24/25 18:00 02/25/25 16:57 Hydroxychloroquine Sulfate 200 Mg Tablet PO 200 mg QPM SAHARA Administration Dextrose 1,000 mls @ 100 mls/hr 02/23/25 18:30 Dextrose 5% 1,000 Ml IVPB PRN PRN Hypoglycemia Protocol Insulin Aspart 2 - 5 units 02/24/25 08:00 02/26/25 13:51 Insulin Aspart (*Bkc) 100 Units/Ml SUB-Q Not Given TIDWM [facility]ARA Protocol Insulin Aspart 1 - 2 units 02/23/25 21:00 02/25/25 22:14 Insulin Aspart (*Bkc) 100 Units/Ml SUB-Q Not Given HS SAHARA Protocol Lisinopril 10 mg 02/24/25 18:00 02/25/25 16:59 Lisinopril 10 Mg Tablet PO 10 mg QPM SAHARA Administration Metoprolol Tartrate 25 mg 02/24/25 09:00 02/26/25 08:15 Metoprolol Tartrate 25 Mg Tablet PO 25 mg Q12HR SAHARA Administration Ondansetron HCl 4 mg 02/24/25 10:12 02/26/25 03:31 Ondansetron Inj 4 Mg/2 Ml Vial IV PUSH 4 mg Q4H PRN Administration Nausea And Vomiting Oxybutynin Chloride 5 mg 02/24/25 09:00 02/26/25 08:14 Oxybutynin Chloride 5 Mg Tablet PO 5 mg BID SAHARA Administration Fluticasone/Salmeterol 2 puff 02/23/25 20:00 02/26/25 09:33 Fluticasone/Salmeterol 45-21 Mcg Inhaler 1 Puff INHALATION 2 puff Q12HRT SAHARA Administration Spironolactone 25 mg 02/24/25 09:00 02/26/25 08:15 Spironolactone 25 Mg Tablet PO 25 mg DAILY SAHARA Administration Torsemide 40 mg 02/24/25 09:00 02/26/25 08:15 Torsemide 20 Mg Tablet PO 40 mg DAILY SAHARA Administration Tramadol HCl 50 mg 02/24/25 10:08 02/25/25 16:57 Tramadol Hcl (*Crx) 50 Mg Tablet PO 50 mg Q6H PRN Administration pain 4-6 Venlafaxine HCl 75 mg 02/24/25 09:00 02/26/25 08:14 Venlafaxine Hcl 75 Mg Tablet PO 75 mg DAILY SAHARA Administration Warfarin Sodium 6 mg 02/24/25 18:00 02/25/25 16:58 Warfarin (*Pbkc) 3 Mg Tablet PO 6 mg QPM SAHARA Administration Radiology Results: ITS Impressions Head CT 02/23/25 15:03 IMPRESSION: No acute intracranial process. Results reported telephonically to Dr. Hernandez by Dr. Gregory at 3:08 PM on 02/23/2025. Chest X-Ray 02/23/25 15:26 Impression: 1: Cardiomegaly with mild interstitial edema. Head/Neck CTA 02/23/25 16:48 IMPRESSION: No large vessel intracranial occlusion, high-grade intracranial stenosis, or aneurysm. No carotid or vertebral artery occlusion, dissection, or significant stenosis. Small pericardial effusion versus pericardial thickening. Mild interstitial pulmonary edema, versus respiratory bronchiolitis or infection. Brain MRI 02/25/25 05:54 IMPRESSION: Normal exam. Labs Labs: Laboratory Results - last 24 hr 02/25/25 02/25/25 02/26/25 16:50 20:53 05:13 WBC 6.9 RBC 4.68 Hgb 12.1 Hct 38.3 MCV 81.8 MCH 25.9 L MCHC 31.6 L RDW 17.4 H Plt Count 339 MPV 10.3 PT 27.0 H D INR 2.6 Sodium 132 L Potassium 4.2 Chloride 96 L Carbon Dioxide 29 Anion Gap 7 BUN 19 H Creatinine 0.93 Estim Creat Clear Calc 84 Estimated GFR > 60 Glucose 103 POC Capillary Glucose 63 L 113 H Calcium 9.1 Magnesium 2.3 02/26/25 02/26/25 08:39 11:57 WBC RBC Hgb Hct MCV MCH MCHC RDW Plt Count MPV PT INR Sodium Potassium Chloride Carbon Dioxide Anion Gap BUN Creatinine Estim Creat Clear Calc Estimated GFR Glucose POC Capillary Glucose 102 90 Calcium Magnesium Quality VTE Prophylaxis VTE prophylaxis: mechanical ordered and pharmacologic ordered
--- NOTE | 2025-02-26 15:42 | PC.NURSE ---
Patient states she had an episode while she was taking on the phone and felt confused and hot. Patient states it only lasted a couple of seconds. She states this was around 1500.
[2025-02-26] MEDS: WARFARIN (*PBKC) 3 MG TABLET 6 MG PO (17:19)
[2025-02-26] MEDS: HYDROXYCHLOROQUINE SULFATE 200 MG TABLET PO (17:19)
[2025-02-27] VITALS (15 sets, daily range): BP systolic 102–121; BP diastolic 63–86; PULSE 60–71; RESP 12–18; TEMP 36.6–36.9; O2SAT 94–98
[2025-02-27] MEDS: ACETAMINOPHEN 325 MG TABLET 650 MG PO ×3 (04:24→17:14)
[2025-02-27] MEDS: ENOXAPARIN 80 MG/0.8 ML SYRINGE 125 MG SUB-Q (05:38)
[2025-02-27 05:57] LABS: Hematocrit 39.8 % (37.0-47.0); Hemoglobin 12.3 g/dL (12.0-15.0); Mean Corpuscular HGB Conc 30.9 g/dl (32-36); Mean Corpuscular Hemoglobin 25.2 pg (26-34); Mean Corpuscular Volume 81.6 fl (80-100); Platelet Count Result 350 k/mm3 (150-375); Red Blood Count 4.88 M/mm3 (4.2-5.4); White Blood Count 7.2 K/mm3 (4.5-10.0)
[2025-02-27 06:12] LABS: INR 3.5; Prothrombin Time 34.4 Seconds (11.1-14.7)
[2025-02-27 06:18] LABS: Anion Gap 8 mmol/L (4-12); Blood Urea Nitrogen 19 mg/dL (7-17); Calcium 9.1 mg/dL (8.4-10.2); Carbon Dioxide 27 mmol/L (22-30); Chloride 96 mmol/L (98-107); Estimated CRCL calculation 94 ml/min; Estimated Glomerular Filt Rate > 60; Glucose 98 mg/dL (65-110); Magnesium 2.3 mg/dL (1.6-2.3); Potassium 4.3 mmol/L (3.4-5.0); Sodium 131 mmol/L (137-145)
[2025-02-27] MEDS: FLUTICASONE/SALMETEROL 45-21 MCG INHALER 1 PUFF 2 PUFF INHALATION ×2 (07:19→20:47)
--- NOTE | 2025-02-27 10:00 | WPDNEUROPN ---
Subjective Date/time seen: 02/27/25 10:00 Interval history: 50 years old admitted through the ER with the speech difficulties when she stops suddenly to speaking notedly her face was drooping and she felt dizzy and confused by the time she came to the ER symptomatology had resolved, vital signs were normal, CBC was normal, BMP was normal, master scan was normal, head CT scan was negative for the bleed or hydrocephalus, x-ray chest was negative except cardiomegaly and is status post median sternotomy for CABG, head and neck CTA negative for the large vessel involvement or aneurysm, subsequently MRI of the brain negative, echocardiogram normal, receiving aspirin 81mg daily, atorvastatin 40mg daily, Jardiance 25mg daily, Ozempic 1mg subQ weekly, warfarin 6mg p.o. daily And remains stable Objective Data Vital Signs Vital Signs: Vital Signs - 24 hr 02/26/25 12:05 02/26/25 14:00 02/26/25 16:04 Temperature 36.6 C Pulse Rate 63 60 64 Respiratory Rate 18 Blood Pressure 108/70 Pulse Oximetry 97 Oxygen Delivery Fraction of Inspired Oxygen 02/26/25 20:00 02/26/25 20:00 02/26/25 20:04 Temperature Pulse Rate 69 Respiratory Rate Blood Pressure Pulse Oximetry 96 Oxygen Delivery Room Air Room Air Fraction of Inspired Oxygen 21 02/26/25 21:27 02/26/25 21:29 02/27/25 00:00 Temperature 36.1 C L Pulse Rate 78 64 65 Respiratory Rate 18 Blood Pressure 105/58 L Pulse Oximetry 94 Oxygen Delivery Fraction of Inspired Oxygen 02/27/25 02:37 02/27/25 04:00 02/27/25 04:31 Temperature 36.7 C Pulse Rate 61 62 62 Respiratory Rate 18 18 Blood Pressure 119/71 Pulse Oximetry 95 94 Oxygen Delivery CPAP Fraction of Inspired Oxygen 02/27/25 07:20 Temperature Pulse Rate Respiratory Rate Blood Pressure Pulse Oximetry 95 Oxygen Delivery Room Air Fraction of Inspired Oxygen Intake/Output Intake/Output: Intake & Output 02/24/25 02/25/25 02/26/25 02/27/25 23:59 23:59 23:59 23:59 Intake Total 1242 1700 760 350 Output Total 1 Balance 1241 1700 760 350 Meds/Results Medications: Active Medications Generic Name Dose Route Start Last Admin Trade Name Freq PRN Reason Stop Dose Admin Acetaminophen 650 mg 02/23/25 18:30 02/27/25 04:24 Acetaminophen 325 Mg Tablet PO 650 mg Q4H PRN Administration Mild Pain (1-3) or Fever Albuterol 2 puff 02/23/25 22:13 Albuterol Sulfate (*Sp) Aerosol 1 Puff INHALATION Q4-6H PRN shortness of breath or wheezing Aspirin 81 mg 02/24/25 09:00 02/26/25 08:15 Aspirin 81 Mg Enteric Tablet PO 81 mg QAM SAHARA Administration Atorvastatin Calcium 40 mg 02/24/25 09:00 02/26/25 08:15 Atorvastatin 40 Mg Tablet PO 40 mg DAILY SAHARA Administration Bupropion HCl 150 mg 02/24/25 09:00 02/26/25 21:28 Bupropion Hcl Sr (12 Hr) 150 Mg Tab PO 150 mg Q12HR SAHARA Administration Dextrose 12.5 gm 02/23/25 18:30 Dextrose 50% 25 Gm/50 Ml Syringe IV PUSH PRN PRN Hypoglycemia Protocol Empagliflozin 25 mg 02/24/25 09:00 02/26/25 08:15 Empagliflozin 25 Mg Tablet PO 25 mg DAILY SAHARA Administration Glucagon 1 mg 02/23/25 18:30 Glucagon For Inj 1 Mg Vial IM PRN PRN Hypoglycemia Protocol Glucose 15 gm 02/23/25 18:30 Glucose Oral Gel 15 Gm Of Glucse In 37.5 Gm Tube PO PRN PRN Hypoglycemia Protocol Hydroxychloroquine Sulfate 200 mg 02/24/25 18:00 02/26/25 17:19 Hydroxychloroquine Sulfate 200 Mg Tablet PO 200 mg QPM SAHARA Administration Dextrose 1,000 mls @ 100 mls/hr 02/23/25 18:30 Dextrose 5% 1,000 Ml IVPB PRN PRN Hypoglycemia Protocol Insulin Aspart 2 - 5 units 02/24/25 08:00 02/27/25 08:31 Insulin Aspart (*Bkc) 100 Units/Ml SUB-Q Not Given TIDWM [facility] Protocol Insulin Aspart 1 - 2 units 02/23/25 21:00 02/26/25 21:33 Insulin Aspart (*Bkc) 100 Units/Ml SUB-Q Not Given HS SAHARA Protocol Lisinopril 10 mg 02/24/25 18:00 02/26/25 17:19 Lisinopril 10 Mg Tablet PO 10 mg QPM SAHARA Administration Metoprolol Tartrate 25 mg 02/24/25 09:00 02/26/25 21:29 Metoprolol Tartrate 25 Mg Tablet PO 25 mg Q12HR SAHARA Administration Ondansetron HCl 4 mg 02/24/25 10:12 02/26/25 03:31 Ondansetron Inj 4 Mg/2 Ml Vial IV PUSH 4 mg Q4H PRN Administration Nausea And Vomiting Oxybutynin Chloride 5 mg 02/24/25 09:00 02/26/25 17:19 Oxybutynin Chloride 5 Mg Tablet PO 5 mg BID SAHARA Administration Fluticasone/Salmeterol 2 puff 02/23/25 20:00 02/27/25 07:19 Fluticasone/Salmeterol 45-21 Mcg Inhaler 1 Puff INHALATION 2 puff Q12HRT SAHARA Administration Spironolactone 25 mg 02/24/25 09:00 02/26/25 08:15 Spironolactone 25 Mg Tablet PO 25 mg DAILY SAHARA Administration Torsemide 40 mg 02/24/25 09:00 02/26/25 08:15 Torsemide 20 Mg Tablet PO 40 mg DAILY SAHARA Administration Tramadol HCl 50 mg 02/24/25 10:08 02/25/25 16:57 Tramadol Hcl (*Crx) 50 Mg Tablet PO 50 mg Q6H PRN Administration pain 4-6 Venlafaxine HCl 75 mg 02/24/25 09:00 02/26/25 08:14 Venlafaxine Hcl 75 Mg Tablet PO 75 mg DAILY SAHARA Administration Warfarin Sodium 6 mg 02/24/25 18:00 02/26/25 17:19 Warfarin (*Pbkc) 3 Mg Tablet PO 6 mg QPM SAHARA Administration Radiology Results: ITS Impressions Head CT 02/23/25 15:03 IMPRESSION: No acute intracranial process. Results reported telephonically to Dr. Hernandez by Dr. Gregory at 3:08 PM on 02/23/2025. Chest X-Ray 02/23/25 15:26 Impression: 1: Cardiomegaly with mild interstitial edema. Head/Neck CTA 02/23/25 16:48 IMPRESSION: No large vessel intracranial occlusion, high-grade intracranial stenosis, or aneurysm. No carotid or vertebral artery occlusion, dissection, or significant stenosis. Small pericardial effusion versus pericardial thickening. Mild interstitial pulmonary edema, versus respiratory bronchiolitis or infection. Brain MRI 02/25/25 05:54 IMPRESSION: Normal exam. Labs Labs: Laboratory Results - last 24 hr 02/26/25 02/26/25 02/26/25 11:57 16:49 21:31 WBC RBC Hgb Hct MCV MCH MCHC RDW Plt Count MPV PT INR Sodium Potassium Chloride Carbon Dioxide Anion Gap BUN Creatinine Estim Creat Clear Calc Estimated GFR Glucose POC Capillary Glucose 90 73 90 Calcium Magnesium 02/27/25 02/27/25 02/27/25 05:01 05:02 08:23 WBC 7.2 RBC 4.88 Hgb 12.3 Hct 39.8 MCV 81.6 MCH 25.2 L MCHC 30.9 L RDW 17.3 H Plt Count 350 MPV 10.2 PT 34.4 H D INR 3.5 Sodium 131 L Potassium 4.3 Chloride 96 L Carbon Dioxide 27 Anion Gap 8 BUN 19 H Creatinine 0.82 Estim Creat Clear Calc 94 Estimated GFR > 60 Glucose 98 POC Capillary Glucose 95 Calcium 9.1 Magnesium 2.3
[2025-02-27] MEDS: EMPAGLIFLOZIN 25 MG TABLET PO (10:06)
[2025-02-27] MEDS: TORSEMIDE 20 MG TABLET 40 MG PO (10:06)
[2025-02-27] MEDS: ATORVASTATIN 40 MG TABLET PO (10:06)
[2025-02-27] MEDS: SPIRONOLACTONE 25 MG TABLET PO (10:06)
[2025-02-27] MEDS: buPROPion HCL SR (12 HR) 150 MG TAB PO ×2 (10:06→21:49)
[2025-02-27] MEDS: ASPIRIN 81 MG ENTERIC TABLET PO (10:06)
[2025-02-27] MEDS: VENLAFAXINE HCL 75 MG TABLET PO (10:06)
[2025-02-27] MEDS: METOPROLOL TARTRATE 25 MG TABLET PO ×2 (10:07→21:49)
[2025-02-27] MEDS: ONDANSETRON INJ 4 MG/2 ML VIAL IV PUSH ×2 (11:37→17:08)
--- NOTE | 2025-02-27 16:58 | P.PNIM_ITS ---
Progress Note: A&P Assessment and Plan (1) Transient cerebral ischemia: Code(s): G45.9 - Transient cerebral ischemic attack, unspecified Status: Acute Assessment and Plan: Neurology consulted Plan for MRI in the morning N [facility] 0 (2) Pericardial effusion: Code(s): I31.39 - Other pericardial effusion (noninflammatory) Status: Acute Assessment and Plan: Cardiology consulted pending recommendations (3) Pulmonary edema: Code(s): J81.1 - Chronic pulmonary edema Status: Acute Assessment and Plan: Versus infection versus CHF Cardiology consulted BNP 93 Will start home diuretics Continue Jardiance (4) Diabetes: Code(s): E11.9 - Type 2 diabetes mellitus without complications Status: Acute Assessment and Plan: Diabetic diet Accu-Cheks a.c. HS SSI (5) Mechanical heart valve present: Code(s): Z95.2 - Presence of prosthetic heart valve Status: Acute Assessment and Plan: Continue warfarin and aspirin Daily INR Plan patient presented with stroke like symptoms with difficulty speaking, and facial droop, her symptoms now have resolve, CT scan of the head and CTA of head and neck are normal, to further evaluate patient will have MRI or the head, which did not show any acute injury, patient is seen by the general car supervisor yard and recommended to continue antiplatelet and anticoagulation. Patient also has history of mechanical mitral valve, taking warfarin and seen by general car supervisor yard recommending INR between 2.5 to 3.5 if the INR is subtherapeutic, will need bridging with Lovenox, her INR is 2.6, will continue bridge with Lovenox one more day, and INR is between 2.5 and 3.5, will bridge her with Lovenox 125mg BID, will monitor, on 02/25 patient blood pressure was low and held patient BP meds, will monitor, today patient is close to normal. Neurologist is recommending EEG to further evaluate, will follow up and monitor. Subjective Date/time seen: 02/27/25 16:58 Interval history: Stroke-like symptoms Narrative: 50-year-old female past medical history of heart disease, diabetes, on chronic anticoagulation warfarin presents the hospital with stroke-like symptoms. She states that know where she was unable to speak and she felt like she had a facial droop. Her symptoms lasted about an hour. She feels that the symptoms have completely resolved. She states about a month ago she was hospitalized for CHF of exacerbation and had her diuretics increased however she is still struggling with edema. Patient denies nausea running fever chills, dysuria. Lab work shows INR of 2.7 sodium of 134, AST 54, ALT 48, alkaline phos 237. CT head and neck shows no acute intercranial process. Small pericardial effusion versus pericardial thickening and mild interstitial edema versus respiratory infection patient presented with stroke like symptoms with difficulty speaking, and facial droop, her symptoms now have resolve, CT scan of the head and CTA of head and neck are normal, to further evaluate patient will have MRI or the head, which did not show any acute injury, patient is seen by the general car supervisor yard and r ecommended to continue antiplatelet and anticoagulation. Patient also has history of mechanical mitral valve, taking warfarin and seen by general car supervisor yard recommending INR between 2.5 to 3.5 if the INR is subtherapeutic, will need bridging with Lovenox, her INR is 2.6, will continue bridge with Lovenox one more day, and INR is between 2.5 and 3.5, will bridge her with Lovenox 125mg BID, will monitor, on 02/25 patient blood pressure was low and held patient BP meds, will monitor, today patient is close to normal. Neurologist is recommending EEG to further evaluate, will follow up and monitor. Review of Systems Review of Systems: 12 systems were reviewed and are negativ e except for as per HPI. All systems reviewed & are unremarkable except as noted in HPI and below Exam Narrative: Morbidly obese Patient is comfortable, NAD HEENT: eyes are clear and none icteric LUNGS:CTA HEART: RR S1S2 ABD: BS+, Soft and nontender Lower extremities: no edema SKIN: nonjaundiced Neuro: grossly intact. Objective Data Vital Signs Vital Signs: Vital Signs - 24 hr 02/26/25 20:00 02/26/25 20:00 02/26/25 20:04 Temperature Pulse Rate 69 Respiratory Rate Blood Pressure Pulse Oximetry 96 Oxygen Delivery Room Air Room Air Fraction of Inspired Oxygen 21 02/26/25 21:27 02/26/25 21:29 02/27/25 00:00 Temperature 36.1 C L Pulse Rate 78 64 65 Respiratory Rate 18 Blood Pressure 105/58 L Pulse Oximetry 94 Oxygen Delivery Fraction of Inspired Oxygen 02/27/25 02:37 02/27/25 04:00 02/27/25 04:31 Temperature 36.7 C Pulse Rate 61 62 62 Respiratory Rate 18 18 Blood Pressure 119/71 Pulse Oximetry 95 94 Oxygen Delivery CPAP Fraction of Inspired Oxygen 02/27/25 07:20 02/27/25 10:00 02/27/25 10:00 Temperature Pulse Rate 66 Respiratory Rate Blood Pressure Pulse Oximetry 95 Oxygen Delivery Room Air Room Air Fraction of Inspired Oxygen 02/27/25 10:07 02/27/25 12:00 02/27/25 14:00 Temperature 36.6 C Pulse Rate 66 71 60 Respiratory Rate 18 Blood Pressure 102/63 Pulse Oximetry 98 Oxygen Delivery Fraction of Inspired Oxygen Intake/Output Intake/Output: Intake & Output 02/24/25 02/25/25 02/26/25 02/27/25 23:59 23:59 23:59 23:59 Intake Total 1242 9624 840 1956 Output Total 1 Balance 1241 0677 775 0111 Meds/Results Medications: Active Medications Generic Name Dose Route Start Last Admin Trade Name Freq PRN Reason Stop Dose Admin Acetaminophen 650 mg 02/23/25 18:30 02/27/25 11:37 Acetaminophen 325 Mg Tablet PO 650 mg Q4H PRN Administration Mild Pain (1-3) or Fever Albuterol 2 puff 02/23/25 22:13 Albuterol Sulfate (*Sp) Aerosol 1 Puff INHALATION Q4-6H PRN shortness of breath or wheezing Aspirin 81 mg 02/24/25 09:00 02/27/25 10:06 Aspirin 81 Mg Enteric Tablet PO 81 mg QAM SAHARA Administration Atorvastatin Calcium 40 mg 02/24/25 09:00 02/27/25 10:06 Atorvastatin 40 Mg Tablet PO 40 mg DAILY SAHARA Administration Bupropion HCl 150 mg 02/24/25 09:00 02/27/25 10:06 Bupropion Hcl Sr (12 Hr) 150 Mg Tab PO 150 mg Q12HR SAHARA Administration Dextrose 12.5 gm 02/23/25 18:30 Dextrose 50% 25 Gm/50 Ml Syringe IV PUSH PRN PRN Hypoglycemia Protocol Empagliflozin 25 mg 02/24/25 09:00 02/27/25 10:06 Empagliflozin 25 Mg Tablet PO 25 mg DAILY SAHARA Administration Glucagon 1 mg 02/23/25 18:30 Glucagon For Inj 1 Mg Vial IM PRN PRN Hypoglycemia Protocol Glucose 15 gm 02/23/25 18:30 Glucose Oral Gel 15 Gm Of Glucse In 37.5 Gm Tube PO PRN PRN Hypoglycemia Protocol Hydroxychloroquine Sulfate 200 mg 02/24/25 18:00 02/26/25 17:19 Hydroxychloroquine Sulfate 200 Mg Tablet PO 200 mg QPM SAHARA Administration Dextrose 1,000 mls @ 100 mls/hr 02/23/25 18:30 Dextrose 5% 1,000 Ml IVPB PRN PRN Hypoglycemia Protocol Insulin Aspart 2 - 5 units 02/24/25 08:00 02/27/25 12:13 Insulin Aspart (*Bkc) 100 Units/Ml SUB-Q Not Given TIDWM SAHARA Protocol Insulin Aspart 1 - 2 units 02/23/25 21:00 02/26/25 21:33 Insulin Aspart (*Bkc) 100 Units/Ml SUB-Q Not Given HS SAHARA Protocol Lisinopril 10 mg 02/24/25 18:00 02/26/25 17:19 Lisinopril 10 Mg Tablet PO 10 mg QPM SAHARA Administration Metoprolol Tartrate 25 mg 02/24/25 09:00 02/27/25 10:07 Metoprolol Tartrate 25 Mg Tablet PO 25 mg Q12HR SAHARA Administration Ondansetron HCl 4 mg 02/24/25 10:12 02/27/25 11:37 Ondansetron Inj 4 Mg/2 Ml Vial IV PUSH 4 mg Q4H PRN Administration Nausea And Vomiting Oxybutynin Chloride 5 mg 02/24/25 09:00 02/27/25 10:07 Oxybutynin Chloride 5 Mg Tablet PO 5 mg BID SAHARA Administration Fluticasone/Salmeterol 2 puff 02/23/25 20:00 02/27/25 07:19 Fluticasone/Salmeterol 45-21 Mcg Inhaler 1 Puff INHALATION 2 puff Q12HRT SAHARA Administration Spironolactone 25 mg 02/24/25 09:00 02/27/25 10:06 Spironolactone 25 Mg Tablet PO 25 mg DAILY SAHARA Administration Torsemide 40 mg 02/24/25 09:00 02/27/25 10:06 Torsemide 20 Mg Tablet PO 40 mg DAILY SA[facility]ARA Administration Tramadol HCl 50 mg 02/24/25 10:08 02/25/25 16:57 Tramadol Hcl (*Crx) 50 Mg Tablet PO 50 mg Q6H PRN Administration pain 4-6 Venlafaxine HCl 75 mg 02/24/25 09:00 02/27/25 10:06 Venlafaxine Hcl 75 Mg Tablet PO 75 mg DAILY [facility]ARA Administration Warfarin Sodium 6 mg 02/24/25 18:00 02/26/25 17:19 Warfarin (*Pbkc) 3 Mg Tablet PO 6 mg QPM SAHARA Administration Radiology Results: ITS Impressions Head CT 02/23/25 15:03 IMPRESSION: No acute intracranial process. Results reported telephonically to Dr. Hernandez by Dr. Gregory at 3:08 PM on 02/23/2025. Chest X-Ray 02/23/25 15:26 Impression: 1: Cardiomegaly with mild interstitial edema. Head/Neck CTA 02/23/25 16:48 IMPRESSION: No large vessel intracranial occlusion, high-grade intracranial stenosis, or aneurysm. No carotid or vertebral artery occlusion, dissection, or significant stenosis. Small pericardial effusion versus pericardial thickening. Mild interstitial pulmonary edema, versus respiratory bronchiolitis or infection. Brain MRI 02/25/25 05:54 IMPRESSION: Normal exam. Labs Labs: Laboratory Results - last 24 hr 02/26/25 02/27/25 02/27/25 21:31 05:01 05:02 WBC 7.2 RBC 4.88 Hgb 12.3 Hct 39.8 MCV 81.6 MCH 25.2 L MCHC 30.9 L RDW 17.3 H Plt Count 350 MPV 10.2 PT 34.4 H D INR 3.5 Sodium 131 L Potassium 4.3 Chloride 96 L Carbon Dioxide 27 Anion Gap 8 BUN 19 H Creatinine 0.82 Estim Creat Clear Calc 94 Estimated GFR > 60 Glucose 98 POC Capillary Glucose 90 Calcium 9.1 Magnesium 2.3 02/27/25 02/27/25 08:23 11:55 WBC RBC Hgb Hct MCV MCH MCHC RDW Plt Count MPV PT INR Sodium Potassium Chloride Carbon Dioxide Anion Gap BUN Creatinine Estim Creat Clear Calc Estimated GFR Glucose POC Capillary Glucose 95 107 H Calcium Magnesium Quality VTE Prophylaxis VTE prophylaxis: mechanical ordered and pharmacologic ordered
[2025-02-27] MEDS: WARFARIN (*PBKC) 3 MG TABLET 6 MG PO (17:14)
[2025-02-27] MEDS: HYDROXYCHLOROQUINE SULFATE 200 MG TABLET PO (17:14)
[2025-02-27] MEDS: traMADol HCL (*CRX) 50 MG TABLET PO (21:49)
[2025-02-28] VITALS (12 sets, daily range): BP systolic 90–134; BP diastolic 55–81; PULSE 61–71; RESP 12–27; TEMP 35.7–36.6; O2SAT 94–97
[2025-02-28] MEDS: ACETAMINOPHEN 325 MG TABLET 650 MG PO ×3 (00:55→15:39)
[2025-02-28] MEDS: traMADol HCL (*CRX) 50 MG TABLET PO ×3 (05:17→21:11)
[2025-02-28] MEDS: FLUTICASONE/SALMETEROL 45-21 MCG INHALER 1 PUFF 2 PUFF INHALATION ×2 (05:29→21:06)
[2025-02-28 05:59] LABS: Hematocrit 37.8 % (37.0-47.0); Hemoglobin 12.0 g/dL (12.0-15.0); Mean Corpuscular HGB Conc 31.7 g/dl (32-36); Mean Corpuscular Hemoglobin 26.0 pg (26-34); Mean Corpuscular Volume 82.0 fl (80-100); Platelet Count Result 349 k/mm3 (150-375); Red Blood Count 4.61 M/mm3 (4.2-5.4); White Blood Count 9.6 K/mm3 (4.5-10.0)
[2025-02-28 06:04] LABS: INR 4.1; Prothrombin Time 38.0 Seconds (11.1-14.7)
[2025-02-28 06:11] LABS: Anion Gap 10 mmol/L (4-12); Blood Urea Nitrogen 21 mg/dL (7-17); Calcium 8.9 mg/dL (8.4-10.2); Carbon Dioxide 26 mmol/L (22-30); Chloride 95 mmol/L (98-107); Estimated CRCL calculation 73 ml/min; Estimated Glomerular Filt Rate 54; Glucose 100 mg/dL (65-110); Magnesium 2.2 mg/dL (1.6-2.3); Potassium 4.0 mmol/L (3.4-5.0); Sodium 131 mmol/L (137-145)
[2025-02-28] MEDS: ASPIRIN 81 MG ENTERIC TABLET PO (08:42)
[2025-02-28] MEDS: TORSEMIDE 20 MG TABLET 40 MG PO (08:42)
[2025-02-28] MEDS: EMPAGLIFLOZIN 25 MG TABLET PO (08:42)
[2025-02-28] MEDS: METOPROLOL TARTRATE 25 MG TABLET PO ×2 (08:42→21:12)
[2025-02-28] MEDS: buPROPion HCL SR (12 HR) 150 MG TAB PO ×2 (08:42→21:11)
[2025-02-28] MEDS: SPIRONOLACTONE 25 MG TABLET PO (08:42)
[2025-02-28] MEDS: ATORVASTATIN 40 MG TABLET PO (08:42)
[2025-02-28] MEDS: VENLAFAXINE HCL 75 MG TABLET PO (08:42)
[2025-02-28] MEDS: ONDANSETRON INJ 4 MG/2 ML VIAL IV PUSH (08:46)
--- NOTE | 2025-02-28 13:49 | P.NEURO_ITS ---
Neurology EEG Report General Information Date of Study: 02/28/25 TEST EEG DIAGNOSIS Possible seizure activity. CONDITION OF RECORDING Awake, drowsy and sleep. EEG NUMBER [id number] CLINICAL HISTORY Patient reports she came to the hospital couple of days ago for the complaint of slurred speech. She still has headache though when she came in she did not lose consciousness. EEG DESCRIPTION Basic resting occipital frequency consists of low to medium voltage 9 to 11 hertz per 2nd alpha admixed with low-voltage 15 to 18 hertz per 2nd beta. Low- voltage beta activity seen diffusely admixed with waxing and waning posterior alpha rhythm. Low-voltage beta activity seen intermittently admixed with theta during early phase of sleep followed by the evolution of bilateral symmetrical sleep spindles. Photic stimulation not done. Hyperventilation not done. Non paroxysmal. Nonfocal. Nonlateralizing. IMPRESSION Normal record. Clinical correlation recommended as the normal EEG does not rule out the possibility of underlying seizure.
--- NOTE | 2025-02-28 14:40 | P.PNIM_ITS ---
Progress Note: A&P Assessment and Plan (1) Transient cerebral ischemia: Code(s): G45.9 - Transient cerebral ischemic attack, unspecified Status: Acute Assessment and Plan: Neurology consulted Plan for MRI in the morning N [facility] 0 (2) Pericardial effusion: Code(s): I31.39 - Other pericardial effusion (noninflammatory) Status: Acute Assessment and Plan: Cardiology consulted pending recommendations (3) Pulmonary edema: Code(s): J81.1 - Chronic pulmonary edema Status: Acute Assessment and Plan: Versus infection versus CHF Cardiology consulted BNP 93 Will start home diuretics Continue Jardiance (4) Diabetes: Code(s): E11.9 - Type 2 diabetes mellitus without complications Status: Acute Assessment and Plan: Diabetic diet Accu-Cheks a.c. HS SSI (5) Mechanical heart valve present: Code(s): Z95.2 - Presence of prosthetic heart valve Status: Acute Assessment and Plan: Continue warfarin and aspirin Daily INR Plan patient presented with stroke like symptoms with difficulty speaking, and facial droop, her symptoms now have resolve, CT scan of the head and CTA of head and neck are normal, to further evaluate patient will have MRI of the head, which did not show any acute injury, similarly her EEG is normal, patient is seen by the medical imaging specialist and recommended to continue antiplatelet and anticoagulation. Patient also has history of mechanical mitral valve, taking warfarin and seen by medical imaging specialist recommending INR between 2.5 to 3.5 if the INR is subtherapeutic, will need bridging with Lovenox, on 02/27 her INR was 3.5, stopped bridge with Lovenox and keep INR between 2.5 and 3.5, today her INR is 4.1 and patient is taking warfarin 6mg, will reduce to 4mg today, will monitor, on 02/25 patient blood pressure was low and held patient BP meds, will monitor, today patient is close to normal. will monitor her INR . Subjective Date/time seen: 02/28/25 14:40 Interval history: Stroke-like symptoms Narrative: 50-year-old female past medical history of heart disease, diabetes, on chronic anticoagulation warfarin presents the hospital with stroke-like symptoms. She states that know where she was unable to speak and she felt like she had a facial droop. Her symptoms lasted about an hour. She feels that the symptoms have completely resolved. She states about a month ago she was hospitalized for CHF of exacerbation and had her diuretics increased however she is still struggling with edema. Patient denies nausea running fever chills, dysuria. Lab work shows INR of 2.7 sodium of 134, AST 54, ALT 48, alkaline phos 237. CT head and neck shows no acute intercranial process. Small pericardial effusion versus pericardial thickening and mild interstitial edema versus respiratory infection patient presented with stroke like symptoms with difficulty speaking, and facial droop, her symptoms now have resolve, CT scan of the head and CTA of head and neck are normal, to further evaluate patient will have MRI of the head, which did not show any acute injury, similarly her EEG is normal, patient is seen by the medical imaging specialist and recommended to continue antiplatelet and anticoagulation. Patient also has history of mechanical mitral valve, taking warfarin and seen by medical imaging specialist recommending INR between 2.5 to 3.5 if the INR is subtherapeutic, will need bridging with Lovenox, on 02/27 her INR was 3.5, stopped bridge with Lovenox and keep INR between 2.5 and 3.5, today her INR is 4.1 and patient is taking warfarin 6mg, will reduce to 4mg today, will monitor, on 02/25 patient blood pressure was low and held patient BP meds, will monitor, today patient is close to normal. will monitor her INR Review of Systems Review of Systems: 12 systems were reviewed and are negativ e except for as per HPI. All systems reviewed & are unremarkable except as noted in HPI and below Exam Narrative: Morbidly obese Patient is comfortable, NAD HEENT: eyes are clear and none icteric LUNGS:CTA HEART: RR S1S2 ABD: BS+, Soft and nontender Lower extremities: no edema SKIN: nonjaundiced Neuro: grossly intact. Objective Data Vital Signs Vital Signs: Vital Signs - 24 hr 02/27/25 16:00 02/27/25 20:00 02/27/25 20:00 Temperature Pulse Rate 67 65 Respiratory Rate Blood Pressure Pulse Oximetry Oxygen Delivery Room Air 02/27/25 20:51 02/27/25 21:20 02/27/25 23:00 Temperature 36.9 C Pulse Rate 70 65 Respiratory Rate 12 Blood Pressure 121/86 Pulse Oximetry 96 94 Oxygen Delivery Room Air 02/27/25 23:24 02/28/25 04:00 02/28/25 05:33 Temperature Pulse Rate 66 61 Respiratory Rate 16 Blood Pressure Pulse Oximetry 96 95 Oxygen Delivery CPAP Room Air 02/28/25 05:57 02/28/25 08:40 02/28/25 08:42 Temperature 36.6 C Pulse Rate 64 71 Respiratory Rate 12 Blood Pressure 90/55 L 134/77 Pulse Oximetry 97 Oxygen Delivery 02/28/25 09:05 02/28/25 09:05 02/28/25 12:00 Temperature Pulse Rate 62 64 Respiratory Rate Blood Pressure Pulse Oximetry Oxygen Delivery Room Air 02/28/25 14:00 Temperature 36.5 C Pulse Rate 66 Respiratory Rate 16 Blood Pressure 118/81 Pulse Oximetry 94 Oxygen Delivery Intake/Output Intake/Output: Intake & Output 02/25/25 02/26/25 02/27/25 02/28/25 23:59 23:59 23:59 23:59 Intake Total 9043 341 2729 680 Balance 3954 213 5432 680 Meds/Results Medications: Active Medications Generic Name Dose Route Start Last Admin Trade Name Freq PRN Reason Stop Dose Admin Acetaminophen 650 mg 02/23/25 18:30 02/28/25 10:04 Acetaminophen 325 Mg Tablet PO 650 mg Q4H PRN Administration Mild Pain (1-3) or Fever Albuterol 2 puff 02/23/25 22:13 Albuterol Sulfate (*Sp) Aerosol 1 Puff INHALATION Q4-6H PRN shortness of breath or wheezing Aspirin 81 mg 02/24/25 09:00 02/28/25 08:42 Aspirin 81 Mg Enteric Tablet PO 81 mg QAM SAHARA Administration Atorvastatin Calcium 40 mg 02/24/25 09:00 02/28/25 08:42 Atorvastatin 40 Mg Tablet PO 40 mg DAILY SAHARA Administration Bupropion HCl 150 mg 02/24/25 09:00 02/28/25 08:42 Bupropion Hcl Sr (12 Hr) 150 Mg Tab PO 150 mg Q12HR SAHARA Administration Dextrose 12.5 gm 02/23/25 18:30 Dextrose 50% 25 Gm/50 Ml Syringe IV PUSH PRN PRN Hypoglycemia Protocol Empagliflozin 25 mg 02/24/25 09:00 02/28/25 08:42 Empagliflozin 25 Mg Tablet PO 25 mg DAILY SAHARA Administration Glucagon 1 mg 02/23/25 18:30 Glucagon For Inj 1 Mg Vial IM PRN PRN Hypoglycemia Protocol Glucose 15 gm 02/23/25 18:30 Glucose Oral Gel 15 Gm Of Glucse In 37.5 Gm Tube PO PRN PRN Hypoglycemia Protocol Hydroxychloroquine Sulfate 200 mg 02/24/25 18:00 02/27/25 17:14 Hydroxychloroquine Sulfate 200 Mg Tablet PO 200 mg QPM SAHARA Administration Dextrose 1,000 mls @ 100 mls/hr 02/23/25 18:30 Dextrose 5% 1,000 Ml IVPB PRN PRN Hypoglycemia Protocol Insulin Aspart 2 - 5 units 02/24/25 08:00 02/28/25 12:17 Insulin Aspart (*Bkc) 100 Units/Ml SUB-Q Not Given TIDWM SAHARA Protocol Insulin Aspart 1 - 2 units 02/23/25 21:00 02/27/25 21:49 Insulin Aspart (*Bkc) 100 Units/Ml SUB-Q Not Given HS SAHARA Protocol Lisinopril 10 mg 02/24/25 18:00 02/27/25 17:14 Lisinopril 10 Mg Tablet PO 10 mg QPM SAHARA Administration Metoprolol Tartrate 25 mg 02/24/25 09:00 02/28/25 08:42 Metoprolol Tartrate 25 Mg Tablet PO 25 mg Q12HR SAHARA Administration Ondansetron HCl 4 mg 02/24/25 10:12 02/28/25 08:46 Ondansetron Inj 4 Mg/2 Ml Vial IV PUSH 4 mg Q4H PRN Administration Nausea And Vomiting Oxybutynin Chloride 5 mg 02/24/25 09:00 02/28/25 08:42 Oxybutynin Chloride 5 Mg Tablet PO 5 mg BID SAHARA Administration Fluticasone/Salmeterol 2 puff 02/23/25 20:00 02/28/25 05:29 Fluticasone/Salmeterol 45-21 Mcg Inhaler 1 Puff INHALATION 2 puff Q12HRT SAHARA Administration Spironolactone 25 mg 02/24/25 09:00 02/28/25 08:42 Spironolactone 25 Mg Tablet PO 25 mg DAILY SAHARA Administration Torsemide 40 mg 02/24/25 09:00 02/28/25 08:42 Torsemide 20 Mg Tablet PO 40 mg DAILY SAHARA Administration Tramadol HCl 50 mg 02/24/25 10:08 02/28/25 05:17 Tramadol Hcl (*Crx) 50 Mg Tablet PO 50 mg Q6H PRN Administration pain 4-6 Venlafaxine HCl 75 mg 02/24/25 09:00 02/28/25 08:42 Venlafaxine Hcl 75 Mg Tablet PO 75 mg DAILY [facility] Administration Warfarin Sodium 4 mg 02/28/25 17:00 Warfarin (*Pbkc) 4 Mg Tablet PO DAILY@1700 [facility] Radiology Results: ITS Impressions Head CT 02/23/25 15:03 IMPRESSION: No acute intracranial process. Results reported telephonically to Dr. Hernandez by Dr. Gregory at 3:08 PM on 02/23/2025. Chest X-Ray 02/23/25 15:26 Impression: 1: Cardiomegaly with mild interstitial edema. Head/Neck CTA 02/23/25 16:48 IMPRESSION: No large vessel intracranial occlusion, high-grade intracranial stenosis, or an eurysm. No carotid or vertebral artery occlusion, dissection, or significant stenosis. Small pericardial effusion versus pericardial thickening. Mild interstitial pulmonary edema, versus respiratory bronchiolitis or infection. Brain MRI 02/25/25 05:54 IMPRESSION: Normal exam. Labs Labs: Laboratory Results - last 24 hr 02/27/25 02/27/25 02/28/25 17:16 20:36 05:18 WBC 9.6 RBC 4.61 Hgb 12.0 Hct 37.8 MCV 82.0 MCH 26.0 MCHC 31.7 L RDW 17.2 H Plt Count 349 MPV 10.2 PT 38.0 H INR 4.1 Sodium 131 L Potassium 4.0 Chloride 95 L Carbon Dioxide 26 Anion Gap 10 BUN 21 H Creatinine 1.08 H Estim Creat Clear Calc 73 Estimated GFR 54 L Glucose 100 POC Capillary Glucose 106 H 133 H Calcium 8.9 Magnesium 2.2 02/28/25 02/28/25 08:07 12:11 WBC RBC Hgb Hct MCV MCH MCHC RDW Plt Count MPV PT INR Sodium Potassium Chloride Carbon Dioxide Anion Gap BUN Creatinine Estim Creat Clear Calc Estimated GFR Glucose POC Capillary Glucose 94 111 H Calcium Magnesium Quality VTE Prophylaxis VTE prophylaxis: mechanical ordered and pharmacologic ordered
--- NOTE | 2025-02-28 17:27 | PC.NURSE ---
RN spoke with hospitalist Pb to confirm INR and Warfarin order. Hospitalist Pb still wants Warfarin to be given.
[2025-02-28] MEDS: WARFARIN (*PBKC) 4 MG TABLET PO (18:45)
[2025-02-28] MEDS: HYDROXYCHLOROQUINE SULFATE 200 MG TABLET PO (18:46)
[2025-03-01] VITALS: PULSE 68
[2025-03-01] MEDS: ONDANSETRON INJ 4 MG/2 ML VIAL IV PUSH ×2 (03:37→12:32)
[2025-03-01 04:00] VITALS: PULSE 67
[2025-03-01 04:39] VITALS: BP 118/84; PULSE 68; RESP 22; TEMP 35.1; O2SAT 97
[2025-03-01 05:52] LABS: Hematocrit 38.2 % (37.0-47.0); Hemoglobin 12.3 g/dL (12.0-15.0); Mean Corpuscular HGB Conc 32.2 g/dl (32-36); Mean Corpuscular Hemoglobin 25.5 pg (26-34); Mean Corpuscular Volume 79.3 fl (80-100); Platelet Count Result 338 k/mm3 (150-375); Red Blood Count 4.82 M/mm3 (4.2-5.4); White Blood Count 13.2 K/mm3 (4.5-10.0)
[2025-03-01 06:05] LABS: INR 4.8; Prothrombin Time 42.2 Seconds (11.1-14.7)
[2025-03-01 06:12] LABS: Anion Gap 11 mmol/L (4-12); Blood Urea Nitrogen 18 mg/dL (7-17); Calcium 9.3 mg/dL (8.4-10.2); Carbon Dioxide 26 mmol/L (22-30); Chloride 90 mmol/L (98-107); Estimated CRCL calculation 96 ml/min; Estimated Glomerular Filt Rate > 60; Glucose 121 mg/dL (65-110); Magnesium 2.2 mg/dL (1.6-2.3); Potassium 4.1 mmol/L (3.4-5.0); Sodium 127 mmol/L (137-145)
--- NOTE | 2025-03-01 08:47 | PC.NURSE ---
RN held morning PO medications as patient is dry heaving and stating I can't keep anything down. Hospitalist Pb updated and new orders were given (see orders).
[2025-03-01 09:00] VITALS: PULSE 68
--- NOTE | 2025-03-01 09:00 | PC.NURSE ---
Patient off of unit to XRAY
[2025-03-01 11:13] LABS: Add Urine Microscopic? YES; Appearance Urine Clear (Clear); Budding Yeast Urine Present /hpf; Glucose Urine UA 3+ mg/dL (Negative); Leukocyte Esterase Ur Negative LEU/UL (Negative); Need Manual Microscopic Reviewed; Nitrate Urine Negative (Negative); Non Pathogenic Casts 0-2; Specific Grav Ur 1.026 (1.001-1.035)
[2025-03-01 12:00] VITALS: PULSE 74
--- NOTE | 2025-03-01 12:34 | PC.NURSE ---
RN spoke with Nicole (patient's daughter) and gave her on update on patient status via telephone.
--- NOTE | 2025-03-01 12:34 | PC.NURSE ---
Hospitalist Pb asked RN to call patient's PCP to confirm labs and strict INR monitoring. RN spoke with service provider at patient's PCP (Howard Bourgeois). Practice was at lunch until 1300. Will call back then.
--- NOTE | 2025-03-01 13:31 | PC.NURSE ---
RN spoke with Dr. Bourgeois's office and confirmed that patient can get her INR checked there and they will follow her labs closely.
--- NOTE | 2025-03-01 13:41 | P.DS_ITS ---
DS: Admitting Diagnosis Discharge Date 03/01/25 Admitting Diagnosis Stroke-like symptoms DS: Discharge Diagnosis Discharge Diagnosis (1) Transient cerebral ischemia: Code(s): G45.9 - Transient cerebral ischemic attack, unspecified Status: Acute Assessment and Plan: Neurology consulted Plan for MRI in the morning N [facility] 0 (2) Pericardial effusion: Code(s): I31.39 - Other pericardial effusion (noninflammatory) Status: Acute Assessment and Plan: Cardiology consulted pending recommendations (3) Pulmonary edema: Code(s): J81.1 - Chronic pulmonary edema Status: Acute Assessment and Plan: Versus infection versus CHF Cardiology consulted BNP 93 Will start home diuretics Continue Jardiance (4) Diabetes: Code(s): E11.9 - Type 2 diabetes mellitus without complications Status: Acute Assessment and Plan: Diabetic diet Accu-Cheks a.c. HS SSI (5) Mechanical heart valve present: Code(s): Z95.2 - Presence of prosthetic heart valve Status: Acute Assessment and Plan: Continue warfarin and aspirin Daily INR Plan patient presented with stroke like symptoms with difficulty speaking, and facial droop, her symptoms now have resolve, CT scan of the head and CTA of head and neck are normal, to further evaluate patient will have MRI of the head, which did not show any acute injury, similarly her EEG is normal, patient is seen by the internal affairs investigator and recommended to continue antiplatelet and anticoagulation. Patient also has history of mechanical mitral valve, taking warfarin and seen by internal affairs investigator recommending INR between 2.5 to 3.5 if the INR is subtherapeutic, will need bridging with Lovenox, on 02/27 her INR was 3.5, stopped bridge with Lovenox and keep INR between 2.5 and 3.5, today her INR is 4.1 and patient is taking warfarin 6mg, will reduce to 4mg today, will monitor, on 02/25 patient blood pressure was low and held patient BP meds, will monitor, today patient is close to normal. will monitor her INR . DS: Summary Hospital Course Hospital Course: patient presented with stroke like symptoms with difficulty speaking, and facial droop, her symptoms now have resolve, CT scan of the head and CTA of head and neck are normal, to further evaluate patient will have MRI of the head, which did not show any acute injury, similarly her EEG is normal, patient is seen by the internal affairs investigator and recommended to continue antiplatelet and anticoagulation. Patient also has history of mechanical mitral valve, taking warfarin and seen by internal affairs investigator recommending INR between 2.5 to 3.5 if the INR is subtherapeutic, will need bridging with Lovenox, on 02/27 her INR was 3.5, stopped bridge with Lovenox and keep INR between 2.5 and 3.5, today her INR is 4.1 and patient is taking warfarin 6mg, will reduce to 4mg today, will monitor, on 02/25 patient blood pressure was low and held patient BP meds, will monitor, today patient is close to normal. will monitor her INR . Patient with a mechanical heart valve on Warfarin for anticoagulated, today her INR is 4.8, patient is instructed not take Warfarin today and will have INR check with her primary tomorrow for further recommendation, patient to follow with her primary care provider as soon as possible. patient in instructed if any symptoms redevelop to go to nearest ER. RN discharging note RN attempting to go over discharge paperwork with patient. Patient refusing to answer any of RN's questions. RN asked patient what was wrong several times. Patient finally states nothing. Patient understands she is discharging and that her INR needs to be followed closely. RN will also go over paperwork with daughter Flor when she arrives. Time Spent with Patient Time attestation: Total time spent providing and/or coordinating discharge services: Exam Narrative: Morbidly obese Patient is comfortable, NAD HEENT: eyes are clear and none icteric LUNGS:CTA HEART: RR S1S2 ABD: BS+, Soft and nontender Lower extremities: no edema SKIN: nonjaundiced Neuro: grossly intact. DS: Data Data Completed and Pending Labs on day of discharge: Labs from last 24 hours 03/01/25 03/01/25 03/01/25 11:24 10:42 08:18 WBC RBC Hgb Hct MCV MCH MCHC RDW Plt Count MPV PT INR Sodium Potassium Chloride Carbon Dioxide Anion Gap BUN Creatinine Estim Creat Clear Calc Estimated GFR Glucose POC Capillary Glucose 106 H 99 Calcium Magnesium Urine Color Yellow Urine Appearance Clear Urine pH 5.5 Ur Specific [place] 1.026 Urine Protein 1+ H Urine Glucose (UA) 3+ H Urine Ketones 1+ H Ur Blood (Man) Negative Urine Nitrate Negative Urine Bilirubin Negative Urine Urobilinogen 1.0 Ur Leukocyte Esterase Negative Add Ur Microanalysis Reviewed Urine RBC >100 H Urine WBC 0-5 Ur Squamous Epith Cells None seen Urine Bacteria None seen Urine Casts 0-2 Urine Yeast (Budding) Present H 03/01/25 02/28/25 02/28/25 05:36 19:56 16:38 WBC 13.2 H RBC 4.82 Hgb 12.3 Hct 38.2 MCV 79.3 L MCH 25.5 L MCHC 32.2 RDW 16.6 H Plt Count 338 MPV 9.9 PT 42.2 H INR 4.8 Sodium 127 L Potassium 4.1 Chloride 90 L Carbon Dioxide 26 Anion Gap 11 BUN 18 H Creatinine 0.80 Estim Creat Clear Calc 96 Estimated GFR > 60 Glucose 121 H POC Capillary Glucose 115 H 100 Calcium 9.3 Magnesium 2.2 Urine Color Urine Appearance Urine pH Ur Specific [place] Urine Protein Urine Glucose (UA) Urine Ketones Ur Blood (Man) Urine Nitrate Urine Bilirubin Urine Urobilinogen Ur Leukocyte Esterase Add Ur Microanalysis Urine RBC Urine WBC Ur Squamous Epith Cells Urine Bacteria Urine Casts Urine Yeast (Budding) Discharge Plan Discharge Attending physician on discharge: Jackie Ambriz Consulting providers: Cristian Brewster; Yovany Crews; Clinton Reyez; Abhay Cheng; Hernesto Gregory; Yoandy Mcfarland; J Luis Hollingsworth Discharging Clinician: Jackie Ambriz Patient Disposition: Home Activity: as tolerated Diet: heart healthy Discharge Instructions: Patient with a mechanical heart valve on Warfarin for anticoagulated, today her INR is 4.8, patient is instructed not take Warfarin today and will have INR check with her primary tomorrow for further recommendation, patient to follow with her primary care provider as soon as possible. patient in instructed if any symptoms redevelop to go to nearest ER. Patient Instructions: Antibiotic Form Patient Language: Ukrainian Stand Alone Forms: General Discharge Information Follow-up/Referrals: Christelle,Howard Pation MD [Primary Care Provider] - Discharge Medications: New dextrose [Glutose-15] 40 % Gel 15 g PO PRN PRN (Reason: Hypoglycemia) Qty: 112.5 0RF Continued atorvastatin 40 mg tablet 40 mg PO DAILY Benlysta 200 mg/mL auto-injector 200 mg SUBCUT WEEKLY Patient Comments: on bupropion HCl 150 mg tablet sustained-release 12 hr 150 mg PO BID Jardiance 25 mg tablet 25 mg PO DAILY hydroxychloroquine 200 mg tablet 200 mg PO QPM lisinopril 10 mg tablet 10 mg PO QPM metoprolol tartrate 25 mg tablet 25 mg PO BID naloxone 4 mg/actuation spray,non-aerosol 1 spray INTRANASAL Q2M PRN (Reason: opioid overdose) oxybutynin chloride 5 mg tablet 5 mg PO BID torsemide 20 mg tablet 40 mg PO DAILY spironolactone 25 mg tablet 25 mg PO DAILY albuterol sulfate [Ventolin HFA] 90 mcg/actuation HFA aerosol inhaler 2 puff INHALATION Q4-6H PRN (Reason: shortness of breath or wheezing) (DME) lancets [OneTouch Delica Plus Lancet] 33 gauge misc MISCELLANEOUS Ozempic 1 mg/dose (4 mg/3 mL) pen injector 1 mg SUBCUT WEEKLY Rx Instructions: on friday tramadol 50 mg tablet 50 mg PO Q6H PRN (Reason: pain) azathioprine 100 mg tablet 100 mg PO HS budesonide-formoterol [Symbicort] 80-4.5 mcg/actuation HFA aerosol inhaler 2 puff inhalation BID aspirin 81 mg capsule 81 mg PO DAILY venlafaxine 75 mg tablet 75 mg PO DAILY Held amoxicillin 500 mg capsule 500 mg PO TID Hold Instructions: until seen by her primary care provider warfarin 6 mg tablet 6 mg PO QPM Hold Instructions: until seen by her primary care provider Date of admission: 02/24/25 07:59 Primary Care Provider: Christelle,Howard Patino Admitting Provider: Jackie Ambriz Attending physician on admission: Jackie Ambriz Condition: Stable
[2025-03-01 14:00] VITALS: BP 116/61; PULSE 74; RESP 18; TEMP 36.7; O2SAT 100
--- NOTE | 2025-03-01 14:38 | PC.NURSE ---
RN attempting to go over discharge paperwork with patient. Patient refusing to answer any of RN's questions. RN asked patient what was wrong several times. Patient finally states nothing. Patient understands she is discharging and that her INR needs to be followed closely. RN will also go over paperwork with daughter Flor when she arrives.
== END 2025-03-01 13:10 | disposition home or self-care (01) | DRG 69 ==
LOC: ANHED 18:05 → ANH3MED 18:22
PROVIDERS: Nurse Practitioner Gerontology; Admitting Provider Family Medicine; Emergency Provider Emergency Medicine; PCP Internal Medicine; Visit Provider Family Medicine
DX: G45.9 Transient cerebral ischemic attack, unspecified (principal); I31.39 Other pericardial effusion (noninflammatory); I50.32 Chronic diastolic (congestive) heart failure; E11.9 Type 2 diabetes mellitus without complications; M32.9 Systemic lupus erythematosus, unspecified; Z95.2 Presence of prosthetic heart valve; Z79.01 Long term (current) use of anticoagulants; Z87.891 Personal history of nicotine dependence
CPT/HCPCS: 36415; 70450; 70496; 70498; 70553; 71045; 74018; 80048; 80053; 81001; 82948; 83735; 83880; 84484; 85025; 85027; 85610; 85730; 93005; 94640; 95816; 96374; 99285; A9270; A9577; C8929; G0378; J1650; J2405; Q9957; Q9967

== ENCOUNTER 2025-03-02 20:02 | Emergency (ER) | payer MEDICARE, MEDICAID, SELFPAY ==
--- NOTE | ~2025-03-02 | CT_ITS ---
EXAMINATION: CT brain wo con DATE: 03/02/2025 20:50 INDICATION: Altered mental status TECHNIQUE: Computed tomography (CT) of the head was performed without intravenous contrast. Sagittal and coronal reconstructions were performed. The mA was adjusted according to patient size. Iterative reconstruction technique was employed. The dose-length product was 681.00 mGy-cm. COMPARISON: 02/23/2025 and brain MR dated 02/24/2025 FINDINGS: Extensive left subdural hematoma extending along the majority the left cerebral hemisphere and portio ns of the left side of the falx and left tentorium. The hematoma demonstrates lobular contours measur ing up to 12 mm in maximal thickness overlying the left frontal lobe. There is asymmetric mild narrow ing of the left lateral ventricle and of many of the sulci along the left cerebral hemisphere and up to 3 mm left to right midline shift at the level of the third ventricle. No acute infarction. No abno rmal masses identified. The orbits, paranasal sinuses and mastoid air cells are normal. IMPRESSION: 1. Extensive subdural hematoma overlying much of the left cerebral hemisphere with up to 3 mm left-to -right midline shift. Dr. Keane discussed these findings with Dr. Díaz at 8:56 PM. Reviewed, dictated and finalized at location A. IMPRESSION: 1. Extensive subdural hematoma overlying much of the left cerebral hemisphere w ith up to 3 mm [id number] midline shift. Dr. Keane discussed these findin gs with Dr. Díaz at 8:56 PM.
--- NOTE | ~2025-03-02 | XR_ITS ---
EXAMINATION: XR chest 1V portable DATE: 03/02/2025 21:09 INDICATION: Cough. Altered mental status. TECHNIQUE: frontal view of the chest was obtained. COMPARISON: Chest radiograph dated 03/01/2025 FINDINGS: The lungs are clear with no focal airspace opacities, pulmonary edema, pleural effusion or pneumothor ax. Heart size within normal limits for AP technique. Median sternotomy wires and mitral valve repair . 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 Cholecystectom y clips in right upper quadrant. IMPRESSION: 1. No acute cardiopulmonary disease. Reviewed, dictated and finalized at location A.
[2025-03-02 20:11] VITALS: PULSE 120; RESP 28; TEMP 37.1
--- NOTE | 2025-03-02 20:17 | ECG_ITS ---
Test Date: 2025-03-02 20:10:57 Measurements Intervals [place] Rate: 111 P: 55 VT: 142 QRS: 64 QRSD: 93 T: 12 QT: 300 QTc: 408 Interpretive Statements SINUS TACHYCARDIA WITH OCCASIONAL SUPRAVENTRICULAR PREMATURE COMPLEXES POSSIBLE LEFT ATRIAL ENLARGEMENT [-0.1mV P-WAVE IN V1/V2] ST DEVIATION AND MODERATE T-WAVE ABNORMALITY, CONSIDER ANTERIOR ISCHEMIA [-0.1+ mV T-WAVE IN V3/V4] Compared to ECG 02/23/2025 15:09:01 T-wave abnormality now present Possible ischemia now present Sinus rhythm no longer present Sinus arrhythmia no longer present Electronically Signed On 03-04-2025 15:37:03 CDT by Abhay Cheng M.D.
[2025-03-02 20:18] VITALS: PULSE 112
[2025-03-02 20:29] LABS: Hematocrit 41.6 % (37.0-47.0); Hemoglobin 13.6 g/dL (12.0-15.0); Mean Corpuscular HGB Conc 32.7 g/dl (32-36); Mean Corpuscular Hemoglobin 25.7 pg (26-34); Mean Corpuscular Volume 78.5 fl (80-100); Platelet Count Result 426 k/mm3 (150-375); Red Blood Count 5.30 M/mm3 (4.2-5.4); White Blood Count 22.0 K/mm3 (4.5-10.0)
[2025-03-02 20:34] VITALS: BP 127/87; PULSE 125; RESP 24; TEMP 36.7; O2SAT 95
--- OUTSIDE RECORDS SUMMARY | 2025-03-02 20:36 | XMS_ITS ---
Author Organization [facility] al Address [address] [place] [address] Care Team Providers Care Service Associate Name Role Phone Howard Bourgeois MD Primary Care Provider Sean Olguin MD Unavailable Radha Sim MD Unavailable [phone] Rajwinder Carlos MD, Jackson Hinkle Unavailable [phone] Enrike Schrader MD Unavailable [phone] Guido Concepcion MD PhD Unavailable [phone] Active Problems Problem Noted Date Diagnosed Date [...] 07/16/2020 Assessment & Plan (07/17/2020 7:29 AM STEEL POURER): Pt reported suprapubic discomfort during hospital stay. UA w/ positive nitrites, neg LE, 6-10 WBCs. Plan: - Ciprofloxacin IV 07/15 x1, transition to oral therapy for total 3d course (12/5pm-12/8am) Coagulopathy 07/15/2020 Assessment & Plan (07/19/2020 6:28 AM STEEL POURER): Pt w/ h/o chronic warfarin use (goal [...] f/u Assessment & Plan (07/15/2020 2:19 AM STEEL POURER): See #MVR Anxiety 07/15/2020 Assessment & Plan (02/17/2025 5:00 PM CDT): Resume home Wellbutrin and venlafaxine. Assessment & Plan (02/16/2025 3:52 PM CDT): Resume home Wellbutrin and venlafaxine Assessment & Plan (02/15/2025 5:38 PM CDT): Resume home Wellbutrin and venlafaxine Assessment & Plan (07/16/2020 11:53 AM STEEL POURER): H/o anxiety and chronic pain (reported h/o fibromyalgia per pt). On home Effexor Plan: - Continue home venlafaxine 75mg every day Assessment & Plan (07/15/2020 10:49 AM STEEL POURER): Mood stable -Cont venlafaxine Omental infarction 07/15/2020 Assessment & Plan (07/18/2020 8:27 AM STEEL POURER): Asymptomatic. CT A/P w/ ventral abdominal hernia containing omental fat w/ slight increase in stranding. 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 Occurring in s/o acute blood loss anemia. Lactate 1.1, abdominal exam benign. Tolerating food/fluid well Plan: - CTM - Transfuse as above Assessment & Plan (07/16/2020 9:18 AM STEEL POURER): CT A/P: ventral abdominal hernia containing omental fat, with slight interval increase in stranding in the omental tissues likely secondary to a focus of omental infarction. -Likely occurred in the setting of dehydration and anemia -LA 1.1; Abdominal exam benign. RBCs transfused as above Melena 07/14/2020 Overview (07/16/2020): Added automatically from request for surgery [id number] Assessment & Plan (07/17/2020 7:30 AM STEEL POURER): See acute blood loss anemia Intertrigo 02/20/2020 [...] 08/29/2019 Assessment & Plan (07/18/2020 8:26 AM STEEL POURER): Resolved. Pt w/ h/o COPD (on albuterol, [...] qhs Assessment & Plan (07/16/2020 9:15 AM STEEL POURER): P/w 2 days of SOB, malaise, fever [...] now Assessment & Plan (09/03/2019 12:21 PM STEEL POURER): Suspect due to deconditioning plus morbid obesity with minor contribution from ground-glass opacities. Would pursue HRCT chest to further evaluation GGO if hypoxemia worsens (though no exertional hypoxemia was noted on informal 6MW during hospital stay). Assessment & Plan (08/30/2019 3:03 PM STEEL POURER): Unclear etiology of shortness of breath with activity. Differential includes arrhythmia, viral, cardiac, progression of inflammatory/infectious/neoplastic process noted on CT --RVP- negative --Monitor on tele --trops negative x2 Assessment & Plan (08/29/2019 12:28 PM STEEL POURER): Unclear etiology of shortness of breath with [...] 2.5-3.5) Assessment & Plan (09/03/2019 12:38 PM STEEL POURER): Will resume prior warfarin dosing at discharge. Needs bridging with enoxaparin until warfarin therapeutic (goal INR 2.5-3.5). Instructed to undergo repeat INR 5 days after warfarin resumption. Plan to provide prescription for enoxaparin for 7 days with refill in case not therapeutic by then. Assessment & Plan (08/30/2019 3:36 PM STEEL POURER): Patient with mechanical mitral valve on home [...] transportation issues (goes to Dr. Leo, cardiology, [place], [place]). Patient here with pleuritic chest pain [...] AM Assessment & Plan (08/29/2019 12:43 PM STEEL POURER): Patient with mechanical mitral valve on home [...] transportation issues (goes to Dr. Leo, cardiology, [place], [place]). Patient here with pleuritic chest pain [...] AM Assessment & Plan (08/28/2019 7:43 PM STEEL POURER): - Patient with mechanical mitral valve on [...] test Assessment & Plan (09/03/2019 12:39 PM STEEL POURER): Atypical; reproducible on palpation. Reassured likely musculoskeletal. Analgesics. Assessment & Plan (08/30/2019 2:56 PM STEEL POURER): Patient with complaint of atypical chest pain, less likely ACS. EKG without new ischemic changes. Troponin negative x1. No events on tele. Patient denies pain this morning - trop negative x2 - continue to on tele --Topical lidocaine, scheduled tylenol Assessment & Plan (08/29/2019 12:38 PM STEEL POURER): Patient with complaint of atypical chest pain, less likely ACS. EKG without new ischemic changes. Troponin negative x1. No events on tele - Repeat troponin - Monitor on tele --Topical lidocaine, scheduled tylenol Assessment & Plan (08/28/2019 7:47 PM STEEL POURER): - Patient with complaint of atypical chest [...] protocol Assessment & Plan (07/16/2020 11:51 AM STEEL POURER): H/o IVIS and obesity (BMI 56.64). On home CPAP. Plan: - Continue home CPAP Assessment & Plan (07/15/2020 10:49 AM STEEL POURER): Cont CPAP Assessment & Plan (09/03/2019 12:21 PM STEEL POURER): Continue home nocturnal NPPV. Assessment & Plan (08/30/2019 3:03 PM STEEL POURER): Continue home nocturnal NPPV Assessment & Plan (08/29/2019 12:20 PM STEEL POURER): Continue home nocturnal NPPV Assessment & Plan (08/28/2019 7:45 PM STEEL POURER): - Continue home nocturnal NPPV Abnormal CT scan 08/28/2019 Assessment & Plan (08/28/2020 5:38 PM STEEL POURER): - Will refer to general surgery due to intermittent abdominal pain in the setting of ventral hernia and findings of omental infarction on recent imaging. - Discussed warning signs with patient (severe abdominal pain, fevers, changes in bowel habits, blood in stool, etc) and when to seek care Assessment & Plan (09/01/2019 2:25 PM STEEL POURER): Patient with abnormal CT scan with findings [...] provided no complications and provided her outpatient manufacturing process engineer can follow up biopsy results with her Assessment & Plan (08/30/2019 3:13 PM STEEL POURER): Patient with abnormal CT scan with findings [...] biopsy Assessment & Plan (08/29/2019 11:29 AM STEEL POURER): Patient with abnormal CT scan with findings [...] biopsy) Assessment & Plan (08/28/2019 8:02 PM STEEL POURER): - Patient with abnormal CT scan with [...] (09/01/2019): Added automatically from request for surgery [id number] Assessment & Plan (09/03/2019 12:40 PM STEEL POURER): Given possibility of indolent lymphoma in context [...] concern for recurrent infection. Rx [facility] to [facility] today to get restarted on medication. [...] concerns Assessment & Plan (09/14/2021 1:07 PM STEEL POURER): - Doing well on amoxicillin suppression with [...] surgical candidate it was decided to continue termination clerk suppression to decrease her risk of recurrent infection. - Recent labs reviewed - Discussed with patient the rational for treatment, culture results, risk of recurrent infection, signs/symptoms of recurrent infection, and to contact ID clinic with any questions or concerns Assessment & Plan (08/28/2020 5:37 PM STEEL POURER): - No concern for recurrent endocarditis. Tolerating [...] should up with CT surgery as scheduled alf current use of antibiotics 03/11/2019 Assessment & [...] 2.5-3.5) Assessment & Plan (07/15/2020 4:35 AM STEEL POURER): Chronically on suppressive amoxicillin. Endocarditis in 2019, has mechanical MV Assessment & Plan (10/26/2019 4:59 PM CDT): - Recent CBC and CMP reviewed with no change to current antibiotic dose - Continue to monitor for adverse effects of antibiotics Assessment & Plan (09/03/2019 12:22 PM STEEL POURER): Patient on long-term antibiotics for the purpose of chronic suppression due to endocarditis in the setting of mechanical valve. Followed as outpatient by ID. Continue home amoxicillin regimen. Assessment & Plan (08/30/2019 3:02 PM STEEL POURER): Patient on correction antibiotics for the purpose of chronic suppression due to endocarditis in the setting of mechanical valve. Followed as outpatient by ID. --Continue home amoxicillin regimen. Assessment & Plan (08/29/2019 11:18 AM STEEL POURER): Patient on termination clerk antibiotics for the purpose of chronic suppression due to endocarditis in the setting of mechanical valve. Followed as outpatient by ID. --Continue home amoxicillin regimen. Assessment & Plan (08/28/2019 7:51 PM STEEL POURER): - Patient on termination clerk amoxicillin for the purpose of chronic suppression [...] questions or change in clinical situations at [phone]. After hours, the ID fellow on-call can be reached at [phone]. Assessment & Plan (02/23/2019 6:35 AM CDT): [...] daily Assessment & Plan (07/16/2020 11:42 AM STEEL POURER): H/o severe MR s/p mechanical MVR 11/2018. C/b endocarditis in e/o perioperative infection 2/2 central line site complication. Goal INR 2.5-3.5. On warfarin 7mg prior to admit. Plan: - See coagulopathy - Continue amoxicillin ppx w/ 500mg q8 as per ID (followed outpatient) Assessment & Plan (07/16/2020 9:15 AM STEEL POURER): Mechanical MV in 2019 on warfarin. INR [...] 12/18/2018 Assessment & Plan (07/15/2020 10:49 AM STEEL POURER): BMI 56.6, risk factor for respiratory decompensation [...] 11/13/2018 Assessment & Plan (07/19/2020 6:26 AM STEEL POURER): Pt w/ baseline Hgb 12s. P/w Hgb [...] 7.4 Assessment & Plan (07/16/2020 9:14 AM STEEL POURER): Dark tarry stools x2 days prior to [...] lisinopril Assessment & Plan (07/16/2020 11:57 AM STEEL POURER): H/o HTN. On home losartan 25 Plan: - Continue losartan 25mg every day Assessment & Plan (02/16/2019 3:30 PM CDT): home meds: furosemide 80 mg daily and losartan 25 mg daily - pt has not been hypertensive - hold home meds Assessment & Plan (12/18/2018 3:15 PM CDT): Controlled. On cozaar. Severe mitral regurgitation 09/29/2018 Overview (09/29/2018): Added automatically from request for surgery [id number] Mitral valve insufficiency 09/29/2018 Overview (10/29/2018): Added automatically from request for surgery [id number] Assessment & Plan (02/17/2025 5:00 PM CDT): [...] 2.5-3.5) Assessment & Plan (09/03/2019 12:21 PM STEEL POURER): Patient with history of MR s/p bileaflet mechanical MVR. Management as above with regard to anticoagulation. Appears euvolemic; continue home furosemide. Assessment & Plan (08/30/2019 3:03 PM STEEL POURER): Patient with history of MR s/p bileaflet mechanical MVR. Management as above with regard to anticoagulation - Appears euvolemic; continue home lasix Assessment & Plan (08/29/2019 11:17 AM STEEL POURER): Patient with history of MR s/p bileaflet mechanical MVR; last TTE 03/2019 and physiologic at that time. Management as above with regard to anticoagulation - Appears euvolemic; continue home lasix Assessment & Plan (08/28/2019 7:48 PM STEEL POURER): - Patient with history of MR s/p bileaflet mechanical MVR; last TTE 03/2019 and physiologic at that time - Management as above with regard to anticoagulation - Appears euvolemic; continue home lasix Non-rheumatic mitral regurgitation 09/29/2018 Overview (11/14/2018): Added automatically from request for surgery [id number] Peripheral vascular disease 09/29/2018 Overview (11/19/2018): Added automatically from request for surgery [id number] Assessment & Plan (02/17/2025 5:00 PM CDT): [...] insulin Assessment & Plan (07/16/2020 11:56 AM STEEL POURER): Home diet controlled. A1c 6.6. Total cholesterol 121, HDL 23, LDL 63 Plan: - LDSSI while inpatient - Consistent carb diet - Atorva 10 for ppx Assessment & Plan (07/16/2020 9:19 AM STEEL POURER): A1C 6.6%; diet controlled at home -Start LDSSI given glucose 210 Assessment & Plan (09/03/2019 12:17 PM STEEL POURER): Diet controlled. Remains normoglycemic. Assessment & Plan (08/29/2019 12:19 PM STEEL POURER): Diet controlled. BS normoglycemic. Assessment & Plan (08/28/2019 7:52 PM STEEL POURER): - Diet controlled. BS normoglycemic. Assessment & [...] weekly Assessment & Plan (07/16/2020 11:49 AM STEEL POURER): H/o SLE, diagnosed as teenager reportedly. W/ [...] a/c Assessment & Plan (07/16/2020 9:17 AM STEEL POURER): No evidence of flare -Cont plaquenil -Plan to start heparin drip when INR <2.5 given hx of mechanical MV and APLS Assessment & Plan (09/03/2019 12:18 PM STEEL POURER): No evidence of flare. Continue HCQ as before. Followed by Rheumatology here as outpatient. Assessment & Plan (08/30/2019 3:12 PM STEEL POURER): Patient with SLE followed by Rheumatology as outpatient - Continue HCQ - No current SLE flare; continue to monitor Assessment & Plan (08/29/2019 12:19 PM STEEL POURER): Patient with SLE followed by Rheumatology as outpatient - Continue HCQ - No current SLE flare; continue to monitor Assessment & Plan (08/28/2019 7:52 PM STEEL POURER): - Patient with SLE followed by Rheumatology as outpatient - Continue HCQ - No current SLE flare; continue to monitor Assessment & Plan (02/23/2019 2:12 PM CDT): Patient has known diagnosis of SLE, followed by rheumatology at [facility] (last seen 01/25/2019) - continue hydroxychloroquine [...] 07/16/2020 Assessment & Plan (07/16/2020 9:17 AM STEEL POURER): P/w sore throat, cough, PRABHAKAR, nausea, malaise, [...] 08/31/2019 Assessment & Plan (08/31/2019 9:44 AM STEEL POURER): Reports frequent palpitations yesterday associated with shortness of breath and fatigue yesterday. None since admission --Continue to monitor on tele Assessment & Plan (08/29/2019 12:24 PM STEEL POURER): Reports frequent palpitations yesterday associated with shortness of breath and fatigue yesterday. None since admission --Continue to monitor on tele
--- NOTE | 2025-03-02 20:37 | ED_ITS ---
HPI - Altered Mental Status General Chief Complaint: Altered Mental Status Stated Complaint: AMS, HYPOTENSIVE Time Seen by Provider: 03/02/25 20:25 History of Present Illness HPI narrative: Pt just discharged from the hospital yesterday for chf exacerbation. Family member says she has been confused today and seeing things that aren't there and not making any sense. Pt is coughing and there is concern for pneumonia. Pt is not answering questions and histoy is from family member. Related Data Home Medications ?Medication ?Instructions ?Recorded ?Confirmed ?Last Taken ?Type albuterol sulfate 90 mcg/actuation 2 puff inhalation Q4-6H PRN 02/23/25 02/23/25 Unknown History aerosol inhaler (Ventolin HFA) shortness of breath or wheezing amoxicillin 500 mg capsule 500 mg PO TID 02/23/25 02/23/25 02/23/25 History aspirin 81 mg capsule 81 mg PO DAILY 02/23/25 02/23/25 02/23/25 History atorvastatin 40 mg tablet 40 mg PO DAILY 02/23/25 02/23/25 02/23/25 History azathioprine 100 mg tablet 100 mg PO HS 02/23/25 02/23/25 02/22/25 History belimumab 200 mg/mL subcutaneous 200 mg subcut WEEKLY 02/23/25 02/23/25 02/17/25 History auto-injector (Benlysta) budesonide-formoterol HFA 80 2 puff inhalation BID 02/23/25 02/23/25 02/23/25 History mcg-4.5 mcg/actuation aerosol inhaler (Symbicort) bupropion HCl 150 mg tablet,12 hr 150 mg PO BID 02/23/25 02/23/25 02/23/25 History sustained-release empagliflozin 25 mg tablet 25 mg PO DAILY 02/23/25 02/23/25 02/23/25 History (Jardiance) hydroxychloroquine 200 mg tablet 200 mg PO QPM 02/23/25 02/23/25 02/23/25 History lancets 33 gauge (OneTouch Delica 02/23/25 02/23/25 Unknown History Plus Lancet) lisinopril 10 mg tablet 10 mg PO QPM 02/23/25 02/23/25 02/22/25 History metoprolol tartrate 25 mg tablet 25 mg PO BID 02/23/25 02/23/25 02/23/25 History naloxone 4 mg/actuation nasal spray 1 spray intranasal Q2M PRN opioid 02/23/25 02/23/25 Unknown History overdose oxybutynin chloride 5 mg tablet 5 mg PO BID 02/23/25 02/23/25 02/23/25 History semaglutide 1 mg/dose (4 mg/3 mL) 1 mg subcut WEEKLY 02/23/25 02/23/25 02/19/25 History subcutaneous pen injector (Ozempic) spironolactone 25 mg tablet 25 mg PO DAILY 02/23/25 02/23/25 02/23/25 History torsemide 20 mg tablet 40 mg PO DAILY 02/23/25 02/23/25 02/23/25 History tramadol 50 mg tablet 50 mg PO Q6H PRN pain 02/23/25 02/23/25 02/23/25 History venlafaxine 75 mg tablet 75 mg PO DAILY 02/23/25 02/23/25 02/23/25 History warfarin 6 mg tablet 6 mg PO QPM 02/23/25 02/23/25 02/22/25 History Allergies Allergy/AdvReac Type Severity Reaction Status Date / Time Penicillins Allergy Unknown Itching Verified 02/26/25 13:19 Review of Systems 2 Review of Systems: ROS unobtainable: Yes unobtainable due to mental status [facility] Past Medical History Medical History (Updated 03/02/25 @ 21:56 by Jo Díaz III, DO) Lupus (systemic lupus erythematosus) Chronic headache Family History Family History (Updated 02/23/25 @ 21:15 by Trinity Cleaning RN) Mother Lupus Heart failure Father Cirrhosis Other Parents Social History Social History Smoking packs per day: 1 Smoking cigarettes per day: 20.0 Smoking status: Former smoker Tobacco type: cigarettes Alcohol intake: never Substance use: never Substance use type: does not use Do You Feel Safe in your Home?: Yes Lack of Transportation: No Lack of Food: Never True Current Housing: I Have Housing Concerned About Future Housing: No Difficulty Paying Gas/Electric Bills: No Difficulty Paying for Meds: No Currently Unemployed: No Education: High School Diploma/GED Difficulty w/ Childcare or Family Care: No Spiritual care concerns: No Exam 2 Const: General: healthy appearing and no acute distress Nutritional Appearance: well nourished Orientation/consciousness: patient oriented x3 Limitations: no limitations HENMT: Head: normal to inspection Mouth: Yes dry mucous membranes Eyes: EOM: EOMs intact bilaterally Resp: Effort & Inspection: normal respiratory effort Cardio: Rate: regular rate Rhythm: regular rhythm GI: GI Palp: Yes Soft to palpation and No Tenderness to palpation present (GI) Auscultation: normal bowel sounds Back/Spine/Pelvis: Back: no CVA tenderness Skin: General skin exam: normal color Wounds: no wounds Neuro: General: moves all extremities, no meningeal signs and no focal motor deficits Extrem: General: edema Psych: Other: confused Course Vital Signs Vital signs: Vital Signs Temperature 98.7 F 03/02/25 20:11 Pulse Rate 120 H 03/02/25 20:11 Respiratory Rate 28 H 03/02/25 20:11 Oxygen Delivery Room Air 03/02/25 20:11 Temperature 98.1 F 03/02/25 21:17 Pulse Rate 121 H 03/02/25 21:17 Respiratory Rate 18 03/02/25 21:17 Blood Pressure 151/92 H 03/02/25 21:17 Pulse Oximetry 95 03/02/25 21:17 Oxygen Delivery Room Air 03/02/25 20:11 MDM - Altered Mental Status MDM Narrative Medical decision making narrative: Pt just discharged yesterday from here with chf. Pt confused and not acting right today per family. will do ct head and septic work up. pt has extensive subdural hematoma over left cerebral hemisphere with 3 mm midline shift. discussed with Dr Winslow at [place] and recommends er to er transfer but says the er is on black so not sure if they will accept. will not give a rec on kcentra. discussed with Dr Zimmer in ER and recommended the kcentra. discussed with daughter hamida the risks of the medicine including clotts from the mechanical valve but the benefit of stopping the bleeding to try to prevent further bleeding in brain and shift outweighs rist. she agrees, med ordered. helicopter here to transport. Lab Data 03/02/25 20:22 03/02/25 20:22 Labs: Lab Results 03/02/25 03/02/25 03/02/25 Range/Units 20:22 20:59 21:00 WBC 22.0 H (4.5-10.0) K/mm3 RBC 5.30 (4.2-5.4) M/mm3 Hgb 13.6 (12.0-15.0) g/dL Hct 41.6 (37.0-47.0) % MCV 78.5 L (80-100) fl MCH 25.7 L (26-34) pg MCHC 32.7 (32-36) g/dl RDW 17.4 H (11.5-14.5) % Plt Count 426 H (150-375) k/mm3 MPV 9.4 (7.4-10.4) fl Immature Gran % (Auto) Not Reportable Neut % (Auto) Not Reportable Lymph % (Auto) Not Reportable [place] % (Auto) Not Reportable Eos % (Auto) Not Reportable Baso % (Auto) Not Reportable Lymph # (Auto) Not Reportable [place] # (Auto) Not Reportable Eos # (Auto) Not Reportable Baso # (Auto) Not Reportable Abs Immat Gran (auto) Not Reportable Absolute Neuts (auto) Not Reportable Absolute Nucleated RBC Not Reportable Total Counted 100 Neutrophils % (Manual) 91 H (46-73) % Band Neutrophils % 0 (0-6) % Lymphocytes % (Manual) 5.0 L (18-44) % Monocytes % (Manual) 4 (3-9) % Nucleated RBC % Not Reportable Abs Neuts (Manual) 20.02 H (1.3-6.7) K/mm3 Abs Lymphs (Manual) 1.10 (1.1-4.5) K/mm3 Abs Monocytes (Manual) 0.88 (0.1-0.90) K/mm3 Platelet Estimate Increased (Adequate) Anisocytosis 1+ Schistocytes None seen PT 48.2 H 48.1 H (11.1-14.7) Seconds INR 5.7 H* 5.7 H* APTT 119.9 H 118.8 H (22.3-36.8) Seconds Sodium 134 L (137-145) mmol/L Potassium 3.5 (3.4-5.0) mmol/L Chloride 97 L (98-107) mmol/L Carbon Dioxide 21 L (22-30) mmol/L Anion Gap 16 H (4-12) mmol/L BUN 17 (7-17) mg/dL Creatinine 0.68 L (0.7-1.0) mg/dL Estim Creat Clear Calc Not Reportable Estimated GFR > 60 (59 - ) Glucose 166 H (65-110) mg/dL Lactic Acid 1.2 (0.7-2.0) mmol/L Calcium 9.7 (8.4-10.2) mg/dL Total Bilirubin 0.7 (0.2-1.3) mg/dL AST 27 (14-36) U/L ALT 28 (6-35) U/L Alkaline Phosphatase 256 H (38-126) U/L Troponin I < 0.012 (0.000-0.034) ng/mL NT-Pro-B Natriuret Pep 1420 H (19.9-100) pg/mL Total Protein 9.0 H (6.3-8.2) g/dL Albumin 4.0 (3.5-5.1) g/dL Urine Color Yellow (Yellow) Urine Appearance Clear (Clear) Urine pH 5.5 (5.0-9.0) Ur Specific [place] 1.036 H (1.001-1.035) Urine Protein 3+ H (Negative) mg/dL Urine Glucose (UA) 3+ H (Negative) mg/dL Urine Ketones 2+ H (Negative) mg/dL Ur Blood (Man) 2+ H (Negative) Urine Nitrate Negative (Negative) Urine Bilirubin Negative (Negative) Urine Urobilinogen 1.0 (<2.0) mg/dL Add Ur Microanalysis Reviewed Leukocyte Esterase Rfl Negative (Negative) LAZARA/UL Urine RBC 51-100 H (0-2) /hpf Urine WBC 0-5 (0-3) /hpf Ur Squamous Epith Cells None seen (Few) /hpf Urine Bacteria None seen /hpf Urine Casts 3-5 Urine Yeast (Budding) Present H (None) /hpf Influenza A (RT-PCR) Negative (Negative) Influenza B (RT-PCR) Negative (Negative) RSV (RT-PCR) Negative (Negative) SARS-CoV-2 RNA (RT-PCR) Negative (Negative) Critical Care Time Critical Care Time Critical Care Time: Yes Total Critical Care Time: 50 Discharge Plan Discharge Clinical Impression: Acute subdural hematoma Patient Disposition: Acute Care Hospital Condition: Critical Patient Language: Welsh Prescriptions: No Action amoxicillin 500 mg capsule 500 mg PO TID atorvastatin 40 mg tablet 40 mg PO DAILY Benlysta 200 mg/mL auto-injector 200 mg SUBCUT WEEKLY Patient Comments: on bupropion HCl 150 mg tablet sustained-release 12 hr 150 mg PO BID Jardiance 25 mg tablet 25 mg PO DAILY hydroxychloroquine 200 mg tablet 200 mg PO QPM lisinopril 10 mg tablet 10 mg PO QPM metoprolol tartrate 25 mg tablet 25 mg PO BID naloxone 4 mg/actuation spray,non-aerosol 1 spray INTRANASAL Q2M PRN (Reason: opioid overdose) oxybutynin chloride 5 mg tablet 5 mg PO BID torsemide 20 mg tablet 40 mg PO DAILY spironolactone 25 mg tablet 25 mg PO DAILY albuterol sulfate [Ventolin HFA] 90 mcg/actuation HFA aerosol inhaler 2 puff INHALATION Q4-6H PRN (Reason: shortness of breath or wheezing) (DME) lancets [OneTouch Delica Plus Lancet] 33 gauge misc MISCELLANEOUS Ozempic 1 mg/dose (4 mg/3 mL) pen injector 1 mg SUBCUT WEEKLY Rx Instructions: on friday tramadol 50 mg tablet 50 mg PO Q6H PRN (Reason: pain) warfarin 6 mg tablet 6 mg PO QPM azathioprine 100 mg tablet 100 mg PO HS budesonide-formoterol [Symbicort] 80-4.5 mcg/actuation HFA aerosol inhaler 2 puff inhalation BID aspirin 81 mg capsule 81 mg PO DAILY venlafaxine 75 mg tablet 75 mg PO DAILY dextrose [Glutose-15] 40 % Gel 15 g PO PRN PRN (Reason: Hypoglycemia) Qty: 112.5 0RF Follow-up/Referrals: Christelle,Howard Patino MD [Primary Care Provider] -
--- OUTSIDE RECORDS SUMMARY | 2025-03-02 20:37 | XMS_ITS | Referral Summary ---
Author Organization 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 Name Role Phone Howard Bourgeois MD Primary Care Provider Sean Olguin MD Unavailable Radha Sim MD Unavailable [phone] Rajwinder Carlos MD, Jackson Hinkle Unavailable [phone] Enrike Schrader MD Unavailable [phone] Guido Concepcion MD PhD Unavailable [phone] Encounters Date Type Department Care Team Description 03/01/2025 Orders Only [facility] Medical Group Cardiology [address] [place] [address] Abhay Cheng MD 02/18/2025 SHOP/CHAP Initial Eligibility Review [facility] OP CASE MANAGEMENT [address] [place] [address] Trinity Cali LCSW 02/15/2025 12:14 PM CDT - 02/17/2025 6:11 PM CDT Hospital Encounter [facility] [address] [place] [address] Dottie Triana MD Blustein, Erica C., MD Hoyt, MD Jah Rivas Timothy Robert, MD Qureshi, Adnan Mehboob, MD Chest pain, unspecified type (Primary Dx) Discharge Disposition: Discharge to home or self care 01/12/2025 Orders Only [facility] Radiation Oncology [address] [place] [address] Guido Concepcion MD PhD Malignant neoplasm of lower lobe, left bronchus or lung (HCC) (Primary Dx) 01/12/2025 Orders Only [facility] Radiation Oncology [address] [place] [address] Guido Concepcion MD PhD 12/27/2024 [facility] [address] [place] [address] Morales Jim [facility] 12/24/2024 Completion of Therapy [facility] Radiation Oncology [address] [place] [address] Rima Rowe NP 12/24/2024 Completion of Therapy [facility] Radiation Oncology [address] [place] [address] Guido Concepcion MD PhD 12/24/2024 Orders Only RAD ONC TREATMENTS Miscellaneous, Not In File 12/24/2024 12:34 PM CDT - 12/24/2024 11:59 PM CDT Hospital Encounter [facility] Radiation Oncology [address] [place] [address] Guido Concepcion MD PhD Discharge Disposition: Discharge to home or self care 12/23/2024 OTV [facility] Radiation Oncology [address] [place] [address] Milagro Mayes MD 12/23/2024 Orders Only RAD ONC TREATMENTS Miscellaneous, Not In File 12/23/2024 12:27 PM CDT - 12/23/2024 11:59 PM CDT Hospital Encounter [facility] Rad[facility] On[facility] [address] [place] [address] Guido Concepcion MD PhD Discharge Disposition: Discharge to home or self care 12/22/2024 Orders Only RAD ONC TREATMENTS Miscellaneous, Not In File 12/22/2024 1:04 PM CDT - 12/22/2024 11:59 PM CDT Hospital Encounter [facility] Radiation Oncology [address] [place] [address] Guido Concepcion MD PhD Discharge Disposition: Discharge to home or self care 12/21/2024 Orders Only RAD ONC TREATMENTS Miscellaneous, Not In File 12/21/2024 10:52 AM CDT - 12/21/2024 11:59 PM CDT Hospital Encounter [facility] Radiation Oncology [address] [place] [address] Guido Concepcion MD PhD Discharge Disposition: Discharge to home or self care 12/20/2024 Orders Only RAD ONC TREATMENTS Miscellaneous, Not In File 12/20/2024 11:54 AM CDT - 12/20/2024 11:59 PM CDT Hospital Encounter [facility] Radiation Oncology [address] [place] [address] Guido Concepcion MD PhD Discharge Disposition: Discharge to home or self care 12/13/2024 Telephone [facility] Radiation Oncology [address] [place] [address] Katarina Buchanan RN 12/08/2024 Telephone [facility] Radiation Oncology [address] [place] [address] Katarina Buchanan RN 12/07/2024 8:00 AM CDT Ancillary Procedure [facility] Vascular [facility] IP [address] [facility] [address] [place] [address] 12/07/2024 5:25 AM CDT - 12/07/2024 4:30 PM CDT Emergency [facility] Emergency Department [address] [place] [address] Mirta Gonzalez MD Shortness of breath (Primary Dx); Chest pain on breathing; Acute on chronic congestive heart failure, unspecified heart failure type (HCC); Pericarditis Discharge Disposition: Discharge to home or self care 12/02/2024 Telephone [facility] Radiation Oncology [address] [place] [address] Katarina Buchanan RN from Last 3 Months Allergies Active Allergy Reactions Criticality Noted Date Comments Penicillins Hives,Rash,Swelling, Othe r (See comments) Medium 09/18/2017 Swelling and rash; tolerates amoxicillin, Medications venlafaxine XR (EFFEXOR-XR) 75 mg 24 hr capsule Take 1 capsule (75 mg total) by mouth daily with breakfast 30 capsule 11 Active multivit yuruobvz-sipu-YA-c alcium (THERA-M) 9 mg iron-400 mcg tablet [...] 2 (two) times a day 60 tablet 2024 Active hydroxychloroquine (PLAQUENIL) 200 mg tablet TAKE 2 TABLETS BY MOUTH ONCE DAILY 60 tablet 5 2024 Discontinued torsemide (DEMADEX) 20 mg tablet Take 1 tablet (20 mg total) by mouth daily 30 tablet 2024 Discontinued predniSONE (DELTASONE) 5 mg tablet Take 4 tabs for 5 days, 3 tabs for 5 day, 2 tabs for 5 days, 1 tab for 5 days and stop. 50 tablet 025 2024 Discontinued(S top Taking at Discharge) metoprolol tartrate (LOPRESSOR) 50 mg immediate release tablet Take 1 tablet (50 mg total) by mouth 2 (two) times a day /10/ 2025 Discontinued traMADoL (ULTRAM) 50 mg tablet Take [...] 07/16/2020 Assessment & Plan (07/17/2020 7:29 AM MAILROOM ASSISTANT): Pt reported suprapubic discomfort during hospital stay. UA w/ positive nitrites, neg LE, 6-10 WBCs. Plan: - Ciprofloxacin IV 07/15 x1, transition to oral therapy for total 3d course (12/5pm-12/8am) Coagulopathy 07/15/2020 Assessment & Plan (07/19/2020 6:28 AM MAILROOM ASSISTANT): Pt w/ h/o chronic warfarin use (goal [...] f/u Assessment & Plan (07/15/2020 2:19 AM MAILROOM ASSISTANT): See #MVR Anxiety 07/15/2020 Assessment & Plan (02/17/2025 5:00 PM CDT): Resume home Wellbutrin and venlafaxine. Assessment & Plan (02/16/2025 3:52 PM CDT): Resume home Wellbutrin and venlafaxine Assessment & Plan (02/15/2025 5:38 PM CDT): Resume home Wellbutrin and venlafaxine Assessment & Plan (07/16/2020 11:53 AM MAILROOM ASSISTANT): H/o anxiety and chronic pain (reported h/o fibromyalgia per pt). On home Effexor Plan: - Continue home venlafaxine 75mg every day Assessment & Plan (07/15/2020 10:49 AM MAILROOM ASSISTANT): Mood stable -Cont venlafaxine Omental infarction 07/15/2020 Assessment & Plan (07/18/2020 8:27 AM MAILROOM ASSISTANT): Asymptomatic. CT A/P w/ ventral abdominal hernia containing omental fat w/ slight increase in stranding. [place] possibly business representative of omental infarct. Occurring in s/o acute blood loss anemia. Lactate 1.1, abdominal exam benign. Tolerating food/fluid well Plan: - CTM - Transfuse as above Assessment & Plan (07/16/2020 9:18 AM MAILROOM ASSISTANT): CT A/P: ventral abdominal hernia containing omental fat, with slight interval increase in stranding in the omental tissues likely secondary to a focus of omental infarction. -Likely occurred in the setting of dehydration and anemia -LA 1.1; Abdominal exam benign. RBCs transfused as above Melena 07/14/2020 Overview (07/16/2020): Added automatically from request for surgery [id number] Assessment & Plan (07/17/2020 7:30 AM MAILROOM ASSISTANT): See acute blood loss anemia Intertrigo 02/20/2020 [...] 08/29/2019 Assessment & Plan (07/18/2020 8:26 AM MAILROOM ASSISTANT): Resolved. Pt w/ h/o COPD (on albuterol, [...] qhs Assessment & Plan (07/16/2020 9:15 AM MAILROOM ASSISTANT): P/w 2 days of SOB, malaise, fever [...] now Assessment & Plan (09/03/2019 12:21 PM MAILROOM ASSISTANT): Suspect due to deconditioning plus morbid obesity with minor contribution from ground-glass opacities. Would pursue HRCT chest to further evaluation GGO if hypoxemia worsens (though no exertional hypoxemia was noted on informal 6MW during hospital stay). Assessment & Plan (08/30/2019 3:03 PM MAILROOM ASSISTANT): Unclear etiology of shortness of breath with activity. Differential includes arrhythmia, viral, cardiac, progression of inflammatory/infectious/neoplastic process noted on CT --RVP- negative --Monitor on tele --trops negative x2 Assessment & Plan (08/29/2019 12:28 PM MAILROOM ASSISTANT): Unclear etiology of shortness of breath with [...] 2.5-3.5) Assessment & Plan (09/03/2019 12:38 PM MAILROOM ASSISTANT): Will resume prior warfarin dosing at discharge. Needs bridging with enoxaparin until warfarin therapeutic (goal INR 2.5-3.5). Instructed to undergo repeat INR 5 days after warfarin resumption. Plan to provide prescription for enoxaparin for 7 days with refill in case not therapeutic by then. Assessment & Plan (08/30/2019 3:36 PM MAILROOM ASSISTANT): Patient with mechanical mitral valve on home [...] transportation issues (goes to Dr. Leo, cardiology, [place], [place]). Patient here with pleuritic chest pain [...] AM Assessment & Plan (08/29/2019 12:43 PM MAILROOM ASSISTANT): Patient with mechanical mitral valve on home [...] transportation issues (goes to Dr. Leo, cardiology, [place], [place]). Patient here with pleuritic chest pain [...] AM Assessment & Plan (08/28/2019 7:43 PM MAILROOM ASSISTANT): - Patient with mechanical mitral valve on [...] test Assessment & Plan (09/03/2019 12:39 PM MAILROOM ASSISTANT): Atypical; reproducible on palpation. Reassured likely musculoskeletal. Analgesics. Assessment & Plan (08/30/2019 2:56 PM MAILROOM ASSISTANT): Patient with complaint of atypical chest pain, less likely ACS. EKG without new ischemic changes. Troponin negative x1. No events on tele. Patient denies pain this morning - trop negative x2 - continue to on tele --Topical lidocaine, scheduled tylenol Assessment & Plan (08/29/2019 12:38 PM MAILROOM ASSISTANT): Patient with complaint of atypical chest pain, less likely ACS. EKG without new ischemic changes. Troponin negative x1. No events on tele - Repeat troponin - Monitor on tele --Topical lidocaine, scheduled tylenol Assessment & Plan (08/28/2019 7:47 PM MAILROOM ASSISTANT): - Patient with complaint of atypical chest [...] protocol Assessment & Plan (07/16/2020 11:51 AM MAILROOM ASSISTANT): H/o IVIS and obesity (BMI 56.64). On home CPAP. Plan: - Continue home CPAP Assessment & Plan (07/15/2020 10:49 AM MAILROOM ASSISTANT): Cont CPAP Assessment & Plan (09/03/2019 12:21 PM MAILROOM ASSISTANT): Continue home nocturnal NPPV. Assessment & Plan (08/30/2019 3:03 PM MAILROOM ASSISTANT): Continue home nocturnal NPPV Assessment & Plan (08/29/2019 12:20 PM MAILROOM ASSISTANT): Continue home nocturnal NPPV Assessment & Plan (08/28/2019 7:45 PM MAILROOM ASSISTANT): - Continue home nocturnal NPPV Abnormal CT scan 08/28/2019 Assessment & Plan (08/28/2020 5:38 PM MAILROOM ASSISTANT): - Will refer to general surgery due to intermittent abdominal pain in the setting of ventral hernia and findings of omental infarction on recent imaging. - Discussed warning signs with patient (severe abdominal pain, fevers, changes in bowel habits, blood in stool, etc) and when to seek care Assessment & Plan (09/01/2019 2:25 PM MAILROOM ASSISTANT): Patient with abnormal CT scan with findings [...] provided no complications and provided her outpatient improvement auditor can follow up biopsy results with her Assessment & Plan (08/30/2019 3:13 PM MAILROOM ASSISTANT): Patient with abnormal CT scan with findings [...] biopsy Assessment & Plan (08/29/2019 11:29 AM MAILROOM ASSISTANT): Patient with abnormal CT scan with findings [...] biopsy) Assessment & Plan (08/28/2019 8:02 PM MAILROOM ASSISTANT): - Patient with abnormal CT scan with [...] (09/01/2019): Added automatically from request for surgery [id number] Assessment & Plan (09/03/2019 12:40 PM MAILROOM ASSISTANT): Given possibility of indolent lymphoma in context [...] concern for recurrent infection. Rx resent to [facility] today to get restarted on medication. [...] concerns Assessment & Plan (09/14/2021 1:07 PM MAILROOM ASSISTANT): - Doing well on amoxicillin suppression with [...] surgical candidate it was decided to continue roasterman suppression to decrease her risk of recurrent infection. - Recent labs reviewed - Discussed with patient the rational for treatment, culture results, risk of recurrent infection, signs/symptoms of recurrent infection, and to contact ID clinic with any questions or concerns Assessment & Plan (08/28/2020 5:37 PM MAILROOM ASSISTANT): - No concern for recurrent endocarditis. Tolerating [...] 2.5-3.5) Assessment & Plan (07/15/2020 4:35 AM MAILROOM ASSISTANT): Chronically on suppressive amoxicillin. Endocarditis in 2019, has mechanical MV Assessment & Plan (10/26/2019 4:59 PM CDT): - Recent CBC and CMP reviewed with no change to current antibiotic dose - Continue to monitor for adverse effects of antibiotics Assessment & Plan (09/03/2019 12:22 PM MAILROOM ASSISTANT): Patient on long-term antibiotics for the purpose of chronic suppression due to endocarditis in the setting of mechanical valve. Followed as outpatient by ID. Continue home amoxicillin regimen. Assessment & Plan (08/30/2019 3:02 PM MAILROOM ASSISTANT): Patient on roasterman antibiotics for the purpose of chronic suppression due to endocarditis in the setting of mechanical valve. Followed as outpatient by ID. --Continue home amoxicillin regimen. Assessment & Plan (08/29/2019 11:18 AM MAILROOM ASSISTANT): Patient on roasterman antibiotics for the purpose of chronic suppression due to endocarditis in the setting of mechanical valve. Followed as outpatient by ID. --Continue home amoxicillin regimen. Assessment & Plan (08/28/2019 7:51 PM MAILROOM ASSISTANT): - Patient on fpc amoxicillin for the purpose of chronic suppression [...] questions or change in clinical situations at [phone]. After hours, the ID fellow on-call can be reached at [phone]. Assessment & Plan (02/23/2019 6:35 AM CDT): [...] daily Assessment & Plan (07/16/2020 11:42 AM MAILROOM ASSISTANT): H/o severe MR s/p mechanical MVR 11/2018. C/b endocarditis in e/o perioperative infection 2/2 central line site complication. Goal INR 2.5-3.5. On warfarin 7mg prior to admit. Plan: - See coagulopathy - Continue amoxicillin ppx w/ 500mg q8 as per ID (followed outpatient) Assessment & Plan (07/16/2020 9:15 AM MAILROOM ASSISTANT): Mechanical MV in 2019 on warfarin. INR [...] 12/18/2018 Assessment & Plan (07/15/2020 10:49 AM MAILROOM ASSISTANT): BMI 56.6, risk factor for respiratory decompensation [...] 11/13/2018 Assessment & Plan (07/19/2020 6:26 AM MAILROOM ASSISTANT): Pt w/ baseline Hgb 12s. P/w Hgb [...] 7.4 Assessment & Plan (07/16/2020 9:14 AM MAILROOM ASSISTANT): Dark tarry stools x2 days prior to [...] lisinopril Assessment & Plan (07/16/2020 11:57 AM MAILROOM ASSISTANT): H/o HTN. On home losartan 25 Plan: - Continue losartan 25mg every day Assessment & Plan (02/16/2019 3:30 PM CDT): home meds: furosemide 80 mg daily and losartan 25 mg daily - pt has not been hypertensive - hold home meds Assessment & Plan (12/18/2018 3:15 PM CDT): Controlled. On cozaar. Severe mitral regurgitation 09/29/2018 Overview (09/29/2018): Added automatically from request for surgery [id number] Mitral valve insufficiency 09/29/2018 Overview (10/29/2018): Added automatically from request for surgery [id number] Assessment & Plan (02/17/2025 5:00 PM CDT): [...] 2.5-3.5) Assessment & Plan (09/03/2019 12:21 PM MAILROOM ASSISTANT): Patient with history of MR s/p bileaflet mechanical MVR. Management as above with regard to anticoagulation. Appears euvolemic; continue home furosemide. Assessment & Plan (08/30/2019 3:03 PM MAILROOM ASSISTANT): Patient with history of MR s/p bileaflet mechanical MVR. Management as above with regard to anticoagulation - Appears euvolemic; continue home lasix Assessment & Plan (08/29/2019 11:17 AM MAILROOM ASSISTANT): Patient with history of MR s/p bileaflet mechanical MVR; last TTE 03/2019 and physiologic at that time. Management as above with regard to anticoagulation - Appears euvolemic; continue home lasix Assessment & Plan (08/28/2019 7:48 PM MAILROOM ASSISTANT): - Patient with history of MR s/p bileaflet mechanical MVR; last TTE 03/2019 and physiologic at that time - Management as above with regard to anticoagulation - Appears euvolemic; continue home lasix Non-rheumatic mitral regurgitation 09/29/2018 Overview (11/14/2018): Added automatically from request for surgery [id number] Peripheral vascular disease 09/29/2018 Overview (11/19/2018): Added automatically from request for surgery [id number] Assessment & Plan (02/17/2025 5:00 PM CDT): [...] insulin Assessment & Plan (07/16/2020 11:56 AM MAILROOM ASSISTANT): Home diet controlled. A1c 6.6. Total cholesterol 121, HDL 23, LDL 63 Plan: - LDSSI while inpatient - Consistent carb diet - Atorva 10 for ppx Assessment & Plan (07/16/2020 9:19 AM MAILROOM ASSISTANT): A1C 6.6%; diet controlled at home -Start LDSSI given glucose 210 Assessment & Plan (09/03/2019 12:17 PM MAILROOM ASSISTANT): Diet controlled. Remains normoglycemic. Assessment & Plan (08/29/2019 12:19 PM MAILROOM ASSISTANT): Diet controlled. BS normoglycemic. Assessment & Plan (08/28/2019 7:52 PM MAILROOM ASSISTANT): - Diet controlled. BS normoglycemic. Assessment & [...] weekly Assessment & Plan (07/16/2020 11:49 AM MAILROOM ASSISTANT): H/o SLE, diagnosed as teenager reportedly. W/ prior h/o alopecia at time, dry eyes/mouth (reports diagnosed w/ Sjogren's). Followed by [facility] (last seen 10/2019). H/o arthralgias, rash, pleurocarditis, splenic infarct, class II nephritis. Serologies w/ HSELLY+, SSA+, dsDNA+ (75, 10/2019), complement wnl, elevated ESR. 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 Plan: - Continue Plaquenil 400 every day for now. - See coagulopathy re: a/c Assessment & Plan (07/16/2020 9:17 AM MAILROOM ASSISTANT): No evidence of flare -Cont plaquenil -Plan to start heparin drip when INR <2.5 given hx of mechanical MV and APLS Assessment & Plan (09/03/2019 12:18 PM MAILROOM ASSISTANT): No evidence of flare. Continue HCQ as before. Followed by Rheumatology here as outpatient. Assessment & Plan (08/30/2019 3:12 PM MAILROOM ASSISTANT): Patient with SLE followed by Rheumatology as outpatient - Continue HCQ - No current SLE flare; continue to monitor Assessment & Plan (08/29/2019 12:19 PM MAILROOM ASSISTANT): Patient with SLE followed by Rheumatology as outpatient - Continue HCQ - No current SLE flare; continue to monitor Assessment & Plan (08/28/2019 7:52 PM MAILROOM ASSISTANT): - Patient with SLE followed by Rheumatology as outpatient - Continue HCQ - No current SLE flare; continue to monitor Assessment & Plan (02/23/2019 2:12 PM CDT): Patient has known diagnosis of SLE, followed by rheumatology at [facility] (last seen 01/25/2019) - continue hydroxychloroquine 400 mg daily Assessment & Plan (12/18/2018 3:16 PM CDT): On Plaquenil. Resolved Problems Problem Noted Date Diagnosed Date Resolved Date Fever 07/15/2020 07/16/2020 Assessment & Plan (07/16/2020 9:17 AM MAILROOM ASSISTANT): P/w sore throat, cough, PRABHAKAR, nausea, malaise, [...] 08/31/2019 Assessment & Plan (08/31/2019 9:44 AM MAILROOM ASSISTANT): Reports frequent palpitations yesterday associated with shortness of breath and fatigue yesterday. None since admission --Continue to monitor on tele Assessment & Plan (08/29/2019 12:24 PM MAILROOM ASSISTANT): Reports frequent palpitations yesterday associated with shortness [...] = 0.6 oz pur e alcohol) rarely [facility] Utilities Answer Date Recorded In the past 12 months has e [employer], gas, oil, or water [employer] threatened to shut off services in your [...] often do you attend chur ch or judaism services? Never 08/27/2024 Do you belong to any clubs o r organizations such as anabaptism groups, unions, fraternal or athletic groups, or [...] any time in the past 12 m [facility], were you homeless or living in a usp (including now)? No 08/27/2024 Personal Safety Answer Date Recorded Have you ever been in or are you currently in a harmful physical or emotional relationship or is someone making you feel afraid or unsafe? Denies 02/15/2025 Comments No Sex and Gender Information Value Date Recorded Sex Assigned at Not on file Legal Sex Female 7:25 AM MAILROOM ASSISTANT Gender Identity Female 06/07/2021 5:59 PM CDT [...] on file Medical Devices Implanted Type Area Digital Imaging Technician Device Identifier Shelf Expiration Date Model / Serial / Lot [employer] [id number] Masters-Series 31mm 26.1mm Mechanical Expanded Cuff Style - [id number] - [id number] Implanted:Qty: 1 on 11/11/2018 by Buck Bustillos MD at [facility] N/A: Heart [employer] 02/22/2020 [id number] / [id number] / Daig Refugio/[employer] [id number] Angio-Seal Vip Bondek-Plus 6fr .035in 70cm Hemostatic Latex Free - [id number] Implanted:Qty: 1 on 11/14/2018 by Rodrigo Gómez MD at [facility] [employer] 06/10/2019 [id number] / / [id number] [employer] [id number] Viabahn 6mm 2.5cm 120cm Flexible Self Expand Radiopaque Stent - [id number] Implanted:Qty: 1 on 11/19/2018 by Param Mcrae Jr., MD at [facility] [employer] 12/03/2020 [id number] / / Wl [employer] [id number] Viabahn 6mm 6fr 5cm 120cm Delivery System Superficial Femoral - [id number] Implanted:Qty: 1 on 11/19/2018 by Param Mcrae Jr., MD at [facility] [employer] 04/20/2021 [id number] / / [employer]ig [employer]ug[employer] [id number] Angio-Seal Vip Bondek-Plus 6fr .035in 70cm Hemostatic Latex Free - [id number] Implanted:Qty: 1 on 11/19/2018 by Param Mcrae Jr., MD at [facility] [employer] 06/10/2019 [id number] / / [id number] Procedures Procedure Name Priority Date/Time Associated Diagnosis Comments CARDIOLOGY DOCUMENT SCAN Routine 02/24/2025 10:40 AM CDT POCT GLUCOSE DEVICE Routine 02/17/2025 1 2:01 [...] Recently Relevant to Health Maintenance Results * Cardiology Document Scan (02/24/2025 10:40 AM CDT) Anatomical Region Laterality Modality Other us Abhay Cheng MD CV CARDIAC SERVICES PROCEDURES F inal Result * POCT glucose (02/17/2025 12:01 PM CDT) Glucose, POC 102 70 - 199 mg/dL Blood 02/17/2025 12:0 1 PM CDT 02/17/2025 12:01 PM CDT Radha Zepeda MD LAB POCT ORDERABLES - D EVICE Final Result Performing Organization Address City/[facility]/ZIP Co de Phone Number [facility] [place] [address] * POCT glucose (02/17/2025 8:16 AM CDT) Glucose, POC 89 70 - 199 mg/dL Blood 02/17/2025 8:16 AM CDT 02/17/2025 8:16 AM CDT Radha Zepeda MD LAB POCT ORDERABLES - D EVICE Final Result Performing Organization Address [facility] Co de Phone Number [facility] Department [place] [address] * eGFR (02/16/2025 8:55 PM CDT) eGFR [...] LAB BLOOD ORDERABLES Final Res ult MADISYN [facility] [place] [address] * (ABNORMAL) Protime-INR (02/16/2025 8:55 PM CDT) PT 16.7(H) 9.7 - 13.0 sec INR 1.53(H) 0.90 - 1.20 MADISYN [facility] Comment: Interpretive data Oral anticoagulant therapeutic ranges: Venous thromboembolism prophylaxis or treatment: 2.0-3.0 CARDIOLOGY Standard range: 2.0-3.0 High-intensity range: 2.5-3.5 Refer to indication-specific guidelines for appropriate target ranges for prosthetic heart valve replacement. Current interpretive data was last revised on 2019. Blood 02/16/2025 8:55 PM CDT 02/16/2025 9:11 PM CDT Nevin Sargent CUT OFF MACHINE HELPER LAB BLOOD ORDERABLES Final Res ult Performing Organization Address [facility] Co de Phone Number MADISYN [facility] [place] [address] * (ABNORMAL) CBC without differential (02/16/2025 8:55 PM CDT) [facility] WBC 7.71 3.80 - 9.90 K/cumm Hgb 12.2 11.9 - 15.5 g/dL [facility] Hct 38.4 35.6 - 45.5 % [facility] Plt 242 150 - 400 K/cumm [facility] MPV 10.1 9.1 - 12.3 fL [facility] RBC 4.81 3.90 - 5.20 M/cumm [facility] MCV 79.8(L) 81.3 - 96.4 fL [facility] MCH 25.4(L) 27.1 - 33.3 pg [facility] MCHC 31.8(L) 32.3 - 35.7 g/dL [facility] RDW CV 17.1(H) 11.1 - 14.9 % [facility] RDW SD 49.1(H) 35.7 - 48.1 fL [facility] NRBC abs 0.00 0.00 - 0.01 K/cumm [facility] Blood 02/16/2025 8:55 PM CDT 02/16/2025 9:05 PM CDT Nevin Sargent CUT OFF MACHINE HELPER LAB BLOOD ORDERABLES Final Res ult Performing Organization Address City/[facility]/ZIP Co de Phone Number [facility] [place] [address] * (ABNORMAL) Comprehensive metabolic panel (02/16/2025 8:55 PM CDT) Pathologist [facility] Sodium 140 135 - 145 mmol/L Potassium, pl 3.9 3.3 - 4.9 mmol/L [facility] Chloride 101 97 - 110 mmol/L [facility] CO2 29 22 - 32 mmol/L [facility] Anion gap 10 2 - 15 mmol/L [facility] BUN 14 6 - 25 mg/dL [facility] Creatinine 0.95 0.60 - 1.10 mg/dL [facility] Glucose 98 70 - 199 mg/dL [facility] Comment: Interpretive Data Fasting glucose >/= 126 [...] 2022. Calcium 9.1 8.5 - 10.3 mg/dL [facility] Bilirubin, total 0.4 0.1 - 1.2 mg/dL [facility] Protein, pl 7.8 6.5 - 8.5 g/dL [facility] Albumin 3.5 3.5 - 5.0 g/dL [facility] Alk phos 235(H) 40 - 130 Units/L [facility] ALT 42 7 - 45 Units/L [facility] AST 54(H) 10 - 45 Units/L [facility] Blood 02/16/2025 8:55 PM CDT 02/16/2025 9:05 PM CDT Nevin Sargent NP LAB BLOOD ORDERABLES Final Res ult [facility] [place] [address] * POCT glucose (02/16/2025 8:44 PM CDT) Pathologist [facility] Glucose, POC 104 70 - 199 mg/dL Blood 02/16/2025 8:44 PM CDT 02/16/2025 8:44 PM CDT us Brad Tyson MD LAB POCT ORDERABLES - DE VICE Final Result Performing Organization Address City/[facility] Co de Phone Number MADISYN SUNSHINE [facility]as [facility] [address] * POCT glucose (02/16/2025 5:16 PM CDT) Glucose, POC 94 70 - 199 mg/dL Blood 02/16/2025 5:16 PM CDT 02/16/2025 5:16 PM CDT Brad Tyson MD LAB POCT ORDERABLES - DE VICE Final Result Performing Organization Address [facility] Phone Number MADISYN [facility] [place] [address] * NM MPI SPECT (Stress) Single Study [...] agrees with it. Electronically signed by: Adolfo Mcmilaln M.D. Narrative 02/16/2025 3:02 PM CDT EXAMINATION: [...] the Cardiovascular Division is available in the [facility] electronic medical record. Standard myocardial perfusion images [...] the Cardiovascular Division is available in the [facility] electronic medical record. Standard myocardial perfusion images [...] by: Adolfo Mcmillan M.D. Diya Jules MD IMG NM PROCEDURES Final Res ult * Stress Test for Myocardial Perfusion (02/16/2025 12:39 PM CDT) Anatomical Region Laterality Modality Nuclear Medicine 02/16/2025 11:2 0 AM CDT Narrative 02/16/2025 2:26 PM CDT [facility] Cardiac [place] [address] [place] Patient Name: FRANSISCA POWELL R : 1975 (50y ) Gender: F Study Date: 02/16/2025 11:20:00 AM Ht(Inch): 64 Wt(Lb): 275 BSA: 2.37 Tech: Location: [id number] Order Provider: DIYA JULES BMI: 47.2 Ref [...] Note Chalo Ivory MD PhD - 02/16/2025 [facility] [place] [address] [place] Patient Name: FRANSISCA POWELL R : 1975 (50y ) Gender: F Study Date: 02/16/2025 11:20:00 AM Ht(Inch): 64 Wt(Lb): 275 BSA: 2.37 Tech: Location: [id number] Order Provider: DIYA JULES BMI: 47.2 Ref [...] Ivory Jr., M.D. 02/16/2025 2:25:54 PM CDT us Diya Jules MD CV STRESS PROCEDURES Final Result * (ABNORMAL) Protime-INR (02/16/2025 8:34 AM CDT) PT 14.6(H) 9.7 - 13.0 sec INR 1.34(H) 0.90 - 1.20 [facility] Comment: Interpretive data Oral anticoagulant therapeutic ranges: Venous thromboembolism prophylaxis or treatment: 2.0-3.0 CARDIOLOGY Standard range: 2.0-3.0 High-intensity range: 2.5-3.5 Refer to indication-specific guidelines for appropriate target ranges for prosthetic heart valve replacement. Current interpretive data was last revised on 2019. Blood 02/16/2025 8:34 AM CDT 02/16/2025 8:47 AM CDT Nevin Sargent NP LAB BLOOD ORDERABLES Final Res ult [facility] [place] [address] * POCT glucose (02/16/2025 8:04 AM CDT) Glucose, POC 108 70 - 199 mg/dL Blood 02/16/2025 8:04 AM CDT 02/16/2025 8:04 AM CDT Brad Tyson MD LAB POCT ORDERABLES - DE VICE Final Result Performing Organization Address City/[facility]/ZIP Co de Phone Number [facility] [place] [address] * eGFR (02/15/2025 8:17 PM CDT) eGFR [...] BLOOD ORDERABLES Final Result Performing Organization Address [facility] Co de Phone Number [facility] [place] [address] * Magnesium (02/15/2025 8:17 PM CDT) Magnesium 2.1 1.4 - 2.5 mg/dL Blood 02/15/2025 8:17 PM CDT 02/15/2025 8:26 PM CDT Diya Jules MD LAB BLOOD ORDERABLES Final Result Performing Organization Address [facility] de Phone Number [facility] [place] [address] * (ABNORMAL) Lipid panel (02/15/2025 8:17 PM [...] on 2018. Triglycerides 89 <=149 mg/dL MADISYN [facility] Comment: Interpretive Data Ages < or [...] 2018. LDL, calculated 75 <=129 mg/dL MADISYN SUNSHINE Comment: Interpretive Data Ages [...] NCEP Expert Panel. Circulation 2004;110:227 3. Aron Guy al. DONNA Cardiol. 2020 December 09;5(5):540-548. doi: 10.1001/[email or web address] Current Interpretive Data was last revised on 2024. Non-HDL Cholesterol 92 mg/dL [facility] Comment: Interpretive Data Ages < or = [...] last revised on 2018. Chol/HDL ratio 4 [facility] Blood 02/15/2025 8:17 PM CDT 02/15/2025 8:26 PM CDT Narrative [facility] - 02/16/2025 9:50 AM CDT Reflex Brad Tyson MD LAB BLOOD ORDERABLES Fin al Result [facility] Department [place] [address] * Basic metabolic panel (02/15/2025 8:17 PM CDT) Sodium 140 135 - 145 mmol/L Potassium, pl 3.6 3.3 - 4.9 mmol/L [facility] Chloride 103 97 - 110 mmol/L [facility] CO2 31 22 - 32 mmol/L [facility] Anion gap 6 2 - 15 mmol/L [facility] BUN 10 6 - 25 mg/dL [facility] Creatinine 0.77 0.60 - 1.10 mg/dL [facility] Glucose 108 70 - 199 mg/dL [facility] Comment: Interpretive Data Fasting glucose >/= 126 [...] 2022. Calcium 9.0 8.5 - 10.3 mg/dL [facility] Blood 02/15/2025 8:17 PM CDT 02/15/2025 8:26 PM CDT Diya Jules MD LAB BLOOD ORDERABLES Final Result [facility] Department [place] [address] * POCT glucose (02/15/2025 8:01 PM CDT) Glucose, POC 104 70 - 199 mg/dL Blood 02/15/2025 8:01 PM CDT 02/15/2025 8:01 PM CDT Adolfo Gamino MD LAB POCT ORDERABLES - DEV ICE Final Result Performing Organization Address [facility] Co de Phone Number [facility] [place] [address] * Troponin I high-sensitivity 6-hour (02/15/2025 6:12 PM CDT) Trop I hs 6 <=17 ng/L Comment: Interpretive Data For further hscTnI resources including the diagnostic algorithm and an aid in interpretation, copy and paste this link: https://bjhlab.testcatalog.org/show/hsTrop-1 Current Interpretive Data last revised 2020. Trop I hs delta 0 ng/L [facility] Trop I hs interp Insignificant [facility] Blood 02/15/2025 6:12 PM CDT 02/15/2025 6:20 PM CDT Yfn Javier MD LAB BLOOD ORDERABLES Fi nal Result Performing Organization Address City/[facility] Co de Phone Number [facility] [place] [address] * ECG 12 lead (02/15/2025 5:33 PM CDT) [facility] Ventricular Rate EKG/Min 68 BPM [facility] Atrial Rate 68 BPM [facility] [place]-Interval (MSEC) 168 ms [facility] QRS-Interval (MSEC) 94 ms [facility] QT-Interval (MSEC) 430 ms [facility] QTc 457 ms [facility] P [place] 64 degrees [facility] R [place] 56 degrees [facility] T [place] 80 degrees [facility] Diagnosis Normal sinus rhythm Normal ECG When compared with ECG of 19-JUL-2020 10:21, Minimal criteria for Inferior infarct are no longer Present T wave inversion no longer evident in Anterior leads Nonspecific T wave abnormality now evident in Lateral leads Confirmed by AARON MA M.D ([id number]) on 02/16/2025 9:54:10 AM [facility] 02/15/2025 5:33 PM CDT 02/16/2025 9:54 AM CDT us Diya Jules MD ECG ORDERABLES Final Resul t Performing Organization Address [facility] de Phone Number [facility] * POCT glucose (02/15/2025 5:04 PM CDT) Glucose, POC 84 70 - 199 mg/dL Blood 02/15/2025 5:04 PM CDT 02/15/2025 5:04 PM CDT us Adolfo Gamino MD LAB POCT ORDERABLES - DEV ICE Final Result Performing Organization Address [facility] Co de Phone Number [facility] [place] [address] * POCT glucose (02/15/2025 3:39 PM CDT) Glucose, POC 83 70 - 199 mg/dL Blood 02/15/2025 3:39 PM CDT 02/15/2025 3:39 PM CDT us Dottie Triana MD LAB POCT ORDERABLES - D EVICE Final Result Performing Organization Address [facility] de Phone Number [facility] [place] [address] * Troponin I high-sensitivity 4-hour (02/15/2025 3:36 PM CDT) Trop I hs 4 <=17 ng/L Comment: Interpretive Data For further hscTnI resources including the diagnostic algorithm and an aid in interpretation, copy and paste this link: https://bjhlab.testcatalog.org/show/hsTrop-1 Current Interpretive Data last revised 2020. Trop I hs delta -2 ng/L [facility] Trop I hs interp Insignificant [facility] Blood 02/15/2025 3:36 PM CDT 02/15/2025 3:55 PM CDT Yfn Javier MD LAB BLOOD ORDERABLES Fi nal Result Performing Organization Address [facility] de Phone Number [facility] [place] [address] * ECG 12-LEAD (02/15/2025 2:23 PM CDT) Narrative [facility] - 02/15/2025 2:23 PM CDT Derrick Kebede [...] ORDERABLES Final R esult Performing Organization Address City/[facility]/ZIP Co de Phone Number [facility] * Troponin I high-sensitivity 2-hour (02/15/2025 1:45 PM CDT) Trop I hs 5 <=17 ng/L Comment: Interpretive Data For further hscTnI resources including the diagnostic algorithm and an aid in interpretation, copy and paste this link: https://bjhlab.testcatalog.org/show/hsTrop-1 Current Interpretive Data last revised 2020. Trop I hs delta -1 ng/L [facility] Trop I hs interp Insignificant [facility] Blood 02/15/2025 1:45 PM CDT 02/15/2025 2:11 PM CDT us Yfn Javier MD LAB BLOOD ORDERABLES Fi nal Result Performing Organization Address [facility] Co de Phone Number [facility] [place] [address] * XR Chest PA Lateral 2 Views [...] POCT ketone, blood (02/15/2025 12:22 PM CDT) Beta-Hydroxybut yrate, POC 0.1 0.0 - 0.5 mmol/L Blood 02/15/2025 12:2 2 PM CDT 02/15/2025 12:22 PM CDT Dottie Triana MD LAB POCT ORDERABLES - D EVICE Final Result [facility] [place] [address] * Troponin I high-sensitivity series (baseline, 2hr, [...] ORDERABLES Fi nal Result Performing Organization Address [facility] de Phone Number MADISYN [facility] [place] [address] * eGFR (02/15/2025 12:06 PM CDT) Pathologist [facility] eGFR >90 >=60 mL/min/1. 73 m2 Comment: [...] 6 PM CDT 02/15/2025 12:47 PM CDT Yfn Javier MD LAB BLOOD ORDERABLES Fi nal Result Performing Organization Address City/[facility]/ZIP Co de Phone Number MADISYN [facility] Department [place] [address] * (ABNORMAL) Differential, auto (02/15/2025 12:06 PM CDT) Pathologist [facility] Neutrophil abs 4.03 1.50 - 6.50 K/cumm Imm gran abs 0.02 0.00 - 0.10 K/cumm [facility] Lymphocyte abs 0.62(L) 0.80 - 3.30 K/cumm [facility] Monocyte abs 0.46 0.20 - 0.80 K/cumm [facility] Eosinophil abs 0.14 0.00 - 0.50 K/cumm [facility] Basophil abs 0.02 0.00 - 0.10 K/cumm [facility] Neutrophil pct 76.2 % [facility] Comment: Interpretive Data Percent cell count reference ranges are not reported, since discordance with absolute values may lead to misinterpretation of CBC data. Current Interpretive Data was last revised on 2017. Imm gran pct 0.4 % [facility] Comment: Interpretive Data Percent cell count reference ranges are not reported, since discordance with absolute values may lead to misinterpretation of CBC data. Current Interpretive Data was last revised on 2017. Lymphocyte pct 11.7 % [facility] Comment: Interpretive Data Percent cell count reference ranges are not reported, since discordance with absolute values may lead to misinterpretation of CBC data. Current Interpretive Data was last revised on 2017. Monocyte pct 8.7 % [facility] Comment: Interpretive Data Percent cell count reference ranges are not reported, since discordance with absolute values may lead to misinterpretation of CBC data. Current Interpretive Data was last revised on 2017. Eosinophil pct 2.6 % [facility] Comment: Interpretive Data Percent cell count reference ranges are not reported, since discordance with absolute values may lead to misinterpretation of CBC data. Current Interpretive Data was last revised on 2017. Basophil pct 0.4 % [facility] Comment: Interpretive Data Percent cell count reference ranges are not reported, since discordance with absolute values may lead to misinterpretation of CBC data. Current Interpretive Data was last revised on 2017. Blood 02/15/2025 12:0 6 PM CDT 02/15/2025 12:47 PM CDT us Yfn Javier MD LAB BLOOD ORDERABLES Fi nal Result [facility] [place] [address] * Pro B-type natriuretic peptide (02/15/2025 12:06 [...] LAB BLOOD ORDERABLES Fi nal Result MADISYN [facility] [place] [address] * (ABNORMAL) CBC with auto differential (02/15/2025 12:06 PM CDT) Pathologist [facility] WBC 5.29 3.80 - 9.90 K/cumm Hgb 12.2 11.9 - 15.5 g/dL [facility] Hct 39.2 35.6 - 45.5 % [facility] Plt 220 150 - 400 K/cumm [facility] MPV 10.4 9.1 - 12.3 fL [facility] RBC 4.85 3.90 - 5.20 M/cumm [facility] MCV 80.8(L) 81.3 - 96.4 fL [facility] MCH 25.2(L) 27.1 - 33.3 pg [facility] MCHC 31.1(L) 32.3 - 35.7 g/dL [facility] RDW CV 17.1(H) 11.1 - 14.9 % [facility] RDW SD 49.9(H) 35.7 - 48.1 fL [facility] NRBC abs 0.00 0.00 - 0.01 K/cumm [facility] Blood Venous blood specimen / Unknown 02/15/2025 12:06 PM CDT 02/15/2025 12:47 PM CDT Dottie Triana MD LAB BLOOD ORDERABLES nal Result [facility] [place] [address] * (ABNORMAL) Hemoglobin A1c (02/15/2025 12:06 PM CDT) Hgb A1C 6.3(H) 4.0 - 5.6 % Estimated Average Glucose 134 mg/dL [facility] Comment: The ADA recommends reporting an estimated Average Glucose (eAG) with all Hemoglobin A1c results using the equation derived from a study of 507 normal and diabetic adults. Minority populations were underrepresented and children were not included. (Diabetes Care 2020; 43(S1): S66-S76). The eAG is not equivalent to a fasting glucose. Blood 02/15/2025 12:0 6 PM CDT 02/15/2025 12:52 PM CDT Narrative [facility] - 02/16/2025 4:45 PM CDT Reflex us Brad Tyson MD LAB BLOOD ORDERABLES Fin al Result [facility] Department [place] [address] * (ABNORMAL) Comprehensive metabolic panel (02/15/2025 12:06 PM CDT) Sodium 138 135 - 145 mmol/L Potassium, pl 3.2(L) 3.3 - 4.9 mmol/L [facility] Chloride 99 97 - 110 mmol/L [facility] CO2 30 22 - 32 mmol/L [facility] Anion gap 9 2 - 15 mmol/L [facility] BUN 10 6 - 25 mg/dL [facility] Creatinine 0.69 0.60 - 1.10 mg/dL [facility] Glucose 113 70 - 199 mg/dL [facility] Comment: Interpretive Data Fasting glucose >/= 126 [...] 2022. Calcium 8.9 8.5 - 10.3 mg/dL [facility] Bilirubin, total 0.3 0.1 - 1.2 mg/dL [facility] Protein, pl 7.8 6.5 - 8.5 g/dL [facility] Albumin 3.5 3.5 - 5.0 g/dL [facility] Alk phos 230(H) 40 - 130 Units/L [facility] ALT 35 7 - 45 Units/L [facility] AST 47(H) 10 - 45 Units/L [facility] Blood 02/15/2025 12:0 6 PM CDT 02/15/2025 12:47 PM CDT us Dottie Triana MD LAB BLOOD ORDERABLES Fi nal Result MADISYN PALACIO [facility] [place] [address] * RAD ONC ARIA SESSION SUMMARY (12/24/2024 [...] ORD ERABLES Final Result Performing Organization Address City/[facility]/ZIP Co de Phone Number ARIA * RAD ONC ARIA SESSION SUMMARY [...] ARIA * RAD ONC ARIA SESSION SUMMARY (12/22/2024 [...] ARIA * RAD ONC ARIA SESSION SUMMARY (12/21/2024 [...] ARIA * RAD ONC ARIA SESSION SUMMARY (12/20/2024 [...] ONCOLOGY ORD ERABLES Final Result [facility] * POCT glucose (12/07/2024 10:03 AM CDT) Glucose, POC 109 70 - 199 mg/dL Blood 12/07/2024 10:0 3 AM CDT 12/07/2024 10:03 AM CDT Mirta Gonzalez MD LAB POCT ORDERABLES - DEVICE Final Result Performing Organization Address City/[facility] Co de Phone Number MADISYN [facility] Department of Laboratories [place], [place] [id number] * US Vein Duplex Lower Extremity Bilateral Complete (12/07/2024 9:01 AM CDT) Anatomical Region Laterality Modality Vascular Bilateral Ultrasound 12/07/2024 8:20 AM CDT Narrative 12/07/2024 6:12 PM CDT [facility] - Department of Vascular Surgery, Vascular Laboratory [address] [place] [address] Lower Extremity Venous Ultrasound Report Patient Name: FRANSISCA POWELL : 1975 (49y 9m) Study Date: 12/07/2024 8:20:35 AM Gender: F Tech: BL Location: [id number] Ref Provider: INGRID GILES Quality: [...] R, ttp L popliteal - FINDINGS: Performing Kiln Setter: Patti Singh RVT. Bilateral: Venous Doppler signals [...] Procedure Note Vitaliy Tejada MD - 12/07/2024 [facility] - Department of Vascular Surgery,Vascular Laboratory [address] [place] [id number] Lower Extremity Venous Ultrasound Report Patient Name: [...] R, ttp L popliteal - FINDINGS: Performing Kiln Setter: Patti Singh RVT. Bilateral: Venous Doppler signals [...] above. Electronically Signed By: Vitaliy Tejada MD [facility] 12/07/2024 5:43:55 PM CDT us Ingrid [...] it. Electronically signed by: Oscar Sanchez M.D. Ingrid Giles MD IMG CT PROCEDURES Final Res ult * (ABNORMAL) Urinalysis reflex to microscopic and culture Urine (12/07/2024 6:19 AM CDT) Color, ur Straw Yellow Clarity, ur Cloudy(A) Clear [facility] Specific gravity, ur 1.011 1.003 - 1.030 [facility] pH, urine 6.5 [facility] Comment: Interpretive Data U rine pH is affected by diet, medications, systemic acid-base disturbances, and renal tubular function. pH may affect urinary stone formation. For example, urine pH below 6.0 may help reduce the tendency for calcium phosphate stones and pH greater than 6.0 may reduce the tendency for uric acid stone formation. Source: [facility] Current Interpretive Data was last revised on 2017 Protein, ur ql Trace Negative [facility] Glucose, ur ql 3+(A) Negative [facility] Ketones, ur Negative Negative [facility] Bilirubin, ur Negative Negative [facility] Blood, ur Negative Negative [facility] Urobilinogen, ur <2.0 <2.0 mg/dL [facility] Nitrite, ur Positive(A) Negative [facility] Leukocyte esterase, ur 1+(A) Negative [facility] UA reflex comment Reflex to microscopic UA will be performed. [facility] Urine 12/07/2024 6:19 AM CDT 12/07/2024 6:27 AM CDT Ingrid Giles MD LAB MICROBIOLOGY - GENERAL ORDERABLES Final Result Performing Organization Address City/[facility] Co de Phone Number [facility] [place] [address] * POCT glucose (12/07/2024 6:19 AM CDT) Glucose, POC 102 70 - 199 mg/dL Blood 12/07/2024 6:19 AM CDT 12/07/2024 6:19 AM CDT Mirta Gonzalez MD LAB POCT ORDERABLES - DEVICE Final Result Performing Organization Address City/[facility]/ZIP Co de Phone Number [facility] [place] [address] * (ABNORMAL) Urinalysis, microscopic only (12/07/2024 6:19 AM CDT) WBC, ur 6-10(A) 0 - 5 /HPF RBC, ur 0-2 0 - 2 /HPF [facility] Epithelial cells, squamous, ur 1-5 0 - 5 /HPF [facility] Bacteria, ur 2+(A) [facility] Culture Reflex Comment Reflex conditions for urine culture (WBC >10) not met. [facility] Urine 12/07/2024 6:19 AM CDT 12/07/2024 6:27 AM CDT Ingrid Giles MD LAB URINE ORDERABLES Final Result Performing Organization Address [facility] Co de Phone Number [facility] [place] [address] * Troponin I high-sensitivity 6-hour (12/07/2024 6:16 AM CDT) Trop I hs 4 <=17 ng/L Comment: Interpretive Data For further hscTnI resources including the diagnostic algorithm and an aid in interpretation, copy and paste this link: https://bjhlab.testcatalog.org/show/hsTrop-1 Current Interpretive Data last revised 2020. Trop I hs delta -1 ng/L [facility] Trop I hs interp Insignificant [facility] Blood 12/07/2024 6:16 AM CDT 12/07/2024 6:31 AM CDT Karla Griggs MD LAB BLOOD ORDERABLES Sue l Result Performing Organization Address [facility] Co de Phone Number [facility] [place] [address] * (ABNORMAL) Erythrocyte sedimentation rate (12/07/2024 6:16 AM CDT) Erythrocyte sedimentation rate 76(H) 1 - 20 mm/hr Blood 12/07/2024 6:16 AM CDT 12/07/2024 6:31 AM CDT Result [facility] Mirta Gonzalez MD LAB BLOOD ORDERABLES Final Result Performing Organization Address [facility] Co de Phone Number [facility] [place] [address] * Troponin I high-sensitivity 2-hour (12/07/2024 5:49 AM CDT) Trop I hs 4 <=17 ng/L Comment: Interpretive Data For further hscTnI resources including the diagnostic algorithm and an aid in interpretation, copy and paste this link: https://bjhlab.testcatalog.org/show/hsTrop-1 Current Interpretive Data last revised 2020. Trop I hs delta See Comment ng/L [facility] Comment:Inappropriate collec tion time to report a delta. Trop I hs pct delta See Comment % [facility] Comment:Inappropriate collec tion time to report a delta. Trop I hs interp See Comment [facility] Comment:Inappropriate collec tion time to report a delta. Blood 12/07/2024 5:49 AM CDT 12/07/2024 6:27 AM CDT Karla Griggs MD LAB BLOOD ORDERABLES Sue l Result Performing Organization Address [facility] Co de Phone Number [facility] Department [place] [address] * POCT glucose (12/07/2024 5:49 AM CDT) Glucose, POC 111 70 - 199 mg/dL Blood 12/07/2024 5:49 AM CDT 12/07/2024 5:49 AM CDT Notinfile Unknown LAB POCT ORDERABLES - DEVICE F inal Result Performing Organization Address City/[facility] Co de Phone Number [facility] [place] [address] * Troponin I high-sensitivity 4-hour (12/07/2024 4:59 AM CDT) Trop I hs 4 <=17 ng/L Comment: Interpretive Data For further hscTnI resources including the diagnostic algorithm and an aid in interpretation, copy and paste this link: https://bjhlab.testcatalog.org/show/hsTrop-1 Current Interpretive Data last revised 2020. Trop I hs delta -1 ng/L [facility] Trop I hs interp Insignificant [facility] Blood 12/07/2024 4:59 AM CDT 12/07/2024 5:21 AM CDT Karla Griggs MD LAB BLOOD ORDERABLES Sue l Result [facility] [place] [address] * POCT glucose (12/07/2024 3:34 AM CDT) Pathologist [facility] Glucose, POC 103 70 - 199 mg/dL Blood 12/07/2024 3:34 AM CDT 12/07/2024 3:34 AM CDT Notinfile Unknown LAB POCT ORDERABLES - DEVICE F inal Result Performing Organization Address City/[facility]/ZIP Co de Phone Number [facility] [place] [address] * (ABNORMAL) Protime-INR (12/07/2024 12:14 AM CDT) Pathologist [facility] PT 15.6(H) 9.7 - 13.0 sec INR 1.43(H) 0.90 - 1.20 [facility] Comment: Interpretive data Oral anticoagulant therapeutic ranges: Venous thromboembolism prophylaxis or treatment: 2.0-3.0 CARDIOLOGY Standard range: 2.0-3.0 High-intensity range: 2.5-3.5 Refer to indication-specific guidelines for appropriate target ranges for prosthetic heart valve replacement. Current interpretive data was last revised on 2019. Blood 12/07/2024 12:1 4 AM CDT 12/07/2024 12:45 AM CDT Mirta Gonzalez MD LAB BLOOD ORDERABLES Final Result Performing Organization Address [facility] de Phone Number [facility] [place] [address] * Troponin I high-sensitivity series (baseline, 2hr, 4hr, 6hr) (12/07/2024 12:08 AM CDT) Trop I hs 5 <=17 ng/L Comment: Interpretive Data For further hscTnI resources including the diagnostic algorithm and an aid in interpretation, copy and paste this link: https://bjhlab.testcatalog.org/show/[email or web address] Current Interpretive Data last revised 2020. Blood 12/07/2024 12:0 8 AM CDT 12/07/2024 12:51 AM CDT Mirta Gonzalez MD LAB BLOOD ORDERABLES Final Result Performing Organization Address [facility] de Phone Number [facility] [place] [address] * eGFR (12/07/2024 12:08 AM CDT) eGFR [...] Gonzalez MD LAB BLOOD ORDERABLES Final Result [facility] Department [place] [address] * Differential, auto (12/07/2024 12:08 AM CDT) Neutrophil abs 5.09 1.50 - 6.50 K/cumm Imm gran abs 0.04 0.00 - 0.10 K/cumm [facility] Lymphocyte abs 0.96 0.80 - 3.30 K/cumm [facility] Monocyte abs 0.46 0.20 - 0.80 K/cumm [facility] Eosinophil abs 0.15 0.00 - 0.50 K/cumm [facility] Basophil abs 0.03 0.00 - 0.10 K/cumm [facility] Neutrophil pct 75.7 % [facility] Comment: Interpretive Data Percent cell count reference ranges are not reported, since discordance with absolute values may lead to misinterpretation of CBC data. Current Interpretive Data was last revised on 2017. Imm gran pct 0.6 % [facility] Comment: Interpretive Data Percent cell count reference ranges are not reported, since discordance with absolute values may lead to misinterpretation of CBC data. Current Interpretive Data was last revised on 2017. Lymphocyte pct 14.3 % [facility] Comment: Interpretive Data Percent cell count reference ranges are not reported, since discordance with absolute values may lead to misinterpretation of CBC data. Current Interpretive Data was last revised on 2017. Monocyte pct 6.8 % [facility] Comment: Interpretive Data Percent cell count reference ranges are not reported, since discordance with absolute values may lead to misinterpretation of CBC data. Current Interpretive Data was last revised on 2017. Eosinophil pct 2.2 % [facility] Comment: Interpretive Data Percent cell count reference ranges are not reported, since discordance with absolute values may lead to misinterpretation of CBC data. Current Interpretive Data was last revised on 2017. Basophil pct 0.4 % [facility] Comment: Interpretive Data Percent cell count reference ranges are not reported, since discordance with absolute values may lead to misinterpretation of CBC data. Current Interpretive Data was last revised on 2017. Blood 12/07/2024 12:0 8 AM CDT 12/07/2024 12:51 AM CDT Mirta Gonzalez MD LAB BLOOD ORDERABLES Final Result [facility] [place] [address] * Pro B-type natriuretic peptide (12/07/2024 12:08 [...] Gonzalez MD LAB BLOOD ORDERABLES Final Result [facility] Department [place] [address] * (ABNORMAL) CBC with auto differential (12/07/2024 12:08 AM CDT) WBC 6.73 3.80 - 9.90 K/cumm Hgb 10.9(L) 11.9 - 15.5 g/dL [facility] Hct 34.4(L) 35.6 - 45.5 % [facility] Plt 253 150 - 400 K/cumm [facility] MPV 10.3 9.1 - 12.3 fL [facility] RBC 4.27 3.90 - 5.20 M/cumm [facility] MCV 80.6(L) 81.3 - 96.4 fL [facility] MCH 25.5(L) 27.1 - 33.3 pg [facility] MCHC 31.7(L) 32.3 - 35.7 g/dL [facility] RDW CV 14.7 11.1 - 14.9 % [facility] RDW SD 43.5 35.7 - 48.1 fL [facility] NRBC abs 0.00 0.00 - 0.01 K/cumm [facility] Blood 12/07/2024 12:0 8 AM CDT 12/07/2024 12:51 AM CDT us Mirta Gonzalez MD LAB BLOOD ORDERABLES Final Result Performing Organization Address City/[facility] Co de Phone Number [facility] [place] [address] * (ABNORMAL) CRP (acute phase) (12/07/2024 12:08 AM CDT) [facility] CRP 10.3(H) <=10.0 mg/L Blood 12/07/2024 12:0 8 AM CDT 12/07/2024 12:51 AM CDT Mirta Gonzalez MD LAB BLOOD ORDERABLES Final Result Performing Organization Address [facility] de Phone Number [facility] [place] [address] * (ABNORMAL) Comprehensive metabolic panel (12/07/2024 12:08 AM CDT) [facility] Sodium 142 135 - 145 mmol/L Potassium, pl 3.9 3.3 - 4.9 mmol/L [facility] Chloride 102 97 - 110 mmol/L [facility] CO2 27 22 - 32 mmol/L [facility] Anion gap 13 2 - 15 mmol/L [facility] BUN 12 6 - 25 mg/dL [facility] Creatinine 0.93 0.60 - 1.10 mg/dL [facility] Glucose 91 70 - 199 mg/dL [facility] Comment: Interpretive Data Fasting glucose >/= 126 [...] classification and Diagnosis of Diabetes Diabetes Care 2022; 46: S19-S40. Current interpretive data was last revised 2022. Calcium 9.6 8.5 - 10.3 mg/dL [facility] Bilirubin, total 0.3 0.1 - 1.2 mg/dL [facility] Protein, pl 9.2(H) 6.5 - 8.5 g/dL [facility] Albumin 4.3 3.5 - 5.0 g/dL [facility] Alk phos 200(H) 40 - 130 Units/L [facility] ALT 28 7 - 45 Units/L [facility] AST 33 10 - 45 Units/L [facility] Blood 12/07/2024 12:0 8 AM CDT 12/07/2024 12:51 AM CDT Mirta Gonzalez MD LAB BLOOD ORDERABLES Final Result [facility] [place] [address] * XR Chest PA Lateral 2 Views [...] ECG 12-LEAD (12/06/2024 10:15 PM CDT) Narrative [facility] - 12/06/2024 10:15 PM CDT Srinivas Cardoza [...] present on prior ECG Srinivas Cardoza MD 12/06/246 Mirta Gonzalez MD ECG ORDERABLES Final Result [facility] * Hepatitis C antibody (01/01/2023 [...] last revised on 2019. Testing performed by: [facility], [address] [place] [address]., [id number] Blood 01/01/2023 11:0 6 AM CDT 01/01/2023 2:22 PM CDT Tory Gonzalez MD LAB MICROBIOLOGY - GENERAL ORDERABLES Final Result Performing Organization Address City/State/[facility] Co mi Phone Number [facility] [address] [facility]. [place] [address] * COLONOSCOPY IMAGES (07/10/2016) Anatomical Region Laterality Modality Other Narrative 07/10/2016 Ordered by an unspecified provider. Historical Provider GI PROCEDURE ORDERABLES F inal Result from Last 3 Months or Most Recently Relevant to Health Maintenance Insurance IDPA [facility] MEDICARE ADVANTAGE MEDICARE [facility] Address: [address] [address] [place] [address] [facility] MEDICARE ADVANTAGE MEDICARE [place] Advance Directives For more information, please contact: [phone] * Full Code (Latest Code Status on [...] 3:10 PM 05/04/2020 8:07 PM Care Teams Sewing Machine Adjuster Relationship Specialty Start Date End Date Howard Bourgeois MD PCP - General 11/29/16 Sean Olguin MD Consulting Physician Cardiovascular Disease 10/21/18 Radha Sim MD Consulting Physician Internal Medicine 12/26/18 Jackson Purdy Jr., MD Surgeon General Surgery 12/26/18 Enrike Schrader MD Consulting Physician Cardiology 12/26/18 Guido Concepcion MD PhD [id number] [facility] DE[facility] RADIATION ONCOLOGY, [place] [address] Radiation Oncologist Radiation Oncology 11/23/24
--- OUTSIDE RECORDS SUMMARY | 2025-03-02 20:37 | XMS_ITS | Encounter Summary ---
Author Organization [facility] Address [address] [place] [address] Phone Care Team Providers Care Sustainability Coordinator Name Role Phone Howard Bourgeois MD Primary Care Provider [phone] Sean Olguin MD Unavailable Radha Sim MD Unavailable [phone] Rajwinder Carlos MD, Jackson Hinkle Unavailable [phone] Enrike Schrader MD Unavailable [phone] Cara Santacruz RN Unavailable [phone] Marium Tobar [facility] Unavailable [phone] Guido Concepcion MD PhD Unavailable [phone] Encounter Details Date Type Department Care Team [...] often do you attend chur ch or advent services? Never 07/20/2020 Do you belong to any clubs o r organizations such as christianity groups, unions, fraternal or athletic groups, or [...] on file Legal Sex Female 7:25 AM INTELLIGENCE APPLICATIONS Gender Identity Female 06/07/2021 5:59 PM CDT [...] COVID: Suspected 08/12/2024 08/12/2024 08/12/2024 8:15 AM INTELLIGENCE APPLICATIONS documented as of this encounter Care Teams Sustainability Coordinator Relationship Specialty Start Date End Date Howard Bourgeois MD PCP - General 11/29/16 Sean Olguin MD Consulting Physician Cardiovascular Disease 10/21/18 Radha Sim MD Consulting Physician Internal Medicine 12/26/18 Jackson Purdy Jr., MD Surgeon General Surgery 12/26/18 Enrike Schrader MD Consulting Physician Cardiology 12/26/18 Cara Santacruz RN [phone] [address] [employer] Outpatient Saturator 01/12/24 01/14/24 Marium Tobar, PRESS T[employer]ER [employer] [address] [facility] ([facility]) Mailstop [phone] [place] [address] SHOP Outpatient Saturator 08/27/24 09/21/24 Guido Concepcion MD PhD [address] [facility] DEPT RADI[facility] ONCOLOGY, [place] [address] Radiation Oncologist Radiation Oncology 11/23/24 documented as of this encounter
--- OUTSIDE RECORDS SUMMARY | 2025-03-02 20:37 | XMS_ITS | Encounter Summary ---
Author Organization [facility] Healthcare Address [address] [place] [address] Care Team Providers Care Online Publisher Name Role Phone Howard Bourgeois MD Primary Care Provider [phone] Sean Olguin MD Unavailable Radha Sim MD Unavailable [phone] Rajwinder Carlos MD, Jackson NJohnny Unavailable [phone] Enrike Schrader MD Unavailable [phone] Guido Concepcion MD PhD Unavailable [phone] Encounter Details Date Type Department Care Team (Late st Contact Info) Description 12/08/2024 Telephone [facility] Advanced Medicine Radiation Oncology [address] [facility] Advanced Medicine [facility] [place] [address] Katarina Buchanan RN Social History Tobacco Use Types Packs/Day Years Used Date Smoking Tobacco: Former Cigarettes 0.5 18 0 10/2003 - 10/2021 Passive Smoke Exposure: Never Smokeless Tobacco: Never Comments:< 1/2 pack daily Alcohol Use Standard Drinks/Week Comments Yes 0 (1 standard drink = 0.6 oz pur e alcohol) rarely [facility] Utilities Answer Date Recorded In the past 12 months has [employer] electric, gas, oil, or water company threatened [...] often do you attend chur ch or pentecostal services? 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 Gender Identity Female 06/07/2021 5:59 PM CDT Sexual Orientation Straight 06/07/2021 5: 59 PM CDT documented as of this encounter Plan of Treatment Not on file documented as of this encounter Visit Diagnoses Not on filedocumented in this encounter Care Teams Online Publisher Relationship Specialty Start Date End Date Howard Bourgeois MD PCP - General 11/29/16 Sean Olguin MD Consulting Physician Cardiovascular Disease 10/21/18 Radha Sim MD Consulting Physician Internal Medicine 12/26/18 Jackson Purdy Jr., MD Surgeon General Surgery 12/26/18 Enrike Schrader MD Consulting Physician Cardiology 12/26/18 Guido Concepcion MD PhD [address] [facility], [place] [address] Radiation Oncologist Radiation Oncology 11/23/24 documented as of this encounter
--- OUTSIDE RECORDS SUMMARY | 2025-03-02 20:37 | XMS_ITS | Encounter Summary ---
Author Organization [facility] Address [address] [place] [address] Phone Care Team Providers Care Commercial Loan Analyst Name Role Phone Howard Bourgeois MD Primary Care Provider [phone] Sean Olguin MD Unavailable Radha Sim MD Unavailable [phone] Rajwinder Carlos MD, Jackson Hinkle Unavailable [phone] Enrike Schrader MD Unavailable [phone] Anaid Salvador RN Unavailable [phone] Cara Santacruz RN Unavailable Marium Tobar [facility] Unavailable [phone] Guido benz MD PhD Unavailable [phone] Encounter Details Date Type Department Care Team (Late st Contact Info) Description 05/19/[address] [facility] Scheduling [address] [place] [address] Rosa Sanchez Social History Tobacco Use Types Packs/Day Years Used Date Smoking Tobacco: Every Day Smokeless Tobacco: Current Alcohol Use Standard Drinks/Week Comments No 0 (1 standard drink = 0.6 oz pur e alcohol) Comments Unknown Sex and Gender Information Value Date Recorded Sex Assigned at Not on file Legal Sex Female 7:25 AM WOUND NURSE Gender Identity Female 06/07/2021 5:59 PM CDT [...] COVID: Suspected 07/14/2020 07/14/2020 07/15/2020 3:17 AM WOUND NURSE Rhino/Enterovirus 07/14/2020 07/15/2020 07/22/2020 3:07 AM WOUND NURSE Respiratory Infection (MARA), contact + droplet Comment:Automatically added due to negative COVID-19 result. Patient classified as High Risk for COVID-19 by the Medical Triage Attending. There are two negative COVID-19 test done at least 24 hours apart. Patient meets criteria for COVID-19 isolation discontinuation. Elgin Herman RN 07/16/2020 07/15/2020 07/15/2020 07/16/2020 9:[address] COVID: Suspected 07/15/2020 07/15/2020 07/16/2020 1:17 AM WOUND NURSE COVID: Suspected 01/06/2024 01/06/2024 01/06/2024 4:36 AM CDT COVID: Suspected 08/12/2024 08/12/2024 08/12/2024 8:15 AM WOUND NURSE documented as of this encounter Care Teams Commercial Loan Analyst Relationship Specialty Start Date End Date Howard Bourgeois MD PCP - General 11/29/16 Sean Olguin MD Consulting Physician Cardiovascular Disease 10/21/18 Radha Sim MD Consulting Physician Internal Medicine 12/26/18 Jackson Purdy Jr., MD Surgeon General Surgery 12/26/18 Enrike Schrader MD Consulting Physician Cardiology 12/26/18 Anaid Salvador RN [address] [address] [facility] Nurse Staff 07/20/20 08/17/20 Cara Santacruz RN [address] [address] [facility] Nurse Staff 01/12/24 01/14/24 Marium Tobar [facility] [address] [facility] Mailstop [phone] [place] [address] [facility] Nurse Staff 08/27/24 09/21/24 Guido Concepcion MD PhD [address] [facility] RAD[facility]COL[facility], [place] [address] Radiation Oncologist Radiation Oncology 11/23/24 documented as of this encounter
--- OUTSIDE RECORDS SUMMARY | 2025-03-02 20:37 | XMS_ITS | Encounter Summary ---
Author Organization [facility] Healthcare Address [address] [place] [address] Care Team Providers Care Network Project Manager Name Role Phone Howard Bourgeois MD Primary Care Provider [phone] Sean Olguin MD Unavailable Radha Sim MD Unavailable [phone] Rajwinder Carlos MD, Jackson Hinkle Unavailable [phone] Enrike Schrader MD Unavailable [phone] Cara Santacruz RN Unavailable [phone] Marium Tobar [facility] Unavailable [phone] Guido Concepcion MD PhD Unavailable [phone] Encounter Details Date Type Department Care Team (Late st Contact Info) Description 10/18/2021 Telephone [facility] [address] [facility] [address] [place] [id number] Etelvina Angelo RN Social History Tobacco Use [...] often do you attend chur ch or sabianist services? 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 TURBINE MECHANICAL ENGINEER Gender Identity Female 06/07/2021 5:59 PM CDT [...] COVID: Suspected 08/12/2024 08/12/2024 08/12/2024 8:15 AM WIND TURBINE MECHANICAL ENGINEER documented as of this encounter Care Teams Network Project Manager Relationship Specialty Start Date End Date Howard Bourgeois MD PCP - General 11/29/16 Sean Olguin MD Consulting Physician Cardiovascular Disease 10/21/18 Radha Sim MD Consulting Physician Internal Medicine 12/26/18 Jackson Purdy Jr., MD Surgeon General Surgery 12/26/18 Enrike Schrader MD Consulting Physician Cardiology 12/26/18 Cara Santacruz RN [address] [facility] [address] [place] [address] [facility] Outpatient System Manager 01/12/24 01/14/24 Marium Tobar LCSW [address] [facility] Mailstop [phone] [place] [address] [facility] Outpatient System Manager 08/27/24 09/21/24 Guido Concepcion MD PhD [address] [facility]COL[facility]Y, [place] [address] Radiation Oncologist Radiation Oncology 11/23/24 documented as of this encounter
--- OUTSIDE RECORDS SUMMARY | 2025-03-02 20:37 | XMS_ITS | Encounter Summary ---
Author Organization [facility] Healthcare Address [address] [place] [address] Care Team Providers Care Mottler Operator Name Role Phone Howard Bourgeois MD Primary Care Provider [phone] Sean Olguin MD Unavailable Radha Sim MD Unavailable [phone] Rajwinder Carlos MD, Jackson NJohnny Unavailable [phone] Enrike Schrader MD Unavailable [phone] Guido Concepcion MD PhD Unavailable [phone] Encounter Details Date Type Department Care Team (Late st Contact Info) Description 03/01/2025 Orders Only [facility] Cardiology [address] [facility] [address] [place] [address] Abhay Cheng MD [address] [facility] [address] [place] [address] Social History Tobacco Use Types Packs/Day Years Used Date Smoking Tobacco: Former Cigarettes 0.5 18 0 10/2003 - 10/2021 Passive Smoke Exposure: Never Smokeless Tobacco: Never Comments:< 1/2 pack daily Alcohol Use Standard Drinks/Week Comments Yes 0 (1 standard drink = 0.6 oz pur e alcohol) rarely [facility] Utilities Answer Date Recorded In the past 12 months has [employer] electric, gas, oil, or water company threatened [...] often do you attend chur ch or congregation services? Never 08/27/2024 Do you belong to [...] any time in the past 12 m [facility], were you homeless or living in a fci (including now)? No 08/27/2024 Personal Safety Answer Date Recorded Have you ever been in or are you currently in a harmful physical or emotional relationship or is someone making you feel afraid or unsafe? 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 Gender Identity Female 06/07/2021 5:59 PM CDT Sexual Orientation Straight 06/07/2021 5: 59 PM CDT documented as of this encounter Plan of Treatment Not on file documented as of this encounter Procedures Procedure Name Priority Date/Time Associated Diagnosis Comments CARDIOLOGY DOCUMENT SCAN Routine 025 10:40 AM CDT documented in this encounter Results * Cardiology Document Scan (02/24/2025 10:40 AM CDT) Anatomical Region Laterality Modality Other Abhay Cheng MD CV CARDIAC SERVICES PROCEDURES F inal Result documented in this encounter Visit Diagnoses Not on filedocumented in this encounter Care Teams Mottler Operator Relationship Specialty Start Date End Date Howard Bourgeois MD PCP - General 11/29/16 Sean Olguin MD Consulting Physician Cardiovascular Disease 10/21/18 Radha Sim MD Consulting Physician Internal Medicine 12/26/18 Jackson Purdy Jr., MD Surgeon General Surgery 12/26/18 Enrike Schrader MD Consulting Physician Cardiology 12/26/18 Guido Concepcion MD PhD [address] [facility] DE[facility] RAD[facility] ONCOLOGY, [place] [address] Radiation Oncologist Radiation Oncology 11/23/24 documented as of this encounter
--- OUTSIDE RECORDS SUMMARY | 2025-03-02 20:37 | XMS_ITS | Encounter Summary ---
Author Organization [facility] Healthcare Address [address] [place] [address] Care Team Providers Care Assistant Merchandise Manager Name Role Phone Howard Bourgeois MD Primary Care Provider [phone] Sean Olguin MD Unavailable Radha Sim MD Unavailable [phone] Rajwinder Carlos MD, Jackson NJohnny Unavailable [phone] Enrike Schrader MD Unavailable [phone] Guido Concepcion MD PhD Unavailable [phone] Encounter Details Date Type Department Care Team (Late st Contact Info) Description 12/02/2024 Telephone [facility] Advanced Medicine Radiation Oncology [address] [facility] Advanced Medicine [facility] [place] [address] Katarina Buchanan RN Social History Tobacco Use Types Packs/Day Years Used Date Smoking Tobacco: Former Cigarettes 0.5 18 0 10/2003 - 10/2021 Passive Smoke Exposure: Never Smokeless Tobacco: Never Comments:< 1/2 pack daily Alcohol Use Standard Drinks/Week Comments Yes 0 (1 standard drink = 0.6 oz pur e alcohol) rarely [facility] Utilities Answer Date Recorded In the past 12 months has [employer] electric, gas, oil, or water company threatened [...] often do you attend chur ch or baptism services? Never 08/27/2024 Do you belong to [...] time in the past 12 m [facility], were you homeless or living in a residential (including now)? No 08/27/2024 Personal Safety Answer Date Recorded Have you ever been in or are you currently in a harmful physical or emotional relationship or is someone making you feel afraid or unsafe? 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 Gender Identity Female 06/07/2021 5:59 PM CDT Sexual Orientation Straight 06/07/2021 5: 59 PM CDT documented as of this encounter Plan of Treatment Not on file documented as of this encounter Visit Diagnoses Not on filedocumented in this encounter Care Teams Assistant Merchandise Manager Relationship Specialty Start Date End Date Howard Bourgeois MD PCP - General 11/29/16 Sean Olguin MD Consulting Physician Cardiovascular Disease 10/21/18 Radha Sim MD Consulting Physician Internal Medicine 12/26/18 Jackson Purdy Jr., MD Surgeon General Surgery 12/26/18 Enrike Schrader MD Consulting Physician Cardiology 12/26/18 Guido Concepcion MD PhD [address] [facility], [place] [address] Radiation Oncologist Radiation Oncology 11/23/24 documented as of this encounter
--- OUTSIDE RECORDS SUMMARY | 2025-03-02 20:37 | XMS_ITS | Clinical Summary ---
Author Organization [facility] Address [address] [place] [address] Care Team Providers Care Single Pointed Operator Name Role Phone Howard Bourgeois MD Primary Care Provider [phone] Sean Olguin MD Unavailable Radha Sim MD Unavailable [phone] Rajwinder Carlos MD, Jackson Hinkle Unavailable [phone] Enrike Schrader MD Unavailable [phone] Guido Concepcion MD PhD Unavailable [phone] Allergies Active Allergy Reactions Criticality Noted Date Comments Penicillins Hives,Rash,Swelling, Othe r (See comments) Medium 09/18/2017 Swelling and rash; tolerates amoxicillin, Medications venlafaxine XR (EFFEXOR-XR) 75 mg 24 hr capsule Take 1 capsule (75 mg total) by mouth daily with breakfast 30 capsule 11 019 Active multivit avxsdeta-wltf-AK-c alcium (THERA-M) 9 mg iron-400 mcg tablet [...] hospital for chest pain worse with exertion, OOTOLE, SOB, 5 lb weight gain in 3 [...] 07/16/2020 Assessment & Plan (07/17/2020 7:29 AM HEMODIALYSIS LAB TECHNICIAN): Pt reported suprapubic discomfort during hospital stay. UA w/ positive nitrites, neg LE, 6-10 WBCs. Plan: - Ciprofloxacin IV 07/15 x1, transition to oral therapy for total 3d course (12/5pm-12/8am) Coagulopathy 07/15/2020 Assessment & Plan (07/19/2020 6:28 AM HEMODIALYSIS LAB TECHNICIAN): Pt w/ h/o chronic warfarin use (goal [...] f/u Assessment & Plan (07/15/2020 2:19 AM HEMODIALYSIS LAB TECHNICIAN): See #MVR Anxiety 07/15/2020 Assessment & Plan (02/17/2025 5:00 PM CDT): Resume home Wellbutrin and venlafaxine. Assessment & Plan (02/16/2025 3:52 PM CDT): Resume home Wellbutrin and venlafaxine Assessment & Plan (02/15/2025 5:38 PM CDT): Resume home Wellbutrin and venlafaxine Assessment & Plan (07/16/2020 11:53 AM HEMODIALYSIS LAB TECHNICIAN): H/o anxiety and chronic pain (reported h/o fibromyalgia per pt). On home Effexor Plan: - Continue home venlafaxine 75mg every day Assessment & Plan (07/15/2020 10:49 AM HEMODIALYSIS LAB TECHNICIAN): Mood stable -Cont venlafaxine Omental infarction 07/15/2020 Assessment & Plan (07/18/2020 8:27 AM HEMODIALYSIS LAB TECHNICIAN): Asymptomatic. CT A/P w/ ventral abdominal hernia containing omental fat w/ slight increase in stranding. 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 Occurring in s/o acute blood loss anemia. Lactate 1.1, abdominal exam benign. Tolerating food/fluid well Plan: - CTM - Transfuse as above Assessment & Plan (07/16/2020 9:18 AM HEMODIALYSIS LAB TECHNICIAN): CT A/P: ventral abdominal hernia containing omental fat, with slight interval increase in stranding in the omental tissues likely secondary to a focus of omental infarction. -Likely occurred in the setting of dehydration and anemia -LA 1.1; Abdominal exam benign. RBCs transfused as above Melena 07/14/2020 Overview (07/16/2020): Added automatically from request for surgery [id number] Assessment & Plan (07/17/2020 7:30 AM HEMODIALYSIS LAB TECHNICIAN): See acute blood loss anemia Intertrigo 02/20/2020 [...] 08/29/2019 Assessment & Plan (07/18/2020 8:26 AM HEMODIALYSIS LAB TECHNICIAN): Resolved. Pt w/ h/o COPD (on albuterol, [...] qhs Assessment & Plan (07/16/2020 9:15 AM HEMODIALYSIS LAB TECHNICIAN): P/w 2 days of SOB, malaise, fever [...] now Assessment & Plan (09/03/2019 12:21 PM HEMODIALYSIS LAB TECHNICIAN): Suspect due to deconditioning plus morbid obesity with minor contribution from ground-glass opacities. Would pursue HRCT chest to further evaluation GGO if hypoxemia worsens (though no exertional hypoxemia was noted on informal 6MW during hospital stay). Assessment & Plan (08/30/2019 3:03 PM HEMODIALYSIS LAB TECHNICIAN): Unclear etiology of shortness of breath with activity. Differential includes arrhythmia, viral, cardiac, progression of inflammatory/infectious/neoplastic process noted on CT --RVP- negative --Monitor on tele --trops negative x2 Assessment & Plan (08/29/2019 12:28 PM HEMODIALYSIS LAB TECHNICIAN): Unclear etiology of shortness of breath with [...] 2.5-3.5) Assessment & Plan (09/03/2019 12:38 PM HEMODIALYSIS LAB TECHNICIAN): Will resume prior warfarin dosing at discharge. Needs bridging with enoxaparin until warfarin therapeutic (goal INR 2.5-3.5). Instructed to undergo repeat INR 5 days after warfarin resumption. Plan to provide prescription for enoxaparin for 7 days with refill in case not therapeutic by then. Assessment & Plan (08/30/2019 3:36 PM HEMODIALYSIS LAB TECHNICIAN): Patient with mechanical mitral valve on home [...] transportation issues (goes to Dr. Leo, cardiology, [place], [place]). Patient here with pleuritic chest pain [...] AM Assessment & Plan (08/29/2019 12:43 PM HEMODIALYSIS LAB TECHNICIAN): Patient with mechanical mitral valve on home [...] transportation issues (goes to Dr. Leo, cardiology, [place], [place]). Patient here with pleuritic chest pain [...] AM Assessment & Plan (08/28/2019 7:43 PM HEMODIALYSIS LAB TECHNICIAN): - Patient with mechanical mitral valve on [...] test Assessment & Plan (09/03/2019 12:39 PM HEMODIALYSIS LAB TECHNICIAN): Atypical; reproducible on palpation. Reassured likely musculoskeletal. Analgesics. Assessment & Plan (08/30/2019 2:56 PM HEMODIALYSIS LAB TECHNICIAN): Patient with complaint of atypical chest pain, less likely ACS. EKG without new ischemic changes. Troponin negative x1. No events on tele. Patient denies pain this morning - trop negative x2 - continue to on tele --Topical lidocaine, scheduled tylenol Assessment & Plan (08/29/2019 12:38 PM HEMODIALYSIS LAB TECHNICIAN): Patient with complaint of atypical chest pain, less likely ACS. EKG without new ischemic changes. Troponin negative x1. No events on tele - Repeat troponin - Monitor on tele --Topical lidocaine, scheduled tylenol Assessment & Plan (08/28/2019 7:47 PM HEMODIALYSIS LAB TECHNICIAN): - Patient with complaint of atypical chest [...] protocol Assessment & Plan (07/16/2020 11:51 AM HEMODIALYSIS LAB TECHNICIAN): H/o IVIS and obesity (BMI 56.64). On home CPAP. Plan: - Continue home CPAP Assessment & Plan (07/15/2020 10:49 AM HEMODIALYSIS LAB TECHNICIAN): Cont CPAP Assessment & Plan (09/03/2019 12:21 PM HEMODIALYSIS LAB TECHNICIAN): Continue home nocturnal NPPV. Assessment & Plan (08/30/2019 3:03 PM HEMODIALYSIS LAB TECHNICIAN): Continue home nocturnal NPPV Assessment & Plan (08/29/2019 12:20 PM HEMODIALYSIS LAB TECHNICIAN): Continue home nocturnal NPPV Assessment & Plan (08/28/2019 7:45 PM HEMODIALYSIS LAB TECHNICIAN): - Continue home nocturnal NPPV Abnormal CT scan 08/28/2019 Assessment & Plan (08/28/2020 5:38 PM HEMODIALYSIS LAB TECHNICIAN): - Will refer to general surgery due to intermittent abdominal pain in the setting of ventral hernia and findings of omental infarction on recent imaging. 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 combining operator can follow up biopsy results with her Assessment & Plan (08/30/2019 3:13 PM HEMODIALYSIS LAB TECHNICIAN): Patient with abnormal CT scan with findings [...] biopsy Assessment & Plan (08/29/2019 11:29 AM HEMODIALYSIS LAB TECHNICIAN): Patient with abnormal CT scan with findings [...] biopsy) Assessment & Plan (08/28/2019 8:02 PM HEMODIALYSIS LAB TECHNICIAN): - Patient with abnormal CT scan with [...] (09/01/2019): Added automatically from request for surgery [id number] Assessment & Plan (09/03/2019 12:40 PM HEMODIALYSIS LAB TECHNICIAN): Given possibility of indolent lymphoma in context [...] concern for recurrent infection. [facility] to get restarted on medication. [...] concerns Assessment & Plan (09/14/2021 1:07 PM HEMODIALYSIS LAB TECHNICIAN): - Doing well on amoxicillin suppression with [...] surgical candidate it was decided to continue long-term suppression to decrease her risk of recurrent infection. - Recent labs reviewed - Discussed with patient the rational for treatment, culture results, risk of recurrent infection, signs/symptoms of recurrent infection, and to contact ID clinic with any questions or concerns Assessment & Plan (08/28/2020 5:37 PM HEMODIALYSIS LAB TECHNICIAN): - No concern for recurrent endocarditis. Tolerating [...] should up with CT surgery as scheduled halfway current use of antibiotics 03/11/2019 Assessment & [...] 2.5-3.5) Assessment & Plan (07/15/2020 4:35 AM HEMODIALYSIS LAB TECHNICIAN): Chronically on suppressive amoxicillin. Endocarditis in 2019, has mechanical MV Assessment & Plan (10/26/2019 4:59 PM CDT): - Recent CBC and CMP reviewed with no change to current antibiotic dose - Continue to monitor for adverse effects of antibiotics Assessment & Plan (09/03/2019 12:22 PM HEMODIALYSIS LAB TECHNICIAN): Patient on long-term antibiotics for the purpose of chronic suppression due to endocarditis in the setting of mechanical valve. Followed as outpatient by ID. Continue home amoxicillin regimen. Assessment & Plan (08/30/2019 3:02 PM HEMODIALYSIS LAB TECHNICIAN): Patient on terminologist antibiotics for the purpose of chronic suppression due to endocarditis in the setting of mechanical valve. Followed as outpatient by ID. --Continue home amoxicillin regimen. Assessment & Plan (08/29/2019 11:18 AM HEMODIALYSIS LAB TECHNICIAN): Patient on long-term antibiotics for the purpose of chronic suppression due to endocarditis in the setting of mechanical valve. Followed as outpatient by ID. --Continue home amoxicillin regimen. Assessment & Plan (08/28/2019 7:51 PM HEMODIALYSIS LAB TECHNICIAN): - Patient on long-term amoxicillin for the purpose of chronic suppression [...] Assessment & Plan (02/22/2019 7:51 PM CDT): Alex Powell is a 44yo F with history [...] questions or change in clinical situations at [phone]. After hours, the ID fellow on-call can be reached at [phone]. Assessment & Plan (02/23/2019 6:35 AM CDT): [...] daily Assessment & Plan (07/16/2020 11:42 AM HEMODIALYSIS LAB TECHNICIAN): H/o severe MR s/p mechanical MVR 11/2018. C/b endocarditis in e/o perioperative infection 2/2 central line site complication. Goal INR 2.5-3.5. On warfarin 7mg prior to admit. Plan: - See coagulopathy - Continue amoxicillin ppx w/ 500mg q8 as per ID (followed outpatient) Assessment & Plan (07/16/2020 9:15 AM HEMODIALYSIS LAB TECHNICIAN): Mechanical MV in 2019 on warfarin. INR [...] 12/18/2018 Assessment & Plan (07/15/2020 10:49 AM HEMODIALYSIS LAB TECHNICIAN): BMI 56.6, risk factor for respiratory decompensation [...] 11/13/2018 Assessment & Plan (07/19/2020 6:26 AM HEMODIALYSIS LAB TECHNICIAN): Pt w/ baseline Hgb 12s. P/w Hgb [...] 7.4 Assessment & Plan (07/16/2020 9:14 AM HEMODIALYSIS LAB TECHNICIAN): Dark tarry stools x2 days prior to [...] lisinopril Assessment & Plan (07/16/2020 11:57 AM HEMODIALYSIS LAB TECHNICIAN): H/o HTN. On home losartan 25 Plan: - Continue losartan 25mg every day Assessment & Plan (02/16/2019 3:30 PM CDT): home meds: furosemide 80 mg daily and losartan 25 mg daily - pt has not been hypertensive - hold home meds Assessment & Plan (12/18/2018 3:15 PM CDT): Controlled. On cozaar. Severe mitral regurgitation 09/29/2018 Overview (09/29/2018): Added automatically from request for surgery [id number] Mitral valve insufficiency 09/29/2018 Overview (10/29/2018): Added automatically from request for surgery [id number] Assessment & Plan (02/17/2025 5:00 PM CDT): [...] 2.5-3.5) Assessment & Plan (09/03/2019 12:21 PM HEMODIALYSIS LAB TECHNICIAN): Patient with history of MR s/p bileaflet mechanical MVR. Management as above with regard to anticoagulation. Appears euvolemic; continue home furosemide. Assessment & Plan (08/30/2019 3:03 PM HEMODIALYSIS LAB TECHNICIAN): Patient with history of MR s/p bileaflet mechanical MVR. Management as above with regard to anticoagulation - Appears euvolemic; continue home lasix Assessment & Plan (08/29/2019 11:17 AM HEMODIALYSIS LAB TECHNICIAN): Patient with history of MR s/p bileaflet mechanical MVR; last TTE 03/2019 and physiologic at that time. Management as above with regard to anticoagulation - Appears euvolemic; continue home lasix Assessment & Plan (08/28/2019 7:48 PM HEMODIALYSIS LAB TECHNICIAN): - Patient with history of MR s/p bileaflet mechanical MVR; last TTE 03/2019 and physiologic at that time - Management as above with regard to anticoagulation - Appears euvolemic; continue home lasix Non-rheumatic mitral regurgitation 09/29/2018 Overview (11/14/2018): Added automatically from request for surgery [id number] Peripheral vascular disease 09/29/2018 Overview (11/19/2018): Added automatically from request for surgery [id number] Assessment & Plan (02/17/2025 5:00 PM CDT): [...] insulin Assessment & Plan (07/16/2020 11:56 AM HEMODIALYSIS LAB TECHNICIAN): Home diet controlled. A1c 6.6. Total cholesterol 121, HDL 23, LDL 63 Plan: - LDSSI while inpatient - Consistent carb diet - Atorva 10 for ppx Assessment & Plan (07/16/2020 9:19 AM HEMODIALYSIS LAB TECHNICIAN): A1C 6.6%; diet controlled at home -Start LDSSI given glucose 210 Assessment & Plan (09/03/2019 12:17 PM HEMODIALYSIS LAB TECHNICIAN): Diet controlled. Remains normoglycemic. Assessment & Plan (08/29/2019 12:19 PM HEMODIALYSIS LAB TECHNICIAN): Diet controlled. BS normoglycemic. Assessment & Plan (08/28/2019 7:52 PM HEMODIALYSIS LAB TECHNICIAN): - Diet controlled. BS normoglycemic. Assessment & [...] weekly Assessment & Plan (07/16/2020 11:49 AM HEMODIALYSIS LAB TECHNICIAN): H/o SLE, diagnosed as teenager reportedly. W/ [...] a/c Assessment & Plan (07/16/2020 9:17 AM HEMODIALYSIS LAB TECHNICIAN): No evidence of flare -Cont plaquenil -Plan to start heparin drip when INR <2.5 given hx of mechanical MV and APLS Assessment & Plan (09/03/2019 12:18 PM HEMODIALYSIS LAB TECHNICIAN): No evidence of flare. Continue HCQ as before. Followed by Rheumatology here as outpatient. Assessment & Plan (08/30/2019 3:12 PM HEMODIALYSIS LAB TECHNICIAN): Patient with SLE followed by Rheumatology as outpatient - Continue HCQ - No current SLE flare; continue to monitor Assessment & Plan (08/29/2019 12:19 PM HEMODIALYSIS LAB TECHNICIAN): Patient with SLE followed by Rheumatology as outpatient - Continue HCQ - No current SLE flare; continue to monitor Assessment & Plan (08/28/2019 7:52 PM HEMODIALYSIS LAB TECHNICIAN): - Patient with SLE followed by Rheumatology as outpatient - Continue HCQ - No current SLE flare; continue to monitor Assessment & Plan (02/23/2019 2:12 PM CDT): Patient has known diagnosis of SLE, followed by rheumatology at [facility] (last seen 01/25/2019) - continue hydroxychloroquine 400 mg daily Assessment & Plan (12/18/2018 3:16 PM CDT): On Plaquenil. Resolved Problems Problem Noted Date Diagnosed Date Resolved Date Fever 07/15/2020 07/16/2020 Assessment & Plan (07/16/2020 9:17 AM HEMODIALYSIS LAB TECHNICIAN): P/w sore throat, cough, PRABHAKAR, nausea, malaise, [...] 08/31/2019 Assessment & Plan (08/31/2019 9:44 AM HEMODIALYSIS LAB TECHNICIAN): Reports frequent palpitations yesterday associated with shortness of breath and fatigue yesterday. None since admission --Continue to monitor on tele Assessment & Plan (08/29/2019 12:24 PM HEMODIALYSIS LAB TECHNICIAN): Reports frequent palpitations yesterday associated with shortness of breath and fatigue yesterday. None since admission --Continue to monitor on tele Encounters Date Type Department Care Team Description 03/01/[address] [facility] Medical Group Cardiology [address] [place] [address] Abhay Cheng MD 02/18/2025 SHOP/CHAP Initial Eligibility Review [facility] OP CASE MANAGEMENT [address] [place] [id number] Viraj Trinity Jenelle, ROLLER PRINT TENDER 02/15/2025 12:14 PM CDT - 02/17/2025 6:11 PM CDT Hospital Encounter [facility] [address] [place] [address] Dottie Triana MD Blustein, MD Stevenson Aguayo, MD Jah Rivas, MD Duane Scales, Radha Devlin MD Chest pain, unspecified type (Primary Dx) Discharge Disposition: Discharge to home or self care 01/12/2025 Orders Only [facility] Radiation Oncology [address] [place] [address] uGido Concepcion MD PhD Malignant neoplasm of lower lobe, left bronchus or lung (HCC) (Primary Dx) 01/12/2025 Orders Only [facility] Radiation Oncology [address] [place] [address] Guido Concepcion MD PhD 12/27/2024 [facility] [address] [facility] [address] [place] [address] Morales Jim [facility] 12/24/2024 12:34 PM CDT - 12/24/2024 11:59 PM CDT Hospital Encounter [facility] Radiation Oncology [address] [place] [address] Guido Concepcion MD PhD Discharge Disposition: Discharge to home or self care 12/24/2024 Completion of Therapy [facility] Radiation Oncology [address] [place] [address] Rima Rowe NP 12/24/2024 Completion of Therapy [facility] Radiation Oncology [address] [place] [address] Guido Concepcion MD PhD 12/24/2024 Orders Only RAD ONC TREATMENTS Miscellaneous, Not In File 12/23/2024 12:27 PM CDT - 12/23/2024 11:59 PM CDT Hospital Encounter [facility] Radiation Oncology [address] [place] [address] Guido Concepcion MD PhD Discharge Disposition: Discharge to home or self care 12/23/2024 OTV [facility] Radiation Oncology [address] [place] [address] Milagro Mayes MD 12/23/2024 Orders Only RAD ONC TREATMENTS Miscellaneous, Not In File 12/22/2024 1:04 PM CDT - 12/22/2024 11:59 PM CDT Hospital Encounter [facility] Radiation Oncology [address] [place] [address] Guido Concepcion MD PhD Discharge Disposition: Discharge to home or self care 12/22/2024 Orders Only RAD ONC TREATMENTS Miscellaneous, Not In File 12/21/2024 10:52 AM CDT - 12/21/2024 11:59 PM CDT Hospital Encounter [facility] Radiation Oncology [address] [place] [address] Guido Concepcion MD PhD Discharge Disposition: Discharge to home or self care 12/21/2024 Orders Only RAD ONC TREATMENTS Miscellaneous, Not In File 12/20/2024 11:54 AM CDT - 12/20/2024 11:59 PM CDT Hospital Encounter [facility] Radiation Oncology [address] [place] [address] Guido Concepcion MD PhD Discharge Disposition: Discharge to home or self care 12/20/2024 Orders Only RAD ONC TREATMENTS Miscellaneous, Not In File 12/13/2024 Telephone [facility] Radiation Oncology [address] [place] [address] Katarina Buchanan RN 12/08/2024 Telephone [facility] Radiation Oncology [facility] [place] [address] Katarina Buchanan RN 12/07/2024 8:00 AM CDT Ancillary Procedure [facility] Vascular Lab IP [address] [facility] [address] [place] [address] 12/07/2024 5:25 AM CDT - 12/07/2024 4:30 PM CDT Emergency [facility] Emergency Department [address] [place] [address] Mirta Gonzalez MD Shortness of breath (Primary Dx); Chest pain on breathing; Acute on chronic congestive heart failure, unspecified heart failure type (HCC); Pericarditis Discharge Disposition: Discharge to home or self care 12/02/2024 Telephone [facility] Radiation Oncology [facility] [place] [address] Katarina Buchanan, BRYNN from Last 3 Months Immunizations Immunization Administration [...] Obesity Acute hypoxic respiratory failure (HCC) 01/07/20 24 CHF (congestive heart failure) (HCC) Hypercholesteremia Family [...] = 0.6 oz pur e alcohol) rarely Tab Asiaities Answer Date Recorded In the past 12 months has [employer], oil, or water [employer] threatened to shut off services in your [...] week 08/27/2024 How often do you attend [facility] or druze services? Never 08/27/2024 Do you belong to [...] time in the past 12 m [facility], were you homeless or living in a halfway (including now)? No 08/27/2024 Personal Safety Answer Date Recorded Have you ever been in or are you currently in a harmful physical or emotional relationship or is someone making you feel afraid or unsafe? Denies 02/15/2025 Comments No Sex and Gender Information Value Date Recorded Sex Assigned at Not on file Legal Sex Female 7:25 AM HEMODIALYSIS LAB TECHNICIAN Gender Identity Female 06/07/2021 5:59 PM CDT [...] 01/01/2023, 019 Medical Devices Implanted Type Area Cnc Lathe Machinist Device Identifier Shelf Expiration Date Model / Serial / Lot [employer] [id number] Masters-Series 31mm 26.1mm Mechanical Expanded Cuff Style - [id number] - [id number] Implanted:Qty: 1 on 11/11/2018 by Buck Bustillos MD at [facility] N/A: Heart [employer] 02/22/2020 [id number] / [id number] / Daig Refugio/[employer] [id number] Angio-Seal Vip Bondek-Plus 6fr .035in 70cm Hemostatic Latex Free - [id number] Implanted:Qty: 1 on 11/14/2018 [facility] [employer] 06/10/2019 [id number] / / [id number] [employer] [id number] Viabahn 6mm 2.5cm 120cm Flexible Self Expand Radiopaque Stent - [id number] Implanted:Qty: 1 on 11/19/2018 by Param Mcrae Jr., MD at [facility] [employer] 12/03/2020 [id number] / / Wl [employer] [id number] Viabahn 6mm 6fr 5cm 120cm Delivery System Superficial Femoral - [id number] Implanted:Qty: 1 on 11/19/2018 by Param Mcrae Jr., MD at [facility] [employer] 04/20/2021 [id number] / / Daig Refug[employer] [id number] Angio-Seal Vip Bondek-Plus 6fr .035in 70cm Hemostatic Latex Free - [id number] Implanted:Qty: 1 on 11/19/2018 by Param Mcrae Jr[facility] [employer] 06/10/2019 [id number] / / [id number] Procedures Procedure Name Priority Date/Time Associated Diagnosis [...] D EVICE Final Result Performing Organization Address [facility] Co de Phone Number [facility] [place] [address] * POCT glucose (02/17/2025 8:16 AM CDT) Glucose, POC 89 70 - 199 mg/dL Blood 02/17/2025 8:16 AM CDT 02/17/2025 8:16 AM CDT us Radha Zepeda MD LAB POCT ORDERABLES - D EVICE Final Result Performing Organization Address [facility] de Phone Number MADISYN [facility] [place] [address] * eGFR (02/16/2025 8:55 PM CDT) eGFR [...] ORDERABLES Final Res ult Performing Organization Address [facility] de Phone Number [facility] Department [place] [address] * (ABNORMAL) Protime-INR (02/16/2025 8:55 PM CDT) Pathologist [facility] PT 16.7(H) 9.7 - 13.0 sec INR 1.53(H) 0.90 - 1.20 [facility] Comment: Interpretive data Oral anticoagulant therapeutic ranges: Venous thromboembolism prophylaxis or treatment: 2.0-3.0 CARDIOLOGY Standard range: 2.0-3.0 High-intensity range: 2.5-3.5 Refer to indication-specific guidelines for appropriate target ranges for prosthetic heart valve replacement. Current interpretive data was last revised on 2019. Blood 02/16/2025 8:55 PM CDT 02/16/2025 9:11 PM CDT Nevin Sargent PICK REMOVER LAB BLOOD ORDERABLES Final Res ult Performing Organization Address [facility] de Phone Number [facility] [place] [address] * (ABNORMAL) CBC without differential (02/16/2025 8:55 PM CDT) [facility] WBC 7.71 3.80 - 9.90 K/cumm Hgb 12.2 11.9 - 15.5 g/dL [facility] Hct 38.4 35.6 - 45.5 % [facility] Plt 242 150 - 400 K/cumm [facility] MPV 10.1 9.1 - 12.3 fL [facility] RBC 4.81 3.90 - 5.20 M/cumm [facility] MCV 79.8(L) 81.3 - 96.4 fL [facility] MCH 25.4(L) 27.1 - 33.3 pg [facility] MCHC 31.8(L) 32.3 - 35.7 g/dL [facility] RDW CV 17.1(H) 11.1 - 14.9 % [facility] RDW SD 49.1(H) 35.7 - 48.1 fL [facility] NRBC abs 0.00 0.00 - 0.01 K/cumm [facility] Blood 02/16/2025 8:55 PM CDT 02/16/2025 9:05 PM CDT us Nevin Sargent PICK REMOVER LAB BLOOD ORDERABLES Final Res ult [facility] Department [place] [address] * (ABNORMAL) Comprehensive metabolic panel (02/16/2025 8:55 PM CDT) Sodium 140 135 - 145 mmol/L Potassium, pl 3.9 3.3 - 4.9 mmol/L [facility] Chloride 101 97 - 110 mmol/L [facility] CO2 29 22 - 32 mmol/L [facility] Anion gap 10 2 - 15 mmol/L [facility] BUN 14 6 - 25 mg/dL [facility] Creatinine 0.95 0.60 - 1.10 mg/dL [facility] Glucose 98 70 - 199 mg/dL [facility] Comment: Interpretive Data Fasting glucose >/= [...] 2022. Calcium 9.1 8.5 - 10.3 mg/dL [facility] Bilirubin, total 0.4 0.1 - 1.2 mg/dL [facility] Protein, pl 7.8 6.5 - 8.5 g/dL [facility] Albumin 3.5 3.5 - 5.0 g/dL [facility] Alk phos 235(H) 40 - 130 Units/L [facility] ALT 42 7 - 45 Units/L [facility] AST 54(H) 10 - 45 Units/L [facility] Blood 02/16/2025 8:55 PM CDT 02/16/2025 9:05 PM CDT Nevin Sargent PICK REMOVER LAB BLOOD ORDERABLES Final Res ult Performing Organization Address [facility]/ZIP Co de Phone Number [facility] [place] [address] * POCT glucose (02/16/2025 8:44 PM CDT) Glucose, POC 104 70 - 199 mg/dL Blood 02/16/2025 8:44 PM CDT 02/16/2025 8:44 PM CDT us Brad Tyson MD LAB POCT ORDERABLES - DE VICE Final Result Performing Organization Address [facility] Co de Phone Number [facility] [place] [address] * POCT glucose (02/16/2025 5:16 PM CDT) Glucose, POC 94 70 - 199 mg/dL Blood 02/16/2025 5:16 PM CDT 02/16/2025 5:16 PM CDT Brad Tyson MD LAB POCT ORDERABLES - DE VICE Final Result Performing Organization Address [facility] Co de Phone Number [facility] [place] [address] * NM MPI SPECT (Stress) Single Study (02/16/2025 2:02 PM CDT) Anatomical Region Laterality Modality Body N/A Nuclear Medicine 02/16/2025 2:54 PM CDT Impressions 02/16/2025 3:02 PM CDT 1. Normal myocardial perfusion during pharmacologic-stress. 2. Normal left ventricular size and systolic function. 3. No appreciable coronary calcifications. Dr. Bruce Zimmer and Elmer Dorsey and Ken Dunne also participated in the interpretation of this [...] the Cardiovascular Division is available in the [facility] electronic medical record. Standard myocardial [...] the Cardiovascular Division is available in the [facility] electronic medical record. Standard myocardial [...] Electronically signed by: Adolfo Mcmillan M.D. Diya Julse MD IMG NM PROCEDURES Final Res ult * Stress Test for Myocardial Perfusion (02/16/2025 12:39 PM CDT) Anatomical Region Laterality Modality Nuclear Medicine 02/16/2025 11:2 0 AM CDT Narrative 02/16/2025 2:26 PM CDT [facility] [place] [address] [place] [employer] Patient Name: ALEX POWELL R : 1975 (50y ) Gender: F Study Date: 02/16/2025 11:20:00 AM Ht(Inch): 64 Wt(Lb): 275 BSA: 2.37 Tech: Location: [id number] Order Provider: DIYA JULES BMI: 47.2 Ref [...] Note Chalo Ivory MD PhD - 02/16/2025 [facility] [place] [address] [place] [employer]ESS Patient Name: ALEX POWELL R : 1975 (50y ) Gender: F Study Date: 02/16/2025 11:20:00 AM Ht(Inch): 64 Wt(Lb): 275 BSA: 2.37 Tech: Location: [place] [address] Order Provider: DIYA JULES BMI: 47.2 Ref Provider: DIYA JULES PROCEDURES: Stress Report: Cardiovascular Stress Test performed in conjunction withMyocardial Perfusion Imaging (MPI) with SPECT at rest and post Regadenoson (Lexiscan)infusion. Results of MPI are reported separately. INDICATIONS: Evaluation for ischemia. FINDINGS: Performed By: Cara Rodegrs RN. Supervising Physician: Bruce Zimmer MD. Cardiac [...] sec INR 1.34(H) 0.90 - 1.20 [facility] Comment: Interpretive data Oral anticoagulant therapeutic ranges: Venous thromboembolism prophylaxis or treatment: 2.0-3.0 CARDIOLOGY Standard range: 2.0-3.0 High-intensity range: 2.5-3.5 Refer to indication-specific guidelines for appropriate target ranges for prosthetic heart valve replacement. Current interpretive data was last revised on 2019. Blood 02/16/2025 8:34 AM CDT 02/16/2025 8:47 AM CDT us Nevin Sargent NP LAB BLOOD ORDERABLES Final Res ult Performing Organization Address City/[facility] Co de Phone Number [facility] [place] [address] * POCT glucose (02/16/2025 8:04 AM CDT) Glucose, POC 108 70 - 199 mg/dL Blood 02/16/2025 8:04 AM CDT 02/16/2025 8:04 AM CDT us Brad Tyson MD LAB POCT ORDERABLES - DE VICE Final Result Performing Organization Address City/[facility] Co de Phone Number [facility] Department [place] [address] * eGFR (02/15/2025 8:17 PM CDT) eGFR [...] BLOOD ORDERABLES Final Result Performing Organization Address [facility] Co de Phone Number [facility] [place] [address] * Magnesium (02/15/2025 8:17 PM CDT) Magnesium 2.1 1.4 - 2.5 mg/dL Blood 02/15/2025 8:17 PM CDT 02/15/2025 8:26 PM CDT Diya Jules MD LAB BLOOD ORDERABLES Final Result Performing Organization Address [facility] Co de Phone Number [facility] [place] [address] * (ABNORMAL) Lipid panel (02/15/2025 8:17 PM [...] revised on 2018. Triglycerides 89 <=149 mg/dL [facility] Comment: Interpretive Data Ages < [...] revised on 2018. HDL 29(L) >=40 mg/dL [facility] Comment: Interpretive Data Ages < [...] on 2018. LDL, calculated 75 <=129 mg/dL [facility] Comment: Interpretive Data Ages < [...] 3. Aron Webber et al. DONNA Cardiol. 2020 December 09;5(5):540-548. doi: 10.1001/[email or web address].2020.0013 Current Interpretive Data was last revised on 2024. Non-HDL Cholesterol 92 mg/dL [facility] Comment: Interpretive Data Ages < [...] last revised on 2018. Chol/HDL ratio 4 [facility] Blood 02/15/2025 8:17 PM CDT 02/15/2025 8:26 PM CDT Narrative [facility] - 02/16/2025 9:50 AM CDT Reflex us Brad Tyson MD LAB BLOOD ORDERABLES Fin al Result [facility] [place] [address] * Basic metabolic panel (02/15/2025 8:17 PM CDT) Sodium 140 135 - 145 mmol/L Potassium, pl 3.6 3.3 - 4.9 mmol/L [facility] Chloride 103 97 - 110 mmol/L [facility] CO2 31 22 - 32 mmol/L [facility] Anion gap 6 2 - 15 mmol/L [facility] BUN 10 6 - 25 mg/dL [facility] Creatinine 0.77 0.60 - 1.10 mg/dL [facility] Glucose 108 70 - 199 mg/dL [facility] Comment: Interpretive Data Fasting glucose >/= [...] 2022. Calcium 9.0 8.5 - 10.3 mg/dL [facility] Blood 02/15/2025 8:17 PM CDT 02/15/2025 8:26 PM CDT us Diya Jules MD LAB BLOOD ORDERABLES Final Result [facility] [place] [address] * POCT glucose (02/15/2025 8:01 PM CDT) Glucose, POC 104 70 - 199 mg/dL Blood 02/15/2025 8:01 PM CDT 02/15/2025 8:01 PM CDT us Adolfo Gamino MD LAB POCT ORDERABLES - DEV ICE Final Result [facility] [place] [address] * Troponin I high-sensitivity 6-hour (02/15/2025 6:12 PM CDT) Pathologist [facility] Trop I hs 6 <=17 ng/L Comment: Interpretive Data For further hscTnI resources including the diagnostic algorithm and an aid in interpretation, copy and paste this link: https://bjhlab.testcatalog.org/show/hsTrop-1 Current Interpretive Data last revised 2020. Trop I hs delta 0 ng/L [facility] Trop I hs interp Insignificant [facility] Blood 02/15/2025 6:12 PM CDT 02/15/2025 6:20 PM CDT us Yfn Javier MD LAB BLOOD ORDERABLES Fi nal Result [facility] [place] [address] * ECG 12 lead (02/15/2025 5:33 PM CDT) [facility] Ventricular Rate EKG/Min 68 BPM [facility] Atrial Rate [address] [facility] CA-Interval (MSEC) [address] [facility] QRS-Interval (MSEC) [address] [facility] QT-Interval (MSEC) [address] [facility] QTc [address] [facility] P [place] [address] [facility] R [place] [address] [facility] T [place] [address] [facility] Diagnosis Normal sinus rhythm Normal ECG When compared with ECG of 19-JUL-2020 10:21, Minimal criteria for Inferior infarct are no longer Present T wave inversion no longer evident in Anterior leads Nonspecific T wave abnormality now evident in Lateral leads Confirmed by AARON MA M.D ([id number]) on 02/16/2025 9:54:10 AM [facility] 02/15/2025 5:33 PM CDT 02/16/2025 9:54 AM CDT us Diya Jules MD ECG ORDERABLES Final Resul t Performing Organization Address City/[facility]/ZIP Co de Phone Number [facility] * POCT glucose (02/15/2025 5:04 PM CDT) Glucose, POC 84 70 - 199 mg/dL Blood 02/15/2025 5:04 PM CDT 02/15/2025 5:04 PM CDT Adolfo Gamino MD LAB POCT ORDERABLES - DEV ICE Final Result Performing Organization Address [facility] Co de Phone Number [facility] [place] [address] * POCT glucose (02/15/2025 3:39 PM CDT) Glucose, POC 83 70 - 199 mg/dL Blood 02/15/2025 3:39 PM CDT 02/15/2025 3:39 PM CDT Dottie Triana MD LAB POCT ORDERABLES - D EVICE Final Result Performing Organization Address [facility] de Phone Number [facility] [place] [address] * Troponin I high-sensitivity 4-hour (02/15/2025 3:36 PM CDT) Pathologist [facility] Trop I hs 4 <=17 ng/L Comment: Interpretive Data For further hscTnI resources including the diagnostic algorithm and an aid in interpretation, copy and paste this link: https://bjhlab.testcatalog.org/show/hsTrop-1 Current Interpretive Data last revised 2020. Trop I hs delta -2 ng/L [facility] Trop I hs interp Insignificant [facility] Blood 02/15/2025 3:36 PM CDT 02/15/2025 3:55 PM CDT Yfn Javier MD LAB BLOOD ORDERABLES Fi nal Result Performing Organization Address [facility] Co de Phone Number [facility] Department [place] [address] * ECG 12-LEAD (02/15/2025 2:23 PM CDT) Narrative [facility] - 02/15/2025 2:23 PM CDT [...] ORDERABLES Final R esult Performing Organization Address [facility] Co de Phone Number [facility] * Troponin I high-sensitivity 2-hour (02/15/2025 1:45 PM CDT) Trop I hs 5 <=17 ng/L Comment: Interpretive Data For further hscTnI resources including the diagnostic algorithm and an aid in interpretation, copy and paste this link: https://bjhlab.testcatalog.org/show/hsTrop-1 Current Interpretive Data last revised 2020. Trop I hs delta -1 ng/L [facility] Trop I hs interp Insignificant [facility] Blood 02/15/2025 1:45 PM CDT 02/15/2025 2:11 PM CDT Yfn Javier MD LAB BLOOD ORDERABLES Fi nal Result Performing Organization Address [facility] Co de Phone Number [facility] [place] [address] * XR Chest PA Lateral 2 Views [...] D EVICE Final Result Performing Organization Address [facility] Co de Phone Number [facility] Department [place] [address] * Troponin I high-sensitivity series (baseline, 2hr, [...] ORDERABLES Fi nal Result Performing Organization Address [facility] Co de Phone Number [facility] Department [place] [address] * eGFR (02/15/2025 12:06 PM CDT) eGFR [...] MD LAB BLOOD ORDERABLES Fi nal Result [facility] [place] [address] * (ABNORMAL) Differential, auto (02/15/2025 12:06 PM CDT) Neutrophil abs 4.03 1.50 - 6.50 K/cumm Imm gran abs 0.02 0.00 - 0.10 K/cumm [facility] Lymphocyte abs 0.62(L) 0.80 - 3.30 K/cumm [facility] Monocyte abs 0.46 0.20 - 0.80 K/cumm [facility] Eosinophil abs 0.14 0.00 - 0.50 K/cumm [facility] Basophil abs 0.02 0.00 - 0.10 K/cumm [facility] Neutrophil pct 76.2 % [facility] Comment: Interpretive Data Percent cell count reference ranges are not reported, since discordance with absolute values may lead to misinterpretation of CBC data. Current Interpretive Data was last revised on 2017. Imm gran pct 0.4 % [facility] Comment: Interpretive Data Percent cell count reference ranges are not reported, since discordance with absolute values may lead to misinterpretation of CBC data. Current Interpretive Data was last revised on 2017. Lymphocyte pct 11.7 % [facility] Comment: Interpretive Data Percent cell count reference ranges are not reported, since discordance with absolute values may lead to misinterpretation of CBC data. Current Interpretive Data was last revised on 2017. Monocyte pct 8.7 % [facility] Comment: Interpretive Data Percent cell count reference ranges are not reported, since discordance with absolute values may lead to misinterpretation of CBC data. Current Interpretive Data was last revised on 2017. Eosinophil pct 2.6 % [facility] Comment: Interpretive Data Percent cell count reference ranges are not reported, since discordance with absolute values may lead to misinterpretation of CBC data. Current Interpretive Data was last revised on 2017. Basophil pct 0.4 % [facility] Comment: Interpretive Data Percent cell count reference ranges are not reported, since discordance with absolute values may lead to misinterpretation of CBC data. Current Interpretive Data was last revised on 2017. Blood 02/15/2025 12:0 6 PM CDT 02/15/2025 12:47 PM CDT us Yfn Javier MD LAB BLOOD ORDERABLES Fi nal Result [facility] [place] [address] * Pro B-type natriuretic peptide (02/15/2025 12:06 [...] 2. [place] RW, Mariaa BLANCHARD. J. AM Soman Cardiol: Cardiovasc Imag. 2009;2: 216- 225. Interpretive Data Last Revised Date: 2018. Blood 02/15/2025 12:0 6 PM CDT 02/15/2025 12:47 PM CDT us Dottie Triana MD LAB BLOOD ORDERABLES Fi nal Result [facility] [place] [address] * (ABNORMAL) CBC with auto differential (02/15/2025 12:06 PM CDT) WBC 5.29 3.80 - 9.90 K/cumm Hgb 12.2 11.9 - 15.5 g/dL [facility] Hct 39.2 35.6 - 45.5 % [facility] Plt 220 150 - 400 K/cumm [facility] MPV 10.4 9.1 - 12.3 fL [facility] RBC 4.85 3.90 - 5.20 M/cumm [facility] MCV 80.8(L) 81.3 - 96.4 fL [facility] MCH 25.2(L) 27.1 - 33.3 pg [facility] MCHC 31.1(L) 32.3 - 35.7 g/dL [facility] RDW CV 17.1(H) 11.1 - 14.9 % [facility] RDW SD 49.9(H) 35.7 - 48.1 fL [facility] NRBC abs 0.00 0.00 - 0.01 K/cumm [facility] Blood Venous blood specimen / Unknown 02/15/2025 12:06 PM CDT 02/15/2025 12:47 PM CDT Dottie Triana MD LAB BLOOD ORDERABLES Fi nal Result Performing Organization Address City/[facility] de Phone Number [facility] [place] [address] * (ABNORMAL) Hemoglobin A1c (02/15/2025 12:06 PM CDT) Pathologist [facility] Hgb A1C 6.3(H) 4.0 - 5.6 % Estimated Average Glucose 134 mg/dL [facility] Comment: The ADA recommends reporting an estimated Average Glucose (eAG) with all Hemoglobin A1c results using the equation derived from a study of 507 normal and diabetic adults. Minority populations were underrepresented and children were not included. (Diabetes Care 2020; 43(S1): S66-S76). The eAG is not equivalent to a fasting glucose. Blood 02/15/2025 12:0 6 PM CDT 02/15/2025 12:52 PM CDT Narrative [facility] - 02/16/2025 4:45 PM CDT Reflex Brad Tyson MD LAB BLOOD ORDERABLES Fin al Result Performing Organization Address [facility] de Phone Number [facility] Department [place] [address] * (ABNORMAL) Comprehensive metabolic panel (02/15/2025 12:06 PM CDT) [facility] Sodium 138 135 - 145 mmol/L Potassium, pl 3.2(L) 3.3 - 4.9 mmol/L [facility] Chloride 99 97 - 110 mmol/L [facility] CO2 30 22 - 32 mmol/L [facility] Anion gap 9 2 - 15 mmol/L [facility] BUN 10 6 - 25 mg/dL [facility] Creatinine 0.69 0.60 - 1.10 mg/dL [facility] Glucose 113 70 - 199 mg/dL [facility] Comment: Interpretive Data Fasting glucose >/= [...] 2022. Calcium 8.9 8.5 - 10.3 mg/dL [facility] Bilirubin, total 0.3 0.1 - 1.2 mg/dL [facility] Protein, pl 7.8 6.5 - 8.5 g/dL [facility] Albumin 3.5 3.5 - 5.0 g/dL [facility] Alk phos 230(H) 40 - 130 Units/L [facility] ALT 35 7 - 45 Units/L [facility] AST 47(H) 10 - 45 Units/L [facility] Blood 02/15/2025 12:0 6 PM CDT 02/15/2025 12:47 PM CDT us Dottie Triana MD LAB BLOOD ORDERABLES Fi nal Result [facility] [place] [address] * RAD ONC ARIA SESSION SUMMARY (12/24/2024 [...] ORD ERABLES Final Result Performing Organization Address [facility] Co de Phone Number [facility] * POCT glucose (12/07/2024 10:03 AM CDT) Glucose, POC 109 70 - 199 mg/dL Blood 12/07/2024 10:0 3 AM CDT 12/07/2024 10:03 AM CDT us Mirta Gonzalez MD LAB POCT ORDERABLES - DEVICE Final Result [facility] [place] [address] * US Vein Duplex Lower Extremity Bilateral Complete (12/07/2024 9:01 AM CDT) Anatomical Region Laterality Modality Vascular Bilateral Ultrasound 12/07/2024 8:20 AM CDT Narrative 12/07/2024 6:12 PM CDT [facility] - Department of Vascular Surgery, Vascular Laboratory [address] [place] [id number] Lower Extremity Venous Ultrasound Report Patient Name: ALEX POWELL : 1975 (49y 9m) Study Date: [...] R, ttp L popliteal - FINDINGS: Performing Pharmacy Retail Support Specialist: Patti Singh RVT. Bilateral: Venous Doppler signals [...] Procedure Note Vitaliy Tejada MD - 12/07/2024 [facility] - Department of Vascular Surgery,Vascular Laboratory [address] [place] [address] Lower Extremity Venous Ultrasound Report Patient Name: ALEX POWELL : 1975 (49y 9m) Study Date: 12/07/2024 8:20:35 AM Gender: F Tech: Location: [facility] Provider: INGRID GILES Quality: Adequate Order Provider: [...] R, ttp L popliteal - FINDINGS: Performing Pharmacy Retail Support Specialist: Patti Singh RVT. Bilateral: Venous Doppler signals [...] ur Straw Yellow Clarity, ur Cloudy(A) Clear [facility] Specific gravity, ur 1.011 1.003 - 1.030 [facility] pH, urine 6.5 [facility] Comment: Interpretive Data U rine pH is affected by diet, medications, systemic acid-base disturbances, and renal tubular function. pH may affect urinary stone formation. For example, urine pH below 6.0 may help reduce the tendency for calcium phosphate stones and pH greater than 6.0 may reduce the tendency for uric acid stone formation. Source: [facility] Current Interpretive Data was last revised on 2017 Protein, ur ql Trace Negative [facility] Glucose, ur ql 3+(A) Negative [facility] Ketones, ur Negative Negative [facility] Bilirubin, ur Negative Negative [facility] Blood, ur Negative Negative [facility] Urobilinogen, ur <2.0 <2.0 mg/dL [facility] Nitrite, ur Positive(A) Negative [facility] Leukocyte esterase, ur 1+(A) Negative [facility] UA reflex comment Reflex to microscopic UA will be performed. [facility] Urine 12/07/2024 6:19 AM CDT 12/07/2024 6:27 AM CDT Ingrid Giles MD LAB MICROBIOLOGY - GENERAL ORDERABLES Final Result [facility] [place] [address] * POCT glucose (12/07/2024 6:19 AM CDT) Pathologist [facility] Glucose, POC 102 70 - 199 mg/dL Blood 12/07/2024 6:19 AM CDT 12/07/2024 6:19 AM CDT Mirta Gonzalez MD LAB POCT ORDERABLES - DEVICE Final Result Performing Organization Address [facility] CENTER Co de Phone Number [facility] [place] [address] * (ABNORMAL) Urinalysis, microscopic only (12/07/2024 6:19 AM CDT) [facility] WBC, ur 6-10(A) 0 - 5 /HPF RBC, ur 0-2 0 - 2 /HPF [facility] Epithelial cells, squamous, ur 1-5 0 - 5 /HPF [facility] Bacteria, ur 2+(A) [facility] Culture Reflex Comment Reflex conditions for urine culture (WBC >10) not met. [facility] Urine 12/07/2024 6:19 AM CDT 12/07/2024 6:27 AM CDT Ingrid Giles MD LAB URINE ORDERABLES Final Result Performing Organization Address [facility] de Phone Number [facility] [place] [address] * Troponin I high-sensitivity 6-hour (12/07/2024 6:16 AM CDT) Pathologist [facility] Trop I hs 4 <=17 ng/L Comment: Interpretive Data For further hscTnI resources including the diagnostic algorithm and an aid in interpretation, copy and paste this link: https://bjhlab.testcatalog.org/show/hsTrop-1 Current Interpretive Data last revised 2020. Trop I hs delta -1 ng/L [facility] Trop I hs interp Insignificant [facility] Blood 12/07/2024 6:16 AM CDT 12/07/2024 6:31 AM CDT Karla Griggs MD LAB BLOOD ORDERABLES Sue l Result Performing Organization Address [facility] Co de Phone Number [facility] [place] [address] * (ABNORMAL) Erythrocyte sedimentation rate (12/07/2024 6:16 AM CDT) Erythrocyte sedimentation rate 76(H) 1 - 20 mm/hr Blood 12/07/2024 6:16 AM CDT 12/07/2024 6:31 AM CDT Result [facility] Mirta Gonzalez MD LAB BLOOD ORDERABLES Final Result Performing Organization Address [facility] de Phone Number [facility] [place] [address] * Troponin I high-sensitivity 2-hour (12/07/2024 5:49 AM CDT) Pathologist [facility] Trop I hs 4 <=17 ng/L Comment: Interpretive Data For further hscTnI resources including the diagnostic algorithm and an aid in interpretation, copy and paste this link: https://bjhlab.testcatalog.org/show/hsTrop-1 Current Interpretive Data last revised 2020. Trop I hs delta See Comment ng/L [facility] Comment:Inappropriate collec tion time to report a delta. Trop I hs pct delta See Comment % [facility] Comment:Inappropriate collec tion time to report a delta. Trop I hs interp See Comment [facility] Comment:Inappropriate collec tion time to report a delta. Blood 12/07/2024 5:49 AM CDT 12/07/2024 6:27 AM CDT Karla Griggs MD LAB BLOOD ORDERABLES Sue l Result Performing Organization Address City/[facility]/ZIP Co de Phone Number [facility] [place] [address] * POCT glucose (12/07/2024 5:49 AM CDT) Glucose, POC 111 70 - 199 mg/dL Blood 12/07/2024 5:49 AM CDT 12/07/2024 5:49 AM CDT Result [facility] Notinfile Unknown LAB POCT ORDERABLES - DEVICE F inal Result Performing Organization Address [facility] de Phone Number [facility] [place] [address] * Troponin I high-sensitivity 4-hour (12/07/2024 4:59 AM CDT) [facility] Trop I hs 4 <=17 ng/L Comment: Interpretive Data For further hscTnI resources including the diagnostic algorithm and an aid in interpretation, copy and paste this link: https://bjhlab.testcatalog.org/show/hsTrop-1 Current Interpretive Data last revised 2020. Trop I hs delta -1 ng/L [facility] Trop I hs interp Insignificant [facility] Blood 12/07/2024 4:59 AM CDT 12/07/2024 5:21 AM CDT Karla Griggs MD LAB BLOOD ORDERABLES Sue l Result Performing Organization Address [facility]/ZIP Co de Phone Number [facility] [place] [address] * POCT glucose (12/07/2024 3:34 AM CDT) Glucose, POC 103 70 - 199 mg/dL Blood 12/07/2024 3:34 AM CDT 12/07/2024 3:34 AM CDT Notinfile Unknown LAB POCT ORDERABLES - DEVICE F inal Result Performing Organization Address [facility] Co de Phone Number [facility] [place] [address] * (ABNORMAL) Protime-INR (12/07/2024 12:14 AM CDT) PT 15.6(H) 9.7 - 13.0 sec INR 1.43(H) 0.90 - 1.20 [facility] Comment: Interpretive data Oral anticoagulant [...] BLOOD ORDERABLES Final Result Performing Organization Address [facility] de Phone Number [facility] [place] [address] * Troponin I high-sensitivity series (baseline, 2hr, [...] MD LAB BLOOD ORDERABLES Final Result [facility] [place] [address] * eGFR (12/07/2024 12:08 AM CDT) eGFR [...] MD LAB BLOOD ORDERABLES Final Result [facility] [place] [address] * Differential, auto (12/07/2024 12:08 AM CDT) Neutrophil abs 5.09 1.50 - 6.50 K/cumm Imm gran abs 0.04 0.00 - 0.10 K/cumm [facility] Lymphocyte abs 0.96 0.80 - 3.30 K/cumm [facility] Monocyte abs 0.46 0.20 - 0.80 K/cumm [facility] Eosinophil abs 0.15 0.00 - 0.50 K/cumm [facility] Basophil abs 0.03 0.00 - 0.10 K/cumm [facility] Neutrophil pct 75.7 % [facility] Comment: Interpretive Data Percent cell count reference ranges are not reported, since discordance with absolute values may lead to misinterpretation of CBC data. Current Interpretive Data was last revised on 2017. Imm gran pct 0.6 % [facility] Comment: Interpretive Data Percent cell count reference ranges are not reported, since discordance with absolute values may lead to misinterpretation of CBC data. Current Interpretive Data was last revised on 2017. Lymphocyte pct 14.3 % [facility] Comment: Interpretive Data Percent cell count reference ranges are not reported, since discordance with absolute values may lead to misinterpretation of CBC data. Current Interpretive Data was last revised on 2017. Monocyte pct 6.8 % [facility] Comment: Interpretive Data Percent cell count reference ranges are not reported, since discordance with absolute values may lead to misinterpretation of CBC data. Current Interpretive Data was last revised on 2017. Eosinophil pct 2.2 % [facility] Comment: Interpretive Data Percent cell count reference ranges are not reported, since discordance with absolute values may lead to misinterpretation of CBC data. Current Interpretive Data was last revised on 2017. Basophil pct 0.4 % [facility] Comment: Interpretive Data Percent cell count reference ranges are not reported, since discordance with absolute values may lead to misinterpretation of CBC data. Current Interpretive Data was last revised on 2017. Blood 12/07/2024 12:0 8 AM CDT 12/07/2024 12:51 AM CDT Mirta Gonzalez MD LAB BLOOD ORDERABLES Final Result [facility] [place] [address] * Pro B-type natriuretic peptide (12/07/2024 12:08 AM CDT) Pathologist [facility] NT-proBNP 292 <=300 pg/mL Comment: Interpretive Comments: [...] MD LAB BLOOD ORDERABLES Final Result [facility] [place] [address] * (ABNORMAL) CBC with auto differential (12/07/2024 12:08 AM CDT) Pathologist [facility] WBC 6.73 3.80 - 9.90 K/cumm Hgb 10.9(L) 11.9 - 15.5 g/dL [facility] Hct 34.4(L) 35.6 - 45.5 % [facility] Plt 253 150 - 400 K/cumm [facility] MPV 10.3 9.1 - 12.3 fL [facility] RBC 4.27 3.90 - 5.20 M/cumm [facility] MCV 80.6(L) 81.3 - 96.4 fL [facility] MCH 25.5(L) 27.1 - 33.3 pg [facility] MCHC 31.7(L) 32.3 - 35.7 g/dL [facility] RDW CV 14.7 11.1 - 14.9 % [facility] RDW SD 43.5 35.7 - 48.1 fL [facility] NRBC abs 0.00 0.00 - 0.01 K/cumm [facility] Blood 12/07/2024 12:0 8 AM CDT 12/07/2024 12:51 AM CDT Mirta Gonzalez MD LAB BLOOD ORDERABLES Final Result [facility] [place] [address] * (ABNORMAL) CRP (acute phase) (12/07/2024 12:08 AM CDT) Pathologist [facility] CRP 10.3(H) <=10.0 mg/L Blood 12/07/2024 12:0 8 AM CDT 12/07/2024 12:51 AM CDT Mirta Gonzalez MD LAB BLOOD ORDERABLES Final Result [facility] [place] [address] * (ABNORMAL) Comprehensive metabolic panel (12/07/2024 12:08 AM CDT) Sodium 142 135 - 145 mmol/L Potassium, pl 3.9 3.3 - 4.9 mmol/L [facility] Chloride 102 97 - 110 mmol/L [facility] CO2 27 22 - 32 mmol/L [facility] Anion gap 13 2 - 15 mmol/L [facility] BUN 12 6 - 25 mg/dL [facility] Creatinine 0.93 0.60 - 1.10 mg/dL [facility] Glucose 91 70 - 199 mg/dL [facility] Comment: Interpretive Data Fasting glucose >/= [...] 2022. Calcium 9.6 8.5 - 10.3 mg/dL [facility] Bilirubin, total 0.3 0.1 - 1.2 mg/dL [facility] Protein, pl 9.2(H) 6.5 - 8.5 g/dL [facility] Albumin 4.3 3.5 - 5.0 g/dL [facility] Alk phos 200(H) 40 - 130 Units/L [facility] ALT 28 7 - 45 Units/L [facility] AST 33 10 - 45 Units/L [facility] Blood 12/07/2024 12:0 8 AM CDT 12/07/2024 12:51 AM CDT Mirta Gonzalez MD LAB BLOOD ORDERABLES Final Result [facility] [place] [address] * XR Chest PA Lateral 2 Views [...] ECG 12-LEAD (12/06/2024 10:15 PM CDT) Narrative [facility] [place] 12/06/2024 10:15 PM CDT Srinivas Cardoza [...] on prior ECG Srinivas Cardoza MD 12/06/24 1781 Mirta Gonzalez MD ECG ORDERABLES Final Result Performing Organization Address [facility] Co de Phone Number [facility] * Hepatitis C antibody (01/01/2023 11:06 AM CDT) Hep C Ab Nonreactive Nonreactive [facility] Comment: Interpretive Data Nonreactive: Antibodies to HCV [...] last revised on 2019. Testing performed by: [facility], [address] [place] [address], [place]., [address] Blood 01/01/2023 11:0 6 AM CDT 01/01/2023 2:22 PM CDT Tory Gonzalez MD LAB MICROBIOLOGY - GENERAL ORDERABLES Final Result Performing Organization Address [facility] Co de Phone Number [facility] [address] [facility]. [place] [address] * COLONOSCOPY IMAGES (07/10/2016) Anatomical Region Laterality Modality Other Narrative 07/10/2016 Ordered by an unspecified provider. us Historical Provider MD EDWARDS PROCEDURE ORDERABLES F inal Result from Last 3 Months or Most Recently Relevant to Health Maintenance Insurance [employer] MEDICARE ADVANTAGE [facility] MEDIC[facility] Address: [address] [address] [place] [address] MEDICARE [facility] Address: [address] [address] [place] [address] [facility] MEDICARE ADVANTAGE [facility] MEDIC[facility] Address: [address] [address] [place] [address] MEDICARE [facility] Address: [address] [address] [place] [address] [facility] MEDICARE AD[facility]ANTAGE [facility] MEDIC[facility] Address: [address] [address] [place] [address] [employer] Advance Directives For more information, please contact: [phone] * Full Code (Latest Code Status on [...] 3:10 PM 05/04/2020 8:07 PM Care Teams Single Pointed Operator Relationship Specialty Start Date End Date Howard Bourgeois MD PCP - General 11/29/16 Sean Olguin MD Consulting Physician Cardiovascular Disease 10/21/18 Radha Sim MD Consulting Physician Internal Medicine 12/26/18 [place] Purdy Jr., MD Surgeon General Surgery 12/26/18 Enrike Schrader MD Consulting Physician Cardiology 12/26/18 Guido Concepcion MD PhD [address] [facility] DEPT RADIATION ONCOLOGY, [place] [address] Radiation Oncologist Radiation Oncology 11/23/24
--- OUTSIDE RECORDS SUMMARY | 2025-03-02 20:37 | XMS_ITS | Encounter Summary ---
Author Organization [facility] Healthcare Address [address] [place] [address] Care Team Providers Care Instrument Technician Name Role Phone Howard Bourgeois MD Primary Care Provider [phone] Sean Olguin MD Unavailable Radha Sim MD Unavailable [phone] Rajwinder Carlos MD, [place] NJohnny Unavailable [phone] Enrike Schrader MD Unavailable [phone] Guido Concepcion MD PhD Unavailable [phone] Encounter Details Date Type Department Care Team (Late st Contact Info) Description 12/13/2024 Telephone [facility] Radiation Oncology [address] [facility] Advanced Medicine [facility] [place] [address] Katarina Buchanan RN Social History Tobacco Use Types Packs/Day Years Used Date Smoking Tobacco: Former Cigarettes 0.5 18 0 10/2003 - 10/2021 Passive Smoke Exposure: Never Smokeless Tobacco: Never Comments:< 1/2 pack daily Alcohol Use Standard Drinks/Week Comments Yes 0 (1 standard drink = 0.6 oz pur e alcohol) rarely [facility] Utilities Answer Date Recorded In the past 12 months has [employer] electric, gas, oil, or water company threatened [...] often do you attend chur ch or mosque services? Never 08/27/2024 Do you belong to [...] time in the past [address] [facility], were you homeless or living in a skilled nursing (including now)? No 08/27/2024 Personal Safety Answer Date Recorded Have you ever been in or are you currently in a harmful physical or emotional relationship or is someone making you feel afraid or unsafe? 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 Gender Identity Female 06/07/2021 5:59 PM CDT Sexual Orientation Straight 06/07/2021 5: 59 PM CDT documented as of this encounter Plan of Treatment Not on file documented as of this encounter Visit Diagnoses Not on filedocumented in this encounter Care Teams Instrument Technician Relationship Specialty Start Date End Date Howard Bourgeois MD PCP - General 11/29/16 Sean Olguin MD Consulting Physician Cardiovascular Disease 10/21/18 Radha Sim MD Consulting Physician Internal Medicine 12/26/18 [place] Purdy Jr., MD Surgeon General Surgery 12/26/18 Enrike Schrader MD Consulting Physician Cardiology 12/26/18 Guido Concepcion MD PhD [address] [facility] DEPT RADIATION ONCOLOGY, [place] [address] Radiation Oncologist Radiation Oncology 11/23/24 documented as of this encounter
--- OUTSIDE RECORDS SUMMARY | 2025-03-02 20:37 | XMS_ITS | Clinical Summary ---
Author Organization [facility] Address [address] [facility] [place] [address] Care Team Providers Care Plug Grower Name Role Phone Howard Bourgeois MD Primary Care Provider [phone] Carmen Dyson RN Unavailable Unavailab le Source Comments [facility],non-owned Affiliates and Associated Physician Practices is amultiple site organization consisting of ambulatory clinics and hospital sitesin [place], [place], [place] and [place]. This disclosure is being madepursuant to the Care Everywhere program and may not contain all information available regarding this patient. 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 Gender Identity Not on file Sexual Orientation [...] 74 - 106 mg/dL 12/13/2018 4:37 AM [facility] Sodium 139 136 - 145 mmol/L 12/13/2018 4:37 AM CDT [facility] Potassium 4.1 3.5 - 5.1 mmol/L 12/13/2018 4:37 AM CDT [facility] Chloride 103 98 - 107 mmol/L 12/13/2018 4:37 AM [facility] CO2 29 22 - 31 mmol/L 12/13/2018 4:37 AM [facility] Calcium 8.4(L) 8.5 - 10.1 mg/dL 12/13/2018 4:37 AM [facility] Anion Gap 7(L) 8 - 16 mmol/L 12/13/2018 4:37 AM CDT [facility] BUN 18 7 - 21 mg/dL 12/13/2018 4:37 AM CDT [facility] Creatinine 0.94 0.50 - 1.30 mg/dL 12/13/2018 4:37 AM CDT [facility] eGFR by MDRD >60 >60 mL/min/1.7 3m2 12/13/2018 4:37 AM CDT [facility] eGFR by MDRD >60 >60 mL/min/1.7 3m2 12/13/2018 4:37 AM CDT [facility] Blood BLOOD SPECIMEN / Unknown Venipuncture / Unknown 12/13/2018 4:15 AM CDT 12/13/2018 4:20 AM CDT us Provider Unknown LAB - CHEMISTRY ORDERABLES Sue l Result [facility] [address] [place] [id number] from Last 3 Months or Most Recently Relevant to Health Maintenance Insurance MEDICARE MEDICARE MEDICARE Advance Directives * Full Code (Latest Code Status on File) Date Activated Date Inactivated Comments 10/31/2017 1:38 PM 11/01/2017 7:51 PM * Full Code Date Activated Date Inactivated Comments 10/31/2017 1:38 PM 10/31/2017 1:38 PM Care Teams Plug Grower Relationship Specialty Start Date End Date Howard Bourgeois MD [address] [facility] [address] [place] [address] PCP - General Internal Medicine 10/15/17 Carmen Dyson, RN Registered Nurse 10/31/17
--- OUTSIDE RECORDS SUMMARY | 2025-03-02 20:37 | XMS_ITS | Clinical Summary ---
Author Organization [facility] Address [address] [place] [address] Care Team Providers Care Route Sales Associate Name Role Phone Unavailable Primary Care Provider [...] hours. 0 9 Active ergocalciferol (VITAMIN D2) 66956 units capsule Take 1 capsule (50,000 Units [...]
--- OUTSIDE RECORDS SUMMARY | 2025-03-02 20:37 | XMS_ITS | Encounter Summary ---
Author Organization [facility] Healthcare Address [address] [place] [address] Care Team Providers Care Client Services Assistant Name Role Phone Howard Bourgeois MD Primary Care Provider [phone] Sean Olguin MD Unavailable Radha Sim MD Unavailable [phone] Rajwinder Carlos MD, [place] NJohnny Unavailable [phone] Enrike Schrader MD Unavailable [phone] Guido Concepcion MD PhD Unavailable [phone] Encounter Details Date Type Department Care Team (Late st Contact Info) Description 11/30/[address] [facility] Advanced Medicine Radiation Oncology [address] [facility] Advanced Medicine [facility] [place] [address] Katarina Buchanan RN Social History Tobacco Use Types Packs/Day Years Used Date Smoking Tobacco: Former Cigarettes 0.5 18 0 10/2003 - 10/2021 Passive Smoke Exposure: Never Smokeless Tobacco: Never Comments:< 1/2 pack daily Alcohol Use Standard Drinks/Week Comments Yes 0 (1 standard drink = 0.6 oz pur e alcohol) rarely [facility] Utilities Answer Date Recorded In the past 12 months has [employer] electric, gas, oil, or water company threatened [...] often do you attend chur ch or jainism services? 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 Gender Identity Female 06/07/2021 5:59 PM CDT Sexual Orientation Straight 06/07/2021 5: 59 PM CDT documented as of this encounter Plan of Treatment Not on file documented as of this encounter Visit Diagnoses Not on filedocumented in this encounter Care Teams Client Services Assistant Relationship Specialty Start Date End Date Howard Bourgeois MD PCP - General 11/29/16 Sean Olguin MD Consulting Physician Cardiovascular Disease 10/21/18 Radha Sim MD Consulting Physician Internal Medicine 12/26/18 [place] Purdy Jr., MD Surgeon General Surgery 12/26/18 Enrike Schrader MD Consulting Physician Cardiology 12/26/18 Guido Concepcion MD PhD [address] [facility] DEPT RADIATION ONCOLOGY, [place] [address] Radiation Oncologist Radiation Oncology 11/23/24 documented as of this encounter
[2025-03-02 20:40] LABS: Alanine Aminotransferase 28 U/L (6-35); Albumin Level 4.0 g/dL (3.5-5.1); Alkaline Phosphatase 256 U/L (38-126); Anion Gap 16 mmol/L (4-12); Aspartate Amino Transferase 27 U/L (14-36); Bilirubin,Total 0.7 mg/dL (0.2-1.3); Blood Urea Nitrogen 17 mg/dL (7-17); Calcium 9.7 mg/dL (8.4-10.2); Carbon Dioxide 21 mmol/L (22-30); Chloride 97 mmol/L (98-107); Estimated Glomerular Filt Rate > 60; Glucose 166 mg/dL (65-110); Potassium 3.5 mmol/L (3.4-5.0); Sodium 134 mmol/L (137-145); Total Protein 9.0 g/dL (6.3-8.2)
[2025-03-02 20:41] LABS: Prothrombin Time 48.2 Seconds (11.1-14.7)
[2025-03-02 20:43] LABS: Partial Thromboplastin Time 119.9 Seconds (22.3-36.8)
[2025-03-02 20:44] LABS: INR 5.7
[2025-03-02 20:47] LABS: Add Urine Microscopic? YES; Appearance Urine Clear (Clear); Budding Yeast Urine Present /hpf; Glucose Urine UA 3+ mg/dL (Negative); Leukocyte Esterase Ur Negative LEU/UL (Negative); Need Manual Microscopic Reviewed; Nitrate Urine Negative (Negative); Specific Grav Ur 1.036 (1.001-1.035)
[2025-03-02 20:50] LABS: Anisocytosis 1+; Lymphocytes Absolute Manual 1.10 K/mm3 (1.1-4.5); Lymphocytes Percent Manual 5.0 % (18-44); Monocytes Absolute Manual 0.88 K/mm3 (0.1-0.90); Monocytes Percent Manual 4 % (3-9); Neutrophils Percent Manual 91 % (46-73); Schistocytes None Seen; Total Cells Counted 100
[2025-03-02 20:51] LABS: Band Neutrophils Percent 0 % (0-6); Neutrophils Absolute Manual 20.02 K/mm3 (1.3-6.7)
[2025-03-02 21:06] LABS: Troponin I < 0.012 ng/mL (0.000-0.034)
[2025-03-02] MEDS: PHYTONADIONE ADULT INJ 10 MG in DEXTROSE 5% IN WATER 50 ML 100 MG IVPB (21:14)
[2025-03-02 21:17] VITALS: BP 151/92; PULSE 121; RESP 18; TEMP 36.7; O2SAT 95
[2025-03-02 21:17] LABS: Prothrombin Time 48.1 Seconds (11.1-14.7)
[2025-03-02 21:19] LABS: NT Pro B Type Natriuretic Pept 1420 pg/mL (19.9-100)
[2025-03-02 21:19] LABS: Partial Thromboplastin Time 118.8 Seconds (22.3-36.8)
[2025-03-02 21:27] LABS: INR 5.7
[2025-03-02 21:58] LABS: Influenza A QL RT-PCR Negative (Negative); Influenza B QL RT-PCR Negative (Negative); RSV RNA, RT-PCR Negative (Negative); SARS-CoV-2 RNA PCR Negative (Negative)
[2025-03-02] MEDS: ONDANSETRON INJ 4 MG/2 ML VIAL IV PUSH (22:13)
[2025-03-02] MEDS: [UNRECOGNIZED DRUG - OTHER] IV CONT (22:13)
[2025-03-02] MEDS: HUMAN PROTHROMBIN COMPLEX IV CONT (22:13)
[2025-03-02 22:15] VITALS: BP 165/92; PULSE 117; RESP 20; O2SAT 98
== END 2025-03-02 22:19 | disposition short-term general hospital (02) ==
PROVIDERS: Student in an Organized Health Care Education/Training Program; Emergency Provider Emergency Medicine; PCP Internal Medicine
DX: I62.01 Nontraumatic acute subdural hemorrhage (principal); Z20.822 Contact with and (suspected) exposure to COVID-19; I50.9 Heart failure, unspecified; M32.9 Systemic lupus erythematosus, unspecified; Z87.891 Personal history of nicotine dependence; Z79.84 Long term (current) use of oral hypoglycemic drugs; Z79.899 Other long term (current) drug therapy; Z79.85 Long-term (current) use of injectable non-insulin antidiabetic drugs; Z79.01 Long term (current) use of anticoagulants; Z79.82 Long term (current) use of aspirin; R00.0 Tachycardia, unspecified; I49.1 Atrial premature depolarization; R94.31 Abnormal electrocardiogram [ECG] [EKG]
CPT/HCPCS: 36415; 70450; 71045; 80053; 81001; 83605; 83880; 84484; 85025; 85610; 85730; 87040; 87637; 93005; 96365; 96375; 99291; J2405; J3430; J7168